=== PATIENT | female | born 1990 | race Caucasian/White ===

== ENCOUNTER 2020-06-29 06:36 | Day surgery (SDC) | payer MEDICAID, SELFPAY ==
[2020-06-29] VITALS (17 sets, daily range): BP systolic 110–149; BP diastolic 58–97; PULSE 104–108; RESP 16–18; TEMP 36.4; O2SAT 98–100; BMI 21.5
--- NOTE | 2020-06-29 10:00 | HO.ANESPROP2 ---
[facility], [facility] Past Medical History Medical History Asthma Brain tumor Diabetes Gastroparesis GERD (gastroesophageal reflux disease) History of brain tumor History of jejunostomy tube placement Hypothyroidism Neuropathy Unspecified convulsions Social History Social History Are you a primary aged or disabled carer to a significant other at home: No Do you presently have visiting nurse or other home services: Yes Smoking Status: Never smoker Use of substances other than those prescribed or required for medical reasons: No Advance Directives: Yes (unknown) Advance Directives Information Provided: No Advance Directives on File: Yes Advance Directives Date on File: 06/29/20 Recently lost weight without trying: Yes Meds Allergies Allergy/AdvReac Type Severity Reaction Status Date / Time lamotrigine [From LAMICTAL] Allergy Severe CLEMENTINA Verified 06/29/20 09:20 GUIDO SYNDROME Benzodiazepines Allergy Intermediate AGGITATION- Verified 06/29/20 09:20 [BENZODIAZEPINES] NO PROBLEM WITH VERSED chlorhexidine [CHLORHEXIDINE] Allergy Intermediate RASH Verified 06/29/20 09:20 citalopram [From CELEXA] Allergy Intermediate PROLONGED Verified 06/29/20 09:20 QT INTERVAL divalproex sodium Allergy Intermediate BLACK Verified 06/29/20 09:20 [From DEPAKOTE] EYES escitalopram [From LEXAPRO] Allergy Intermediate SWELLING Verified 06/29/20 09:20 lactose [LACTOSE] Allergy Intermediate GI UPSET Verified 06/29/20 09:20 povidone-iodine Allergy Intermediate rash Verified 06/29/20 09:20 [From BETADINE] BEETS Allergy Intermediate SWELLING Uncoded 05/28/20 18:37 STATLOC Allergy Intermediate RASH Uncoded 05/28/20 18:37 Home Medications Medication Instructions Recorded Confirmed Type Carafate 10 mg FEEDING TUBE BID 06/25/20 06/25/20 History Cogentin 1 mg J-TUBE BID 06/25/20 06/25/20 History Haldol 2 mg FEEDING TUBE BID PRN 06/25/20 06/25/20 History Imodium 15 ml FEEDING TUBE QID PRN 06/25/20 06/25/20 History Movantik 25 mg J-TUBE DAILY 06/25/20 06/25/20 History Topamax 200 mg J-TUBE BID 06/25/20 06/25/20 History Tylenol Children's 250 mg FEEDING TUBE TID PRN MDD 3 06/25/20 06/25/20 History Vitamin D (with calcium) 1,000 units J-TUBE DAILY 06/25/20 06/25/20 History Zofran 4 mg FEEDING TUBE QID 06/25/20 06/25/20 History albuterol sulfate 2 puff INHALATION 6XD 06/25/20 06/25/20 History baclofen 10 mg J-TUBE TID 06/25/20 06/25/20 History diphenhydramine HCl [Benadryl] 50 mg IV Q6-8H 06/25/20 06/25/20 History famotidine [Pepcid] 20 mg DAILY 06/25/20 06/25/20 History gabapentin 600 mg J-TUBE TID 06/25/20 06/25/20 History ipratropium-albuterol [DuoNeb] 3 ml INHALATION Q6-8H PRN 06/25/20 06/25/20 History lactulose 5 ml J-TUBE BID MDD 20ml 06/25/20 06/25/20 History levothyroxine 112 mcg J-TUBE DAILY 06/25/20 06/25/20 History loxapine 60 mg J-TUBE BID 06/25/20 06/25/20 History methenamine mandelate 1 g FEEDING TUBE BID 06/25/20 06/25/20 History midodrine 10 mg J-TUBE TID 06/25/20 06/25/20 History oxybutynin 3.9 mg TRANSDERMAL DIRECTED 06/25/20 06/25/20 History oxycodone 10 mg FEEDING TUBE DAILY PRN 06/25/20 06/25/20 History pantoprazole [Protonix] 40 mg IV DAILY 06/25/20 06/25/20 History promethazine [Phenergan] 25 mg IV BID 06/25/20 06/25/20 History trazodone 25 mg J-TUBE ONCE PRN 06/25/20 06/25/20 History trazodone 125 mg J-TUBE BEDTIME 06/25/20 06/25/20 History Exam Exam Date and Time: June 29, 2020 1000 Height,Weight and Vital Signs: Height 4 ft 10 in Weight 46.8 kg Last Vital Signs Temp 97.6 F 06/29/20 09:04 Pulse 108 H 06/29/20 09:04 Resp 16 06/29/20 09:04 BP 149/97 H 06/29/20 09:04 Pulse Ox 100 06/29/20 09:04 Airway Mallampati Class: II TM Dist: >3cm Neck ROM: Full Assessment and Plan Assessment Anesthesia Assessment: Anesthesia Plan Discussed and Chart Reviewed Final Anesthetic Review ASA Class: III Final Preanesthetic Review: No Changes in Pt Med Stat, Meds/Allgs Chart Reviewed, Consent Obtained/Reviewed and Anes Risks/Benef Reviewed Patient Risk: Intermediate Procedure Risk: Low Assessment/Block/Sedation in SS: Assess/Block/Sedation-SS Anesthetic Plan Anesthetic Plan: MAC: Disposition: Standard PACU
--- NOTE | 2020-06-29 10:17 | PM.OP ---
Brief Operative Note Date of procedure: 06/29/20 Pre-op diagnosis: neurogenic bladder Post-op diagnosis: same Procedure: SPT change Implants: 20 Khmer catheter Surgeon: Denys Pereira MD Anesthesia: MAC Estimated blood loss (mL): 0 Pathology: none sent Condition: stable Disposition: same day
[2020-06-29] MEDS: HYDROmorphone HCl 1 MG/ML SYRINGE IVPUSH (10:33)
--- NOTE | 2020-06-29 11:11 | P.OP_ITS ---
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 This results in a neurogenic bladder. Has a suprapubic tube that is changed every 4 weeks. Twenty [place] Procedure: after informed consent was verified patient brought to the operating room on a stretcher. Safety pause time-out performed. Sedation given. The 20 [place] Waldron catheter indwelling was removed. This had been placed at [facility] at 30 cc in the balloon. A new 20 [place] catheter was replaced in 10 cc placed in the balloon Catheter was clamped to allow urine to collect for urine culture. She tolerated procedure well and was transferred in stable condition to the recovery area Drains as above 20 [place] Waldron
--- NOTE | 2020-06-29 12:13 | HO.POSTANES ---
Post Anesthesia Evaluation Post Anesthesia Evaluation Vital Signs: Vital Signs Temp Pulse Resp BP Pulse Ox 06/29/20 11:35 106 H 16 120/67 98 06/29/20 11:20 106 H 16 127/82 98 06/29/20 11:15 107 H 16 110/65 99 06/29/20 11:10 108 H 16 113/65 99 06/29/20 11:05 108 H 16 112/70 99 06/29/20 11:00 104 H 16 116/72 99 06/29/20 10:55 108 H 18 115/79 100 06/29/20 10:50 106 H 18 140/83 H 100 06/29/20 10:45 107 H 18 131/79 100 06/29/20 10:40 104 H 121/81 100 06/29/20 10:35 104 H 124/79 100 06/29/20 10:30 106 H 141/64 H 100 06/29/20 10:25 107 H 18 128/58 L 100 06/29/20 10:20 97.5 F 107 H 18 141/87 H 100 06/29/20 09:04 97.6 F 108 H 16 149/97 H 100 Anesthesia: General Mental Status: Awake Pain Control: Satisfactory Nausea/Vomiting: None Hydration: Adequate Anesthesia-Related Issues: No Anes. Related Issues
--- NOTE | 2020-06-29 17:23 | PC.NURSE ---
06/29/2020 THIS PATIENT DISCHARGED FROM PACU AT 1230 VIA AMBULANCE TRANSPORTATION, PTS WHEELCHAIR ACCOMP TO [facility] B[facility] BY POWER DISTRIBUTION ENGINEER. PT HAS HER TPN AND FLUIDS RUNNING TO R CHEST TLC FROM HOME,PT HEPARANIZED YELLOW LUMEN HERSELF AFTER THIS RN HAD DC'D OUR IV FLUIDS AND NS FLUSH AFTER FLUID DC'D
== END 2020-06-29 12:37 | disposition home or self-care (01) ==
PROVIDERS: PCP Internal Medicine; Visit Provider Urology
PROC: (CPT 51102; principal; 2020-06-29 09:30)
DX: N31.9 Neuromuscular dysfunction of bladder, unspecified (principal); J45.909 Unspecified asthma, uncomplicated; E11.9 Type 2 diabetes mellitus without complications; K21.9 Gastro-esophageal reflux disease without esophagitis; K31.84 Gastroparesis; Z93.1 Gastrostomy status; G62.9 Polyneuropathy, unspecified; Z79.899 Other long term (current) drug therapy; Z88.8 Allergy status to other drugs, medicaments and biological substances
CPT/HCPCS: 51705; 87086; 87088; 87186; J0690; J1170

== ENCOUNTER 2020-07-27 09:58 | Day surgery (SDC) | payer MEDICAID, SELFPAY ==
[2020-07-21 20:25] VITALS: BMI 22.6
[2020-07-27] VITALS (8 sets, daily range): BP systolic 94–134; BP diastolic 55–84; PULSE 97–114; RESP 18–22; TEMP 36.1–36.4; O2SAT 100
[2020-07-27 10:32] LABS: Glucose, Whole Blood 99 mg/dL (60-115)
--- NOTE | 2020-07-27 11:17 | HO.ANESPROP2 ---
[facility] Past Medical History Medical History Asthma Brain bleed Brain tumor Diabetes Gastroparesis GERD (gastroesophageal reflux disease) History of jejunostomy tube placement Hypothyroidism Neuropathy Suprapubic catheter Unspecified convulsions Surgical History Surgical History Hx of oral surgery Social History Social History Smoking Status: Never smoker Use of substances other than those prescribed or required for medical reasons: No Advance Directives: Yes Advance Directives Information Provided: Yes Advance Directives on File: Yes Advance Directives Date on File: 06/29/20 Meds Allergies Allergy/AdvReac Type Severity Reaction Status Date / Time lamotrigine [From LAMICTAL] Allergy Severe CLEMENTINA Verified 06/29/20 09:20 GUIDO SYNDROME Benzodiazepines Allergy Intermediate AGGITATION- Verified 06/29/20 09:20 [BENZODIAZEPINES] NO PROBLEM WITH VERSED chlorhexidine [CHLORHEXIDINE] Allergy Intermediate RASH Verified 06/29/20 09:20 citalopram [From CELEXA] Allergy Intermediate PROLONGED Verified 06/29/20 09:20 QT INTERVAL divalproex sodium Allergy Intermediate BLACK Verified 06/29/20 09:20 [From DEPAKOTE] EYES escitalopram [From LEXAPRO] Allergy Intermediate SWELLING Verified 06/29/20 09:20 lactose [LACTOSE] Allergy Intermediate GI UPSET Verified 06/29/20 09:20 povidone-iodine Allergy Intermediate rash Verified 06/29/20 09:20 [From BETADINE] BEETS Allergy Intermediate SWELLING Uncoded 05/28/20 18:37 STATLOC Allergy Intermediate RASH Uncoded 05/28/20 18:37 Home Medications Medication Instructions Recorded Confirmed Type Carafate 10 mg FEEDING TUBE BID 06/25/20 07/21/20 History Cogentin 1 mg J-TUBE BID 06/25/20 07/21/20 History Haldol 2 mg FEEDING TUBE BID PRN 06/25/20 07/21/20 History Imodium 15 ml FEEDING TUBE QID PRN 06/25/20 07/21/20 History Movantik 25 mg J-TUBE DAILY 06/25/20 07/21/20 History Topamax 200 mg J-TUBE BID 06/25/20 07/21/20 History Tylenol Children's 250 mg FEEDING TUBE TID PRN MDD 3 06/25/20 07/21/20 History Vitamin D (with calcium) 1,000 units J-TUBE DAILY 06/25/20 07/21/20 History Zofran 4 mg FEEDING TUBE QID 06/25/20 07/21/20 History albuterol sulfate 2 puff INHALATION 6XD 06/25/20 07/21/20 History baclofen 10 mg J-TUBE TID 06/25/20 07/21/20 History diphenhydramine HCl 50 mg IV Q6-8H 06/25/20 07/21/20 History famotidine 20 mg DAILY 06/25/20 07/21/20 History gabapentin 600 mg J-TUBE TID 06/25/20 07/21/20 History ipratropium-albuterol 3 ml INHALATION Q6-8H PRN 06/25/20 07/21/20 History lactulose 5 ml J-TUBE BID MDD 20ml 06/25/20 07/21/20 History levothyroxine 112 mcg J-TUBE DAILY 06/25/20 07/21/20 History loxapine 60 mg J-TUBE BID 06/25/20 07/21/20 History methenamine mandelate 1 g FEEDING TUBE BID 06/25/20 07/21/20 History midodrine 10 mg J-TUBE TID 06/25/20 07/21/20 History oxybutynin 3.9 mg TRANSDERMAL DIRECTED 06/25/20 07/21/20 History oxycodone 10 mg FEEDING TUBE Q4-6H PRN 06/25/20 07/21/20 History pantoprazole [Protonix] 40 mg IV DAILY 06/25/20 07/21/20 History promethazine [Phenergan] 25 mg IV BID 06/25/20 07/21/20 History trazodone 25 mg J-TUBE ONCE PRN 06/25/20 07/21/20 History trazodone 125 mg J-TUBE BEDTIME 06/25/20 07/21/20 History Exam Exam Date and Time: July 27, 2020 1117 Height,Weight and Vital Signs: Height 4 ft 10 in Weight 49 kg Last Vital Signs Temp 97.5 F 07/27/20 10:13 Pulse 107 H 11/16/20 10:13 Resp 18 07/27/20 10:13 BP 99/70 07/27/20 10:13 Pulse Ox 100 07/27/20 10:13 Pertinent Lab Results Pertinent Lab Results: Laboratory Tests 07/27/20 10:28 POC Glucose 99 Airway Mallampati Class: II TM Dist: >3cm Neck ROM: Full Assessment and Plan Assessment Anesthesia Assessment: Anesthesia Plan Discussed and Chart Reviewed Final Anesthetic Review NPO: Yes ASA Class: III Final Preanesthetic Review: No Changes in Pt Med Stat, Meds/Allgs Chart Reviewed, Consent Obtained/Reviewed and Anes Risks/Benef Reviewed Patient Risk: Intermediate Procedure Risk: Low Assessment/Block/Sedation in SS: Assess/Block/Sedation-SS Anesthetic Plan Anesthetic Plan: MAC: Disposition: Standard PACU
--- NOTE | 2020-07-27 11:18 | MHC.SHP ---
Pre-Procedural Eval Section B Chief Complaint: bladder neurogenic Details of Present Illness: here for change of suprapubic tube performed every 4 weeks. No changes to health record. Relevant Family History (Specify if Yes): No Relevant Social History: None Present Medications: see Short Stay [facility] assessment Medical History: Significant History History of Previous Operations: Relevant previous surgery/procedure and date(s) Allergies: Allergies Allergy/AdvReac Type Severity Reaction Status Date / Time lamotrigine [From LAMICTAL] Allergy Severe CLEMENTINA Verified 06/29/20 09:20 GUIDO SYNDROME Benzodiazepines Allergy Intermediate AGGITATION- Verified 06/29/20 09:20 [BENZODIAZEPINES] NO PROBLEM WITH VERSED chlorhexidine [CHLORHEXIDINE] Allergy Intermediate RASH Verified 06/29/20 09:20 citalopram [From CELEXA] Allergy Intermediate PROLONGED Verified 06/29/20 09:20 QT INTERVAL divalproex sodium Allergy Intermediate BLACK Verified 06/29/20 09:20 [From DEPAKOTE] EYES escitalopram [From LEXAPRO] Allergy Intermediate SWELLING Verified 06/29/20 09:20 lactose [LACTOSE] Allergy Intermediate GI UPSET Verified 06/29/20 09:20 povidone-iodine Allergy Intermediate rash Verified 06/29/20 09:20 [From BETADINE] BEETS Allergy Intermediate SWELLING Uncoded 05/28/20 18:37 STATLOC Allergy Intermediate RASH Uncoded 05/28/20 18:37 Review of Systems Sugical H&P ROS: Negative: Constitution, Cardiovascular, Respiratory, Neurological, Psychiatric, Hem-Onc, Allergic/Immunologic, Gastrointestinal, Genitourinary, Musculoskeletal, Integumentary, Endocrine and Eyes/Ears/Nose/Throat Exam Surgical H&P Exam: Normal: HEENT, Normal: Heart, Normal: Lungs, Normal: Extremities, Normal: Abdomen, Normal: Skin and Normal: Neurological Plan Diagnosis/Plan: Unchanged Patient has been examined and remains a candidate for the planned procedure
[2020-07-27] MEDS: ceFAZolin Sodium/Dextrose,Iso 2 GM/50 ML PIGGYBACK IV (11:24)
--- NOTE | 2020-07-27 11:38 | P.OP_ITS ---
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 This results in a neurogenic bladder. Has a suprapubic tube that is changed every 4 weeks. Twenty [place] Procedure: After informed consent was verified patient brought to the operating room on a stretcher. Safety pause time-out performed. Sedation given. A new 20 [place] catheter was replaced with 7 cc placed in the balloon Catheter was clamped to allow urine to collect for urine culture. She tolerated procedure well and was transferred in stable condition to the recovery area Drains as above 20 [place] Waldron
--- NOTE | 2020-07-27 11:38 | PM.OP ---
Brief Operative Note Date of Service: 07/27/20 Pre-op diagnosis: Neurogenic bladder Post-op diagnosis: same Procedure: suprapubic tube change Implants: 20 [place] Island[place] silicon Waldron catheter Surgeon: Denys Pereira MD Anesthesia: MAC Estimated blood loss (mL): 0 Pathology: none sent Condition: stable Disposition: same day
[2020-07-27] MEDS: HYDROmorphone HCl 1 MG/ML SYRINGE IVPUSH (12:14)
--- NOTE | 2020-07-27 12:45 | HO.POSTANES ---
Post Anesthesia Evaluation Post Anesthesia Evaluation Vital Signs: Vital Signs Temp Pulse Resp BP Pulse Ox 07/27/20 12:40 105 H 18 100/55 L 100 07/27/20 12:27 100 18 114/65 100 07/27/20 12:14 105 H 22 H 108/74 100 07/27/20 11:59 114 H 18 134/84 100 07/27/20 11:40 97.0 F 100 20 108/71 100 07/27/20 10:13 97.5 F 107 H 18 99/70 100 Anesthesia: Monitored Mental Status: Awake Pain Control: Satisfactory Nausea/Vomiting: None Hydration: Adequate Anesthesia-Related Issues: No Anes. Related Issues
== END 2020-07-27 14:00 | disposition home or self-care (01) ==
LOC: HO.SSS 09:58
PROVIDERS: PCP Internal Medicine; Visit Provider Urology
PROC: (CPT 51102; principal; 2020-07-27 11:00)
DX: N31.9 Neuromuscular dysfunction of bladder, unspecified (principal); G37.9 Demyelinating disease of central nervous system, unspecified; G62.9 Polyneuropathy, unspecified; K31.84 Gastroparesis; K21.9 Gastro-esophageal reflux disease without esophagitis; E03.9 Hypothyroidism, unspecified; J45.909 Unspecified asthma, uncomplicated; Z79.899 Other long term (current) drug therapy; Z88.8 Allergy status to other drugs, medicaments and biological substances
CPT/HCPCS: 51705; 82947; 87086; 87088; 87147; 87186; J0690; J1170

== ENCOUNTER → 2020-08-17 08:30 | Outpatient (BNVA) | payer MEDICAID, SELFPAY | PROVIDERS: PCP Internal Medicine; Referring Provider Internal Medicine; Visit Provider Internal Medicine Gastroenterology | DX: Z76.89 Persons encountering health services in other specified circumstances (principal) ==

== ENCOUNTER → 2020-08-28 11:08 | Outpatient (BNVA) | payer MEDICAID, SELFPAY | PROVIDERS: PCP Internal Medicine; Visit Provider Internal Medicine Gastroenterology | DX: Z76.89 Persons encountering health services in other specified circumstances (principal) ==

== ENCOUNTER → 2020-09-09 09:19 | Outpatient (BNVA) | payer MEDICAID, SELFPAY | PROVIDERS: PCP Internal Medicine; Visit Provider Urology | DX: Z76.89 Persons encountering health services in other specified circumstances (principal) ==

== ENCOUNTER 2020-09-14 06:10 | Day surgery (SDC) | payer MEDICAID, SELFPAY ==
[2020-09-14 06:24] VITALS: BMI 16.7
[2020-09-14 06:49] VITALS: BP 142/96; PULSE 111; RESP 16; TEMP 37.5; O2SAT 100; BMI 37.0
[2020-09-14] MEDS: Lactated Ringers 1,000 ML 50 ML IVCONT (07:09)
--- NOTE | 2020-09-14 07:27 | MHC.SHP ---
Pre-Procedural Eval Section A The patient is an INPATIENT: No Changes since office visit: No Cold of Flu in the past 2 weeks, No New Medical Problems, No Changes in Medication and No Patient answered all questions The History & Physical has been completed within 30 days and I have reviewed it.: Yes Section B Chief Complaint: dysfunction of bladder Allergies: Allergies Allergy/AdvReac Type Severity Reaction Status Date / Time lamotrigine [From LAMICTAL] Allergy Severe CLEMENTINA Verified 06/29/20 09:20 GUIDO SYNDROME Benzodiazepines Allergy Intermediate AGGITATION- Verified 06/29/20 09:20 [BENZODIAZEPINES] NO PROBLEM WITH VERSED chlorhexidine [CHLORHEXIDINE] Allergy Intermediate RASH Verified 06/29/20 09:20 citalopram [From CELEXA] Allergy Intermediate PROLONGED Verified 06/29/20 09:20 QT INTERVAL divalproex sodium Allergy Intermediate BLACK Verified 06/29/20 09:20 [From DEPAKOTE] EYES escitalopram [From LEXAPRO] Allergy Intermediate SWELLING Verified 06/29/20 09:20 lactose [LACTOSE] Allergy Intermediate GI UPSET Verified 06/29/20 09:20 povidone-iodine Allergy Intermediate rash Verified 06/29/20 09:20 [From BETADINE] BEETS Allergy Intermediate SWELLING Uncoded 05/28/20 18:37 STATLOC Allergy Intermediate RASH Uncoded 05/28/20 18:37 Plan I have reviewed the history and physical and performed a pertinent physical examination on my patient. No changes have occurred unless specified.
[2020-09-14] MEDS: Linezolid/D5W 600 MG/300 ML PIGGYBACK 300 MG IV (07:28)
--- NOTE | 2020-09-14 07:30 | HO.ANESPROP2 ---
[facility] Past Medical History Medical History Asthma Brain bleed Brain tumor Diabetes Gastroparesis GERD (gastroesophageal reflux disease) History of jejunostomy tube placement Hypothyroidism Neuropathy Suprapubic catheter Unspecified convulsions Family History Family History Father No problems noted. Mother No problems noted. Surgical History Surgical History History of colonoscopy Hx of endoscopy Hx of oral surgery Social History Social History Alcohol intake: never Smoking Status: Never smoker Use of substances other than those prescribed or required for medical reasons: No Advance Directives: Yes Advance Directives on File: Yes Advance Directives Date on File: 06/29/20 Meds Allergies Allergy/AdvReac Type Severity Reaction Status Date / Time lamotrigine [From LAMICTAL] Allergy Severe CLEMENTINA Verified 06/29/20 09:20 GUIDO SYNDROME Benzodiazepines Allergy Intermediate AGGITATION- Verified 06/29/20 09:20 [BENZODIAZEPINES] NO PROBLEM WITH VERSED chlorhexidine [CHLORHEXIDINE] Allergy Intermediate RASH Verified 06/29/20 09:20 citalopram [From CELEXA] Allergy Intermediate PROLONGED Verified 06/29/20 09:20 QT INTERVAL divalproex sodium Allergy Intermediate BLACK Verified 06/29/20 09:20 [From DEPAKOTE] EYES escitalopram [From LEXAPRO] Allergy Intermediate SWELLING Verified 06/29/20 09:20 lactose [LACTOSE] Allergy Intermediate GI UPSET Verified 06/29/20 09:20 povidone-iodine Allergy Intermediate rash Verified 06/29/20 09:20 [From BETADINE] BEETS Allergy Intermediate SWELLING Uncoded 05/28/20 18:37 STATLOC Allergy Intermediate RASH Uncoded 05/28/20 18:37 Home Medications Medication Instructions Recorded Confirmed Type Carafate 10 mg FEEDING TUBE BID 06/25/20 07/21/20 History Cogentin 1 mg J-TUBE BID 06/25/20 07/21/20 History Haldol 2 mg FEEDING TUBE BID PRN 06/25/20 07/21/20 History Imodium 15 ml FEEDING TUBE QID PRN 06/25/20 07/21/20 History Topamax 200 mg J-TUBE BID 06/25/20 07/21/20 History Tylenol Children's 250 mg FEEDING TUBE TID PRN MDD 3 06/25/20 07/21/20 History Vitamin D (with calcium) 1,000 units J-TUBE DAILY 06/25/20 07/21/20 History Zofran 4 mg FEEDING TUBE QID 06/25/20 07/21/20 History albuterol sulfate 2 puff INHALATION 6XD 06/25/20 07/21/20 History baclofen 10 mg J-TUBE TID 06/25/20 07/21/20 History diphenhydramine HCl 50 mg IV Q6-8H 06/25/20 07/21/20 History famotidine 20 mg DAILY 06/25/20 07/21/20 History gabapentin 600 mg J-TUBE TID 06/25/20 07/21/20 History ipratropium-albuterol 3 ml INHALATION Q6-8H PRN 06/25/20 07/21/20 History lactulose 5 ml J-TUBE BID MDD 20ml 06/25/20 07/21/20 History levothyroxine 112 mcg J-TUBE DAILY 06/25/20 07/21/20 History loxapine 60 mg J-TUBE BID 06/25/20 07/21/20 History methenamine mandelate 1 g FEEDING TUBE BID 06/25/20 07/21/20 History midodrine 10 mg J-TUBE TID 06/25/20 07/21/20 History oxybutynin 3.9 mg TRANSDERMAL DIRECTED 06/25/20 07/21/20 History oxycodone 10 mg FEEDING TUBE Q4-6H PRN 06/25/20 07/21/20 History pantoprazole [Protonix] 40 mg IV DAILY 06/25/20 07/21/20 History promethazine [Phenergan] 25 mg IV BID 06/25/20 07/21/20 History trazodone 25 mg J-TUBE ONCE PRN 06/25/20 07/21/20 History trazodone 125 mg J-TUBE BEDTIME 06/25/20 07/21/20 History Exam Exam Date and Time: September 14, 2020 0730 Height,Weight and Vital Signs: Height 4 ft 10 in Weight 80.3 kg Last Vital Signs Temp 99.5 F 09/14/20 06:49 Pulse 111 H 09/14/20 06:49 Resp 16 09/14/20 06:49 BP 142/96 H 09/14/20 06:49 Pulse Ox 100 09/14/20 06:49 Airway Mallampati Class: II TM Dist: >3cm Neck ROM: Full Loose/Missing/Broken Teeth: No Heart: [id number] Lungs: cta b/l Assessment and Plan Assessment Anesthesia Assessment: Anesthesia Plan Discussed and Chart Reviewed Final Anesthetic Review NPO: Yes ASA Class: III Final Preanesthetic Review: No Changes in Pt Med Stat, Meds/Allgs Chart Reviewed, Consent Obtained/Reviewed and Anes Risks/Benef Reviewed Patient Risk: Intermediate Procedure Risk: Low Assessment/Block/Sedation in SS: Assess/Block/Sedation-SS Anesthetic Plan Anesthetic Plan: MAC: Disposition: Standard PACU
--- NOTE | 2020-09-14 07:31 | PC.NURSE ---
CALLED AND SPOKE TO PHARMACIST JEAN-PAUL AND ITS OKAY TO LET [employer] RUN IN ONE HOUR. OK TO OVERRIDE MACHINE
[2020-09-14 07:34] LABS: Glucose, Whole Blood 110 mg/dL (60-115)
--- NOTE | 2020-09-14 07:50 | P.OP_ITS ---
Operative Note Operative Note Date of Service: 09/14/20 Narrative: PreOperative Diagnosis: neurogenic bladder Post Operative Diagnosis: neurogenic bladder with Small nerve demyelination hypersensitivity Procedure: suprapubic tube change Surgeon: Dr Denys Pereira Anesthesia: sedation Indications for procedure: neurogenic bladder with small nerve demyelination hypersensitivity. Has SPT changed every 4 weeks Procedure: After informed consent was verified the patient was brought to the operating room and placed in a supine position. anesthesia was administered per protocol. informed consent was verified Safety pause timeout performed Antibiotics have been given Area was draped. She is allergic to most forms of prep. Indwelling catheter was deflated and removed. A [address] catheter was placed. Tolerated procedure well and transferred to recovery area Pathology: None Drains: 20 [place] Waldron catheter
[2020-09-14 07:53] VITALS: BP 101/63; PULSE 106; RESP 20; TEMP 36.5; O2SAT 100
--- NOTE | 2020-09-14 07:53 | P.BOP_ITS ---
Brief Operative Note Date of Service: 09/14/20 Pre-op diagnosis: Neurogenic bladder Post-op diagnosis: same Procedure: SPT change Implants: Twenty [place] Waldron catheter Surgeon: Denys Pereira MD Anesthesia: MAC Estimated blood loss (mL): 0 Pathology: none sent Condition: stable Disposition: same day
[2020-09-14 08:08] VITALS: BP 101/61; PULSE 107; RESP 20; O2SAT 100
[2020-09-14 08:22] VITALS: RESP 20
[2020-09-14] MEDS: HYDROmorphone HCl 0.5 MG/0.5 ML SYRINGE 1 MG IVPUSH (08:22)
[2020-09-14 08:23] VITALS: BP 98/63; PULSE 108; RESP 20; O2SAT 98
[2020-09-14 08:35] VITALS: BP 118/73; PULSE 108; RESP 20; TEMP 36.2; O2SAT 100
== END 2020-09-14 08:49 ==
PROVIDERS: PCP Internal Medicine; Visit Provider Urology
PROC: (CPT 51102; principal; 2020-09-14 07:30)
DX: N31.9 Neuromuscular dysfunction of bladder, unspecified (principal); E11.9 Type 2 diabetes mellitus without complications; G37.9 Demyelinating disease of central nervous system, unspecified; G62.89 Other specified polyneuropathies; J45.909 Unspecified asthma, uncomplicated; R56.9 Unspecified convulsions; Z79.899 Other long term (current) drug therapy; Z88.8 Allergy status to other drugs, medicaments and biological substances
CPT/HCPCS: 51705; 82947; J1170; J2020; J2250; J3010

== ENCOUNTER → 2020-10-09 11:05 | Outpatient (BNVA) | payer MEDICAID, SELFPAY | PROVIDERS: PCP Internal Medicine; Visit Provider Internal Medicine Gastroenterology ==

== ENCOUNTER 2020-10-12 06:07 | Day surgery (SDC) | payer MEDICAID, SELFPAY ==
[2020-10-06 14:57] VITALS: BMI 16.7
--- NOTE | 2020-10-07 10:34 | P.CONAN_ITS ---
Documented by User: Lucila Sanchezney 10/07/20 10:39 HPI - Anesthesia Eval Consult details Narrative: 30yo F for Insertion Suprapubic Tube Change Last SPT change 09/14/20 with MAC: Midaz 2 Prop 50 Dilaudid 2 Recent [place] admit with Right Hip Septic arthritis. Grew out wanda c/w re cent fungemia treatment. On IV Diflucan post d/c. Per D/C summary, no cardiac valve veg on ECHO. Chronic opioid doses increased in setting of acute post-op pain. [facility] Past Medical History Medical History Asthma Brain bleed Brain tumor Diabetes Gastroparesis GERD (gastroesophageal reflux disease) History of jejunostomy tube placement Hypothyroidism Neuropathy Seizures Septic arthritis Suprapubic catheter Unspecified convulsions Family History Family History (Updated 10/09/20 @ 11:12 by Jenifer Pedraza) Father Skin cancer Mother No problems noted. Surgical History Surgical History (Updated 10/09/20 @ 11:11 by Jenifer Pedraza) History of colonoscopy History of esophagogastroduodenoscopy (EGD) History of hip surgery Hx of endoscopy Hx of oral surgery Social History Social History (Updated 10/09/20 @ 11:13 by Jenifer Pedraza) Household Members: Caregiver and None Are you a primary rn progressive care to a significant other at home: No Do you presently have visiting nurse or other home services: Yes Alcohol intake: current Alcohol intake frequency: does not drink Smoking Status: Never smoker Use of substances other than those prescribed or required for medical reasons: No Have you been hit, kicked, punched, or otherwise hurt by someone within the past year? If so, by whom?: No Advance Directives: Yes Advance Directives Information Provided: Yes Advance Directives on File: Yes Advance Directives Date on File: 06/29/20 Recently lost weight without trying: Yes Meds Allergies Allergy/AdvReac Type Severity Reaction Status Date / Time lamotrigine [From LAMICTAL] Allergy Severe CLEMENTINA Verified 10/09/20 11:10 GUIDO SYNDROME chlorhexidine [CHLORHEXIDINE] Allergy Intermediate RASH Verified 10/09/20 11:10 citalopram [From CELEXA] Allergy Intermediate PROLONGED Verified 10/09/20 11:10 QT INTERVAL divalproex sodium Allergy Intermediate BLACK Verified 10/09/20 11:10 [From DEPAKOTE] EYES escitalopram [From LEXAPRO] Allergy Intermediate SWELLING Verified 10/09/20 11:10 lactose [LACTOSE] Allergy Intermediate GI UPSET Verified 10/09/20 11:10 povidone-iodine Allergy Intermediate rash Verified 10/09/20 11:10 [From BETADINE] clonazepam [From Klonopin] Allergy agitation Verified 10/09/20 11:10 lorazepam [From Ativan] Allergy agitation Verified 10/09/20 11:10 BEETS Allergy Intermediate SWELLING Uncoded 10/06/20 15:12 STATLOC Allergy Intermediate RASH Uncoded 10/06/20 15:12 Home Medications Medication Instructions Recorded Confirmed Type Tylenol Children's 250 mg FEEDING TUBE TID PRN MDD 3 06/25/20 07/21/20 History Vitamin D (with calcium) 1,000 units J-TUBE DAILY 06/25/20 07/21/20 History Zofran 4 mg FEEDING TUBE QID 06/25/20 07/21/20 History albuterol sulfate 2 puff INHALATION 6XD 06/25/20 10/06/20 History diphenhydramine HCl 50 mg IV Q6-8H 06/25/20 07/21/20 History famotidine 20 mg DAILY 06/25/20 10/06/20 History lactulose 5 ml J-TUBE BID MDD 20ml 06/25/20 07/21/20 History loperamide [Imodium A-D] 2 mg FEEDING TUBE Q6H PRN #0 06/25/20 10/06/20 History loxapine 60 mg J-TUBE BID 06/25/20 07/21/20 History oxybutynin 3.9 mg TRANSDERMAL DIRECTED 06/25/20 07/21/20 History pantoprazole [Protonix] 40 mg IV DAILY 06/25/20 10/06/20 History promethazine [Phenergan] 25 mg IV BID 06/25/20 10/06/20 History acetaminophen 500 mg FEEDING TUBE QID PRN 10/06/20 10/06/20 History baclofen 10 mg FEEDING TUBE TID 10/06/20 10/06/20 History benztropine [Cogentin] 1 mg FEEDING TUBE DAILY 10/06/20 10/06/20 History famotidine (PF)-NaCl (iso-os) 20 mg IV DAILY 10/06/20 10/06/20 History [Pepcid in NaCl (iso-osm) (PF)] fludrocortisone [Florinef] 0.1 mg FEEDING TUBE DAILY 10/06/20 10/06/20 History fluoxetine 60 mg FEEDING TUBE BID 10/06/20 10/06/20 History gabapentin 600 mg FEEDING TUBE TID 10/06/20 10/06/20 History ipratropium-albuterol [DuoNeb] 3 ml INHALATION Q6-8H PRN 10/06/20 10/06/20 History levothyroxine 112 mcg FEEDING TUBE DAILY 10/06/20 10/06/20 History methenamine hippurate [Hiprex] 1 g FEEDING TUBE Q12H 10/06/20 10/06/20 History midodrine 10 mg FEEDING TUBE BID 10/06/20 10/06/20 History naloxegol [Movantik] 25 mg PO QAM 10/06/20 10/06/20 History oxycodone 15 mg FEEDING TUBE Q4H 10/06/20 10/06/20 History sucralfate [Carafate] 10 ml PO BID 10/06/20 10/06/20 History topiramate [Topamax] 200 mg FEEDING TUBE BID 10/06/20 10/06/20 History trazodone 25 mg FEEDING TUBE DAILY PRN 10/06/20 10/06/20 History trazodone 125 mg FEEDING TUBE BEDTIME 10/06/20 10/06/20 History Exam Exam Date and Time: October 07, 2020 1034 Height,Weight and Vital Signs: Height 4 ft 10 in Weight 36.287 kg Assessment and Plan Assessment Anesthesia Assessment: Chart Reviewed Documented by User: Toya Lang 10/12/20 08:50 [facility] Past Medical History Medical History Asthma Brain bleed Brain tumor Diabetes Gastroparesis GERD (gastroesophageal reflux disease) History of jejunostomy tube placement Hypothyroidism Neuropathy Seizures Septic arthritis Suprapubic catheter Unspecified convulsions Family History Family History (Updated 10/09/20 @ 11:12 by Jenifer Pedraza) Father Skin cancer Mother No problems noted. Surgical History Surgical History (Updated 10/09/20 @ 11:11 by Jenifer Pedraza) History of colonoscopy History of esophagogastroduodenoscopy (EGD) History of hip surgery Hx of endoscopy Hx of oral surgery Social History Social History (Updated 10/09/20 @ 11:13 by Jenifer Pedraza) Household Members: Caregiver and None Are you a primary rn progressive care to a significant other at home: No Do you presently have visiting nurse or other home services: Yes Alcohol intake: current Alcohol intake frequency: does not drink Smoking Status: Never smoker Use of substances other than those prescribed or required for medical reasons: No Have you been hit, kicked, punched, or otherwise hurt by someone within the past year? If so, by whom?: No Advance Directives: Yes Advance Directives Information Provided: Yes Advance Directives on File: Yes Advance Directives Date on File: 06/29/20 Recently lost weight without trying: Yes Meds Allergies Allergy/AdvReac Type Severity Reaction Status Date / Time lamotrigine [From LAMICTAL] Allergy Severe CLEMENTINA Verified 10/09/20 11:10 GUIDO SYNDROME chlorhexidine [CHLORHEXIDINE] Allergy Intermediate RASH Verified 10/09/20 11:10 citalopram [From CELEXA] Allergy Intermediate PROLONGED Verified 10/09/20 11:10 QT INTERVAL divalproex sodium Allergy Intermediate BLACK Verified 10/09/20 11:10 [From DEPAKOTE] EYES escitalopram [From LEXAPRO] Allergy Intermediate SWELLING Verified 10/09/20 11:10 lactose [LACTOSE] Allergy Intermediate GI UPSET Verified 10/09/20 11:10 povidone-iodine Allergy Intermediate rash Verified 10/09/20 11:10 [From BETADINE] clonazepam [From Klonopin] Allergy agitation Verified 10/09/20 11:10 lorazepam [From Ativan] Allergy agitation Verified 10/09/20 11:10 BEETS Allergy Intermediate SWELLING Uncoded 10/06/20 15:12 STATLOC Allergy Intermediate RASH Uncoded 10/06/20 15:12 Home Medications Medication Instructions Recorded Confirmed Type Tylenol Children's 250 mg FEEDING TUBE TID PRN MDD 3 06/25/20 07/21/20 History Vitamin D (with calcium) 1,000 units J-TUBE DAILY 06/25/20 07/21/20 History Zofran 4 mg FEEDING TUBE QID 06/25/20 07/21/20 History albuterol sulfate 2 puff INHALATION 6XD 06/25/20 10/06/20 History diphenhydramine HCl 50 mg IV Q6-8H 06/25/20 07/21/20 History famotidine 20 mg DAILY 06/25/20 10/06/20 History lactulose 5 ml J-TUBE BID MDD 20ml 06/25/20 07/21/20 History loperamide [Imodium A-D] 2 mg FEEDING TUBE Q6H PRN #0 06/25/20 10/06/20 History loxapine 60 mg J-TUBE BID 06/25/20 07/21/20 History oxybutynin 3.9 mg TRANSDERMAL DIRECTED 06/25/20 07/21/20 History pantoprazole [Protonix] 40 mg IV DAILY 06/25/20 10/06/20 History promethazine [Phenergan] 25 mg IV BID 06/25/20 10/06/20 History acetaminophen 500 mg FEEDING TUBE QID PRN 10/06/20 10/06/20 History baclofen 10 mg FEEDING TUBE TID 10/06/20 10/06/20 History benztropine [Cogentin] 1 mg FEEDING TUBE DAILY 10/06/20 10/06/20 History famotidine (PF)-NaCl (iso-os) 20 mg IV DAILY 10/06/20 10/06/20 History [Pepcid in NaCl (iso-osm) (PF)] fludrocortisone [Florinef] 0.1 mg FEEDING TUBE DAILY 10/06/20 10/06/20 History fluoxetine 60 mg FEEDING TUBE BID 10/06/20 10/06/20 History gabapentin 600 mg FEEDING TUBE TID 10/06/20 10/06/20 History ipratropium-albuterol [DuoNeb] 3 ml INHALATION Q6-8H PRN 10/06/20 10/06/20 History levothyroxine 112 mcg FEEDING TUBE DAILY 10/06/20 10/06/20 History methenamine hippurate [Hiprex] 1 g FEEDING TUBE Q12H 10/06/20 10/06/20 History midodrine 10 mg FEEDING TUBE BID 10/06/20 10/06/20 History naloxegol [Movantik] 25 mg PO QAM 10/06/20 10/06/20 History oxycodone 15 mg FEEDING TUBE Q4H 10/06/20 10/06/20 History sucralfate [Carafate] 10 ml PO BID 10/06/20 10/06/20 History topiramate [Topamax] 200 mg FEEDING TUBE BID 10/06/20 10/06/20 History trazodone 25 mg FEEDING TUBE DAILY PRN 10/06/20 10/06/20 History trazodone 125 mg FEEDING TUBE BEDTIME 10/06/20 10/06/20 History Exam Airway Mallampati Class: II TM Dist: >3cm Neck ROM: Limited Assessment and Plan Assessment Anesthesia Assessment: Anesthesia Plan Discussed and Chart Reviewed Final Anesthetic Review NPO: Yes ASA Class: III Final Preanesthetic Review: No Changes in Pt Med Stat, Meds/Allgs Chart Reviewed, Consent Obtained/Reviewed and Anes Risks/Benef Reviewed Patient Risk: Intermediate Procedure Risk: Low Assessment/Block/Sedation in SS: Assess/Block/Sedation-SS Anesthetic Plan Anesthetic Plan: MAC: Disposition: Standard PACU
[2020-10-12] VITALS (11 sets, daily range): BP systolic 98–138; BP diastolic 45–88; PULSE 80–95; RESP 6–20; TEMP 36–36.4; O2SAT 99–100
[2020-10-12 07:21] LABS: Glucose, Whole Blood 97 mg/dL (60-115)
[2020-10-12] MEDS: levoFLOXacin/D5W 500 MG/100 ML PIGGYBACK 100 MG IV (07:22)
--- NOTE | 2020-10-12 08:32 | MHC.SHP ---
Pre-Procedural Eval Section B Chief Complaint: Dysfunction of Bladder Details of Present Illness: Neurogenic bladder Interval events admitted to [facility] with incision and drainage of right septic hip found to be fungus On combination fluconazole and ertapenem currently Question of E coli in bladder Relevant Family History (Specify if Yes): No Relevant Social History: None Medical History: Significant History History of Previous Operations: Relevant previous surgery/procedure and date(s) Allergies: Allergies Allergy/AdvReac Type Severity Reaction Status Date / Time lamotrigine [From LAMICTAL] Allergy Severe CLEMENTINA Verified 10/09/20 11:10 GUIDO SYNDROME chlorhexidine [CHLORHEXIDINE] Allergy Intermediate RASH Verified 10/09/20 11:10 citalopram [From CELEXA] Allergy Intermediate PROLONGED Verified 10/09/20 11:10 QT INTERVAL divalproex sodium Allergy Intermediate BLACK Verified 10/09/20 11:10 [From DEPAKOTE] EYES escitalopram [From LEXAPRO] Allergy Intermediate SWELLING Verified 10/09/20 11:10 lactose [LACTOSE] Allergy Intermediate GI UPSET Verified 10/09/20 11:10 povidone-iodine Allergy Intermediate rash Verified 10/09/20 11:10 [From BETADINE] clonazepam [From Klonopin] Allergy agitation Verified 10/09/20 11:10 lorazepam [From Ativan] Allergy agitation Verified 10/09/20 11:10 BEETS Allergy Intermediate SWELLING Uncoded 10/06/20 15:12 STATLOC Allergy Intermediate RASH Uncoded 10/06/20 15:12 Review of Systems Sugical H&P ROS: Negative: Constitution, Cardiovascular, Respiratory, Neurological, Psychiatric, Hem-Onc, Allergic/Immunologic, Gastrointestinal, Genitourinary, Musculoskeletal, Integumentary, Endocrine and Eyes/Ears/Nose/Throat Exam Surgical H&P Exam: Normal: HEENT, Normal: Heart, Normal: Lungs, Normal: Extremities, Normal: Abdomen, Normal: Skin and Normal: Neurological Plan Diagnosis/Plan: Unchanged I have reviewed the history and physical and performed a pertinent physical examination on my patient. No changes have occurred unless specified. Suprapubic
[2020-10-12] MEDS: Lactated Ringers 1,000 ML 20 ML IVCONT (08:51)
[2020-10-12] MEDS: HYDROmorphone HCl 1 MG/ML SYRINGE IVPUSH (09:33)
--- NOTE | 2020-10-12 10:08 | PM.OP ---
Brief Operative Note Date of Service: 10/12/20 Pre-op diagnosis: Neurogenic bladder Post-op diagnosis: same Procedure: Change of suprapubic tube Implants: Twenty Bulgarian Waldron catheter Surgeon: Denys Pereira MD Anesthesia: MAC Estimated blood loss (mL): 0 Pathology: none sent Condition: stable Disposition: same day
--- NOTE | 2020-10-12 10:09 | P.OP_ITS ---
Operative Note Operative Note Date of Service: 10/12/20 Narrative: PreOperative Diagnosis: Neurogenic bladder Post Operative Diagnosis: Neurogenic bladder Procedure: Change of suprapubic tube Surgeon: Dr Denys Pereira Anesthesia: Sedation Indications for procedure: 30-year-old female. 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 Here for suprapubic tube change Procedure: After informed consent was verified the patient was brought to the operating room and placed in a supine position. anesthesia was administered per protocol. Patient was prepped and draped in sterile fashion. Safety pause time-out was observed. Indwelling catheter was deflated and a 20 Macedonian Waldron catheter placed with 10 cc placed in the balloon. She tolerated procedure well when complete was removed from operating room Pathology: None Drains: Twenty Macedonian Waldron catheter
--- NOTE | 2020-10-12 14:39 | HO.POSTANES ---
Post Anesthesia Evaluation Post Anesthesia Evaluation Vital Signs: Vital Signs Temp Pulse Resp BP Pulse Ox 10/12/20 10:15 80 6 L 138/88 100 10/12/20 10:00 97 F 89 16 122/50 L 100 10/12/20 09:45 92 16 121/45 L 100 10/12/20 09:39 89 16 109/77 100 10/12/20 09:34 95 20 125/86 100 10/12/20 09:33 18 10/12/20 09:30 97 F 90 20 101/69 100 10/12/20 09:25 80 16 98/62 100 10/12/20 09:20 83 16 101/59 L 100 10/12/20 09:15 96.8 F 81 16 98/56 L 100 10/12/20 07:24 97.6 F 92 16 114/75 99 Anesthesia: Monitored Mental Status: Awake Pain Control: Satisfactory Nausea/Vomiting: None Hydration: Adequate Anesthesia-Related Issues: No Anes. Related Issues
== END 2020-10-12 10:55 | disposition home or self-care (01) ==
PROVIDERS: PCP Internal Medicine; Visit Provider Urology
PROC: (CPT 51102; principal; 2020-10-12 08:20)
DX: N31.9 Neuromuscular dysfunction of bladder, unspecified (principal); G37.9 Demyelinating disease of central nervous system, unspecified; K31.84 Gastroparesis; E11.9 Type 2 diabetes mellitus without complications; G62.89 Other specified polyneuropathies; K21.9 Gastro-esophageal reflux disease without esophagitis; J45.909 Unspecified asthma, uncomplicated; R56.9 Unspecified convulsions; Z86.79 Personal history of other diseases of the circulatory system; Z79.899 Other long term (current) drug therapy
CPT/HCPCS: 51705; 82947; J1170; J1956

== ENCOUNTER 2020-11-16 12:29 | Day surgery (SDC) | payer MEDICAID, SELFPAY ==
[2020-11-12 10:01] VITALS: BMI 23.1
[2020-11-16] VITALS (7 sets, daily range): BP systolic 126–144; BP diastolic 86–107; PULSE 100–108; RESP 10–18; TEMP 36.3–36.6; O2SAT 97–100
--- NOTE | 2020-11-16 14:05 | P.CONAN_ITS ---
[facility] Active Problems Active Problems: All Active Problems (Updated 11/13/20 @ 08:40 by Lindsay claros) Neurogenic urinary bladder disorder (Acute) Neurologic disorder (Acute) Recurrent infections (Acute) Gastroparesis (Acute) Past Medical History Medical History (Updated 11/13/20 @ 08:40 by Lindsay Belcher) Asthma Bacterial infection Brain bleed Brain tumor Chronic, continuous use of opioids Diabetes Gastroparesis GERD (gastroesophageal reflux disease) History of jejunostomy tube placement Hx pulmonary embolism Hypothyroidism Neuropathy Seizures Septic arthritis Small fiber polyneuropathy Suprapubic catheter Unspecified convulsions VRE (vancomycin-resistant Enterococci) Family History Family History (Updated 10/09/20 @ 11:12 by Jenifer Pedraza) Father Skin cancer Mother No problems noted. Surgical History Surgical History (Updated 10/09/20 @ 11:11 by Jenifer ePdraza) History of colonoscopy History of esophagogastroduodenoscopy (EGD) History of hip surgery Hx of endoscopy Hx of oral surgery Social History Social History (Updated 11/12/20 @ 09:58 by Lindsay Belcher) Household Members: Caregiver and None Do you presently have visiting nurse or other home services: Yes Smoking Status: Never smoker Use of substances other than those prescribed or required for medical reasons: No Advance Directives: No Advance Directives Information Provided: No Advance Directives on File: No Advance Directives Date on File: 06/29/20 Meds Allergies Allergy/AdvReac Type Severity Reaction Status Date / Time lamotrigine [From LAMICTAL] Allergy Severe CLEMENTINA Verified 10/09/20 11:10 GUIDO SYNDROME chlorhexidine [CHLORHEXIDINE] Allergy Intermediate RASH Verified 10/09/20 11:10 citalopram [From CELEXA] Allergy Intermediate PROLONGED Verified 10/09/20 11:10 QT INTERVAL divalproex sodium Allergy Intermediate BLACK Verified 10/09/20 11:10 [From DEPAKOTE] EYES escitalopram [From LEXAPRO] Allergy Intermediate SWELLING Verified 10/09/20 11:10 lactose [LACTOSE] Allergy Intermediate GI UPSET Verified 10/09/20 11:10 povidone-iodine Allergy Intermediate rash Verified 10/09/20 11:10 [From BETADINE] clonazepam [From Klonopin] Allergy agitation Verified 10/09/20 11:10 lorazepam [From Ativan] Allergy agitation Verified 10/09/20 11:10 BEETS Allergy Intermediate SWELLING Uncoded 10/06/20 15:12 STATLOC Allergy Intermediate RASH Uncoded 10/06/20 15:12 Home Medications Medication Instructions Recorded Confirmed Last Taken Type albuterol sulfate 2 puff INHALATION 6XD 06/25/20 11/12/20 Unknown History diphenhydramine HCl 50 mg IV Q6H 06/25/20 11/12/20 06/29/20 04:30 History pantoprazole [Protonix] 40 mg IV BID 06/25/20 11/12/20 06/29/20 04:30 History acetaminophen 500 mg FEEDING TUBE QID PRN 10/06/20 11/12/20 Unknown History baclofen 10 mg FEEDING TUBE TID 10/06/20 11/12/20 Unknown History benztropine [Cogentin] 1 mg FEEDING TUBE BEDTIME 10/06/20 11/12/20 Unknown History famotidine (PF)-NaCl (iso-os) 20 mg IV DAILY 10/06/20 11/12/20 Unknown History [Pepcid in NaCl (iso-osm) (PF)] fludrocortisone [Florinef] 0.1 mg FEEDING TUBE DAILY 10/06/20 11/12/20 Unknown History gabapentin 600 mg FEEDING TUBE BID 10/06/20 11/12/20 Unknown History ipratropium-albuterol [DuoNeb] 3 ml INHALATION Q6-8H PRN 10/06/20 11/12/20 Unknown History levothyroxine 112 mcg FEEDING TUBE DAILY 10/06/20 11/12/20 Unknown History methenamine hippurate [Hiprex] 1 g FEEDING TUBE Q12H 10/06/20 11/12/20 Unknown History midodrine 10 mg FEEDING TUBE BID 10/06/20 11/12/20 Unknown History oxycodone 15 mg FEEDING TUBE Q4H 10/06/20 11/12/20 Unknown History sucralfate [Carafate] 10 ml BID 10/06/20 11/12/20 Unknown History topiramate [Topamax] 200 mg FEEDING TUBE BID 10/06/20 11/12/20 Unknown History trazodone 25 mg FEEDING TUBE DAILY PRN 10/06/20 11/12/20 Unknown History trazodone 125 mg FEEDING TUBE BEDTIME 10/06/20 11/12/20 Unknown History magnesium hydroxide [Milk of 30 ml FEEDING TUBE DIRECTED PRN 11/12/20 11/12/20 Unknown History Magnesia] mometasone [Asmanex HFA] 2 puff INHALATION BID 11/12/20 11/12/20 Unknown History ondansetron HCl (PF) 4 mg IV QID 11/12/20 11/12/20 Unknown History oxybutynin [Oxytrol] 1 patch TRANSDERMAL 2XW 11/12/20 11/12/20 Unknown History promethazine [Phenergan] 25 mg IV TID 11/12/20 11/12/20 Unknown History Exam Exam Date and Time: November 16, 2020 1405 Height,Weight and Vital Signs: Height 4 ft 11 in Weight 52 kg Airway Mallampati Class: II TM Dist: >3cm Neck ROM: Full Heart: RRR Lungs: CTA BL Assessment and Plan Assessment Anesthesia Assessment: Anesthesia Plan Discussed and Chart Reviewed Final Anesthetic Review NPO: Yes ASA Class: III Final Preanesthetic Review: No Changes in Pt Med Stat and Consent Obtained/Reviewed Patient Risk: Intermediate Procedure Risk: Intermediate Anesthetic Plan Anesthetic Plan: MAC: Disposition: Standard PACU
--- NOTE | 2020-11-16 14:15 | MHC.SHP ---
Pre-Procedural Eval Section B Chief Complaint: bladder dysfunction Details of Present Illness: Neurogenic bladder Relevant Social History: None Present Medications: see Short Stay Collaborative assessment Medical History: Significant History History of Previous Operations: Relevant previous surgery/procedure and date(s) Allergies: Allergies Allergy/AdvReac Type Severity Reaction Status Date / Time lamotrigine [From LAMICTAL] Allergy Severe CLEMENTINA Verified 10/09/20 11:10 GUIDO SYNDROME chlorhexidine [CHLORHEXIDINE] Allergy Intermediate RASH Verified 10/09/20 11:10 citalopram [From CELEXA] Allergy Intermediate PROLONGED Verified 10/09/20 11:10 QT INTERVAL divalproex sodium Allergy Intermediate BLACK Verified 10/09/20 11:10 [From DEPAKOTE] EYES escitalopram [From LEXAPRO] Allergy Intermediate SWELLING Verified 10/09/20 11:10 lactose [LACTOSE] Allergy Intermediate GI UPSET Verified 10/09/20 11:10 povidone-iodine Allergy Intermediate rash Verified 10/09/20 11:10 [From BETADINE] clonazepam [From Klonopin] Allergy agitation Verified 10/09/20 11:10 lorazepam [From Ativan] Allergy agitation Verified 10/09/20 11:10 BEETS Allergy Intermediate SWELLING Uncoded 10/06/20 15:12 STATLOC Allergy Intermediate RASH Uncoded 10/06/20 15:12 Review of Systems Sugical H&P ROS: Yes, Specify: Constitution, Cardiovascular, Respiratory, Neurological, Psychiatric, Hem-Onc, Allergic/Immunologic, Gastrointestinal, Genitourinary, Musculoskeletal, Integumentary, Endocrine and Eyes/Ears/Nose/Throat Exam Surgical H&P Exam: Not Evaluated: HEENT, Not Evaluated: Heart, Not Evaluated: Lungs, Not Evaluated: Extremities, Not Evaluated: Abdomen, Not Evaluated: Skin and Not Evaluated: Neurological Exam Comment: Within limits for her Plan Diagnosis/Plan: Unchanged I have reviewed the history and physical and performed a pertinent physical examination on my patient. No changes have occurred unless specified. Suprapubic tube change
[2020-11-16 14:17] LABS: Glucose, Whole Blood 96 mg/dL (60-115)
[2020-11-16] MEDS: Lactated Ringers 1,000 ML 50 ML IV (14:19)
--- NOTE | 2020-11-16 14:37 | P.OP_ITS ---
Operative Note Operative Note Date of Service: 11/16/20 Narrative: PreOperative Diagnosis: Neurogenic bladder Post Operative Diagnosis: Neurogenic bladder Procedure: Change of suprapubic tube Surgeon: Dr Denys Pereira Anesthesia: Sedation Indications for procedure: 30-year-old female. 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 Here for suprapubic tube change Procedure: After informed consent was verified the patient was brought to the operating room and placed in a supine position. anesthesia was administered per protocol. Patient was prepped and draped in sterile fashion. Safety pause time-out was observed. Indwelling catheter was deflated and a 20 Mauritanian Waldron catheter placed with 7 cc placed in the balloon. She tolerated procedure well when complete was removed from operating room Pathology: None Drains: Twenty Mauritanian Waldron catheter
--- NOTE | 2020-11-16 14:39 | PM.OP ---
Brief Operative Note Date of Service: 11/16/20 Pre-op diagnosis: Neurogenic bladder Post-op diagnosis: same Procedure: Suprapubic tube change Implants: Twenty Macanese Waldron catheter Surgeon: Denys Pereira MD Anesthesia: MAC Estimated blood loss (mL): 0 Pathology: none sent Condition: stable Disposition: same day
[2020-11-16] MEDS: HYDROmorphone HCl 0.5 MG/0.5 ML SYRINGE IVPUSH (14:59)
== END 2020-11-16 16:00 | disposition home or self-care (01) ==
PROVIDERS: PCP Internal Medicine; Visit Provider Urology
PROC: (CPT 51102; principal; 2020-11-16 14:00)
DX: N31.9 Neuromuscular dysfunction of bladder, unspecified (principal); G62.89 Other specified polyneuropathies; R56.9 Unspecified convulsions; E11.9 Type 2 diabetes mellitus without complications; K31.84 Gastroparesis; J45.909 Unspecified asthma, uncomplicated; Z79.51 Long term (current) use of inhaled steroids; Z79.899 Other long term (current) drug therapy
CPT/HCPCS: 51705; 82947; J1170; J3010

== ENCOUNTER → 2020-12-08 10:37 | Outpatient (BNVA) | payer MEDICAID, SELFPAY | PROVIDERS: PCP Internal Medicine; Visit Provider Internal Medicine Gastroenterology ==

== ENCOUNTER 2020-12-14 06:32 | Day surgery (SDC) | payer MEDICAID, SELFPAY ==
[2020-12-07 15:20] VITALS: BMI 23.1
--- NOTE | 2020-12-11 10:11 | P.CONAN_ITS ---
Documented by User: Lucila Bales 12/11/20 10:14 HPI - Anesthesia Eval Consult details Narrative: 30yo F for Insertion Suprapubic Tube Change Last SPT change 11/16/20 with MAC: Prop 50, Fent 100, Lido 100 Recent [place] admit with Right Hip Septic arthritis. Grew out wanda c/w r ecent fungemia treatment. On IV Diflucan post d/c. Per D/C summary, no cardiac valve veg on ECHO. Chronic opioid doses increased in setting of acute post-op pain. FOR[facility]LY [facility], [facility] Active Problems Active Problems: All Active Problems (Updated 12/08/20 @ 11:01 by Jacobo Ayala MD) Diarrhea (Acute) Neurogenic urinary bladder disorder (Acute) Neurologic disorder (Acute) Recurrent infections (Acute) Diarrhea associated with pseudomembranous colitis (Acute) Gastroparesis (Acute) Past Medical History Medical History Asthma Bacterial infection Brain bleed Brain tumor Chronic, continuous use of opioids Diabetes Gastroparesis GERD (gastroesophageal reflux disease) History of jejunostomy tube placement Hx pulmonary embolism Hypothyroidism Neuropathy Seizures Septic arthritis Small fiber polyneuropathy Suprapubic catheter Unspecified convulsions VRE (vancomycin-resistant Enterococci) Family History Family History Father Skin cancer Mother No problems noted. 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 Do you presently have visiting nurse or other home services: Yes Alcohol intake: current Alcohol intake frequency: does not drink Smoking Status: Never smoker Use of substances other than those prescribed or required for medical reasons: No Have you been hit, kicked, punched, or otherwise hurt by someone within the past year? If so, by whom?: No Advance Directives: Yes Advance Directives Information Provided: Yes Advance Directives on File: Yes Advance Directives Date on File: 06/29/20 Meds Allergies Allergy/AdvReac Type Severity Reaction Status Date / Time lamotrigine [From LAMICTAL] Allergy Severe CLEMENTINA Verified 12/14/20 07:18 GUIDO SYNDROME chlorhexidine [CHLORHEXIDINE] Allergy Intermediate RASH Verified 12/14/20 07:18 citalopram [From CELEXA] Allergy Intermediate PROLONGED Verified 12/14/20 07:18 QT INTERVAL divalproex sodium Allergy Intermediate BLACK Verified 12/14/20 07:18 [From DEPAKOTE] EYES escitalopram [From LEXAPRO] Allergy Intermediate SWELLING Verified 12/14/20 07:18 lactose [LACTOSE] Allergy Intermediate GI UPSET Verified 12/14/20 07:18 povidone-iodine Allergy Intermediate rash Verified 12/14/20 07:18 [From BETADINE] clonazepam [From Klonopin] Allergy agitation Verified 12/14/20 07:18 lorazepam [From Ativan] Allergy agitation Verified 12/14/20 07:18 BEETS Allergy Intermediate SWELLING Uncoded 10/06/20 15:12 STATLOC Allergy Intermediate RASH Uncoded 10/06/20 15:12 Home Medications Medication Instructions Recorded Confirmed Last Taken Type albuterol sulfate 2 puff INHALATION 6XD 06/25/20 12/07/20 Unknown History diphenhydramine HCl 50 mg IV Q6H 06/25/20 12/07/20 12/14/20 04:30 History pantoprazole [Protonix] 40 mg IV BID 06/25/20 12/07/20 12/14/20 04:30 History acetaminophen 500 mg FEEDING TUBE QID PRN 10/06/20 12/07/20 Unknown History baclofen 10 mg FEEDING TUBE TID 10/06/20 12/07/20 12/14/20 04:30 History benztropine 1 mg FEEDING TUBE BEDTIME 10/06/20 12/07/20 12/14/20 04:30 History famotidine (PF)-NaCl (iso-os) 20 mg IV DAILY 10/06/20 12/07/20 12/14/20 04:30 History fludrocortisone 0.1 mg FEEDING TUBE DAILY 10/06/20 12/07/20 12/14/20 04:30 History gabapentin 600 mg FEEDING TUBE BID 10/06/20 12/07/20 12/14/20 04:30 History ipratropium-albuterol 3 ml INHALATION Q6-8H PRN 10/06/20 12/07/20 Unknown History levothyroxine 112 mcg FEEDING TUBE DAILY 10/06/20 12/07/20 12/14/20 04:30 History methenamine hippurate [Hiprex] 1 g FEEDING TUBE Q12H 10/06/20 12/07/20 12/14/20 04:30 History midodrine 10 mg FEEDING TUBE BID 10/06/20 12/07/20 12/14/20 04:30 History oxycodone 15 mg FEEDING TUBE Q4H 10/06/20 12/07/20 12/14/20 04:30 History sucralfate [Carafate] 10 ml BID 10/06/20 12/07/20 Unknown History topiramate [Topamax] 200 mg FEEDING TUBE BID 10/06/20 12/07/20 12/14/20 04:30 History trazodone 25 mg FEEDING TUBE DAILY PRN 10/06/20 12/07/20 Unknown History trazodone 125 mg FEEDING TUBE BEDTIME 10/06/20 12/07/20 Unknown History Asmanex HFA 2 puff INHALATION BID 11/12/20 12/07/20 Unknown History Oxytrol 1 patch TRANSDERMAL 2XW 11/12/20 12/07/20 12/14/20 04:30 History magnesium hydroxide [Milk of 30 ml FEEDING TUBE DIRECTED PRN 11/12/20 12/07/20 Unknown History Magnesia] ondansetron HCl (PF) 4 mg IV QID 11/12/20 12/07/20 12/14/20 04:30 History promethazine [Phenergan] 25 mg IV TID 11/12/20 12/07/20 12/14/20 04:30 History Exam Exam Date and Time: December 11, 2020 1011 Height,Weight and Vital Signs: Height 4 ft 11 in Weight 52 kg Assessment and Plan Assessment Anesthesia Assessment: Chart Reviewed Documented by User: Toya Lang 12/14/20 07:51 PMFSH Past Medical History Medical History Asthma Bacterial infection Brain bleed Brain tumor Chronic, continuous use of opioids Diabetes Gastroparesis GERD (gastroesophageal reflux disease) History of jejunostomy tube placement Hx pulmonary embolism Hypothyroidism Neuropathy Seizures Septic arthritis Small fiber polyneuropathy Suprapubic catheter Unspecified convulsions VRE (vancomycin-resistant Enterococci) Family History Family History Father Skin cancer Mother No problems noted. 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 Do you presently have visiting nurse or other home services: Yes Alcohol intake: current Alcohol intake frequency: does not drink Smoking Status: Never smoker Use of substances other than those prescribed or required for medical reasons: No Have you been hit, kicked, punched, or otherwise hurt by someone within the past year? If so, by whom?: No Advance Directives: Yes Advance Directives Information Provided: Yes Advance Directives on File: Yes Advance Directives Date on File: 06/29/20 Meds Allergies Allergy/AdvReac Type Severity Reaction Status Date / Time lamotrigine [From LAMICTAL] Allergy Severe CLEMENTINA Verified 12/14/20 07:18 GUIDO SYNDROME chlorhexidine [CHLORHEXIDINE] Allergy Intermediate RASH Verified 12/14/20 07:18 citalopram [From CELEXA] Allergy Intermediate PROLONGED Verified 12/14/20 07:18 QT INTERVAL divalproex sodium Allergy Intermediate BLACK Verified 12/14/20 07:18 [From DEPAKOTE] EYES escitalopram [From LEXAPRO] Allergy Intermediate SWELLING Verified 12/14/20 07:18 lactose [LACTOSE] Allergy Intermediate GI UPSET Verified 12/14/20 07:18 povidone-iodine Allergy Intermediate rash Verified 12/14/20 07:18 [From BETADINE] clonazepam [From Klonopin] Allergy agitation Verified 12/14/20 07:18 lorazepam [From Ativan] Allergy agitation Verified 12/14/20 07:18 BEETS Allergy Intermediate SWELLING Uncoded 10/06/20 15:12 STATLOC Allergy Intermediate RASH Uncoded 10/06/20 15:12 Home Medications Medication Instructions Recorded Confirmed Last Taken Type albuterol sulfate 2 puff INHALATION 6XD 06/25/20 12/07/20 Unknown History diphenhydramine HCl 50 mg IV Q6H 06/25/20 12/07/20 12/14/20 04:30 History pantoprazole [Protonix] 40 mg IV BID 06/25/20 12/07/20 12/14/20 04:30 History acetaminophen 500 mg FEEDING TUBE QID PRN 10/06/20 12/07/20 Unknown History baclofen 10 mg FEEDING TUBE TID 10/06/20 12/07/20 12/14/20 04:30 History benztropine 1 mg FEEDING TUBE BEDTIME 10/06/20 12/07/20 12/14/20 04:30 History famotidine (PF)-NaCl (iso-os) 20 mg IV DAILY 10/06/20 12/07/20 12/14/20 04:30 History fludrocortisone 0.1 mg FEEDING TUBE DAILY 10/06/20 12/07/20 12/14/20 04:30 Histo ry gabapentin 600 mg FEEDING TUBE BID 10/06/20 12/07/20 12/14/20 04:30 History ipratropium-albuterol 3 ml INHALATION Q6-8H PRN 10/06/20 12/07/20 Unknown History levothyroxine 112 mcg FEEDING TUBE DAILY 10/06/20 12/07/20 12/14/20 04:30 History methenamine hippurate [Hiprex] 1 g FEEDING TUBE Q12H 10/06/20 12/07/20 12/14/20 04:30 History midodrine 10 mg FEEDING TUBE BID 10/06/20 12/07/20 12/14/20 04:30 History oxycodone 15 mg FEEDING TUBE Q4H 10/06/20 12/07/20 12/14/20 04:30 History sucralfate [Carafate] 10 ml BID 10/06/20 12/07/20 Unknown History topiramate [Topamax] 200 mg FEEDING TUBE BID 10/06/20 12/07/20 12/14/20 04:30 History trazodone 25 mg FEEDING TUBE DAILY PRN 10/06/20 12/07/20 Unknown History trazodone 125 mg FEEDING TUBE BEDTIME 10/06/20 12/07/20 Unknown History Asmanex HFA 2 puff INHALATION BID 11/12/20 12/07/20 Unknown History Oxytrol 1 patch TRANSDERMAL 2XW 11/12/20 12/07/20 12/14/20 04:30 History magnesium hydroxide [Milk of 30 ml FEEDING TUBE DIRECTED PRN 11/12/20 12/07/20 Unknown History Magnesia] ondansetron HCl (PF) 4 mg IV QID 11/12/20 12/07/20 12/14/20 04:30 History promethazine [Phenergan] 25 mg IV TID 11/12/20 12/07/20 12/14/20 04:30 History Exam Airway Mallampati Class: III TM Dist: <=3cm Neck ROM: Limited Assessment and Plan Assessment Anesthesia Assessment: Anesthesia Plan Discussed and Chart Reviewed Final Anesthetic Review NPO: Yes ASA Class: III Final Preanesthetic Review: No Changes in Pt Med Stat, Meds/Allgs Chart Reviewed, Consent Obtained/Reviewed and Anes Risks/Benef Reviewed Patient Risk: Intermediate Procedure Risk: Low Assessment/Block/Sedation in SS: Assess/Block/Sedation-SS Anesthetic Plan Anesthetic Plan: MAC: Disposition: Standard PACU
[2020-12-14] VITALS (11 sets, daily range): BP systolic 105–156; BP diastolic 64–99; PULSE 83–103; RESP 16–18; TEMP 36.2–36.4; O2SAT 100
--- NOTE | 2020-12-14 07:32 | MHC.SHP ---
Pre-Procedural Eval Section B Chief Complaint: bladder tube Details of Present Illness: Suprapubic tube change Relevant Family History (Specify if Yes): No Relevant Social History: None Present Medications: None Medical History: Significant History History of Previous Operations: Relevant previous surgery/procedure and date(s) Allergies: Allergies Allergy/AdvReac Type Severity Reaction Status Date / Time lamotrigine [From LAMICTAL] Allergy Severe CLEMENTINA Verified 12/14/20 07:18 GUIDO SYNDROME chlorhexidine [CHLORHEXIDINE] Allergy Intermediate RASH Verified 12/14/20 07:18 citalopram [From CELEXA] Allergy Intermediate PROLONGED Verified 12/14/20 07:18 QT INTERVAL divalproex sodium Allergy Intermediate BLACK Verified 12/14/20 07:18 [From DEPAKOTE] EYES escitalopram [From LEXAPRO] Allergy Intermediate SWELLING Verified 12/14/20 07:18 lactose [LACTOSE] Allergy Intermediate GI UPSET Verified 12/14/20 07:18 povidone-iodine Allergy Intermediate rash Verified 12/14/20 07:18 [From BETADINE] clonazepam [From Klonopin] Allergy agitation Verified 12/14/20 07:18 lorazepam [From Ativan] Allergy agitation Verified 12/14/20 07:18 BEETS Allergy Intermediate SWELLING Uncoded 10/06/20 15:12 STATLOC Allergy Intermediate RASH Uncoded 10/06/20 15:12 Review of Systems Sugical H&P ROS: Negative: Constitution, Cardiovascular, Respiratory, Neurological, Psychiatric, Hem-Onc, Allergic/Immunologic, Gastrointestinal, Genitourinary, Musculoskeletal, Integumentary, Endocrine and Eyes/Ears/Nose/Throat Exam Surgical H&P Exam: Normal: HEENT, Normal: Heart, Normal: Lungs, Normal: Extremities, Normal: Abdomen, Normal: Skin and Normal: Neurological Plan Diagnosis/Plan: Unchanged (Well known, suprapubic tube change) I have reviewed the history and physical and performed a pertinent physical examination on my patient. No changes have occurred unless specified.
[2020-12-14 07:46] LABS: Glucose, Whole Blood 73 mg/dL (60-115)
[2020-12-14] MEDS: Lactated Ringers 1,000 ML 100 ML IVCONT (07:56)
--- NOTE | 2020-12-14 08:26 | W.PM.OPN ---
Operative Note Operative Note Date of Service: 12/14/20 Narrative: PreOperative Diagnosis: Neurogenic bladder Post Operative Diagnosis: Neurogenic bladder Procedure: Change of suprapubic tube Surgeon: Dr Denys Pereira Anesthesia: Sedation Indications for procedure: 30-year-old female. 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 Here for suprapubic tube change Procedure: After informed consent was verified the patient was brought to the operating room and placed in a supine position. anesthesia was administered per protocol. Patient was prepped and draped in sterile fashion. Safety pause time-out was observed. Indwelling catheter was deflated and a 20 Palestinian Waldron catheter placed with 7 cc placed in the balloon. She tolerated procedure well when complete was removed from operating room Pathology: None Drains: Twenty Palestinian Waldron catheter
[2020-12-14] MEDS: HYDROmorphone HCl 1 MG/ML SYRINGE IVPUSH (08:45)
== END 2020-12-14 10:13 | disposition home or self-care (01) ==
PROVIDERS: PCP Internal Medicine; Visit Provider Urology
PROC: (CPT 51705; principal; 2020-12-14 08:30)
DX: N31.9 Neuromuscular dysfunction of bladder, unspecified (principal); G37.9 Demyelinating disease of central nervous system, unspecified; K31.84 Gastroparesis; F11.90 Opioid use, unspecified, uncomplicated; Z79.899 Other long term (current) drug therapy; Z88.8 Allergy status to other drugs, medicaments and biological substances
CPT/HCPCS: 51705; 82947; J1170; J3010

== ENCOUNTER 2021-01-04 12:41 | Day surgery (SDC) | payer MEDICAID, SELFPAY ==
[2021-01-04] VITALS (9 sets, daily range): BP systolic 103–128; BP diastolic 66–87; PULSE 92–102; RESP 12–18; TEMP 36.3–36.4; O2SAT 100; BMI 23.1
[2021-01-04 13:12] LABS: Glucose, Whole Blood 88 mg/dL (60-115)
--- NOTE | 2021-01-04 13:48 | P.CONAN_ITS ---
[facility] Active Problems Active Problems: All Active Problems (Updated 12/08/20 @ 11:01 by Jacobo Ayala MD) Diarrhea (Acute) Neurogenic urinary bladder disorder (Acute) Neurologic disorder (Acute) Recurrent infections (Acute) Diarrhea associated with pseudomembranous colitis (Acute) Gastroparesis (Acute) Past Medical History Medical History Asthma Bacterial infection Brain bleed Brain tumor Chronic, continuous use of opioids Diabetes Gastroparesis GERD (gastroesophageal reflux disease) History of jejunostomy tube placement Hx pulmonary embolism Hypothyroidism Neuropathy Seizures Septic arthritis Small fiber polyneuropathy Suprapubic catheter Unspecified convulsions VRE (vancomycin-resistant Enterococci) Family History Family History Father Skin cancer Mother No problems noted. 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 If so, by whom?: No Advance Directives: Yes Advance Directives Information Provided: Yes Advance Directives on File: Yes Advance Directives Date on File: 06/29/20 Recently lost weight without trying: No Meds Allergies Allergy/AdvReac Type Severity Reaction Status Date / Time lamotrigine [From LAMICTAL] Allergy Severe CLEMENTINA Verified 12/14/20 07:18 GUIDO SYNDROME chlorhexidine [CHLORHEXIDINE] Allergy Intermediate RASH Verified 12/14/20 07:18 citalopram [From CELEXA] Allergy Intermediate PROLONGED Verified 12/14/20 07:18 QT INTERVAL divalproex sodium Allergy Intermediate BLACK Verified 12/14/20 07:18 [From DEPAKOTE] EYES escitalopram [From LEXAPRO] Allergy Intermediate SWELLING Verified 12/14/20 07:18 lactose [LACTOSE] Allergy Intermediate GI UPSET Verified 12/14/20 07:18 povidone-iodine Allergy Intermediate rash Verified 12/14/20 07:18 [From BETADINE] clonazepam [From Klonopin] Allergy agitation Verified 12/14/20 07:18 lorazepam [From Ativan] Allergy agitation Verified 12/14/20 07:18 BEETS Allergy Intermediate SWELLING Uncoded 10/06/20 15:12 STATLOC Allergy Intermediate RASH Uncoded 10/06/20 15:12 Home Medications Medication Instructions Recorded Confirmed Last Taken Type albuterol sulfate 2 puff INHALATION 6XD 06/25/20 12/07/20 Unknown History diphenhydramine HCl 50 mg IV Q6H 06/25/20 12/07/20 01/04/21 History pantoprazole [Protonix] 40 mg IV BID 06/25/20 12/07/20 01/04/21 History acetaminophen 500 mg FEEDING TUBE QID PRN 10/06/20 12/07/20 Unknown History baclofen 10 mg FEEDING TUBE TID 10/06/20 12/07/20 01/04/21 History benztropine 1 mg FEEDING TUBE BEDTIME 10/06/20 12/07/20 01/04/21 History famotidine (PF)-NaCl (iso-os) 20 mg IV DAILY 10/06/20 12/07/20 01/04/21 History fludrocortisone 0.1 mg FEEDING TUBE DAILY 10/06/20 12/07/20 01/04/21 History gabapentin 600 mg FEEDING TUBE BID 10/06/20 12/07/20 01/04/21 History ipratropium-albuterol 3 ml INHALATION Q6-8H PRN 10/06/20 12/07/20 Unknown History levothyroxine 112 mcg FEEDING TUBE DAILY 10/06/20 12/07/20 01/04/21 History methenamine hippurate [Hiprex] 1 g FEEDING TUBE Q12H 10/06/20 12/07/20 12/14/20 04:30 History midodrine 10 mg FEEDING TUBE BID 10/06/20 12/07/20 01/04/21 History oxycodone 15 mg FEEDING TUBE Q4H 10/06/20 12/07/20 01/04/21 History sucralfate [Carafate] 10 ml BID 10/06/20 12/07/20 Unknown History topiramate [Topamax] 200 mg FEEDING TUBE BID 10/06/20 12/07/20 01/04/21 History trazodone 25 mg FEEDING TUBE DAILY PRN 10/06/20 12/07/20 Unknown History trazodone 125 mg FEEDING TUBE BEDTIME 10/06/20 12/07/20 Unknown History Asmanex HFA 2 puff INHALATION BID 11/12/20 12/07/20 Unknown History Oxytrol 1 patch TRANSDERMAL 2XW 11/12/20 12/07/20 12/14/20 04:30 History magnesium hydroxide [Milk of 30 ml FEEDING TUBE DIRECTED PRN 11/12/20 12/07/20 Unknown History Magnesia] ondansetron HCl (PF) 4 mg IV QID 11/12/20 12/07/20 01/04/21 History promethazine [Phenergan] 25 mg IV TID 11/12/20 12/07/20 01/04/21 History Exam Exam Date and Time: January 04, 2021 1348 Height,Weight and Vital Signs: Height 4 ft 11 in Weight 52 kg Last Vital Signs Temp 97.5 F 01/04/21 13:01 Pulse 102 H 01/04/21 13:01 Resp 18 01/04/21 13:01 BP 105/72 01/04/21 13:01 Pulse Ox 100 01/04/21 13:01 Pertinent Lab Results Pertinent Lab Results: Laboratory Tests 01/04/21 13:09 POC Glucose 88 Airway Mallampati Class: III TM Dist: >3cm Neck ROM: Full Heart: RRR Lungs: CTA
[2021-01-04 16:07] LABS: Glucose, Whole Blood 87 mg/dL (60-115)
--- NOTE | 2021-01-04 16:42 | P.CONAN_ITS ---
[facility] Active Problems Active Problems: All Active Problems (Updated 12/08/20 @ 11:01 by Jacobo Ayala MD) Diarrhea (Acute) Neurogenic urinary bladder disorder (Acute) Neurologic disorder (Acute) Recurrent infections (Acute) Diarrhea associated with pseudomembranous colitis (Acute) Gastroparesis (Acute) Past Medical History Medical History Asthma Bacterial infection Brain bleed Brain tumor Chronic, continuous use of opioids Diabetes Gastroparesis GERD (gastroesophageal reflux disease) History of jejunostomy tube placement Hx pulmonary embolism Hypothyroidism Neuropathy Seizures Septic arthritis Small fiber polyneuropathy Suprapubic catheter Unspecified convulsions VRE (vancomycin-resistant Enterococci) Family History Family History Father Skin cancer Mother No problems noted. 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 If so, by whom?: No Advance Directives: Yes Advance Directives Information Provided: Yes Advance Directives on File: Yes Advance Directives Date on File: 06/29/20 Recently lost weight without trying: No Meds Allergies Allergy/AdvReac Type Severity Reaction Status Date / Time lamotrigine [From LAMICTAL] Allergy Severe CLEMENTINA Verified 12/14/20 07:18 GUIDO SYNDROME chlorhexidine [CHLORHEXIDINE] Allergy Intermediate RASH Verified 12/14/20 07:18 citalopram [From CELEXA] Allergy Intermediate PROLONGED Verified 12/14/20 07:18 QT INTERVAL divalproex sodium Allergy Intermediate BLACK Verified 12/14/20 07:18 [From DEPAKOTE] EYES escitalopram [From LEXAPRO] Allergy Intermediate SWELLING Verified 12/14/20 07:18 lactose [LACTOSE] Allergy Intermediate GI UPSET Verified 12/14/20 07:18 povidone-iodine Allergy Intermediate rash Verified 12/14/20 07:18 [From BETADINE] clonazepam [From Klonopin] Allergy agitation Verified 12/14/20 07:18 lorazepam [From Ativan] Allergy agitation Verified 12/14/20 07:18 BEETS Allergy Intermediate SWELLING Uncoded 10/06/20 15:12 STATLOC Allergy Intermediate RASH Uncoded 10/06/20 15:12 Active Medications: Current Medications Generic Name Dose Route Start Last Admin Trade Name Freq PRN Reason Stop Dose Admin Hydromorphone HCl 0.25 mg 01/04/21 13:52 Hydromorphone Hcl 0.5 Mg/0.5 Ml Syringe IVPUSH Q5M PRN Pain, Severe (Pain Scale 7-10) Ondansetron HCl 4 mg 01/04/21 13:52 Ondansetron Hcl 4 Mg/2 Ml Vial IVPUSH ONCE PRN Nausea and Vomiting Home Medications Medication Instructions Recorded Confirmed Last Taken Type albuterol sulfate 2 puff INHALATION 6XD 06/25/20 12/07/20 Unknown History diphenhydramine HCl 50 mg IV Q6H 06/25/20 12/07/20 01/04/21 History pantoprazole [Protonix] 40 mg IV BID 06/25/20 12/07/20 01/04/21 History acetaminophen 500 mg FEEDING TUBE QID PRN 10/06/20 12/07/20 Unknown History baclofen 10 mg FEEDING TUBE TID 10/06/20 12/07/20 01/04/21 History benztropine 1 mg FEEDING TUBE BEDTIME 10/06/20 12/07/20 01/04/21 History famotidine (PF)-NaCl (iso-os) 20 mg IV DAILY 10/06/20 12/07/20 01/04/21 History fludrocortisone 0.1 mg FEEDING TUBE DAILY 10/06/20 12/07/20 01/04/21 History gabapentin 600 mg FEEDING TUBE BID 10/06/20 12/07/20 01/04/21 History ipratropium-albuterol 3 ml INHALATION Q6-8H PRN 10/06/20 12/07/20 Unknown History levothyroxine 112 mcg FEEDING TUBE DAILY 10/06/20 12/07/20 01/04/21 History methenamine hippurate [Hiprex] 1 g FEEDING TUBE Q12H 10/06/20 12/07/20 12/14/20 04:30 History midodrine 10 mg FEEDING TUBE BID 10/06/20 12/07/20 01/04/21 History oxycodone 15 mg FEEDING TUBE Q4H 10/06/20 12/07/20 01/04/21 History sucralfate [Carafate] 10 ml BID 10/06/20 12/07/20 Unknown History topiramate [Topamax] 200 mg FEEDING TUBE BID 10/06/20 12/07/20 01/04/21 History trazodone 25 mg FEEDING TUBE DAILY PRN 10/06/20 12/07/20 Unknown History trazodone 125 mg FEEDING TUBE BEDTIME 10/06/20 12/07/20 Unknown History Asmanex HFA 2 puff INHALATION BID 11/12/20 12/07/20 Unknown History Oxytrol 1 patch TRANSDERMAL 2XW 11/12/20 12/07/20 12/14/20 04:30 History magnesium hydroxide [Milk of 30 ml FEEDING TUBE DIRECTED PRN 11/12/20 12/07/20 Unknown History Magnesia] ondansetron HCl (PF) 4 mg IV QID 11/12/20 12/07/20 01/04/21 History promethazine [Phenergan] 25 mg IV TID 11/12/20 12/07/20 01/04/21 History Exam Exam Date and Time: January 04, 2021 1642 Height,Weight and Vital Signs: Height 4 ft 11 in Weight 52 kg Last Vital Signs Temp 97.5 F 01/04/21 13:01 Pulse 102 H 01/04/21 13:01 Resp 18 01/04/21 13:01 BP 105/72 01/04/21 13:01 Pulse Ox 100 01/04/21 13:01 Pertinent Lab Results Pertinent Lab Results: Laboratory Tests 01/04/21 01/04/21 13:09 16:03 POC Glucose 88 87 Airway Mallampati Class: III TM Dist: >3cm Neck ROM: Full Heart: RRR Lungs: CTA
--- NOTE | 2021-01-04 16:50 | MHC.SHP ---
Pre-Procedural Eval Section B Chief Complaint: dysfunction of bladder Details of Present Illness: Neurogenic bladder with recurrent UTI Relevant Family History (Specify if Yes): No Relevant Social History: None Present Medications: see Short Stay Collaborative assessment Medical History: Significant History History of Previous Operations: Relevant previous surgery/procedure and date(s) Allergies: Allergies Allergy/AdvReac Type Severity Reaction Status Date / Time lamotrigine [From LAMICTAL] Allergy Severe CLEMENTINA Verified 12/14/20 07:18 GUIDO SYNDROME chlorhexidine [CHLORHEXIDINE] Allergy Intermediate RASH Verified 12/14/20 07:18 citalopram [From CELEXA] Allergy Intermediate PROLONGED Verified 12/14/20 07:18 QT INTERVAL divalproex sodium Allergy Intermediate BLACK Verified 12/14/20 07:18 [From DEPAKOTE] EYES escitalopram [From LEXAPRO] Allergy Intermediate SWELLING Verified 12/14/20 07:18 lactose [LACTOSE] Allergy Intermediate GI UPSET Verified 12/14/20 07:18 povidone-iodine Allergy Intermediate rash Verified 12/14/20 07:18 [From BETADINE] clonazepam [From Klonopin] Allergy agitation Verified 12/14/20 07:18 lorazepam [From Ativan] Allergy agitation Verified 12/14/20 07:18 BEETS Allergy Intermediate SWELLING Uncoded 10/06/20 15:12 STATLOC Allergy Intermediate RASH Uncoded 10/06/20 15:12 Review of Systems Sugical H&P ROS: Negative: Constitution, Cardiovascular, Respiratory, Neurological, Psychiatric, Hem-Onc, Allergic/Immunologic, Gastrointestinal, Genitourinary, Musculoskeletal, Integumentary, Endocrine and Eyes/Ears/Nose/Throat Exam Surgical H&P Exam: Normal: HEENT, Normal: Heart, Normal: Lungs, Normal: Extremities, Normal: Abdomen, Normal: Skin and Normal: Neurological Plan Diagnosis/Plan: Unchanged (Suprapubic tube change) I have reviewed the history and physical and performed a pertinent physical examination on my patient. No changes have occurred unless specified.
--- NOTE | 2021-01-04 17:10 | W.PM.OPN ---
Operative Note Operative Note Date of Service: 01/04/21 Narrative: PreOperative Diagnosis: Neurogenic bladder Post Operative Diagnosis: Neurogenic bladder Procedure: Suprapubic tube change Surgeon: Dr Denys Pereira Anesthesia: Sedation Indications for procedure: Small neuronal disease with neurogenic bladder Procedure: After informed consent was verified the patient was brought to the operating room and placed in a supine position. Anesthesia was administered per protocol. Marcela remained in her stretcher. The area was prepped with Betadine. Suprapubic tube removed. Twenty-two English Waldron catheter placed as new 2. 7 cc in balloon. Pathology: [] Drains: []
[2021-01-04] MEDS: HYDROmorphone HCl 0.5 MG/0.5 ML SYRINGE 0.25 MG IVPUSH (17:16)
[2021-01-04] MEDS: HYDROmorphone HCl 0.5 MG/0.5 ML SYRINGE 0.75 MG IVPUSH (17:41)
== END 2021-01-04 18:15 | disposition home or self-care (01) ==
PROVIDERS: PCP Internal Medicine; Visit Provider Urology
PROC: (CPT 51705; principal; 2021-01-04 14:30)
DX: N31.9 Neuromuscular dysfunction of bladder, unspecified (principal); N39.0 Urinary tract infection, site not specified; E11.43 Type 2 diabetes mellitus with diabetic autonomic (poly)neuropathy; K31.84 Gastroparesis; F11.20 Opioid dependence, uncomplicated; J45.909 Unspecified asthma, uncomplicated; Z79.51 Long term (current) use of inhaled steroids; Z79.899 Other long term (current) drug therapy; Z88.8 Allergy status to other drugs, medicaments and biological substances
CPT/HCPCS: 51705; 82947; J1170

== ENCOUNTER → 2021-01-22 10:05 | Outpatient (BNVA) | payer MEDICAID, SELFPAY | PROVIDERS: PCP Internal Medicine; Visit Provider Internal Medicine Gastroenterology ==

== ENCOUNTER → 2021-02-01 07:53 | Day surgery (SDC) | payer MEDICAID, SELFPAY ==
[2021-01-19 10:38] VITALS: BMI 23.1
--- NOTE | 2021-01-21 11:57 | HO.ANESPROP2 ---
HPI - Anesthesia Eval Consult details Narrative: 30yo F for Suprapubic Tube Exchange Last exchange 01/04/21 with GA-mask Chronic opioids PMFSH Active Problems Active Problems: All Active Problems (Updated 01/19/21 @ 10:36 by Nita Sigala) Neurogenic urinary bladder disorder (Acute) Neurologic disorder (Acute) Recurrent infections (Acute) Diarrhea associated with pseudomembranous colitis (Acute) Diarrhea (Acute) Gastroparesis (Acute) Past Medical History Medical History (Updated 01/21/21 @ 11:59 by Lucila Bales) Asthma Bacterial infection Brain bleed Brain tumor Chronic, continuous use of opioids Diabetes Gastroparesis GERD (gastroesophageal reflux disease) History of jejunostomy tube placement Hx pulmonary embolism Hypothyroidism Neuropathy Seizures Septic arthritis Small fiber polyneuropathy Suprapubic catheter Unspecified convulsions VRE (vancomycin-resistant Enterococci) Family History Family History Father Skin cancer Mother No problems noted. 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 Household Members Other:: live in aid Alcohol intake: current Alcohol intake frequency: does not drink Smoking Status: Never smoker Advance Directives: Yes Advance Directives Information Provided: Yes Advance Directives on File: Yes Advance Directives Date on File: 06/29/20 Meds Allergies Allergy/AdvReac Type Severity Reaction Status Date / Time lamotrigine [From LAMICTAL] Allergy Severe CLEMENTINA Verified 12/14/20 07:18 GUIDO SYNDROME chlorhexidine [CHLORHEXIDINE] Allergy Intermediate RASH Verified 12/14/20 07:18 citalopram [From CELEXA] Allergy Intermediate PROLONGED Verified 12/14/20 07:18 QT INTERVAL divalproex sodium Allergy Intermediate BLACK Verified 12/14/20 07:18 [From DEPAKOTE] EYES escitalopram [From LEXAPRO] Allergy Intermediate SWELLING Verified 12/14/20 07:18 lactose [LACTOSE] Allergy Intermediate GI UPSET Verified 12/14/20 07:18 povidone-iodine Allergy Intermediate rash Verified 12/14/20 07:18 [From BETADINE] clonazepam [From Klonopin] Allergy agitation Verified 12/14/20 07:18 lorazepam [From Ativan] Allergy agitation Verified 12/14/20 07:18 BEETS Allergy Intermediate SWELLING Uncoded 10/06/20 15:12 STATLOC Allergy Intermediate RASH Uncoded 10/06/20 15:12 Home Medications Medication Instructions Recorded Confirmed Last Taken Type albuterol sulfate 2 puff INHALATION 6XD 06/25/20 01/19/21 Unknown History diphenhydramine HCl 50 mg IV Q6H 06/25/20 01/19/21 01/04/21 History pantoprazole [Protonix] 40 mg IV BID 06/25/20 01/19/21 01/04/21 History acetaminophen 500 mg FEEDING TUBE QID PRN 10/06/20 01/19/21 Unknown History baclofen 10 mg FEEDING TUBE TID 10/06/20 01/19/21 01/04/21 History benztropine 1 mg FEEDING TUBE BEDTIME 10/06/20 01/19/21 01/04/21 History famotidine (PF)-NaCl (iso-os) 20 mg IV DAILY 10/06/20 01/19/21 01/04/21 History fludrocortisone 0.1 mg FEEDING TUBE DAILY 10/06/20 01/19/21 01/04/21 History gabapentin 600 mg FEEDING TUBE BID 10/06/20 01/19/21 01/04/21 History ipratropium-albuterol 3 ml INHALATION Q6-8H PRN 10/06/20 01/19/21 Unknown History levothyroxine 112 mcg FEEDING TUBE DAILY 10/06/20 01/19/21 01/04/21 History methenamine hippurate [Hiprex] 1 g FEEDING TUBE Q12H 10/06/20 01/19/21 12/14/20 04:30 History midodrine 10 mg FEEDING TUBE BID 10/06/20 01/19/21 01/04/21 History oxycodone 15 mg FEEDING TUBE Q4H 10/06/20 01/19/21 01/04/21 History sucralfate [Carafate] 10 ml BID 10/06/20 01/19/21 Unknown History topiramate [Topamax] 200 mg FEEDING TUBE BID 10/06/20 01/19/21 01/04/21 History trazodone 25 mg FEEDING TUBE DAILY PRN 10/06/20 01/19/21 Unknown History trazodone 125 mg FEEDING TUBE BEDTIME 10/06/20 01/19/21 Unknown History Asmanex HFA 2 puff INHALATION BID 11/12/20 01/19/21 Unknown History Oxytrol 1 patch TRANSDERMAL 2XW 11/12/20 01/19/21 12/14/20 04:30 History magnesium hydroxide [Milk of 30 ml FEEDING TUBE DIRECTED PRN 11/12/20 01/19/21 Unknown History Magnesia] ondansetron HCl (PF) 4 mg IV QID 11/12/20 01/19/21 01/04/21 History promethazine [Phenergan] 25 mg IV TID 11/12/20 01/19/21 01/04/21 History Exam Exam Date and Time: January 21, 2021 1157 Height,Weight and Vital Signs: Height 4 ft 11 in Weight 52 kg Assessment and Plan Assessment Anesthesia Assessment: Chart Reviewed
--- NOTE | 2021-01-28 10:55 | P.CONAN_ITS ---
Documented by User: Lucila Bales 01/28/21 10:55 HPI - Anesthesia Eval Consult details Narrative: 30yo F for Insertion Suprapubic Tube Change Last SPT change 11/16/20 with MAC: Prop 50, Fent 100, Lido 100 Recent [place] admit with Right Hip Septic arthritis. Grew out wanda c/w r ecent fungemia treatment. On IV Diflucan post d/c. Per D/C summary, no cardiac valve veg on ECHO. Chronic opioid doses increased in setting of acute post-op pain. PMF Active Problems Active Problems: All Active Problems (Updated 01/21/21 @ 11:59 by Lucila Bales) Neurogenic urinary bladder disorder (Acute) Neurologic disorder (Acute) Recurrent infections (Acute) Diarrhea associated with pseudomembranous colitis (Acute) Diarrhea (Acute) Gastroparesis (Acute) Past Medical History Medical History (Updated 01/21/21 @ 11:59 by Lucila Bales) Asthma Bacterial infection Brain bleed Brain tumor Chronic, continuous use of opioids Diabetes Gastroparesis GERD (gastroesophageal reflux disease) History of jejunostomy tube placement Hx pulmonary embolism Hypothyroidism Neuropathy Seizures Septic arthritis Small fiber polyneuropathy Suprapubic catheter Unspecified convulsions VRE (vancomycin-resistant Enterococci) Family History Family History Father Skin cancer Mother No problems noted. 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 Household Members Other:: live in aid Alcohol intake: current Alcohol intake frequency: does not drink Smoking Status: Never smoker Advance Directives: Yes Advance Directives Information Provided: Yes Advance Directives on File: Yes Advance Directives Date on File: 06/29/20 Meds Allergies Allergy/AdvReac Type Severity Reaction Status Date / Time lamotrigine [From LAMICTAL] Allergy Severe CLEMENTINA Verified 12/14/20 07:18 GUIDO SYNDROME chlorhexidine [CHLORHEXIDINE] Allergy Intermediate RASH Verified 12/14/20 07:18 citalopram [From CELEXA] Allergy Intermediate PROLONGED Verified 12/14/20 07:18 QT INTERVAL divalproex sodium Allergy Intermediate BLACK Verified 12/14/20 07:18 [From DEPAKOTE] EYES escitalopram [From LEXAPRO] Allergy Intermediate SWELLING Verified 12/14/20 07:18 lactose [LACTOSE] Allergy Intermediate GI UPSET Verified 12/14/20 07:18 povidone-iodine Allergy Intermediate rash Verified 12/14/20 07:18 [From BETADINE] alprazolam [From Xanax] Allergy Mild Unknown Verified 01/22/21 10:08 sertraline [From Zoloft] Allergy Mild unknown Verified 01/22/21 10:07 clonazepam [From Klonopin] Allergy agitation Verified 12/14/20 07:18 lorazepam [From Ativan] Allergy agitation Verified 12/14/20 07:18 BEETS Allergy Intermediate SWELLING Uncoded 10/06/20 15:12 STATLOC Allergy Intermediate RASH Uncoded 10/06/20 15:12 Home Medications Medication Instructions Recorded Confirmed Last Taken Type albuterol sulfate 2 puff INHALATION 6XD 06/25/20 01/19/21 Unknown History diphenhydramine HCl 50 mg IV Q6H 06/25/20 01/19/21 01/04/21 History pantoprazole [Protonix] 40 mg IV BID 06/25/20 01/19/21 01/04/21 History acetaminophen 500 mg FEEDING TUBE QID PRN 10/06/20 01/19/21 Unknown History baclofen 10 mg FEEDING TUBE TID 10/06/20 01/19/21 01/04/21 History benztropine 1 mg FEEDING TUBE BEDTIME 10/06/20 01/19/21 01/04/21 History famotidine (PF)-NaCl (iso-os) 20 mg IV DAILY 10/06/20 01/19/21 01/04/21 History fludrocortisone 0.1 mg FEEDING TUBE DAILY 10/06/20 01/19/21 01/04/21 History gabapentin 600 mg FEEDING TUBE BID 10/06/20 01/19/21 01/04/21 History ipratropium-albuterol 3 ml INHALATION Q6-8H PRN 10/06/20 01/19/21 Unknown History levothyroxine 112 mcg FEEDING TUBE DAILY 10/06/20 01/19/21 01/04/21 History methenamine hippurate [Hiprex] 1 g FEEDING TUBE Q12H 10/06/20 01/19/21 12/14/20 04:30 History midodrine 10 mg FEEDING TUBE BID 10/06/20 01/19/21 01/04/21 History oxycodone 15 mg FEEDING TUBE Q4H 10/06/20 01/19/21 01/04/21 History sucralfate [Carafate] 10 ml BID 10/06/20 01/19/21 Unknown History topiramate [Topamax] 200 mg FEEDING TUBE BID 10/06/20 01/19/21 01/04/21 History trazodone 25 mg FEEDING TUBE DAILY PRN 10/06/20 01/19/21 Unknown History trazodone 125 mg FEEDING TUBE BEDTIME 10/06/20 01/19/21 Unknown History Asmanex HFA 2 puff INHALATION BID 11/12/20 01/19/21 Unknown History Oxytrol 1 patch TRANSDERMAL 2XW 11/12/20 01/19/21 12/14/20 04:30 History magnesium hydroxide [Milk of 30 ml FEEDING TUBE DIRECTED PRN 11/12/20 01/19/21 Unknown History Magnesia] ondansetron HCl (PF) 4 mg IV QID 11/12/20 01/19/21 01/04/21 History promethazine [Phenergan] 25 mg IV TID 11/12/20 01/19/21 01/04/21 History loxapine succinate 50 mg capsule 60 mg PO BID cap 01/22/21 Unknown History Exam Exam Date and Time: January 28, 2021 1055 Height,Weight and Vital Signs: Height 4 ft 11 in Weight 52 kg Assessment and Plan Assessment Anesthesia Assessment: Chart Reviewed Documented by User: Sariah Romero 02/01/21 08:06 [facility] Past Medical History Medical History (Updated 01/21/21 @ 11:59 by Lucila Bales) Asthma Bacterial infection Brain bleed Brain tumor Chronic, continuous use of opioids Diabetes Gastroparesis GERD (gastroesophageal reflux disease) History of jejunostomy tube placement Hx pulmonary embolism Hypothyroidism Neuropathy Seizures Septic arthritis Small fiber polyneuropathy Suprapubic catheter Unspecified convulsions VRE (vancomycin-resistant Enterococci) Family History Family History Father Skin cancer Mother No problems noted. 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 Household Members Other:: live in aid Alcohol intake: current Alcohol intake frequency: does not drink Smoking Status: Never smoker Advance Directives: Yes Advance Directives Information Provided: Yes Advance Directives on File: Yes Advance Directives Date on File: 06/29/20 Meds Allergies Allergy/AdvReac Type Severity Reaction Status Date / Time lamotrigine [From LAMICTAL] Allergy Severe CLEMENTINA Verified 12/14/20 07:18 GUIDO SYNDROME chlorhexidine [CHLORHEXIDINE] Allergy Intermediate RASH Verified 12/14/20 07:18 citalopram [From CELEXA] Allergy Intermediate PROLONGED Verified 12/14/20 07:18 QT INTERVAL divalproex sodium Allergy Intermediate BLACK Verified 12/14/20 07:18 [From DEPAKOTE] EYES escitalopram [From LEXAPRO] Allergy Intermediate SWELLING Verified 12/14/20 07:18 lactose [LACTOSE] Allergy Intermediate GI UPSET Verified 12/14/20 07:18 povidone-iodine Allergy Intermediate rash Verified 12/14/20 07:18 [From BETADINE] alprazolam [From Xanax] Allergy Mild Unknown Verified 01/22/21 10:08 sertraline [From Zoloft] Allergy Mild unknown Verified 01/22/21 10:07 clonazepam [From Klonopin] Allergy agitation Verified 12/14/20 07:18 lorazepam [From Ativan] Allergy agitation Verified 12/14/20 07:18 BEETS Allergy Intermediate SWELLING Uncoded 10/06/20 15:12 STATLOC Allergy Intermediate RASH Uncoded 10/06/20 15:12 Home Medications Medication Instructions Recorded Confirmed Last Taken Type albuterol sulfate 2 puff INHALATION 6XD 06/25/20 01/19/21 Unknown History diphenhydramine HCl 50 mg IV Q6H 06/25/20 01/19/21 01/04/21 History pantoprazole [Protonix] 40 mg IV BID 06/25/20 01/19/21 01/04/21 History acetaminophen 500 mg FEEDING TUBE QID PRN 10/06/20 01/19/21 Unknown History baclofen 10 mg FEEDING TUBE TID 10/06/20 01/19/21 01/04/21 History benztropine 1 mg FEEDING TUBE BEDTIME 10/06/20 01/19/21 01/04/21 History famotidine (PF)-NaCl (iso-os) 20 mg IV DAILY 10/06/20 01/19/21 01/04/21 History fludrocortisone 0.1 mg FEEDING TUBE DAILY 10/06/20 01/19/21 01/04/21 History gabapentin 600 mg FEEDING TUBE BID 10/06/20 01/19/21 01/04/21 History ipratropium-albuterol 3 ml INHALATION Q6-8H PRN 10/06/20 01/19/21 Unknown History levothyroxine 112 mcg FEEDING TUBE DAILY 10/06/20 01/19/21 01/04/21 History methenamine hippurate [Hiprex] 1 g FEEDING TUBE Q12H 10/06/20 01/19/21 12/14/20 04:30 History midodrine 10 mg FEEDING TUBE BID 10/06/20 01/19/21 01/04/21 History oxycodone 15 mg FEEDING TUBE Q4H 10/06/20 01/19/21 01/04/21 History sucralfate [Carafate] 10 ml BID 10/06/20 01/19/21 Unknown History topiramate [Topamax] 200 mg FEEDING TUBE BID 10/06/20 01/19/21 01/04/21 History trazodone 25 mg FEEDING TUBE DAILY PRN 10/06/20 01/19/21 Unknown History trazodone 125 mg FEEDING TUBE BEDTIME 10/06/20 01/19/21 Unknown History Asmanex HFA 2 puff INHALATION BID 11/12/20 01/19/21 Unknown History Oxytrol 1 patch TRANSDERMAL 2XW 11/12/20 01/19/21 12/14/20 04:30 History magnesium hydroxide [Milk of 30 ml FEEDING TUBE DIRECTED PRN 11/12/20 01/19/21 Unknown History Magnesia] ondansetron HCl (PF) 4 mg IV QID 11/12/20 01/19/21 01/04/21 History promethazine [Phenergan] 25 mg IV TID 11/12/20 01/19/21 01/04/21 History loxapine succinate 50 mg capsule 60 mg PO BID cap 01/22/21 Unknown History Exam Airway Mallampati Class: III TM Dist: >3cm Neck ROM: Full
[2021-02-01 08:27] LABS: Glucose, Whole Blood 94 mg/dL (60-115)
[2021-02-01 08:31] VITALS: BP 107/74; PULSE 109; RESP 16; TEMP 36.1; O2SAT 100
[2021-02-01] MEDS: Lactated Ringers 1,000 ML 50 ML IV (08:33)
--- NOTE | 2021-02-01 08:59 | PC.NURSE ---
Per anesthesia Dr. Romero, no urine test needed.
--- NOTE | 2021-02-01 09:08 | MHC.SHP ---
Pre-Procedural Eval Section B Chief Complaint: dysfunction of bladder Details of Present Illness: Requires catheter changed every 4 weeks Relevant Family History (Specify if Yes): No Present Medications: see Short Stay Collaborative assessment Medical History: Significant History History of Previous Operations: Relevant previous surgery/procedure and date(s) Allergies: Allergies Allergy/AdvReac Type Severity Reaction Status Date / Time lamotrigine [From LAMICTAL] Allergy Severe CLEMENTINA Verified 12/14/20 07:18 GUIDO SYNDROME chlorhexidine [CHLORHEXIDINE] Allergy Intermediate RASH Verified 12/14/20 07:18 citalopram [From CELEXA] Allergy Intermediate PROLONGED Verified 12/14/20 07:18 QT INTERVAL divalproex sodium Allergy Intermediate BLACK Verified 12/14/20 07:18 [From DEPAKOTE] EYES escitalopram [From LEXAPRO] Allergy Intermediate SWELLING Verified 12/14/20 07:18 lactose [LACTOSE] Allergy Intermediate GI UPSET Verified 12/14/20 07:18 povidone-iodine Allergy Intermediate rash Verified 12/14/20 07:18 [From BETADINE] alprazolam [From Xanax] Allergy Mild Unknown Verified 01/22/21 10:08 sertraline [From Zoloft] Allergy Mild unknown Verified 01/22/21 10:07 clonazepam [From Klonopin] Allergy agitation Verified 12/14/20 07:18 lorazepam [From Ativan] Allergy agitation Verified 12/14/20 07:18 BEETS Allergy Intermediate SWELLING Uncoded 10/06/20 15:12 STATLOC Allergy Intermediate RASH Uncoded 10/06/20 15:12 Review of Systems Sugical H&P ROS: Negative: Constitution, Cardiovascular, Respiratory, Neurological, Psychiatric, Hem-Onc, Allergic/Immunologic, Gastrointestinal, Genitourinary, Musculoskeletal, Integumentary, Endocrine and Eyes/Ears/Nose/Throat Exam Surgical H&P Exam: Normal: HEENT, Normal: Heart, Normal: Lungs, Normal: Extremities, Normal: Abdomen, Normal: Skin and Normal: Neurological Plan Diagnosis/Plan: Unchanged (Suprapubic tube change) I have reviewed the history and physical and performed a pertinent physical examination on my patient. No changes have occurred unless specified.
--- NOTE | 2021-02-01 09:34 | W.PM.OPN ---
Operative Note Operative Note Date of Service: 02/01/21 Narrative: PreOperative Diagnosis: Neurogenic bladder Post Operative Diagnosis: Neurogenic bladder Procedure: Suprapubic tube change Surgeon: Dr Denys Pereira Anesthesia: Sedation Indications for procedure: Small neuronal disease with neurogenic bladder Procedure: After informed consent was verified the patient was brought to the operating room and placed in a supine position. Anesthesia was administered per protocol. Marcela remained in her stretcher. The area was prepped with saline Proud tissue was removed with silver nitrate topical application Suprapubic tube removed. Twenty-two Italian Waldron catheter placed - 7 cc in balloon. Pathology: [] Drains: Catheter as above
[2021-02-01 09:38] VITALS: BP 107/73; PULSE 107; RESP 12; TEMP 36.5; O2SAT 100
[2021-02-01 09:40] VITALS: RESP 18
[2021-02-01] MEDS: HYDROmorphone HCl 1 MG/ML SYRINGE IVPUSH (09:40)
[2021-02-01 09:46] VITALS: BP 122/85; PULSE 106; RESP 16; O2SAT 100
[2021-02-01 09:53] VITALS: BP 122/85; PULSE 111; RESP 17; O2SAT 100
[2021-02-01 10:08] VITALS: BP 124/75; PULSE 107; RESP 17; TEMP 36.5; O2SAT 100
== END | disposition home or self-care (01) ==
PROVIDERS: PCP Internal Medicine; Visit Provider Urology
PROC: (CPT 51705; principal; 2021-02-01 09:20)
DX: N31.9 Neuromuscular dysfunction of bladder, unspecified (principal); J45.909 Unspecified asthma, uncomplicated; E11.9 Type 2 diabetes mellitus without complications; G62.89 Other specified polyneuropathies; R56.9 Unspecified convulsions; F11.20 Opioid dependence, uncomplicated; Z87.39 Personal history of other diseases of the musculoskeletal system and connective tissue; Z86.711 Personal history of pulmonary embolism; Z79.51 Long term (current) use of inhaled steroids; Z79.899 Other long term (current) drug therapy; Z88.8 Allergy status to other drugs, medicaments and biological substances
CPT/HCPCS: 51705; 82947; J1170

== ENCOUNTER 2021-03-08 14:08 | Day surgery (SDC) | payer MEDICAID, SELFPAY ==
[2021-03-01 14:12] VITALS: BMI 23.1
--- NOTE | 2021-03-08 14:31 | P.CONAN_ITS ---
[facility] Active Problems Active Problems: All Active Problems (Updated 03/01/21 @ 14:13 by Nita peterson) Neurogenic urinary bladder disorder (Acute) Neurologic disorder (Acute) Recurrent infections (Acute) Diarrhea associated with pseudomembranous colitis (Acute) Diarrhea (Acute) Gastroparesis (Acute) Past Medical History Medical History Asthma Bacterial infection Brain bleed Brain tumor Chronic, continuous use of opioids Diabetes Gastroparesis GERD (gastroesophageal reflux disease) History of jejunostomy tube placement Hx pulmonary embolism Hypothyroidism Neuropathy Seizures Septic arthritis Small fiber polyneuropathy Suprapubic catheter Unspecified convulsions VRE (vancomycin-resistant Enterococci) Family History Family History Father Skin cancer Mother No problems noted. 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 Household Members Other:: live in aid Housing Other:: 24 hour care - live in aid Are you a primary floor care technician to a significant other at home: No Do you presently have visiting nurse or other home services: Yes Alcohol intake: current Alcohol intake frequency: does not drink Patient Tobacco Use Status: Never used Tobacco Use of substances other than those prescribed or required for medical reasons: No Advance Directives: Yes Advance Directives Information Provided: Yes Advance Directives on File: Yes Advance Directives Date on File: 06/29/20 Meds Allergies Allergy/AdvReac Type Severity Reaction Status Date / Time lamotrigine [From LAMICTAL] Allergy Severe CLEMENTINA Verified 12/14/20 07:18 GUIDO SYNDROME chlorhexidine [CHLORHEXIDINE] Allergy Intermediate RASH Verified 12/14/20 07:18 citalopram [From CELEXA] Allergy Intermediate PROLONGED Verified 12/14/20 07:18 QT INTERVAL divalproex sodium Allergy Intermediate BLACK Verified 12/14/20 07:18 [From DEPAKOTE] EYES escitalopram [From LEXAPRO] Allergy Intermediate SWELLING Verified 12/14/20 07:18 lactose [LACTOSE] Allergy Intermediate GI UPSET Verified 12/14/20 07:18 povidone-iodine Allergy Intermediate rash Verified 12/14/20 07:18 [From BETADINE] alprazolam [From Xanax] Allergy Mild Unknown Verified 01/22/21 10:08 sertraline [From Zoloft] Allergy Mild unknown Verified 01/22/21 10:07 clonazepam [From Klonopin] Allergy agitation Verified 12/14/20 07:18 lorazepam [From Ativan] Allergy agitation Verified 12/14/20 07:18 BEETS Allergy Intermediate SWELLING Uncoded 10/06/20 15:12 STATLOC Allergy Intermediate RASH Uncoded 10/06/20 15:12 Home Medications Medication Instructions Recorded Confirmed Last Taken Type albuterol sulfate 2 puff INHALATION 6XD 06/25/20 03/01/21 Unknown History diphenhydramine HCl 50 mg IV Q6H 06/25/20 03/01/21 01/04/21 History pantoprazole [Protonix] 40 mg IV BID 06/25/20 03/01/21 01/04/21 History acetaminophen 500 mg FEEDING TUBE QID PRN 10/06/20 03/01/21 Unknown History baclofen 10 mg FEEDING TUBE TID 10/06/20 03/01/21 01/04/21 History benztropine 1 mg FEEDING TUBE BEDTIME 10/06/20 03/01/21 01/04/21 History famotidine (PF)-NaCl (iso-os) 20 mg IV DAILY 10/06/20 03/01/21 01/04/21 History fludrocortisone 0.1 mg FEEDING TUBE DAILY 10/06/20 03/01/21 01/04/21 History gabapentin 600 mg FEEDING TUBE BID 10/06/20 03/01/21 01/04/21 History ipratropium-albuterol 3 ml INHALATION Q6-8H PRN 10/06/20 03/01/21 Unknown History levothyroxine 112 mcg FEEDING TUBE DAILY 10/06/20 03/01/21 01/04/21 History methenamine hippurate [Hiprex] 1 g FEEDING TUBE Q12H 10/06/20 03/01/21 12/14/20 04:30 History midodrine 10 mg FEEDING TUBE BID 10/06/20 03/01/21 01/04/21 History oxycodone 15 mg FEEDING TUBE Q4H 10/06/20 03/01/21 01/04/21 History sucralfate [Carafate] 10 ml BID 10/06/20 03/01/21 Unknown History topiramate [Topamax] 200 mg FEEDING TUBE BID 10/06/20 03/01/21 01/04/21 History trazodone 25 mg FEEDING TUBE DAILY PRN 10/06/20 03/01/21 Unknown History trazodone 125 mg FEEDING TUBE BEDTIME 10/06/20 03/01/21 Unknown History Asmanex HFA 2 puff INHALATION BID 11/12/20 03/01/21 Unknown History Oxytrol 1 patch TRANSDERMAL 2XW 11/12/20 03/01/21 12/14/20 04:30 History magnesium hydroxide [Milk of 30 ml FEEDING TUBE DIRECTED PRN 11/12/20 03/01/21 Unknown History Magnesia] ondansetron HCl (PF) 4 mg IV QID 11/12/20 03/01/21 01/04/21 History promethazine [Phenergan] 25 mg IV TID 11/12/20 03/01/21 01/04/21 History loxapine succinate 50 mg capsule 60 mg PO BID cap 01/22/21 03/01/21 Unknown History Exam Exam Date and Time: March 08, 2021 1431 Height,Weight and Vital Signs: Height 4 ft 11 in Weight 52 kg Airway Mallampati Class: II TM Dist: >3cm Neck ROM: Full Assessment and Plan Assessment Anesthesia Assessment: Anesthesia Plan Discussed and Chart Reviewed Final Anesthetic Review NPO: Yes ASA Class: III Final Preanesthetic Review: No Changes in Pt Med Stat, Meds/Allgs Chart Reviewed, Consent Obtained/Reviewed and Anes Risks/Benef Reviewed Patient Risk: Intermediate Procedure Risk: Low Assessment/Block/Sedation in SS: Assess/Block/Sedation-SS Anesthetic Plan Anesthetic Plan: MAC: Disposition: Standard PACU
[2021-03-08 14:47] VITALS: PULSE 112; RESP 22; TEMP 37.1; O2SAT 100
--- NOTE | 2021-03-08 14:50 | P.HPSUR_ITS ---
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 Relevant Social History: None Present Medications: see Short Stay Collaborative assessment Medical History: Significant History History of Previous Operations: Relevant previous surgery/procedure and date(s) Allergies: Allergies Allergy/AdvReac Type Severity Reaction Status Date / Time lamotrigine [From LAMICTAL] Allergy Severe CLEMENTINA Verified 12/14/20 07:18 GUIDO SYNDROME chlorhexidine [CHLORHEXIDINE] Allergy Intermediate RASH Verified 12/14/20 07:18 citalopram [From CELEXA] Allergy Intermediate PROLONGED Verified 12/14/20 07:18 QT INTERVAL divalproex sodium Allergy Intermediate BLACK Verified 12/14/20 07:18 [From DEPAKOTE] EYES escitalopram [From LEXAPRO] Allergy Intermediate SWELLING Verified 12/14/20 07:18 lactose [LACTOSE] Allergy Intermediate GI UPSET Verified 12/14/20 07:18 povidone-iodine Allergy Intermediate rash Verified 12/14/20 07:18 [From BETADINE] alprazolam [From Xanax] Allergy Mild Unknown Verified 01/22/21 10:08 sertraline [From Zoloft] Allergy Mild unknown Verified 01/22/21 10:07 clonazepam [From Klonopin] Allergy agitation Verified 12/14/20 07:18 lorazepam [From Ativan] Allergy agitation Verified 12/14/20 07:18 BEETS Allergy Intermediate SWELLING Uncoded 10/06/20 15:12 STATLOC Allergy Intermediate RASH Uncoded 10/06/20 15:12 Review of Systems Sugical H&P ROS: Negative: Constitution, Cardiovascular, Respiratory, Neurological, Psychiatric, Hem-Onc, Allergic/Immunologic, Gastrointestinal, Genitourinary, Musculoskeletal, Integumentary, Endocrine and Eyes/Ears/Nose/Throat Exam Surgical H&P Exam: Normal: HEENT, Normal: Heart, Normal: Lungs, Normal: Extremities, Normal: Abdomen, Normal: Skin and Normal: Neurological Exam Comment: for Marcela current examination is normal. Does have current UTI per Marcela. Will be exchanging for 22 Croatian catheter Plan Diagnosis/Plan: Unchanged ( plan for suprapubic tube change) I have reviewed the history and physical and performed a pertinent physical examination on my patient. No changes have occurred unless specified.
[2021-03-08 16:17] VITALS: BP 100/55; PULSE 100; RESP 14; TEMP 36.3; O2SAT 99
--- NOTE | 2021-03-08 16:18 | P.OP_ITS ---
Operative Note Operative Note Date of Service: 03/08/21 Narrative: PreOperative Diagnosis: Neurogenic bladder Post Operative Diagnosis: Neurogenic bladder Procedure: Suprapubic tube change Surgeon: Dr Denys Pereira Anesthesia: Sedation Indications for procedure: Small neuronal disease with neurogenic bladder Procedure: After informed consent was verified the patient was brought to the operating room and placed in a supine position. Anesthesia was administered per protocol. Marcela remained in her stretcher. The area was prepped with Betadine Suprapubic tube removed. Twenty-two Latvian Waldron catheter placed - 7 cc in balloon.
[2021-03-08 16:24] VITALS: RESP 16
[2021-03-08] MEDS: HYDROmorphone HCl 1 MG/ML SYRINGE IVPUSH (16:24)
[2021-03-08 16:27] VITALS: BP 119/81; PULSE 102; RESP 16; O2SAT 99
[2021-03-08 16:32] VITALS: BP 104/69; PULSE 105; RESP 16; O2SAT 100
[2021-03-08 16:41] VITALS: BP 114/67; PULSE 105; RESP 16; TEMP 36.3; O2SAT 99
== END 2021-03-08 16:47 | disposition home or self-care (01) ==
PROVIDERS: PCP Internal Medicine; Visit Provider Urology
PROC: (CPT 51705; principal; 2021-03-08 16:00)
DX: N31.9 Neuromuscular dysfunction of bladder, unspecified (principal); G62.9 Polyneuropathy, unspecified; Z87.440 Personal history of urinary (tract) infections; K31.84 Gastroparesis; J45.909 Unspecified asthma, uncomplicated; E11.9 Type 2 diabetes mellitus without complications; R56.9 Unspecified convulsions; F11.20 Opioid dependence, uncomplicated; Z86.711 Personal history of pulmonary embolism; Z79.899 Other long term (current) drug therapy; Z88.8 Allergy status to other drugs, medicaments and biological substances
CPT/HCPCS: 51705; J1170

== ENCOUNTER → 2021-03-09 10:51 | Outpatient (BNVA) | payer MEDICAID, SELFPAY | PROVIDERS: PCP Internal Medicine; Visit Provider Internal Medicine Gastroenterology ==

== ENCOUNTER 2021-03-22 11:30 | Day surgery (SDC) | payer MEDICAID, SELFPAY ==
--- NOTE | 2021-03-19 12:15 | HO.ANESPROP2 ---
Documented by User: Lucila Bales 03/19/21 12:17 HPI - Anesthesia Eval Consult details Narrative: 31yo F for Insertion Suprapubic Tube Change Last SPT change 03/08/21 with MAC: Prop 150 Chronic opioid *Multiple med allergies* PMFSH Active Problems Active Problems: All Active Problems (Updated 03/01/21 @ 14:13 by Nita Sigala) Neurogenic urinary bladder disorder (Acute) Neurologic disorder (Acute) Recurrent infections (Acute) Diarrhea associated with pseudomembranous colitis (Acute) Diarrhea (Acute) Gastroparesis (Acute) Past Medical History Medical History Asthma Bacterial infection Brain bleed Brain tumor Chronic, continuous use of opioids Diabetes Gastroparesis GERD (gastroesophageal reflux disease) History of jejunostomy tube placement Hx pulmonary embolism Hypothyroidism Neuropathy Seizures Septic arthritis Small fiber polyneuropathy Suprapubic catheter Unspecified convulsions VRE (vancomycin-resistant Enterococci) Family History Family History Father Skin cancer Mother No problems noted. 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 Household Members Other:: live in aid Housing Other:: 24 hour care - live in aid Are you a primary career development manager to a significant other at home: No Do you presently have visiting nurse or other home services: Yes Alcohol intake: current Alcohol intake frequency: does not drink Patient Tobacco Use Status: Never used Tobacco Use of substances other than those prescribed or required for medical reasons: No Are you DNR?: No Advance Directives: No Advance Directives Information Provided: Yes Advance Directives Date on File: 06/29/20 Meds Allergies Allergy/AdvReac Type Severity Reaction Status Date / Time lamotrigine [From LAMICTAL] Allergy Severe CLEMENTINA Verified 03/22/21 14:07 GUIDO SYNDROME chlorhexidine [CHLORHEXIDINE] Allergy Intermediate RASH Verified 03/22/21 14:07 citalopram [From CELEXA] Allergy Intermediate PROLONGED Verified 03/22/21 14:07 QT INTERVAL divalproex sodium Allergy Intermediate BLACK Verified 03/22/21 14:07 [From DEPAKOTE] EYES escitalopram [From LEXAPRO] Allergy Intermediate SWELLING Verified 03/22/21 14:07 lactose [LACTOSE] Allergy Intermediate GI UPSET Verified 03/22/21 14:07 povidone-iodine Allergy Intermediate rash Verified 03/22/21 14:07 [From BETADINE] alprazolam [From Xanax] Allergy Mild Unknown Verified 03/22/21 14:07 sertraline [From Zoloft] Allergy Mild unknown Verified 03/22/21 14:07 ziprasidone [From Geodon] Allergy Mild dystonia Verified 03/22/21 14:07 clonazepam [From Klonopin] Allergy agitation Verified 03/22/21 14:07 lorazepam [From Ativan] Allergy agitation Verified 03/22/21 14:07 BEETS Allergy Intermediate SWELLING Uncoded 10/06/20 15:12 STATLOC Allergy Intermediate RASH Uncoded 10/06/20 15:12 Home Medications Medication Instructions Recorded Confirmed Last Taken Type albuterol sulfate 2 puff INHALATION 6XD 06/25/20 03/01/21 Unknown History diphenhydramine HCl 50 mg IV Q6H 06/25/20 03/01/21 01/04/21 History pantoprazole [Protonix] 40 mg IV BID 06/25/20 03/01/21 01/04/21 History acetaminophen 500 mg FEEDING TUBE QID PRN 10/06/20 03/01/21 Unknown History baclofen 10 mg FEEDING TUBE TID 10/06/20 03/01/21 01/04/21 History benztropine 1 mg FEEDING TUBE BEDTIME 10/06/20 03/01/21 01/04/21 History famotidine (PF)-NaCl (iso-os) 20 mg IV DAILY 10/06/20 03/01/21 01/04/21 History fludrocortisone 0.1 mg FEEDING TUBE DAILY 10/06/20 03/01/21 01/04/21 History gabapentin 600 mg FEEDING TUBE BID 10/06/20 03/01/21 01/04/21 History ipratropium-albuterol 3 ml INHALATION Q6-8H PRN 10/06/20 03/01/21 Unknown History levothyroxine 112 mcg FEEDING TUBE DAILY 10/06/20 03/01/21 01/04/21 History methenamine hippurate [Hiprex] 1 g FEEDING TUBE Q12H 10/06/20 03/01/21 12/14/20 04:30 History midodrine 10 mg FEEDING TUBE BID 10/06/20 03/01/21 01/04/21 History sucralfate [Carafate] 10 ml BID 10/06/20 03/01/21 Unknown History topiramate [Topamax] 200 mg FEEDING TUBE BID 10/06/20 03/01/21 01/04/21 History magnesium hydroxide [Milk of 30 ml FEEDING TUBE DIRECTED PRN 11/12/20 03/01/21 Unknown History Magnesia] ondansetron HCl (PF) 4 mg IV QID 11/12/20 03/01/21 01/04/21 History promethazine [Phenergan] 25 mg IV TID 11/12/20 03/01/21 01/04/21 History loxapine succinate 50 mg capsule 60 mg PO BID cap 01/22/21 03/01/21 Unknown History furosemide 40 mg J-TUBE BID 03/08/21 03/08/21 Unknown History gabapentin 800 mg tablet 800 mg PO BEDTIME 03/09/21 Unknown History mometasone 200 mcg/actuation HFA 1 puff INHALATION BID g 03/09/21 Unknown History aerosol inhaler oxycodone 15 mg tablet 10 mg FEEDING TUBE Q3H tab 03/09/21 Unknown History Exam Exam Date and Time: March 19, 2021 1215 Assessment and Plan Assessment Anesthesia Assessment: Chart Reviewed Documented by User: Toya Lang 03/22/21 16:13 [facility] Past Medical History Medical History Asthma Bacterial infection Brain bleed Brain tumor Chronic, continuous use of opioids Diabetes Gastroparesis GERD (gastroesophageal reflux disease) History of jejunostomy tube placement Hx pulmonary embolism Hypothyroidism Neuropathy Seizures Septic arthritis Small fiber polyneuropathy Suprapubic catheter Unspecified convulsions VRE (vancomycin-resistant Enterococci) Family History Family History Father Skin cancer Mother No problems noted. 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 Household Members Other:: live in aid Housing Other:: 24 hour care - live in aid Are you a primary career development manager to a significant other at home: No Do you presently have visiting nurse or other home services: Yes Alcohol intake: current Alcohol intake frequency: does not drink Patient Tobacco Use Status: Never used Tobacco Use of substances other than those prescribed or required for medical reasons: No Are you DNR?: No Advance Directives: No Advance Directives Information Provided: Yes Advance Directives Date on File: 06/29/20 Meds Allergies Allergy/AdvReac Type Severity Reaction Status Date / Time lamotrigine [From LAMICTAL] Allergy Severe CLEMENTINA Verified 03/22/21 14:07 GUIDO SYNDROME chlorhexidine [CHLORHEXIDINE] Allergy Intermediate RASH Verified 03/22/21 14:07 citalopram [From CELEXA] Allergy Intermediate PROLONGED Verified 03/22/21 14:07 QT INTERVAL divalproex sodium Allergy Intermediate BLACK Verified 03/22/21 14:07 [From DEPAKOTE] EYES escitalopram [From LEXAPRO] Allergy Intermediate SWELLING Verified 03/22/21 14:07 lactose [LACTOSE] Allergy Intermediate GI UPSET Verified 03/22/21 14:07 povidone-iodine Allergy Intermediate rash Verified 03/22/21 14:07 [From BETADINE] alprazolam [From Xanax] Allergy Mild Unknown Verified 03/22/21 14:07 sertraline [From Zoloft] Allergy Mild unknown Verified 03/22/21 14:07 ziprasidone [From Geodon] Allergy Mild dystonia Verified 03/22/21 14:07 clonazepam [From Klonopin] Allergy agitation Verified 03/22/21 14:07 lorazepam [From Ativan] Allergy agitation Verified 03/22/21 14:07 BEETS Allergy Intermediate SWELLING Uncoded 10/06/20 15:12 STATLOC Allergy Intermediate RASH Uncoded 10/06/20 15:12 Home Medications Medication Instructions Recorded Confirmed Last Taken Type albuterol sulfate 2 puff INHALATION 6XD 06/25/20 03/01/21 Unknown History diphenhydramine HCl 50 mg IV Q6H 06/25/20 03/01/21 01/04/21 History pantoprazole [Protonix] 40 mg IV BID 06/25/20 03/01/21 01/04/21 History acetaminophen 500 mg FEEDING TUBE QID PRN 10/06/20 03/01/21 Unknown History baclofen 10 mg FEEDING TUBE TID 10/06/20 03/01/21 01/04/21 History benztropine 1 mg FEEDING TUBE BEDTIME 10/06/20 03/01/21 01/04/21 History famotidine (PF)-NaCl (iso-os) 20 mg IV DAILY 10/06/20 03/01/21 01/04/21 History fludrocortisone 0.1 mg FEEDING TUBE DAILY 10/06/20 03/01/21 01/04/21 History gabapentin 600 mg FEEDING TUBE BID 10/06/20 03/01/21 01/04/21 History ipratropium-albuterol 3 ml INHALATION Q6-8H PRN 10/06/20 03/01/21 Unknown History levothyroxine 112 mcg FEEDING TUBE DAILY 10/06/20 03/01/21 01/04/21 History methenamine hippurate [Hiprex] 1 g FEEDING TUBE Q12H 10/06/20 03/01/21 12/14/20 04:30 History midodrine 10 mg FEEDING TUBE BID 10/06/20 03/01/21 01/04/21 History sucralfate [Carafate] 10 ml BID 10/06/20 03/01/21 Unknown History topiramate [Topamax] 200 mg FEEDING TUBE BID 10/06/20 03/01/21 01/04/21 History magnesium hydroxide [Milk of 30 ml FEEDING TUBE DIRECTED PRN 11/12/20 03/01/21 Unknown History Magnesia] ondansetron HCl (PF) 4 mg IV QID 11/12/20 03/01/21 01/04/21 History promethazine [Phenergan] 25 mg IV TID 11/12/20 03/01/21 01/04/21 History loxapine succinate 50 mg capsule 60 mg PO BID cap 01/22/21 03/01/21 Unknown History furosemide 40 mg J-TUBE BID 03/08/21 03/08/21 Unknown History gabapentin 800 mg tablet 800 mg PO BEDTIME 03/09/21 Unknown History mometasone 200 mcg/actuation HFA 1 puff INHALATION BID g 03/09/21 Unknown History aerosol inhaler oxycodone 15 mg tablet 10 mg FEEDING TUBE Q3H tab 03/09/21 Unknown History Exam Airway Mallampati Class: II TM Dist: <=3cm Neck ROM: Limited Assessment and Plan Assessment Anesthesia Assessment: Anesthesia Plan Discussed and Chart Reviewed Final Anesthetic Review NPO: Yes ASA Class: III Final Preanesthetic Review: No Changes in Pt Med Stat, Meds/Allgs Chart Reviewed, Consent Obtained/Reviewed and Anes Risks/Benef Reviewed Patient Risk: Intermediate Procedure Risk: Low Assessment/Block/Sedation in SS: Assess/Block/Sedation-SS Anesthetic Plan Anesthetic Plan: GA Disposition: Standard PACU
[2021-03-22 14:08] VITALS: BP 136/91; PULSE 100; RESP 16; TEMP 36.4; O2SAT 99; BMI 26.1
[2021-03-22] MEDS: Lactated Ringers 1,000 ML 100 ML IVCONT (14:16)
--- NOTE | 2021-03-22 14:38 | PC.NURSE ---
No urine preg necessary per Dr. Lang.
--- NOTE | 2021-03-22 15:29 | P.HPSUR_ITS ---
Pre-Procedural Eval Section A Date of Service: 03/22/21 Section B Chief Complaint: dysfunction of bladder Details of Present Illness: [facility] had called to ask could her catheter be exchanged earlier than typical. We are exchanging this on their behalf. Relevant Family History (Specify if Yes): No Relevant Social History: None Present Medications: see Short Stay Collaborative assessment Medical History: Significant History History of Previous Operations: Relevant previous surgery/procedure and date(s) Allergies: Allergies Allergy/AdvReac Type Severity Reaction Status Date / Time lamotrigine [From LAMICTAL] Allergy Severe CLEMENTINA Verified 03/22/21 14:07 GUIDO SYNDROME chlorhexidine [CHLORHEXIDINE] Allergy Intermediate RASH Verified 03/22/21 14:07 citalopram [From CELEXA] Allergy Intermediate PROLONGED Verified 03/22/21 14:07 QT INTERVAL divalproex sodium Allergy Intermediate BLACK Verified 03/22/21 14:07 [From DEPAKOTE] EYES escitalopram [From LEXAPRO] Allergy Intermediate SWELLING Verified 03/22/21 14:07 lactose [LACTOSE] Allergy Intermediate GI UPSET Verified 03/22/21 14:07 povidone-iodine Allergy Intermediate rash Verified 03/22/21 14:07 [From BETADINE] alprazolam [From Xanax] Allergy Mild Unknown Verified 03/22/21 14:07 sertraline [From Zoloft] Allergy Mild unknown Verified 03/22/21 14:07 ziprasidone [From Geodon] Allergy Mild dystonia Verified 03/22/21 14:07 clonazepam [From Klonopin] Allergy agitation Verified 03/22/21 14:07 lorazepam [From Ativan] Allergy agitation Verified 03/22/21 14:07 BEETS Allergy Intermediate SWELLING Uncoded 10/06/20 15:12 STATLOC Allergy Intermediate RASH Uncoded 10/06/20 15:12 Review of Systems Sugical H&P ROS: Negative: Constitution, Cardiovascular, Respiratory, Neurological, Psychiatric, Hem-Onc, Allergic/Immunologic, Gastrointestinal, Genitourinary, Musculoskeletal, Integumentary, Endocrine and Eyes/Ears/Nose/Throat Exam Surgical H&P Exam: Normal: HEENT, Normal: Heart, Normal: Lungs, Normal: Extremities, Normal: Abdomen, Normal: Skin and Normal: Neurological Exam Comment: Suprapubic tube change Plan Diagnosis/Plan: Unchanged (Suprapubic tube change) I have reviewed the history and physical and performed a pertinent physical examination on my patient. No changes have occurred unless specified.
[2021-03-22 17:09] VITALS: BP 90/55; PULSE 91; RESP 16; TEMP 36.2; O2SAT 100
[2021-03-22] MEDS: HYDROmorphone HCl 1 MG/ML SYRINGE IVPUSH (17:13)
[2021-03-22 17:14] VITALS: BP 111/79; PULSE 96; RESP 16; O2SAT 100
[2021-03-22 17:19] VITALS: BP 101/60; PULSE 94; RESP 16; O2SAT 99
[2021-03-22 17:24] VITALS: BP 108/68; PULSE 99; RESP 16; O2SAT 98
[2021-03-22 17:39] VITALS: BP 105/58; PULSE 95; RESP 16; TEMP 36.1; O2SAT 98
--- NOTE | 2021-04-19 10:21 | W.PM.OPN ---
Operative Note Operative Note Date of Service: 03/22/21 Narrative: PreOperative Diagnosis:? Neurogenic bladder Post Operative Diagnosis:? Neurogenic bladder Procedure:? Suprapubic tube change Surgeon: Dr Denys Pereira Anesthesia:? Sedation Indications for procedure: Small neuronal disease with neurogenic bladder Procedure: After informed consent was verified the patient was brought to the operating room and placed in a supine position.? Anesthesia was administered per protocol. Marcela remained in her stretcher. The area was prepped with? Betadine Suprapubic tube removed. Twenty-two Tamaz[place] Waldron catheter placed - 7 cc in balloon
== END 2021-03-22 17:55 | disposition home or self-care (01) ==
PROVIDERS: PCP Internal Medicine; Visit Provider Urology
PROC: (CPT 51705; principal; 2021-03-22 13:50)
DX: N31.8 Other neuromuscular dysfunction of bladder (principal); K31.84 Gastroparesis; J45.909 Unspecified asthma, uncomplicated; E11.9 Type 2 diabetes mellitus without complications; M00.9 Pyogenic arthritis, unspecified; R56.9 Unspecified convulsions; Z79.891 Long term (current) use of opiate analgesic; Z88.8 Allergy status to other drugs, medicaments and biological substances; Z79.899 Other long term (current) drug therapy; Z86.711 Personal history of pulmonary embolism; Z79.01 Long term (current) use of anticoagulants
CPT/HCPCS: 51705; J1170

== ENCOUNTER 2021-04-19 07:24 | Day surgery (SDC) | payer MEDICAID, SELFPAY ==
[2021-04-12 11:44] VITALS: BMI 23.1
--- NOTE | 2021-04-16 09:22 | HO.ANESPROP2 ---
Documented by User: Lucila Sanchezney 04/16/21 09:23 HPI - Anesthesia Eval Consult details Narrative: 31yo F for Insertion Suprapubic Tube Change Last SPT change 03/22/21 with MAC: Prop 60 Chronic opioid *Multiple med allergies* PMFSH Active Problems Active Problems: All Active Problems (Updated 04/12/21 @ 11:41 by Nita Sigala) Neurogenic urinary bladder disorder (Acute) Neurologic disorder (Acute) Recurrent infections (Acute) Diarrhea associated with pseudomembranous colitis (Acute) Diarrhea (Acute) Gastroparesis (Acute) Past Medical History Medical History Asthma Bacterial infection Brain bleed Brain tumor Chronic, continuous use of opioids Diabetes Gastroparesis GERD (gastroesophageal reflux disease) History of jejunostomy tube placement Hx pulmonary embolism Hypothyroidism Neuropathy Seizures Septic arthritis Small fiber polyneuropathy Suprapubic catheter Unspecified convulsions VRE (vancomycin-resistant Enterococci) Family History Family History Father Skin cancer Mother No problems noted. 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 Household Members Other:: live in aid Housing Other:: 24 hour care - live in aid Are you a primary resident care spec to a significant other at home: No Do you presently have visiting nurse or other home services: Yes Alcohol intake: current Alcohol intake frequency: does not drink Patient Tobacco Use Status: Never used Tobacco Use of substances other than those prescribed or required for medical reasons: No Are you DNR?: No Advance Directives: Yes Advance Directives on File: Yes Advance Directives Date on File: 06/29/20 Nutrition Risks: Receiving home tube feeding or CPN Meds Allergies Allergy/AdvReac Type Severity Reaction Status Date / Time lamotrigine [From LAMICTAL] Allergy Severe CLEMENTINA Verified 04/19/21 07:42 GUIDO SYNDROME chlorhexidine [CHLORHEXIDINE] Allergy Intermediate RASH Verified 04/19/21 07:42 citalopram [From CELEXA] Allergy Intermediate PROLONGED Verified 04/19/21 07:42 QT INTERVAL divalproex sodium Allergy Intermediate BLACK Verified 04/19/21 07:42 [From DEPAKOTE] EYES escitalopram [From LEXAPRO] Allergy Intermediate SWELLING Verified 04/19/21 07:42 lactose [LACTOSE] Allergy Intermediate GI UPSET Verified 04/19/21 07:42 povidone-iodine Allergy Intermediate rash Verified 04/19/21 07:42 [From BETADINE] alprazolam [From Xanax] Allergy Mild Unknown Verified 04/19/21 07:42 sertraline [From Zoloft] Allergy Mild unknown Verified 04/19/21 07:42 ziprasidone [From Geodon] Allergy Mild dystonia Verified 04/19/21 07:42 clonazepam [From Klonopin] Allergy agitation Verified 04/19/21 07:42 lorazepam [From Ativan] Allergy agitation Verified 04/19/21 07:42 BEETS Allergy Intermediate SWELLING Uncoded 10/06/20 15:12 STATLOC Allergy Intermediate RASH Uncoded 10/06/20 15:12 Home Medications Medication Instructions Recorded Confirmed Last Taken Type albuterol sulfate 90 mcg/actuation 2 puff INHALATION 6XD 06/25/20 04/12/21 Unknown History aerosol inhaler diphenhydramine HCl 50 mg/mL 50 mg IV Q6H 06/25/20 04/12/21 04/19/21 05:30 History injection solution pantoprazole 40 mg intravenous 40 mg IV BID 06/25/20 04/12/21 04/19/21 05:30 History solution (Protonix) acetaminophen 500 mg/15 mL oral 500 mg FEEDING TUBE QID PRN 10/06/20 04/12/21 Unknown History liquid baclofen 5 mg/5 mL oral solution 10 mg FEEDING TUBE TID 10/06/20 04/12/21 04/19/21 05:30 History benztropine 1 mg tablet 1 mg FEEDING TUBE BEDTIME 10/06/20 04/12/21 01/04/21 History famotidine (PF) 20 mg/50 mL in 0.9 20 mg IV DAILY 10/06/20 04/12/21 04/19/21 05:30 History % NaCl (iso) intravenous piggyback fludrocortisone 0.1 mg tablet 0.1 mg FEEDING TUBE DAILY 10/06/20 04/12/21 04/19/21 05:30 History gabapentin 600 mg tablet 600 mg FEEDING TUBE BID 10/06/20 04/12/21 04/19/21 05:30 History ipratropium 0.5 mg-albuterol 3 mg 3 ml INHALATION Q6-8H PRN 10/06/20 04/12/21 Unknown History (2.5 mg base)/3 mL nebulization soln levothyroxine 112 mcg/mL oral 112 mcg FEEDING TUBE DAILY 10/06/20 04/12/21 04/19/21 05:30 History solution methenamine hippurate 1 gram 1 g FEEDING TUBE Q12H 10/06/20 04/12/21 04/19/21 05:30 History tablet (Hiprex) midodrine 10 mg tablet 10 mg FEEDING TUBE BID 10/06/20 04/12/21 04/19/21 05:30 History sucralfate 100 mg/mL oral 10 ml BID 10/06/20 04/12/21 Unknown History suspension (Carafate) topiramate 200 mg tablet (Topamax) 200 mg FEEDING TUBE BID 10/06/20 04/12/21 04/19/21 05:30 History magnesium hydroxide 400 mg/5 mL 30 ml FEEDING TUBE DIRECTED PRN 11/12/20 04/12/21 Unknown History oral suspension (Milk of Magnesia) ondansetron HCl (PF) 4 mg/2 mL 4 mg IV QID 11/12/20 04/12/21 04/19/21 05:30 History injection syringe promethazine 25 mg/mL injection 25 mg IV TID 11/12/20 04/12/21 04/19/21 05:30 History solution (Phenergan) loxapine succinate 50 mg capsule 60 mg PO BID cap 01/22/21 04/12/21 04/19/21 05:30 History furosemide 40 mg J-TUBE BID 03/08/21 04/12/21 04/19/21 05:30 History gabapentin 800 mg tablet 800 mg PO BEDTIME 03/09/21 04/12/21 Unknown History mometasone 200 mcg/actuation HFA 1 puff INHALATION BID g 03/09/21 04/12/21 Unknown History aerosol inhaler (Asmanex HFA) oxycodone 15 mg tablet 10 mg FEEDING TUBE Q3H tab 03/09/21 04/12/21 04/19/21 05:30 History Valium 04/19/21 04/19/21 04/19/21 04:30 History Exam Exam Date and Time: April 16, [id number] Height,Weight and Vital Signs: Height 4 ft 11 in Weight 52 kg Assessment and Plan Assessment Anesthesia Assessment: Chart Reviewed Documented by User: Sofie Barrientos MD 04/19/21 10:23 [facility] Active Problems Active Problems: All Active Problems (Updated 04/12/21 @ 11:41 by Nita Sigala) Neurogenic urinary bladder disorder (Acute) Neurologic disorder (Acute) Recurrent infections (Acute) Diarrhea associated with pseudomembranous colitis (Acute) Diarrhea (Acute) Gastroparesis (Acute) ESBL in urine. Recently, in the last few days discharged from hospital for pus in urine with cathter blockage on IV antibiotics. Still taking antibiotics Recently diagnosed with adrenal suppression Oral thrush Past Medical History Medical History Asthma Bacterial infection Brain bleed Brain tumor Chronic, continuous use of opioids Diabetes Gastroparesis GERD (gastroesophageal reflux disease) History of jejunostomy tube placement Hx pulmonary embolism Hypothyroidism Neuropathy Seizures Septic arthritis Small fiber polyneuropathy Suprapubic catheter Unspecified convulsions VRE (vancomycin-resistant Enterococci) Family History Family History Father Skin cancer Mother No problems noted. 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 Household Members Other:: live in aid Housing Other:: 24 hour care - live in aid Are you a primary resident care spec to a significant other at home: No Do you presently have visiting nurse or other home services: Yes Alcohol intake: current Alcohol intake frequency: does not drink Patient Tobacco Use Status: Never used Tobacco Use of substances other than those prescribed or required for medical reasons: No Are you DNR?: No Advance Directives: Yes Advance Directives on File: Yes Advance Directives Date on File: 06/29/20 Nutrition Risks: Receiving home tube feeding or CPN Meds Allergies Allergy/AdvReac Type Severity Reaction Status Date / Time lamotrigine [From LAMICTAL] Allergy Severe CLEMENTINA Verified 04/19/21 07:42 GUIDO SYNDROME chlorhexidine [CHLORHEXIDINE] Allergy Intermediate RASH Verified 04/19/21 07:42 citalopram [From CELEXA] Allergy Intermediate PROLONGED Verified 04/19/21 07:42 QT INTERVAL divalproex sodium Allergy Intermediate BLACK Verified 04/19/21 07:42 [From DEPAKOTE] EYES escitalopram [From LEXAPRO] Allergy Intermediate SWELLING Verified 04/19/21 07:42 lactose [LACTOSE] Allergy Intermediate GI UPSET Verified 04/19/21 07:42 povidone-iodine Allergy Intermediate rash Verified 04/19/21 07:42 [From BETADINE] alprazolam [From Xanax] Allergy Mild Unknown Verified 04/19/21 07:42 sertraline [From Zoloft] Allergy Mild unknown Verified 04/19/21 07:42 ziprasidone [From Geodon] Allergy Mild dystonia Verified 04/19/21 07:42 clonazepam [From Klonopin] Allergy agitation Verified 04/19/21 07:42 lorazepam [From Ativan] Allergy agitation Verified 04/19/21 07:42 BEETS Allergy Intermediate SWELLING Uncoded 10/06/20 15:12 STATLOC Allergy Intermediate RASH Uncoded 10/06/20 15:12 Home Medications Medication Instructions Recorded Confirmed Last Taken Type albuterol sulfate 90 mcg/actuation 2 puff INHALATION 6XD 06/25/20 04/12/21 Unknown History aerosol inhaler diphenhydramine HCl 50 mg/mL 50 mg IV Q6H 06/25/20 04/12/21 04/19/21 05:30 History injection solution pantoprazole 40 mg intravenous 40 mg IV BID 06/25/20 04/12/21 04/19/21 05:30 History solution (Protonix) acetaminophen 500 mg/15 mL oral 500 mg FEEDING TUBE QID PRN 10/06/20 04/12/21 Unknown History liquid baclofen 5 mg/5 mL oral solution 10 mg FEEDING TUBE TID 10/06/20 04/12/21 04/19/21 05:30 History benztropine 1 mg tablet 1 mg FEEDING TUBE BEDTIME 10/06/20 04/12/21 01/04/21 History famotidine (PF) 20 mg/50 mL in 0.9 20 mg IV DAILY 10/06/20 04/12/21 04/19/21 05:30 History % NaCl (iso) intravenous piggyback fludrocortisone 0.1 mg tablet 0.1 mg FEEDING TUBE DAILY 10/06/20 04/12/21 04/19/21 05:30 History gabapentin 600 mg tablet 600 mg FEEDING TUBE BID 10/06/20 04/12/21 04/19/21 05:30 History ipratropium 0.5 mg-albuterol 3 mg 3 ml INHALATION Q6-8H PRN 10/06/20 04/12/21 Unknown History (2.5 mg base)/3 mL nebulization soln levothyroxine 112 mcg/mL oral 112 mcg FEEDING TUBE DAILY 10/06/20 04/12/21 04/19/21 05:30 History solution methenamine hippurate 1 gram 1 g FEEDING TUBE Q12H 10/06/20 04/12/21 04/19/21 05:30 History tablet (Hiprex) midodrine 10 mg tablet 10 mg FEEDING TUBE BID 10/06/20 04/12/21 04/19/21 05:30 History sucralfate 100 mg/mL oral 10 ml BID 10/06/20 04/12/21 Unknown History suspension (Carafate) topiramate 200 mg tablet (Topamax) 200 mg FEEDING TUBE BID 10/06/20 04/12/21 04/19/21 05:30 History magnesium hydroxide 400 mg/5 mL 30 ml FEEDING TUBE DIRECTED PRN 11/12/20 04/12/21 Unknown History oral suspension (Milk of Magnesia) ondansetron HCl (PF) 4 mg/2 mL 4 mg IV QID 03/12/3004/12/21 04/19/21 05:30 History injection syringe promethazine 25 mg/mL injection 25 mg IV TID 11/12/20 04/12/21 04/19/21 05:30 History solution (Phenergan) loxapine succinate 50 mg capsule 60 mg PO BID cap 01/22/21 04/12/21 04/19/21 05:30 History furosemide 40 mg J-TUBE BID 03/08/21 04/12/21 04/19/21 05:30 History gabapentin 800 mg tablet 800 mg PO BEDTIME 03/09/21 04/12/21 Unknown History mometasone 200 mcg/actuation HFA 1 puff INHALATION BID g 03/09/21 04/12/21 Unknown History aerosol inhaler (Asmanex HFA) oxycodone 15 mg tablet 10 mg FEEDING TUBE Q3H tab 03/09/21 04/12/21 04/19/21 05:30 History Valium 04/19/21 04/19/21 04/19/21 04:30 History Exam Height,Weight and Vital Signs: Height 4 ft 11 in Weight 52 kg Vital Signs Temp Pulse Resp BP Pulse Ox 04/19/21 07:48 97.3 F 94 16 102/74 100 Pertinent Lab Results Pertinent Lab Results: Lab Results 04/19/21 Range/Units 08:13 POC Glucose 76 (60-115) mg/dL Airway Mallampati Class: III (Small mouth) TM Dist: >3cm Neck ROM: Full Loose/Missing/Broken Teeth: Yes (Poor dentition. Some missing) Heart: RRR Lungs: CTAB Assessment and Plan Assessment Anesthesia Assessment: Anesthesia Plan Discussed Final Anesthetic Review Family History of Problems with Anesthesia: No History of Problems with Anesthesia: No NPO: Yes ASA Class: III Final Preanesthetic Review: No Changes in Pt Med Stat, Meds/Allgs Chart Reviewed, Consent Obtained/Reviewed and Anes Risks/Benef Reviewed Patient Risk: Intermediate Procedure Risk: Low Assessment/Block/Sedation in SS: Assess/Block/Sedation-SS Anesthetic Plan Anesthetic Plan: MAC: Disposition: Standard PACU
[2021-04-19] VITALS (7 sets, daily range): BP systolic 92–123; BP diastolic 55–80; PULSE 84–97; RESP 16–20; TEMP 36.1–36.3; O2SAT 100; BMI 24.5
--- NOTE | 2021-04-19 08:08 | PC.NURSE ---
Triple Lumen left chest port intact and asymptomatic.
[2021-04-19] MEDS: Lactated Ringers 1,000 ML 50 ML IVCONT (08:09)
--- NOTE | 2021-04-19 08:27 | PC.NURSE ---
Patient states she has not had her menstrual cycle since 2018. She also states she has not had any sexual intercourse since then. Dr. Barrientos notified. No urine preg needed.
[2021-04-19 08:44] LABS: Glucose, Whole Blood 76 mg/dL (60-115)
--- NOTE | 2021-04-19 09:07 | PC.NURSE ---
Dr. Barrientos made aware of patients new diagnosis of adrenal gland insufficiency.
--- NOTE | 2021-04-19 09:58 | MHC.SHP ---
Pre-Procedural Eval Section A Date of Service: 04/19/21 Section B Chief Complaint: Dysfunction of Bladder Details of Present Illness: Needs change Present Medications: see Short Stay Collaborative assessment Medical History: Significant History History of Previous Operations: Relevant previous surgery/procedure and date(s) Allergies: Allergies Allergy/AdvReac Type Severity Reaction Status Date / Time lamotrigine [From LAMICTAL] Allergy Severe CLEMENTINA Verified 04/19/21 07:42 GUIDO SYNDROME chlorhexidine [CHLORHEXIDINE] Allergy Intermediate RASH Verified 04/19/21 07:42 citalopram [From CELEXA] Allergy Intermediate PROLONGED Verified 04/19/21 07:42 QT INTERVAL divalproex sodium Allergy Intermediate BLACK Verified 04/19/21 07:42 [From DEPAKOTE] EYES escitalopram [From LEXAPRO] Allergy Intermediate SWELLING Verified 04/19/21 07:42 lactose [LACTOSE] Allergy Intermediate GI UPSET Verified 04/19/21 07:42 povidone-iodine Allergy Intermediate rash Verified 04/19/21 07:42 [From BETADINE] alprazolam [From Xanax] Allergy Mild Unknown Verified 04/19/21 07:42 sertraline [From Zoloft] Allergy Mild unknown Verified 04/19/21 07:42 ziprasidone [From Geodon] Allergy Mild dystonia Verified 04/19/21 07:42 clonazepam [From Klonopin] Allergy agitation Verified 04/19/21 07:42 lorazepam [From Ativan] Allergy agitation Verified 04/19/21 07:42 BEETS Allergy Intermediate SWELLING Uncoded 10/06/20 15:12 STATLOC Allergy Intermediate RASH Uncoded 10/06/20 15:12 Review of Systems Sugical H&P ROS: Negative: Constitution, Cardiovascular, Respiratory, Neurological, Psychiatric, Hem-Onc, Allergic/Immunologic, Gastrointestinal, Genitourinary, Musculoskeletal, Integumentary, Endocrine and Eyes/Ears/Nose/Throat Exam Surgical H&P Exam: Normal: HEENT, Normal: Heart, Normal: Lungs, Normal: Extremities, Normal: Abdomen, Normal: Skin and Normal: Neurological Plan Diagnosis/Plan: Unchanged (Change of SPT under anesthesia) I have reviewed the history and physical and performed a pertinent physical examination on my patient. No changes have occurred unless specified.
--- NOTE | 2021-04-19 10:19 | P.OP_ITS ---
Operative Note Operative Note Date of Service: 04/19/21 Narrative: PreOperative Diagnosis:? Neurogenic bladder Post Operative Diagnosis:? Neurogenic bladder Procedure:? Suprapubic tube change Surgeon: Dr Denys Pereira Anesthesia:? Sedation Indications for procedure: Small neuronal disease with neurogenic bladder Procedure: After informed consent was verified the patient was brought to the operating room and placed in a supine position.? Anesthesia was administered per protocol. Marcela remained in her stretcher. The area was prepped with? Betadine Suprapubic tube removed. Exchange today 24 [place] Waldron catheter used. 7.5 cc in balloon
[2021-04-19] MEDS: HYDROmorphone HCl 0.5 MG/0.5 ML SYRINGE IVPUSH ×2 (10:30→10:46)
== END 2021-04-19 11:30 | disposition home or self-care (01) ==
PROVIDERS: PCP Internal Medicine; Visit Provider Urology
PROC: (CPT 51705; principal; 2021-04-19 09:30)
DX: N31.9 Neuromuscular dysfunction of bladder, unspecified (principal); G62.89 Other specified polyneuropathies; R56.9 Unspecified convulsions; Z86.711 Personal history of pulmonary embolism; J45.909 Unspecified asthma, uncomplicated; E11.9 Type 2 diabetes mellitus without complications; Z79.891 Long term (current) use of opiate analgesic; Z79.899 Other long term (current) drug therapy; Z88.8 Allergy status to other drugs, medicaments and biological substances
CPT/HCPCS: 51705; 82947; J1100; J1170; J2250

== ENCOUNTER 2021-05-10 08:07 | Day surgery (SDC) | payer MEDICAID, SELFPAY ==
[2021-05-04 15:16] VITALS: BMI 24.5
--- NOTE | 2021-05-07 10:20 | HO.ANESPROP2 ---
Documented by User: Lucila Bales NP 05/07/21 10:22 HPI - Anesthesia Eval Consult details Narrative: 31yo F for Insertion Suprapubic Tube Change Last SPT change 04/19/21 with TIVA: Prop 60 Chronic opioid *Multiple med allergies* PMFSH Active Problems Active Problems: All Active Problems (Updated 05/04/21 @ 15:15 by Lindsay Belcher, RN) Neurogenic urinary bladder disorder (Acute) Neurologic disorder (Acute) Recurrent infections (Acute) Diarrhea associated with pseudomembranous colitis (Acute) Diarrhea (Acute) Gastroparesis (Acute) Past Medical History Medical History (Updated 05/04/21 @ 15:15 by Lindsay Belcher, JOSEF) Asthma Bacterial infection Brain bleed Brain tumor Chronic, continuous use of opioids Diabetes Gastroparesis GERD (gastroesophageal reflux disease) History of jejunostomy tube placement Hx pulmonary embolism Hypothyroidism Neuropathy Seizures Septic arthritis Small fiber polyneuropathy Suprapubic catheter Unspecified convulsions VRE (vancomycin-resistant Enterococci) Family History Family History Father Skin cancer Mother No problems noted. 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 Household Members Other:: live in aid Housing Other:: 24 hour care - live in aid Are you a primary direct care provider to a significant other at home: No Do you presently have visiting nurse or other home services: Yes Alcohol intake: current Alcohol intake frequency: does not drink Patient Tobacco Use Status: Never used Tobacco Use of substances other than those prescribed or required for medical reasons: No Are you DNR?: No Advance Directives: No Advance Directives Information Provided: Yes Advance Directives Date on File: 06/29/20 Meds Allergies Allergy/AdvReac Type Severity Reaction Status Date / Time lamotrigine [From LAMICTAL] Allergy Severe CLEMENTINA Verified 04/19/21 07:42 GUIDO SYNDROME chlorhexidine [CHLORHEXIDINE] Allergy Intermediate RASH Verified 04/19/21 07:42 citalopram [From CELEXA] Allergy Intermediate PROLONGED Verified 04/19/21 07:42 QT INTERVAL divalproex sodium Allergy Intermediate BLACK Verified 04/19/21 07:42 [From DEPAKOTE] EYES escitalopram [From LEXAPRO] Allergy Intermediate SWELLING Verified 04/19/21 07:42 lactose [LACTOSE] Allergy Intermediate GI UPSET Verified 04/19/21 07:42 povidone-iodine Allergy Intermediate rash Verified 04/19/21 07:42 [From BETADINE] alprazolam [From Xanax] Allergy Mild Unknown Verified 04/19/21 07:42 sertraline [From Zoloft] Allergy Mild unknown Verified 04/19/21 07:42 ziprasidone [From Geodon] Allergy Mild dystonia Verified 04/19/21 07:42 clonazepam [From Klonopin] Allergy agitation Verified 04/19/21 07:42 lorazepam [From Ativan] Allergy agitation Verified 04/19/21 07:42 BEETS Allergy Intermediate SWELLING Uncoded 10/06/20 15:12 STATLOC Allergy Intermediate RASH Uncoded 10/06/20 15:12 Home Medications Medication Instructions Recorded Confirmed Last Taken Type albuterol sulfate 90 mcg/actuation 2 puff INHALATION 6XD 06/25/20 04/12/21 Unknown History aerosol inhaler diphenhydramine HCl 50 mg/mL 50 mg IV Q6H 06/25/20 04/12/21 04/19/21 05:30 History injection solution pantoprazole 40 mg intravenous 40 mg IV BID 06/25/20 04/12/21 04/19/21 05:30 History solution (Protonix) acetaminophen 500 mg/15 mL oral 500 mg FEEDING TUBE QID PRN 10/06/20 04/12/21 Unknown History liquid baclofen 5 mg/5 mL oral solution 10 mg FEEDING TUBE TID 10/06/20 04/12/21 04/19/21 05:30 History benztropine 1 mg tablet 1 mg FEEDING TUBE BEDTIME 10/06/20 04/12/21 01/04/21 History famotidine (PF) 20 mg/50 mL in 0.9 20 mg IV DAILY 10/06/20 04/12/21 04/19/21 05:30 History % NaCl (iso) intravenous piggyback fludrocortisone 0.1 mg tablet 0.1 mg FEEDING TUBE DAILY 10/06/20 04/12/21 04/19/21 05:30 History gabapentin 600 mg tablet 600 mg FEEDING TUBE BID 10/06/20 04/12/21 04/19/21 05:30 History ipratropium 0.5 mg-albuterol 3 mg 3 ml INHALATION Q6-8H PRN 10/06/20 04/12/21 Unknown History (2.5 mg base)/3 mL nebulization soln levothyroxine 112 mcg/mL oral 112 mcg FEEDING TUBE DAILY 10/06/20 04/12/21 04/19/21 05:30 History solution methenamine hippurate 1 gram 1 g FEEDING TUBE Q12H 10/06/20 04/12/21 04/19/21 05:30 History tablet (Hiprex) midodrine 10 mg tablet 10 mg FEEDING TUBE BID 10/06/20 04/12/21 04/19/21 05:30 History sucralfate 100 mg/mL oral 10 ml BID 10/06/20 04/12/21 Unknown History suspension (Carafate) topiramate 200 mg tablet (Topamax) 200 mg FEEDING TUBE BID 10/06/20 04/12/21 04/19/21 05:30 History magnesium hydroxide 400 mg/5 mL 30 ml FEEDING TUBE DIRECTED PRN 11/12/20 04/12/21 Unknown History oral suspension (Milk of Magnesia) ondansetron HCl (PF) 4 mg/2 mL 4 mg IV QID 11/12/20 04/12/21 04/19/21 05:30 History injection syringe promethazine 25 mg/mL injection 25 mg IV TID 11/12/20 04/12/21 04/19/21 05:30 History solution (Phenergan) loxapine succinate 50 mg capsule 60 mg PO BID cap 01/22/21 04/12/21 04/19/21 05:30 History furosemide 40 mg J-TUBE BID 03/08/21 04/12/21 04/19/21 05:30 History gabapentin 800 mg tablet 800 mg PO BEDTIME 03/09/21 04/12/21 Unknown History mometasone 200 mcg/actuation HFA 1 puff INHALATION BID g 03/09/21 04/12/21 Unknown History aerosol inhaler (Asmanex HFA) oxycodone 15 mg tablet 10 mg FEEDING TUBE Q3H tab 03/09/21 04/12/21 04/19/21 05:30 History Valium 04/19/21 04/19/21 04/19/21 04:30 History Exam Exam Date and Time: May 07, 2021 1020 Height,Weight and Vital Signs: Height 4 ft 11 in Weight 55 kg Assessment and Plan Assessment Anesthesia Assessment: Chart Reviewed Final Anesthetic Review Family History of Problems with Anesthesia: No History of Problems with Anesthesia: No Documented by User: Sariah Romero MD 05/10/21 10:37 [facility] Past Medical History Medical History (Updated 05/04/21 @ 15:15 by Lindsay Belcher RN) Asthma Bacterial infection Brain bleed Brain tumor Chronic, continuous use of opioids Diabetes Gastroparesis GERD (gastroesophageal reflux disease) History of jejunostomy tube placement Hx pulmonary embolism Hypothyroidism Neuropathy Seizures Septic arthritis Small fiber polyneuropathy Suprapubic catheter Unspecified convulsions VRE (vancomycin-resistant Enterococci) Family History Family History Father Skin cancer Mother No problems noted. 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 Household Members Other:: live in aid Housing Other:: 24 hour care - live in aid Are you a primary direct care provider to a significant other at home: No Do you presently have visiting nurse or other home services: Yes Alcohol intake: current Alcohol intake frequency: does not drink Patient Tobacco Use Status: Never used Tobacco Use of substances other than those prescribed or required for medical reasons: No Are you DNR?: No Advance Directives: No Advance Directives Information Provided: Yes Advance Directives Date on File: 06/29/20 Meds Allergies Allergy/AdvReac Type Severity Reaction Status Date / Time lamotrigine [From LAMICTAL] Allergy Severe CLEMENTINA Verified 04/19/21 07:42 GUIDO SYNDROME chlorhexidine [CHLORHEXIDINE] Allergy Intermediate RASH Verified 04/19/21 07:42 citalopram [From CELEXA] Allergy Intermediate PROLONGED Verified 04/19/21 07:42 QT INTERVAL divalproex sodium Allergy Intermediate BLACK Verified 04/19/21 07:42 [From DEPAKOTE] EYES escitalopram [From LEXAPRO] Allergy Intermediate SWELLING Verified 04/19/21 07:42 lactose [LACTOSE] Allergy Intermediate GI UPSET Verified 04/19/21 07:42 povidone-iodine Allergy Intermediate rash Verified 04/19/21 07:42 [From BETADINE] alprazolam [From Xanax] Allergy Mild Unknown Verified 04/19/21 07:42 sertraline [From Zoloft] Allergy Mild unknown Verified 04/19/21 07:42 ziprasidone [From Geodon] Allergy Mild dystonia Verified 04/19/21 07:42 clonazepam [From Klonopin] Allergy agitation Verified 04/19/21 07:42 lorazepam [From Ativan] Allergy agitation Verified 04/19/21 07:42 BEETS Allergy Intermediate SWELLING Uncoded 10/06/20 15:12 STATLOC Allergy Intermediate RASH Uncoded 10/06/20 15:12 Home Medications Medication Instructions Recorded Confirmed Last Taken Type albuterol sulfate 90 mcg/actuation 2 puff INHALATION 6XD 06/25/20 04/12/21 Unknown History aerosol inhaler diphenhydramine HCl 50 mg/mL 50 mg IV Q6H 06/25/20 04/12/21 04/19/21 05:30 History injection solution pantoprazole 40 mg intravenous 40 mg IV BID 06/25/20 04/12/21 04/19/21 05:30 History solution (Protonix) acetaminophen 500 mg/15 mL oral 500 mg FEEDING TUBE QID PRN 10/06/20 04/12/21 Unknown History liquid baclofen 5 mg/5 mL oral solution 10 mg FEEDING TUBE TID 10/06/20 04/12/21 04/19/21 05:30 History benztropine 1 mg tablet 1 mg FEEDING TUBE BEDTIME 10/06/20 04/12/21 01/04/21 History famotidine (PF) 20 mg/50 mL in 0.9 20 mg IV DAILY 10/06/20 04/12/21 04/19/21 05:30 History % NaCl (iso) intravenous piggyback fludrocortisone 0.1 mg tablet 0.1 mg FEEDING TUBE DAILY 10/06/20 04/12/21 04/19/21 05:30 History gabapentin 600 mg tablet 600 mg FEEDING TUBE BID 10/06/20 04/12/21 04/19/21 05:30 History ipratropium 0.5 mg-albuterol 3 mg 3 ml INHALATION Q6-8H PRN 10/06/20 04/12/21 Unknown History (2.5 mg base)/3 mL nebulization soln levothyroxine 112 mcg/mL oral 112 mcg FEEDING TUBE DAILY 10/06/20 04/12/21 04/19/21 05:30 History solution methenamine hippurate 1 gram 1 g FEEDING TUBE Q12H 10/06/20 04/12/21 04/19/21 05:30 History tablet (Hiprex) midodrine 10 mg tablet 10 mg FEEDING TUBE BID 10/06/20 04/12/21 04/19/21 05:30 History sucralfate 100 mg/mL oral 10 ml BID 10/06/20 04/12/21 Unknown History suspension (Carafate) topiramate 200 mg tablet (Topamax) 200 mg FEEDING TUBE BID 10/06/20 04/12/21 04/19/21 05:30 History magnesium hydroxide 400 mg/5 mL 30 ml FEEDING TUBE DIRECTED PRN 11/12/20 04/12/21 Unknown History oral suspension (Milk of Magnesia) ondansetron HCl (PF) 4 mg/2 mL 4 mg IV QID 11/12/20 04/12/21 04/19/21 05:30 History injection syringe promethazine 25 mg/mL injection 25 mg IV TID 11/12/20 04/12/21 04/19/21 05:30 History solution (Phenergan) loxapine succinate 50 mg capsule 60 mg PO BID cap 01/22/21 04/12/21 04/19/21 05:30 History furosemide 40 mg J-TUBE BID 03/08/21 04/12/2104/19/21 05:30 History gabapentin 800 mg tablet 800 mg PO BEDTIME 03/09/21 04/12/21 Unknown History mometasone 200 mcg/actuation HFA 1 puff INHALATION BID g 03/09/21 04/12/21 Unknown History aerosol inhaler (Asmanex HFA) oxycodone 15 mg tablet 10 mg FEEDING TUBE Q3H tab 03/09/21 04/12/21 04/19/21 05:30 History Valium 04/19/21 04/19/21 04/19/21 04:30 History Exam Airway Mallampati Class: III TM Dist: >3cm Neck ROM: Full
[2021-05-10] VITALS (9 sets, daily range): BP systolic 92–115; BP diastolic 55–78; PULSE 90–105; RESP 16–18; TEMP 36.1–36.3; O2SAT 100
[2021-05-10] MEDS: Lactated Ringers 1,000 ML 50 ML IVCONT (09:08)
--- NOTE | 2021-05-10 10:12 | MHC.SHP ---
Pre-Procedural Eval Section A Date of Service: 05/10/21 Section B Chief Complaint: dysfunction of bladder Details of Present Illness: Ongoing suprapubic tube change Relevant Social History: None Present Medications: see Short Stay Collaborative assessment Medical History: Significant History History of Previous Operations: Relevant previous surgery/procedure and date(s) Allergies: Allergies Allergy/AdvReac Type Severity Reaction Status Date / Time lamotrigine [From LAMICTAL] Allergy Severe CLEMENTINA Verified 04/19/21 07:42 GUIDO SYNDROME chlorhexidine [CHLORHEXIDINE] Allergy Intermediate RASH Verified 04/19/21 07:42 citalopram [From CELEXA] Allergy Intermediate PROLONGED Verified 04/19/21 07:42 QT INTERVAL divalproex sodium Allergy Intermediate BLACK Verified 04/19/21 07:42 [From DEPAKOTE] EYES escitalopram [From LEXAPRO] Allergy Intermediate SWELLING Verified 04/19/21 07:42 lactose [LACTOSE] Allergy Intermediate GI UPSET Verified 04/19/21 07:42 povidone-iodine Allergy Intermediate rash Verified 04/19/21 07:42 [From BETADINE] alprazolam [From Xanax] Allergy Mild Unknown Verified 04/19/21 07:42 sertraline [From Zoloft] Allergy Mild unknown Verified 04/19/21 07:42 ziprasidone [From Geodon] Allergy Mild dystonia Verified 04/19/21 07:42 clonazepam [From Klonopin] Allergy agitation Verified 04/19/21 07:42 lorazepam [From Ativan] Allergy agitation Verified 04/19/21 07:42 BEETS Allergy Intermediate SWELLING Uncoded 10/06/20 15:12 STATLOC Allergy Intermediate RASH Uncoded 10/06/20 15:12 Review of Systems Sugical H&P ROS: Negative: Constitution, Cardiovascular, Respiratory, Neurological, Psychiatric, Hem-Onc, Allergic/Immunologic, Gastrointestinal, Genitourinary, Musculoskeletal, Integumentary, Endocrine and Eyes/Ears/Nose/Throat Exam Surgical H&P Exam: Normal: HEENT, Normal: Heart, Normal: Lungs, Normal: Extremities, Normal: Abdomen, Normal: Skin and Normal: Neurological Plan Diagnosis/Plan: Unchanged (Suprapubic tube change) I have reviewed the history and physical and performed a pertinent physical examination on my patient. No changes have occurred unless specified.
[2021-05-10] MEDS: HYDROmorphone HCl 0.5 MG/0.5 ML SYRINGE IVPUSH ×2 (10:50→10:55)
--- NOTE | 2021-05-10 10:55 | P.OP_ITS ---
Operative Note Operative Note Date of Service: 05/10/21 Narrative: PreOperative Diagnosis:? Neurogenic bladder Post Operative Diagnosis:? Neurogenic bladder Procedure:? Suprapubic tube change Surgeon: Dr Denys Pereira Anesthesia:? Sedation Indications for procedure: Small neuronal disease with neurogenic bladder Procedure: After informed consent was verified the patient was brought to the operating room and placed in a supine position.? Anesthesia was administered per protocol. Marcela remained in her stretcher. The area was prepped with? Betadine Suprapubic tube removed. Twenty-four Yoruba Waldron catheter placed - 7 cc in balloon
== END 2021-05-10 10:50 | disposition home or self-care (01) ==
PROVIDERS: PCP Internal Medicine; Visit Provider Urology
PROC: (CPT 51705; principal; 2021-05-10 09:30)
DX: N31.9 Neuromuscular dysfunction of bladder, unspecified (principal); G62.89 Other specified polyneuropathies; R56.9 Unspecified convulsions; E11.9 Type 2 diabetes mellitus without complications; J45.909 Unspecified asthma, uncomplicated; Z86.711 Personal history of pulmonary embolism; Z79.891 Long term (current) use of opiate analgesic; Z79.899 Other long term (current) drug therapy; Z88.8 Allergy status to other drugs, medicaments and biological substances
CPT/HCPCS: 51705; J1170

== ENCOUNTER → 2021-07-16 11:43 | Outpatient (BNVA) | payer MEDICAID, SELFPAY | PROVIDERS: PCP Internal Medicine; Visit Provider Internal Medicine Gastroenterology ==

== ENCOUNTER 2021-07-19 06:04 | Day surgery (SDC) | payer MEDICAID, SELFPAY ==
--- NOTE | 2021-07-16 08:39 | P.CONAN_ITS ---
Documented by User: Lucila Bales NP 07/16/21 13:32 HPI - Anesthesia Eval Consult details Narrative: 31yo F for Insertion Suprapubic Tube Change Last SPT change 05/10/21 with MAC: Prop 120 Chronic opioid *Multiple med allergies* Chronic steroids. Per Lyndsey, RN at [place] Rodrigues [place] [place] Pt to double dose fludrocortisone via G tube. Does not require IV steroid stress dose. T/C to pt to instruct, but states not taking daily steroids. Instructed pt to call Dr Rodrigues for plan of care. Pt to have dose of hydrocortisone 20mg IV at home prior to arrive at [facility]. Confirmed by Lyndsey [facility] [place]. Also confirmed with patient. [facility] Active Problems Active Problems: All Active Problems (Updated 06/03/21 @ 16:12 by Lindsay Belcher, JOSEF) Neurogenic urinary bladder disorder (Acute) Neurologic disorder (Acute) Recurrent infections (Acute) Diarrhea associated with pseudomembranous colitis (Acute) Diarrhea (Acute) Gastroparesis (Acute) Past Medical History Medical History Asthma Bacterial infection Brain bleed Brain tumor Chronic, continuous use of opioids Constipation Diabetes Fungal infection Gastroparesis GERD (gastroesophageal reflux disease) History of jejunostomy tube placement Hx pulmonary embolism Hypothyroidism Neuropathy Seizures Septic arthritis Small fiber polyneuropathy Suprapubic catheter Unspecified convulsions VRE (vancomycin-resistant Enterococci) Family History Family History Father Skin cancer Mother No problems noted. 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 Household Members Other:: live in aid Housing Other:: 24 hour care - live in aid Are you a primary career orientation teacher to a significant other at home: No Do you presently have visiting nurse or other home services: Yes Alcohol intake: current Alcohol intake frequency: does not drink Patient Tobacco Use Status: Never used Tobacco Use of substances other than those prescribed or required for medical reasons: No Are you DNR?: No Advance Directives: Yes Advance Directives on File: Yes Advance Directives Date on File: 06/29/20 Meds Allergies Allergy/AdvReac Type Severity Reaction Status Date / Time lamotrigine [From LAMICTAL] Allergy Severe CLEMENTINA Verified 07/19/21 07:41 GUIDO SYNDROME chlorhexidine [CHLORHEXIDINE] Allergy Intermediate RASH Verified 07/19/21 07:41 citalopram [From CELEXA] Allergy Intermediate PROLONGED Verified 07/19/21 07:41 QT INTERVAL divalproex sodium Allergy Intermediate BLACK Verified 07/19/21 07:41 [From DEPAKOTE] EYES escitalopram [From LEXAPRO] Allergy Intermediate SWELLING Verified 07/19/21 07:41 lactose [LACTOSE] Allergy Intermediate GI UPSET Verified 07/19/21 07:41 povidone-iodine Allergy Intermediate rash Verified 07/19/21 07:41 [From BETADINE] alprazolam [From Xanax] Allergy Mild Unknown Verified 07/19/21 07:41 sertraline [From Zoloft] Allergy Mild unknown Verified 07/19/21 07:41 ziprasidone [From Geodon] Allergy Mild dystonia Verified 07/19/21 07:41 clonazepam [From Klonopin] Allergy agitation Verified 07/19/21 07:41 lorazepam [From Ativan] Allergy agitation Verified 07/19/21 07:41 BEETS Allergy Intermediate SWELLING Uncoded 10/06/20 15:12 STATLOC Allergy Intermediate RASH Uncoded 10/06/20 15:12 Home Medications Medication Instructions Recorded Confirmed Last Taken Type albuterol sulfate 90 mcg/actuation 2 puff INHALATION 6XD 06/25/20 06/03/21 Unknown History aerosol inhaler diphenhydramine HCl 50 mg/mL 50 mg IV Q4H 06/25/20 06/03/21 04/19/21 05:30 History injection solution pantoprazole 40 mg intravenous 40 mg IV BID 06/25/20 06/03/21 04/19/21 05:30 History solution (Protonix) acetaminophen 500 mg/15 mL oral 500 mg FEEDING TUBE QID PRN 10/06/20 06/03/21 Unknown History liquid baclofen 5 mg/5 mL oral solution 15 mg FEEDING TUBE TID 10/06/20 04/12/21 04/19/21 05:30 History benztropine 1 mg tablet 1 mg FEEDING TUBE BEDTIME 10/06/20 06/03/21 01/04/21 History famotidine (PF) 20 mg/50 mL in 0.9 20 mg IV DAILY 10/06/20 06/03/21 04/19/21 05:30 History % NaCl (iso) intravenous piggyback fludrocortisone 0.1 mg tablet 0.1 mg FEEDING TUBE DAILY 10/06/20 06/03/21 04/19/21 05:30 History gabapentin 600 mg tablet 600 mg FEEDING TUBE BID 10/06/20 06/03/21 04/19/21 05:30 History ipratropium 0.5 mg-albuterol 3 mg 3 ml INHALATION Q6-8H PRN 10/06/20 06/03/21 Unknown History (2.5 mg base)/3 mL nebulization soln levothyroxine 112 mcg/mL oral 112 mcg FEEDING TUBE DAILY 10/06/20 06/03/21 04/19/21 05:30 History solution methenamine hippurate 1 gram 1 g FEEDING TUBE Q12H 10/06/20 06/03/21 04/19/21 05:30 History tablet (Hiprex) midodrine 10 mg tablet 10 mg FEEDING TUBE BID 10/06/20 06/03/21 04/19/21 05:30 History sucralfate 100 mg/mL oral 10 ml BID 10/06/20 06/03/21 Unknown History suspension (Carafate) topiramate 200 mg tablet (Topamax) 200 mg FEEDING TUBE BID 10/06/20 06/03/21 04/19/21 05:30 History magnesium hydroxide 400 mg/5 mL 30 ml FEEDING TUBE DIRECTED PRN 11/12/20 06/03/21 Unknown History oral suspension (Milk of Magnesia) promethazine 25 mg/mL injection 25 mg IV TID 11/12/20 06/03/21 04/19/21 05:30 History solution (Phenergan) loxapine succinate 50 mg capsule 60 mg FEEDING TUBE BID cap 01/22/21 06/03/21 04/19/21 05:30 History furosemide 40 mg J-TUBE BID 03/08/21 06/03/21 04/19/21 05:30 History gabapentin 800 mg tablet 800 mg PO BEDTIME 03/09/21 06/03/21 Unknown History mometasone 200 mcg/actuation HFA 1 puff INHALATION BID g 03/09/21 06/03/21 Unknown History aerosol inhaler (Asmanex HFA) oxycodone 15 mg tablet 10 mg FEEDING TUBE Q3H tab 03/09/21 06/03/21 04/19/21 05:30 History Valium 2.5 mg 04/19/21 04/19/21 04/19/21 04:30 History Zomig 06/03/21 06/03/21 Unknown History hydrocortisone sod succinate 100 20 mg IV Q12H 06/03/21 06/03/21 Unknown History mg/2 mL solution for injection lidocaine 5 % topical ointment 1 appl TOPICAL QID PRN 06/03/21 06/03/21 Unknown History methylnaltrexone 8 mg/0.4 mL 8 mg SUBCUT Q OTHER DAY 06/03/21 06/03/21 Unknown History subcutaneous syringe (Relistor) Exam Exam Date and Time: July 16, 2021 0839 Assessment and Plan Assessment Anesthesia Assessment: Chart Reviewed Final Anesthetic Review Family History of Problems with Anesthesia: No History of Problems with Anesthesia: No Documented by User: Sofie Barrientos MD 07/19/21 08:41 [facility] Active Problems Active Problems: All Active Problems (Updated 06/03/21 @ 16:12 by Lindsay Belcher, JOSEF) Neurogenic urinary bladder disorder (Acute) Neurologic disorder (Acute) Recurrent infections (Acute) Diarrhea associated with pseudomembranous colitis (Acute) Diarrhea (Acute) Gastroparesis (Acute) [place] [facility] [place] Had central line and other lines changed. Discharged June 22 Past Medical History Medical History Asthma Bacterial infection Brain bleed Brain tumor Chronic, continuous use of opioids Constipation Diabetes Fungal infection Gastroparesis GERD (gastroesophageal reflux disease) History of jejunostomy tube placement Hx pulmonary embolism Hypothyroidism Neuropathy Seizures Septic arthritis Small fiber polyneuropathy Suprapubic catheter Unspecified convulsions VRE (vancomycin-resistant Enterococci) Family History Family History Father Skin cancer Mother No problems noted. 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 Household Members Other:: live in aid Housing Other:: 24 hour care - live in aid Are you a primary career orientation teacher to a significant other at home: No Do you presently have visiting nurse or other home services: Yes Alcohol intake: current Alcohol intake frequency: does not drink Patient Tobacco Use Status: Never used Tobacco Use of substances other than those prescribed or required for medical reasons: No Are you DNR?: No Advance Directives: Yes Advance Directives on File: Yes Advance Directives Date on File: 06/29/20 Narrative Narrative: Patient requesting dilaudid and benadryl before she goes in for surgery. States always gets it. I have tried talking to patient in the past. There is no indication for dilaudid and benadryl for a suprapubic catheter change especially as she becomes extremely somnolent post and requiring an extended PACU stay.. In the future patient may take her pain medications if she needs them before procedure. Dr Pereira informed. Meds Allergies Allergy/AdvReac Type Severity Reaction Status Date / Time lamotrigine [From LAMICTAL] Allergy Severe CLEMENTINA Verified 07/19/21 07:41 GUIDO SYNDROME chlorhexidine [CHLORHEXIDINE] Allergy Intermediate RASH Verified 07/19/21 07:41 citalopram [From CELEXA] Allergy Intermediate PROLONGED Verified 07/19/21 07:41 QT INTERVAL divalproex sodium Allergy Intermediate BLACK Verified 07/19/21 07:41 [From DEPAKOTE] EYES escitalopram [From LEXAPRO] Allergy Intermediate SWELLING Verified 07/19/21 07:41 lactose [LACTOSE] Allergy Intermediate GI UPSET Verified 07/19/21 07:41 povidone-iodine Allergy Intermediate rash Verified 07/19/21 07:41 [From BETADINE] alprazolam [From Xanax] Allergy Mild Unknown Verified 07/19/21 07:41 sertraline [From Zoloft] Allergy Mild unknown Verified 07/19/21 07:41 ziprasidone [From Geodon] Allergy Mild dystonia Verified 07/19/21 07:41 clonazepam [From Klonopin] Allergy agitation Verified 07/19/21 07:41 lorazepam [From Ativan] Allergy agitation Verified 07/19/21 07:41 BEETS Allergy Intermediate SWELLING Uncoded 10/06/20 15:12 STATLOC Allergy Intermediate RASH Uncoded 10/06/20 15:12 Home Medications Medication Instructions Recorded Confirmed Last Taken Type albuterol sulfate 90 mcg/actuation 2 puff INHALATION 6XD 06/25/20 06/03/21 Unknown History aerosol inhaler diphenhydramine HCl 50 mg/mL 50 mg IV Q4H 06/25/20 06/03/21 04/19/21 05:30 History injection solution pantoprazole 40 mg intravenous 40 mg IV BID 06/25/20 06/03/21 04/19/21 05:30 History solution (Protonix) acetaminophen 500 mg/15 mL oral 500 mg FEEDING TUBE QID PRN 10/06/20 06/03/21 Unknown History liquid baclofen 5 mg/5 mL oral solution 15 mg FEEDING TUBE TID 10/06/20 04/12/21 04/19/21 05:30 History benztropine 1 mg tablet 1 mg FEEDING TUBE BEDTIME 10/06/20 06/03/21 01/04/21 History famotidine (PF) 20 mg/50 mL in 0.9 20 mg IV DAILY 10/06/20 06/03/21 04/19/21 05:30 History % NaCl (iso) intravenous piggyback fludrocortisone 0.1 mg tablet 0.1 mg FEEDING TUBE DAILY 10/06/20 06/03/21 04/19/21 05:30 History gabapentin 600 mg tablet 600 mg FEEDING TUBE BID 10/06/20 06/03/21 04/19/21 05:30 History ipratropium 0.5 mg-albuterol 3 mg 3 ml INHALATION Q6-8H PRN 10/06/20 06/03/21 Unknown History (2.5 mg base)/3 mL nebulization soln levothyroxine 112 mcg/mL oral 112 mcg FEEDING TUBE DAILY 10/06/20 06/03/21 04/19/21 05:30 History solution methenamine hippurate 1 gram 1 g FEEDING TUBE Q12H 10/06/20 06/03/21 04/19/21 05:30 History tablet (Hiprex) midodrine 10 mg tablet 10 mg FEEDING TUBE BID 10/06/20 06/03/21 04/19/21 05:30 History sucralfate 100 mg/mL oral 10 ml BID 10/06/20 06/03/21 Unknown History suspension (Carafate) topiramate 200 mg tablet (Topamax) 200 mg FEEDING TUBE BID 10/06/20 06/03/21 04/19/21 05:30 History magnesium hydroxide 400 mg/5 mL 30 ml FEEDING TUBE DIRECTED PRN 11/12/20 06/03/21 Unknown History oral suspension (Milk of Magnesia) promethazine 25 mg/mL injection 25 mg IV TID 11/12/20 06/03/21 04/19/21 05:30 History solution (Phenergan) loxapine succinate 50 mg capsule 60 mg FEEDING TUBE BID cap 01/22/21 06/03/21 04/19/21 05:30 History furosemide 40 mg J-TUBE BID 03/08/21 06/03/21 04/19/21 05:30 History gabapentin 800 mg tablet 800 mg PO BEDTIME 03/09/21 06/03/21 Unknown History mometasone 200 mcg/actuation HFA 1 puff INHALATION BID g 03/09/21 06/03/21 Unknown History aerosol inhaler (Asmanex HFA) oxycodone 15 mg tablet 10 mg FEEDING TUBE Q3H tab 03/09/21 06/03/21 04/19/21 05:30 History Valium 2.5 mg 04/19/21 04/19/21 04/19/21 04:30 History Zomig 06/03/21 06/03/21 Unknown History hydrocortisone sod succinate 100 20 mg IV Q12H 06/03/21 06/03/21 Unknown History mg/2 mL solution for injection lidocaine 5 % topical ointment 1 appl TOPICAL QID PRN 06/03/21 06/03/21 Unknown History methylnaltrexone 8 mg/0.4 mL 8 mg SUBCUT Q OTHER DAY 06/03/21 06/03/21 Unknown History subcutaneous syringe (Relistor) Exam Height,Weight and Vital Signs: Height 4 ft 10 in Weight 49.442 kg Vital Signs Temp Pulse Resp BP Pulse Ox 96.9 F 101 H 16 98/69 99 07/19/21 06:50 07/19/21 06:50 07/19/21 06:50 07/19/21 06:50 07/19/21 06:50 Airway Mallampati Class: III (Small mouth. Reddish dry substance on lips and teeth ?dry blood. Patient thinks electrolyte drink) TM Dist: >3cm Neck ROM: Limited Loose/Missing/Broken Teeth: No (Denies) Heart: RRR Lungs: CTAB Assessment and Plan Assessment Anesthesia Assessment: Anesthesia Plan Discussed Final Anesthetic Review NPO: Yes ASA Class: III Final Preanesthetic Review: No Changes in Pt Med Stat, Meds/Allgs Chart Reviewed, Consent Obtained/Reviewed and Anes Risks/Benef Reviewed Patient Risk: Intermediate Procedure Risk: Low Assessment/Block/Sedation in SS: Assess/Block/Sedation-SS Anesthetic Plan Anesthetic Plan: MAC: Disposition: Standard PACU
[2021-07-19 06:50] VITALS: BP 98/69; PULSE 101; RESP 16; TEMP 36.1; O2SAT 99; BMI 22.8
--- NOTE | 2021-07-19 07:05 | PC.NURSE ---
no urine for hcg needed per dr. gary
[2021-07-19] MEDS: Lactated Ringers 1,000 ML 100 ML IVCONT (07:21)
--- NOTE | 2021-07-19 07:46 | MHC.SHP ---
Pre-Procedural Eval Section A Date of Service: 07/19/21 Section B Chief Complaint: dysfunction of bladder Details of Present Illness: suprapubic change Allergies: Allergies Allergy/AdvReac Type Severity Reaction Status Date / Time lamotrigine [From LAMICTAL] Allergy Severe CLEMENTINA Verified 07/19/21 07:41 GUIDO SYNDROME chlorhexidine [CHLORHEXIDINE] Allergy Intermediate RASH Verified 07/19/21 07:41 citalopram [From CELEXA] Allergy Intermediate PROLONGED Verified 07/19/21 07:41 QT INTERVAL divalproex sodium Allergy Intermediate BLACK Verified 07/19/21 07:41 [From DEPAKOTE] EYES escitalopram [From LEXAPRO] Allergy Intermediate SWELLING Verified 07/19/21 07:41 lactose [LACTOSE] Allergy Intermediate GI UPSET Verified 07/19/21 07:41 povidone-iodine Allergy Intermediate rash Verified 07/19/21 07:41 [From BETADINE] alprazolam [From Xanax] Allergy Mild Unknown Verified 07/19/21 07:41 sertraline [From Zoloft] Allergy Mild unknown Verified 07/19/21 07:41 ziprasidone [From Geodon] Allergy Mild dystonia Verified 07/19/21 07:41 clonazepam [From Klonopin] Allergy agitation Verified 07/19/21 07:41 lorazepam [From Ativan] Allergy agitation Verified 07/19/21 07:41 BEETS Allergy Intermediate SWELLING Uncoded 10/06/20 15:12 STATLOC Allergy Intermediate RASH Uncoded 10/06/20 15:12 Review of Systems Sugical H&P ROS: Negative: Constitution, Cardiovascular, Respiratory, Neurological, Psychiatric, Hem-Onc, Allergic/Immunologic, Gastrointestinal, Genitourinary, Musculoskeletal, Integumentary, Endocrine and Eyes/Ears/Nose/Throat Exam Surgical H&P Exam: Normal: HEENT, Normal: Heart, Normal: Lungs, Normal: Extremities, Normal: Abdomen, Normal: Skin and Normal: Neurological Plan Diagnosis/Plan: Unchanged (suprapubic tube change) I have reviewed the history and physical and performed a pertinent physical examination on my patient. No changes have occurred unless specified.
--- NOTE | 2021-07-19 07:58 | W.PM.OPN ---
Operative Note Operative Note Date of Service: 07/19/21 Narrative: PreOperative Diagnosis:? Neurogenic bladder Post Operative Diagnosis:? Neurogenic bladder Procedure:? Suprapubic tube change Surgeon: Dr Denys Pereira Anesthesia:? Sedation Indications for procedure: Small neuronal disease with neurogenic bladder Procedure: After informed consent was verified the patient was brought to the operating room and placed in a supine position.? Anesthesia was administered per protocol. Marcela remained in her stretcher. The area was prepped with hibiclens Suprapubic tube removed. Twenty-four [place] Waldron catheter placed - 7 cc in balloon
[2021-07-19 08:03] VITALS: BP 94/63; PULSE 96; RESP 16; TEMP 36.6; O2SAT 100
[2021-07-19 08:18] VITALS: BP 106/87; PULSE 108; RESP 16; O2SAT 98
[2021-07-19] MEDS: Haloperidol Lactate 5 MG/ML VIAL 1 MG IVPUSH (08:28)
[2021-07-19 08:32] VITALS: BP 112/94; PULSE 113; RESP 16; O2SAT 100
== END 2021-07-19 11:15 | disposition home or self-care (01) ==
PROVIDERS: PCP Internal Medicine; Visit Provider Urology
PROC: (CPT 51705; principal; 2021-07-19 07:30)
DX: N31.9 Neuromuscular dysfunction of bladder, unspecified (principal); G62.89 Other specified polyneuropathies; R56.9 Unspecified convulsions; J45.909 Unspecified asthma, uncomplicated; E11.9 Type 2 diabetes mellitus without complications; K21.9 Gastro-esophageal reflux disease without esophagitis; K31.84 Gastroparesis; E03.9 Hypothyroidism, unspecified; Z86.711 Personal history of pulmonary embolism; Z79.899 Other long term (current) drug therapy; Z88.8 Allergy status to other drugs, medicaments and biological substances
CPT/HCPCS: 51705

== ENCOUNTER → 2021-08-10 09:02 | Outpatient (BNVA) | payer MEDICAID, SELFPAY | PROVIDERS: PCP Internal Medicine; Visit Provider Urology ==

== ENCOUNTER 2021-08-16 09:59 | Day surgery (SDC) | payer MEDICAID, SELFPAY ==
--- NOTE | 2021-08-13 12:03 | P.CONAN_ITS ---
Documented by User: Lucila Bales NP 08/13/21 12:04 HPI - Anesthesia Eval Consult details Narrative: 31yo F for Insertion Suprapubic Tube Change Last SPT change 07/19/21 with MAC: Prop 80 Chronic opioid *Multiple med allergies* As of 07/19/21: Chronic steroids. Per Lyndsey, RN at Dr Rodrigues ([facility] [place] neuroendocrine)... Pt to double dose fludrocortisone via G tube. Does not require IV steroid stress dose. T/C to pt to instruct, but states not taking daily steroids. Instructed pt to call Dr Rodrigues for plan of care. Pt to have dose of hydrocortisone 20mg IV at home prior to arrive at [facility]. Confirmed by Lyndsey [facility] [place] neuroendocrine RN. Also confirmed with patient. [facility] Active Problems Active Problems: All Active Problems (Updated 08/10/21 @ 09:55 by Denys Pereira MD) Neurogenic urinary bladder disorder (Acute) Neurologic disorder (Acute) Recurrent infections (Acute) Diarrhea associated with pseudomembranous colitis (Acute) Diarrhea (Acute) Gastroparesis (Acute) Past Medical History Medical History Asthma Bacterial infection Brain bleed Brain tumor Chronic, continuous use of opioids Constipation Diabetes Fungal infection Gastroparesis GERD (gastroesophageal reflux disease) History of jejunostomy tube placement Hx pulmonary embolism Hypothyroidism Neuropathy Seizures Septic arthritis Small fiber polyneuropathy Suprapubic catheter Unspecified convulsions VRE (vancomycin-resistant Enterococci) Family History Family History Father Skin cancer Mother No problems noted. 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 Household Members Other:: live in aid Housing Other:: 24 hour care - live in aid Are you a primary pet care assistant to a significant other at home: No Do you presently have visiting nurse or other home services: Yes Alcohol intake: current Alcohol intake frequency: does not drink Patient Tobacco Use Status: Never used Tobacco Use of substances other than those prescribed or required for medical reasons: No Are you DNR?: No Advance Directives: No Advance Directives Information Provided: Yes Advance Directives Date on File: 06/29/20 Meds Allergies Allergy/AdvReac Type Severity Reaction Status Date / Time lamotrigine [From LAMICTAL] Allergy Severe CLEMENTINA Verified 08/10/21 09:04 GUIDO SYNDROME chlorhexidine [CHLORHEXIDINE] Allergy Intermediate RASH Verified 08/10/21 09:04 citalopram [From CELEXA] Allergy Intermediate PROLONGED Verified 08/10/21 09:04 QT INTERVAL divalproex sodium Allergy Intermediate BLACK Verified 08/10/21 09:04 [From DEPAKOTE] EYES escitalopram [From LEXAPRO] Allergy Intermediate SWELLING Verified 08/10/21 09:04 lactose [LACTOSE] Allergy Intermediate GI UPSET Verified 08/10/21 09:04 povidone-iodine Allergy Intermediate rash Verified 08/10/21 09:04 [From BETADINE] alprazolam [From Xanax] Allergy Mild Unknown Verified 08/10/21 09:04 sertraline [From Zoloft] Allergy Mild unknown Verified 08/10/21 09:04 ziprasidone [From Geodon] Allergy Mild dystonia Verified 08/10/21 09:04 clonazepam [From Klonopin] Allergy agitation Verified 08/10/21 09:04 lorazepam [From Ativan] Allergy agitation Verified 08/10/21 09:04 BEETS Allergy Intermediate SWELLING Uncoded 08/10/21 09:04 STATLOC Allergy Intermediate RASH Uncoded 08/10/21 09:04 Home Medications Medication Instructions Recorded Confirmed Last Taken Type albuterol sulfate 90 mcg/actuation 2 puff INHALATION 6XD 06/25/20 08/09/21 Unknown History aerosol inhaler diphenhydramine HCl 50 mg/mL 50 mg IV Q4H 06/25/20 08/09/21 04/19/21 05:30 History injection solution pantoprazole 40 mg intravenous 40 mg IV BID 06/25/20 08/09/21 04/19/21 05:30 History solution (Protonix) acetaminophen 500 mg/15 mL oral 500 mg FEEDING TUBE QID PRN 10/06/20 08/09/21 Unknown History liquid baclofen 5 mg/5 mL oral solution 15 mg FEEDING TUBE TID 10/06/20 08/09/21 04/19/21 05:30 History benztropine 1 mg tablet 1 mg FEEDING TUBE BEDTIME 10/06/20 08/09/21 01/04/21 History famotidine (PF) 20 mg/50 mL in 0.9 20 mg IV DAILY 10/06/20 08/09/21 04/19/21 05:30 History % NaCl (iso) intravenous piggyback fludrocortisone 0.1 mg tablet 0.1 mg FEEDING TUBE DAILY 10/06/20 08/09/21 04/19/21 05:30 History gabapentin 600 mg tablet 600 mg FEEDING TUBE BID 10/06/20 08/09/21 04/19/21 05:30 History ipratropium 0.5 mg-albuterol 3 mg 3 ml INHALATION Q6-8H PRN 10/06/20 08/09/21 Unknown History (2.5 mg base)/3 mL nebulization soln levothyroxine 112 mcg/mL oral 112 mcg FEEDING TUBE DAILY 10/06/20 08/09/21 04/19/21 05:30 History solution methenamine hippurate 1 gram 1 g FEEDING TUBE Q12H 10/06/20 08/09/21 04/19/21 05:30 History tablet (Hiprex) midodrine 10 mg tablet 10 mg FEEDING TUBE BID 10/06/20 08/09/21 04/19/21 05:30 History sucralfate 100 mg/mL oral 10 ml BID 10/06/20 08/09/21 Unknown History suspension (Carafate) topiramate 200 mg tablet (Topamax) 200 mg FEEDING TUBE BID 10/06/20 08/09/21 04/19/21 05:30 History magnesium hydroxide 400 mg/5 mL 30 ml FEEDING TUBE DIRECTED PRN 11/12/20 08/09/21 Unknown History oral suspension (Milk of Magnesia) promethazine 25 mg/mL injection 25 mg IV TID 11/12/20 08/09/21 04/19/21 05:30 History solution (Phenergan) loxapine succinate 50 mg capsule 60 mg FEEDING TUBE BID cap 01/22/21 08/09/21 04/19/21 05:30 History furosemide 40 mg J-TUBE BID 03/08/21 08/09/21 04/19/21 05:30 History gabapentin 800 mg tablet 800 mg PO BEDTIME 03/09/21 08/09/21 Unknown History mometasone 200 mcg/actuation HFA 1 puff INHALATION BID g 03/09/21 08/09/21 Unknown History aerosol inhaler (Asmanex HFA) oxycodone 15 mg tablet 10 mg FEEDING TUBE Q3H tab 03/09/21 08/09/21 04/19/21 05:30 History Valium 2.5 mg 04/19/21 04/19/21 04/19/21 04:30 History Zomig 06/03/21 06/03/21 Unknown History hydrocortisone sod succinate 100 20 mg IV Q12H 06/03/21 08/09/21 Unknown History mg/2 mL solution for injection lidocaine 5 % topical ointment 1 appl TOPICAL QID PRN 06/03/21 08/09/21 Unknown History methylnaltrexone 8 mg/0.4 mL 8 mg SUBCUT Q OTHER DAY 06/03/21 08/09/21 Unknown History subcutaneous syringe (Relistor) Exam Exam Date and Time: August 13, 2021 1203 Assessment and Plan Assessment Anesthesia Assessment: Chart Reviewed Final Anesthetic Review Family History of Problems with Anesthesia: No History of Problems with Anesthesia: No Documented by User: Marcela Hernandez MD 08/16/21 11:52 [facility] Past Medical History Medical History Asthma Bacterial infection Brain bleed Brain tumor Chronic, continuous use of opioids Constipation Diabetes Fungal infection Gastroparesis GERD (gastroesophageal reflux disease) History of jejunostomy tube placement Hx pulmonary embolism Hypothyroidism Neuropathy Seizures Septic arthritis Small fiber polyneuropathy Suprapubic catheter Unspecified convulsions VRE (vancomycin-resistant Enterococci) Family History Family History Father Skin cancer Mother No problems noted. 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 Household Members Other:: live in aid Housing Other:: 24 hour care - live in aid Are you a primary pet care assistant to a significant other at home: No Do you presently have visiting nurse or other home services: Yes Alcohol intake: current Alcohol intake frequency: does not drink Patient Tobacco Use Status: Never used Tobacco Use of substances other than those prescribed or required for medical reasons: No Are you DNR?: No Advance Directives: No Advance Directives Information Provided: Yes Advance Directives Date on File: 06/29/20 Meds Allergies Allergy/AdvReac Type Severity Reaction Status Date / Time lamotrigine [From LAMICTAL] Allergy Severe CLEMENTINA Verified 08/10/21 09:04 GUIDO SYNDROME chlorhexidine [CHLORHEXIDINE] Allergy Intermediate RASH Verified 08/10/21 09:04 citalopram [From CELEXA] Allergy Intermediate PROLONGED Verified 08/10/21 09:04 QT INTERVAL divalproex sodium Allergy Intermediate BLACK Verified 08/10/21 09:04 [From DEPAKOTE] EYES escitalopram [From LEXAPRO] Allergy Intermediate SWELLING Verified 08/10/21 09: 04 lactose [LACTOSE] Allergy Intermediate GI UPSET Verified 08/10/21 09:04 povidone-iodine Allergy Intermediate rash Verified 08/10/21 09:04 [From BETADINE] alprazolam [From Xanax] Allergy Mild Unknown Verified 08/10/21 09:04 sertraline [From Zoloft] Allergy Mild unknown Verified 08/10/21 09:04 ziprasidone [From Geodon] Allergy Mild dystonia Verified 08/10/21 09:04 clonazepam [From Klonopin] Allergy agitation Verified 08/10/21 09:04 lorazepam [From Ativan] Allergy agitation Verified 08/10/21 09:04 BEETS Allergy Intermediate SWELLING Uncoded 08/10/21 09:04 STATLOC Allergy Intermediate RASH Uncoded 08/10/21 09:04 Home Medications Medication Instructions Recorded Confirmed Last Taken Type albuterol sulfate 90 mcg/actuation 2 puff INHALATION 6XD 06/25/20 08/09/21 Unknown History aerosol inhaler diphenhydramine HCl 50 mg/mL 50 mg IV Q4H 06/25/20 08/09/21 04/19/21 05:30 History injection solution pantoprazole 40 mg intravenous 40 mg IV BID 06/25/20 08/09/21 04/19/21 05:30 History solution (Protonix) acetaminophen 500 mg/15 mL oral 500 mg FEEDING TUBE QID PRN 10/06/20 08/09/21 Unknown History liquid baclofen 5 mg/5 mL oral solution 15 mg FEEDING TUBE TID 10/06/20 08/09/21 04/19/21 05:30 History benztropine 1 mg tablet 1 mg FEEDING TUBE BEDTIME 10/06/20 08/09/21 01/04/21 History famotidine (PF) 20 mg/50 mL in 0.9 20 mg IV DAILY 10/06/20 08/09/21 04/19/21 05:30 History % NaCl (iso) intravenous piggyback fludrocortisone 0.1 mg tablet 0.1 mg FEEDING TUBE DAILY 10/06/20 08/09/21 04/19/21 05:30 History gabapentin 600 mg tablet 600 mg FEEDING TUBE BID 10/06/20 08/09/21 04/19/21 05:30 History ipratropium 0.5 mg-albuterol 3 mg 3 ml INHALATION Q6-8H PRN 10/06/20 08/09/21 Un known History (2.5 mg base)/3 mL nebulization soln levothyroxine 112 mcg/mL oral 112 mcg FEEDING TUBE DAILY 10/06/20 08/09/21 04/19/21 05:30 History solution methenamine hippurate 1 gram 1 g FEEDING TUBE Q12H 10/06/20 08/09/21 04/19/21 05:30 History tablet (Hiprex) midodrine 10 mg tablet 10 mg FEEDING TUBE BID 10/06/20 08/09/21 04/19/21 05:30 History sucralfate 100 mg/mL oral 10 ml BID 10/06/20 08/09/21 Unknown History suspension (Carafate) topiramate 200 mg tablet (Topamax) 200 mg FEEDING TUBE BID 10/06/20 08/09/21 04/19/21 05:30 History magnesium hydroxide 400 mg/5 mL 30 ml FEEDING TUBE DIRECTED PRN 11/12/20 08/09/21 Unknown History oral suspension (Milk of Magnesia) promethazine 25 mg/mL injection 25 mg IV TID 11/12/20 08/09/21 04/19/21 05:30 History solution (Phenergan) loxapine succinate 50 mg capsule 60 mg FEEDING TUBE BID cap 01/22/21 08/09/21 04/19/21 05:30 History furosemide 40 mg J-TUBE BID 03/08/21 08/09/21 04/19/21 05:30 History gabapentin 800 mg tablet 800 mg PO BEDTIME 03/09/21 08/09/21 Unknown History mometasone 200 mcg/actuation HFA 1 puff INHALATION BID g 03/09/21 08/09/21 Unknown History aerosol inhaler (Asmanex HFA) oxycodone 15 mg tablet 10 mg FEEDING TUBE Q3H tab 03/09/21 08/09/21 04/19/21 05:30 History Valium 2.5 mg 04/19/21 04/19/21 04/19/21 04:30 History Zomig 06/03/21 06/03/21 Unknown History hydrocortisone sod succinate 100 20 mg IV Q12H 06/03/21 08/09/21 Unknown History mg/2 mL solution for injection lidocaine 5 % topical ointment 1 appl TOPICAL QID PRN 06/03/21 08/09/21 Unknown History methylnaltrexone 8 mg/0.4 mL 8 mg SUBCUT Q OTHER DAY 06/03/21 08/09/21 Unknown History subcutaneous syringe (Relistor) Exam Airway Mallampati Class: II TM Dist: >3cm Neck ROM: Full Heart: rrr Lungs: cta Assessment and Plan Assessment Anesthesia Assessment: Anesthesia Plan Discussed and Chart Reviewed Final Anesthetic Review NPO: Yes ASA Class: III Final Preanesthetic Review: No Changes in Pt Med Stat, Meds/Allgs Chart Reviewed and Consent Obtained/Reviewed Patient Risk: Intermediate Procedure Risk: Intermediate Anesthetic Plan Anesthetic Plan: GA Disposition: Standard PACU
[2021-08-16] VITALS (7 sets, daily range): BP systolic 99–123; BP diastolic 54–82; PULSE 87–104; RESP 7–16; TEMP 36.2–37.6; O2SAT 98–100; BMI 17.7
[2021-08-16] MEDS: Lactated Ringers 1,000 ML 50 ML IVCONT (12:00)
[2021-08-16 12:23] LABS: Glucose, Whole Blood 121 mg/dL (60-115)
--- NOTE | 2021-08-16 12:33 | MHC.SHP ---
Pre-Procedural Eval Section A Date of Service: 08/16/21 The patient is an INPATIENT: No Changes since office visit: No Cold of Flu in the past 2 weeks, No New Medical Problems, No Changes in Medication and No Patient answered all questions The History & Physical has been completed within 30 days and I have reviewed it.: No Section B Chief Complaint: bladder dysfunction Details of Present Illness: Suprapubic tube change Relevant Social History: None Present Medications: see Short Stay Collaborative assessment Medical History: Significant History History of Previous Operations: Relevant previous surgery/procedure and date(s) Allergies: Allergies Allergy/AdvReac Type Severity Reaction Status Date / Time lamotrigine [From LAMICTAL] Allergy Severe CLEMENTINA Verified 08/10/21 09:04 GUIDO SYNDROME chlorhexidine [CHLORHEXIDINE] Allergy Intermediate RASH Verified 08/10/21 09:04 citalopram [From CELEXA] Allergy Intermediate PROLONGED Verified 08/10/21 09:04 QT INTERVAL divalproex sodium Allergy Intermediate BLACK Verified 08/10/21 09:04 [From DEPAKOTE] EYES escitalopram [From LEXAPRO] Allergy Intermediate SWELLING Verified 08/10/21 09:04 lactose [LACTOSE] Allergy Intermediate GI UPSET Verified 08/10/21 09:04 povidone-iodine Allergy Intermediate rash Verified 08/10/21 09:04 [From BETADINE] alprazolam [From Xanax] Allergy Mild Unknown Verified 08/10/21 09:04 sertraline [From Zoloft] Allergy Mild unknown Verified 08/10/21 09:04 ziprasidone [From Geodon] Allergy Mild dystonia Verified 08/10/21 09:04 clonazepam [From Klonopin] Allergy agitation Verified 08/10/21 09:04 lorazepam [From Ativan] Allergy agitation Verified 08/10/21 09:04 BEETS Allergy Intermediate SWELLING Uncoded 08/10/21 09:04 STATLOC Allergy Intermediate RASH Uncoded 08/10/21 09:04 Review of Systems Sugical H&P ROS: Negative: Constitution, Cardiovascular, Respiratory, Neurological, Psychiatric, Hem-Onc, Allergic/Immunologic, Gastrointestinal, Genitourinary, Musculoskeletal, Integumentary, Endocrine and Eyes/Ears/Nose/Throat Exam Surgical H&P Exam: Normal: HEENT, Normal: Heart, Normal: Lungs, Normal: Extremities, Normal: Abdomen, Normal: Skin and Normal: Neurological Plan Diagnosis/Plan: Unchanged (Suprapubic tube change) I have reviewed the history and physical and performed a pertinent physical examination on my patient. No changes have occurred unless specified.
--- NOTE | 2021-08-16 13:09 | P.OP_ITS ---
Operative Note Operative Note Date of Service: 08/16/21 Narrative: PreOperative Diagnosis:? Neurogenic bladder Post Operative Diagnosis:? Neurogenic bladder Procedure:? Suprapubic tube change Surgeon: Dr Denys Pereira Anesthesia:? Sedation Indications for procedure: Small neuronal disease with neurogenic bladder Procedure: After informed consent was verified the patient was brought to the operating room and placed in a supine position.? Anesthesia was administered per protocol. Marcela remained in her stretcher. The area was prepped with saline Suprapubic tube removed. Twenty-two [place] Waldron catheter placed - 7 cc in balloon
--- NOTE | 2021-08-16 13:54 | PC.NURSE ---
patient crying stated her resp rate is always low and that she has lung problems. stated her pain is so bad it feels like a baby trying to come out of her. RR 14 will medicate as ordered.
[2021-08-16] MEDS: HYDROmorphone HCl 0.5 MG/0.5 ML SYRINGE 0.25 MG IVPUSH (13:57)
== END 2021-08-16 14:48 | disposition home or self-care (01) ==
PROVIDERS: PCP Internal Medicine; Visit Provider Urology
PROC: (CPT 51705; principal; 2021-08-16 07:30)
DX: N31.9 Neuromuscular dysfunction of bladder, unspecified (principal); G62.9 Polyneuropathy, unspecified; E11.9 Type 2 diabetes mellitus without complications; J45.909 Unspecified asthma, uncomplicated; F11.20 Opioid dependence, uncomplicated; Z88.8 Allergy status to other drugs, medicaments and biological substances
CPT/HCPCS: 51705; 82947; J1170

== ENCOUNTER 2021-09-13 06:42 | Day surgery (SDC) | payer MEDICAID, SELFPAY ==
[2021-09-06 10:50] VITALS: BMI 23.1
--- NOTE | 2021-09-08 15:10 | P.CONAN_ITS ---
Documented by User: Lucila Bales NP 09/08/21 15:11 HPI - Anesthesia Eval Consult details Narrative: 31yo F for Suprapubic Tube Exchange Last done 08/16/21 with MAC (prop 100) Chronic opioid *Multiple med allergies* As of 07/19/21: Chronic steroids. Per Lyndsey RN at Dr Rodrigues ([facility] neuroendocrine)... Pt to have dose of hydrocortisone 20mg IV at home prior to arrive at [facility]. Confirmed by Lyndsey [facility] neuroendocrine RN. Also confirmed with patient. [facility] Active Problems Active Problems: All Active Problems (Updated 08/10/21 @ 09:55 by Denys Pereira MD) Neurogenic urinary bladder disorder (Acute) Neurologic disorder (Acute) Recurrent infections (Acute) Diarrhea associated with pseudomembranous colitis (Acute) Diarrhea (Acute) Gastroparesis (Acute) Past Medical History Medical History Asthma Bacterial infection Brain bleed Brain tumor Chronic, continuous use of opioids Constipation Diabetes Fungal infection Gastroparesis GERD (gastroesophageal reflux disease) History of jejunostomy tube placement Hx pulmonary embolism Hypothyroidism Neuropathy Seizures Septic arthritis Small fiber polyneuropathy Suprapubic catheter Unspecified convulsions VRE (vancomycin-resistant Enterococci) Family History Family History Father Skin cancer Mother No problems noted. 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 Household Members Other:: live in aid Housing Other:: 24 hour care - live in aid Are you a primary primary care pediatrician to a significant other at home: No Do you presently have visiting nurse or other home services: Yes Alcohol intake: current Alcohol intake frequency: does not drink Patient Tobacco Use Status: Never used Tobacco Second Hand Smoke Exposure: No Use of substances other than those prescribed or required for medical reasons: No Are you DNR?: No Advance Directives: No Advance Directives Information Provided: Yes Advance Directives on File: Yes Advance Directives Date on File: 06/29/20 Meds Allergies Allergy/AdvReac Type Severity Reaction Status Date / Time lamotrigine [From LAMICTAL] Allergy Severe CLEMENTINA Verified 08/10/21 09:04 GUIDO SYNDROME chlorhexidine [CHLORHEXIDINE] Allergy Intermediate RASH Verified 08/10/21 09:04 citalopram [From CELEXA] Allergy Intermediate PROLONGED Verified 08/10/21 09:04 QT INTERVAL divalproex sodium Allergy Intermediate BLACK Verified 08/10/21 09:04 [From DEPAKOTE] EYES escitalopram [From LEXAPRO] Allergy Intermediate SWELLING Verified 08/10/21 09:04 lactose [LACTOSE] Allergy Intermediate GI UPSET Verified 08/10/21 09:04 povidone-iodine Allergy Intermediate rash Verified 08/10/21 09:04 [From BETADINE] alprazolam [From Xanax] Allergy Mild Unknown Verified 08/10/21 09:04 sertraline [From Zoloft] Allergy Mild unknown Verified 08/10/21 09:04 ziprasidone [From Geodon] Allergy Mild dystonia Verified 08/10/21 09:04 clonazepam [From Klonopin] Allergy agitation Verified 08/10/21 09:04 lorazepam [From Ativan] Allergy agitation Verified 08/10/21 09:04 BEETS Allergy Intermediate SWELLING Uncoded 08/10/21 09:04 STATLOC Allergy Intermediate RASH Uncoded 08/10/21 09:04 Home Medications Medication Instructions Recorded Confirmed Last Taken Type albuterol sulfate 90 mcg/actuation 2 puff INHALATION 6XD 06/25/20 08/09/21 Unknown History aerosol inhaler diphenhydramine HCl 50 mg/mL 50 mg IV Q4H 06/25/20 08/09/21 04/19/21 05:30 History injection solution pantoprazole 40 mg intravenous 40 mg IV BID 06/25/20 08/09/21 04/19/21 05:30 History solution (Protonix) acetaminophen 500 mg/15 mL oral 500 mg FEEDING TUBE QID PRN 10/06/20 08/09/21 Unknown History liquid baclofen 5 mg/5 mL oral solution 15 mg FEEDING TUBE TID 10/06/20 08/09/21 04/19/21 05:30 History benztropine 1 mg tablet 1 mg FEEDING TUBE BEDTIME 10/06/20 08/09/21 01/04/21 History famotidine (PF) 20 mg/50 mL in 0.9 20 mg IV DAILY 10/06/20 08/09/21 04/19/21 05:30 History % NaCl (iso) intravenous piggyback fludrocortisone 0.1 mg tablet 0.1 mg FEEDING TUBE DAILY 10/06/20 08/09/21 04/19/21 05:30 History gabapentin 600 mg tablet 600 mg FEEDING TUBE BID 10/06/20 08/09/21 04/19/21 05:30 History ipratropium 0.5 mg-albuterol 3 mg 3 ml INHALATION Q6-8H PRN 10/06/20 08/09/21 Unknown History (2.5 mg base)/3 mL nebulization soln levothyroxine 112 mcg/mL oral 112 mcg FEEDING TUBE DAILY 10/06/20 08/09/21 04/19/21 05:30 History solution methenamine hippurate 1 gram 1 g FEEDING TUBE Q12H 10/06/20 08/09/21 04/19/21 05:30 History tablet (Hiprex) midodrine 10 mg tablet 10 mg FEEDING TUBE BID 10/06/20 08/09/21 04/19/21 05:30 History sucralfate 100 mg/mL oral 10 ml BID 10/06/20 08/09/21 Unknown History suspension (Carafate) topiramate 200 mg tablet (Topamax) 200 mg FEEDING TUBE BID 10/06/20 08/09/21 04/19/21 05:30 History magnesium hydroxide 400 mg/5 mL 30 ml FEEDING TUBE DIRECTED PRN 11/12/20 08/09/21 Unknown History oral suspension (Milk of Magnesia) promethazine 25 mg/mL injection 25 mg IV TID 11/12/20 08/09/21 04/19/21 05:30 History solution (Phenergan) loxapine succinate 50 mg capsule 60 mg FEEDING TUBE BID cap 01/22/21 08/09/21 04/19/21 05:30 History furosemide 40 mg J-TUBE BID 03/08/21 08/09/21 04/19/21 05:30 History gabapentin 800 mg tablet 800 mg PO BEDTIME 03/09/21 08/09/21 Unknown History mometasone 200 mcg/actuation HFA 1 puff INHALATION BID g 03/09/21 08/09/21 Unknown History aerosol inhaler (Asmanex HFA) oxycodone 15 mg tablet 10 mg FEEDING TUBE Q3H tab 03/09/21 08/09/21 04/19/21 05:30 History Valium 2.5 mg 04/19/21 04/19/21 04/19/21 04:30 History Zomig 06/03/21 06/03/21 Unknown History hydrocortisone sod succinate 100 20 mg IV Q12H 06/03/21 08/09/21 Unknown History mg/2 mL solution for injection lidocaine 5 % topical ointment 1 appl TOPICAL QID PRN 06/03/21 08/09/21 Unknown History methylnaltrexone 8 mg/0.4 mL 8 mg SUBCUT Q OTHER DAY 06/03/21 08/09/21 Unknown History subcutaneous syringe (Relistor) Exam Exam Date and Time: September 08, 2021 1510 Height,Weight and Vital Signs: Height 4 ft 11 in Weight 52 kg Assessment and Plan Assessment Anesthesia Assessment: Chart Reviewed Final Anesthetic Review Family History of Problems with Anesthesia: No History of Problems with Anesthesia: No Documented by User: Enrique Peace 09/13/21 08:10 [facility] Past Medical History Medical History Asthma Bacterial infection Brain bleed Brain tumor Chronic, continuous use of opioids Constipation Diabetes Fungal infection Gastroparesis GERD (gastroesophageal reflux disease) History of jejunostomy tube placement Hx pulmonary embolism Hypothyroidism Neuropathy Seizures Septic arthritis Small fiber polyneuropathy Suprapubic catheter Unspecified convulsions VRE (vancomycin-resistant Enterococci) Family History Family History Father Skin cancer Mother No problems noted. 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 Household Members Other:: live in aid Housing Other:: 24 hour care - live in aid Are you a primary primary care pediatrician to a significant other at home: No Do you presently have visiting nurse or other home services: Yes Alcohol intake: current Alcohol intake frequency: does not drink Patient Tobacco Use Status: Never used Tobacco Second Hand Smoke Exposure: No Use of substances other than those prescribed or required for medical reasons: No Are you DNR?: No Advance Directives: No Advance Directives Information Provided: Yes Advance Directives on File: Yes Advance Directives Date on File: 06/29/20 Meds Allergies Allergy/AdvReac Type Severity Reaction Status Date / Time lamotrigine [From LAMICTAL] Allergy Severe CLEMENTINA Verified 08/10/21 09:04 GUIDO SYNDROME chlorhexidine [CHLORHEXIDINE] Allergy Intermediate RASH Verified 08/10/21 09:04 citalopram [From CELEXA] Allergy Intermediate PROLONGED Verified 08/10/21 09:04 QT INTERVAL divalproex sodium Allergy Intermediate BLACK Verified 08/10/21 09:04 [From DEPAKOTE] EYES escitalopram [From LEXAPRO] Allergy Intermediate SWELLING Verified 08/10/21 09:04 lactose [LACTOSE] Allergy Intermediate GI UPSET Verified 08/10/21 09:04 povidone-iodine Allergy Intermediate rash Verified 08/10/21 09:04 [From BETADINE] alprazolam [From Xanax] Allergy Mild Unknown Verified 08/10/21 09:04 sertraline [From Zoloft] Allergy Mild unknown Verified 08/10/21 09:04 ziprasidone [From Geodon] Allergy Mild dystonia Verified 08/10/21 09:04 clonazepam [From Klonopin] Allergy agitation Verified 08/10/21 09:04 lorazepam [From Ativan] Allergy agitation Verified 08/10/21 09:04 BEETS Allergy Intermediate SWELLING Uncoded 08/10/21 09:04 STATLOC Allergy Intermediate RASH Uncoded 08/10/21 09:04 Home Medications Medication Instructions Recorded Confirmed Last Taken Type albuterol sulfate 90 mcg/actuation 2 puff INHALATION 6XD 06/25/20 08/09/21 Unknown History aerosol inhaler diphenhydramine HCl 50 mg/mL 50 mg IV Q4H 06/25/20 08/09/21 04/19/21 05:30 History injection solution pantoprazole 40 mg intravenous 40 mg IV BID 06/25/20 08/09/21 04/19/21 05:30 History solution (Protonix) acetaminophen 500 mg/15 mL oral 500 mg FEEDING TUBE QID PRN 10/06/20 08/09/21 Unknown History liquid baclofen 5 mg/5 mL oral solution 15 mg FEEDING TUBE TID 10/06/20 08/09/21 04/19/21 05:30 History benztropine 1 mg tablet 1 mg FEEDING TUBE BEDTIME 10/06/20 08/09/21 01/04/21 History famotidine (PF) 20 mg/50 mL in 0.9 20 mg IV DAILY 10/06/20 08/09/21 04/19/21 05:30 History % NaCl (iso) intravenous piggyback fludrocortisone 0.1 mg tablet 0.1 mg FEEDING TUBE DAILY 10/06/20 08/09/21 04/19/21 05:30 History gabapentin 600 mg tablet 600 mg FEEDING TUBE BID 10/06/20 08/09/21 04/19/21 05:30 History ipratropium 0.5 mg-albuterol 3 mg 3 ml INHALATION Q6-8H PRN 10/06/20 08/09/21 Unknown History (2.5 mg base)/3 mL nebulization soln levothyroxine 112 mcg/mL oral 112 mcg FEEDING TUBE DAILY 10/06/20 08/09/21 04/19/21 05:30 History solution methenamine hippurate 1 gram 1 g FEEDING TUBE Q12H 10/06/20 08/09/21 04/19/21 05:30 History tablet (Hiprex) midodrine 10 mg tablet 10 mg FEEDING TUBE BID 10/06/20 08/09/21 04/19/21 05:30 History sucralfate 100 mg/mL oral 10 ml BID 10/06/20 08/09/21 Unknown History suspension (Carafate) topiramate 200 mg tablet (Topamax) 200 mg FEEDING TUBE BID 10/06/20 08/09/21 04/19/21 05:30 History magnesium hydroxide 400 mg/5 mL 30 ml FEEDING TUBE DIRECTED PRN 11/12/20 08/09/21 Unknown History oral suspension (Milk of Magnesia) promethazine 25 mg/mL injection 25 mg IV TID 11/12/20 08/09/21 04/19/21 05:30 History solution (Phenergan) loxapine succinate 50 mg capsule 60 mg FEEDING TUBE BID cap 01/22/21 08/09/21 04/19/21 05:30 History furosemide 40 mg J-TUBE BID 03/08/21 08/09/21 04/19/21 05:30 History gabapentin 800 mg tablet 800 mg PO BEDTIME 03/09/21 08/09/21 Unknown History mometasone 200 mcg/actuation HFA 1 puff INHALATION BID g 03/09/21 08/09/21 Unknown History aerosol inhaler (Asmanex HFA) oxycodone 15 mg tablet 10 mg FEEDING TUBE Q3H tab 03/09/21 08/09/21 04/19/21 05:30 History Valium 2.5 mg 04/19/21 04/19/21 04/19/21 04:30 History Zomig 06/03/21 06/03/21 Unknown History hydrocortisone sod succinate 100 20 mg IV Q12H 06/03/21 08/09/21 Unknown History mg/2 mL solution for injection lidocaine 5 % topical ointment 1 appl TOPICAL QID PRN 06/03/21 08/09/21 Unknown History methylnaltrexone 8 mg/0.4 mL 8 mg SUBCUT Q OTHER DAY 06/03/21 08/09/21 Unknown History subcutaneous syringe (Relistor) Exam Airway Mallampati Class: III Neck ROM: Full Loose/Missing/Broken Teeth: Yes Heart: rrr Lungs: bl breath sounds Assessment and Plan Final Anesthetic Review NPO: Yes ASA Class: III Patient Risk: Intermediate Procedure Risk: Intermediate Anesthetic Plan Anesthetic Plan: MAC: Disposition: Standard PACU
--- NOTE | 2021-09-13 07:21 | P.HPSUR_ITS ---
Pre-Procedural Eval Section A Date of Service: 09/13/21 Section B Chief Complaint: dysfunction of bladder Details of Present Illness: suprapubic tube change - recent admission to [facility] with malfunctioning vascular port access. Has been feeling very thirsty and requesting baseline laboratories. Relevant Family History (Specify if Yes): No Relevant Social History: None Present Medications: see Short Stay Collaborative assessment Medical History: Significant History History of Previous Operations: Relevant previous surgery/procedure and date(s) Allergies: Allergies Allergy/AdvReac Type Severity Reaction Status Date / Time lamotrigine [From LAMICTAL] Allergy Severe CLEMENTINA Verified 08/10/21 09:04 GUIDO SYNDROME chlorhexidine [CHLORHEXIDINE] Allergy Intermediate RASH Verified 08/10/21 09:04 citalopram [From CELEXA] Allergy Intermediate PROLONGED Verified 08/10/21 09:04 QT INTERVAL divalproex sodium Allergy Intermediate BLACK Verified 08/10/21 09:04 [From DEPAKOTE] EYES escitalopram [From LEXAPRO] Allergy Intermediate SWELLING Verified 08/10/21 09:0 4 lactose [LACTOSE] Allergy Intermediate GI UPSET Verified 08/10/21 09:04 povidone-iodine Allergy Intermediate rash Verified 08/10/21 09:04 [From BETADINE] alprazolam [From Xanax] Allergy Mild Unknown Verified 08/10/21 09:04 sertraline [From Zoloft] Allergy Mild unknown Verified 08/10/21 09:04 ziprasidone [From Geodon] Allergy Mild dystonia Verified 08/10/21 09:04 clonazepam [From Klonopin] Allergy agitation Verified 08/10/21 09:04 lorazepam [From Ativan] Allergy agitation Verified 08/10/21 09:04 BEETS Allergy Intermediate SWELLING Uncoded 08/10/21 09:04 STATLOC Allergy Intermediate RASH Uncoded 08/10/21 09:04 Review of Systems Sugical H&P ROS: Negative: Constitution, Cardiovascular, Respiratory, Rene rological, Psychiatric, Hem-Onc, Allergic/Immunologic, Gastrointestinal, Genitourinary, Musculoskeletal, Integumentary, Endocrine and Eyes/Ears/Nose/Throat Exam Surgical H&P Exam: Normal: HEENT, Normal: Heart, Normal: Lungs, Normal: Extremities, Normal: Abdomen, Normal: Skin and Normal: Neurological Plan I have reviewed the history and physical and performed a pertinent physical examination on my patient. No changes have occurred unless specified.
[2021-09-13 07:37] LABS: MANUAL DIFF FLAG NO
[2021-09-13 07:42] VITALS: BP 104/67; PULSE 99; RESP 16; TEMP 36.1; O2SAT 100
[2021-09-13] MEDS: Lactated Ringers 1,000 ML 50 ML IVCONT (07:42)
[2021-09-13 07:48] LABS: Basophils Absolute Auto 0.1 X10*3/uL (0.0-0.2); Basophils Percent Auto 0.7 % (0-2); Eosinophils Absolute Auto 0.2 X10*3/uL (0.0-0.4); Eosinophils Percent Auto 3.2 % (0-4); Hematocrit 23.8 % (37.0-47.0); Hemoglobin 8.2 g/dl (12.0-16.0); Imm Gran Abs Auto 0.11 X10*3/uL (0.00-0.03); Imm Gran Pct Auto 1.5 % (0.0-0.4); Lymphocytes Absolute Auto 1.6 X10*3/uL (1.2-4.9); Mean Corpuscular HGB Conc 34.5 g/dl (31.0-35.0); Mean Corpuscular Hemoglobin 33.1 pg (27.0-33.0); Monocytes Absolute Auto 0.5 X10*3/uL (0.1-1.2); Monocytes Percent Auto 6.1 % (2-11); NRBC Pct Auto 0.5 /100WBC (0.0-0.2); Neutrophils Absolute Auto 5.1 x10*3/uL (2.0-8.3); Neutrophils Percent Auto 67.5 % (45-73); Platelet Count 185 X10*3/uL (160-400); Red Blood Count 2.48 X10*6/uL (4.20-5.50); Red Cell Distribution Width 14.3 % (11.0-16.0); White Blood Count 7.5 X10*3/uL (4.8-10.8)
[2021-09-13 07:56] LABS: Anion Gap 11 (12-20); Blood Urea Nitrogen 29 mg/dL (9-16); Calcium 8.8 mg/dL (8.4-10.2); Carbon Dioxide 27 mmol/L (22-29); Chloride 110 mmol/L (96-108); Creatinine Clr Calc Pharmacy 75.4; Estimated Glomerular Filt Rate > 60; Glucose Fasting 90 mg/dL (60-99); Potassium 3.7 mmol/L (3.3-5.1); Sodium 144 mmol/L (135-145)
--- NOTE | 2021-09-13 08:49 | P.OP_ITS ---
Operative Note Operative Note Date of Service: 09/13/21 Narrative: ?PreOperative Diagnosis:? Neurogenic bladder Post Operative Diagnosis:? Neurogenic bladder Procedure:? Suprapubic tube change Surgeon: Dr Denys Pereira Anesthesia:? Sedation Indications for procedure: Small neuronal disease with neurogenic bladder - currently on antibiotics from [facility] Procedure: After informed consent was verified the patient was brought to the operating room and placed in a supine position.? Anesthesia was administered per protocol. Marcela remained in her stretcher. The area was prepped with saline Suprapubic tube removed. Twenty-two [place] Waldron catheter placed - 7 cc in balloon tolerated well
[2021-09-13 08:54] VITALS: BP 93/58; PULSE 90; RESP 20; TEMP 36.8; O2SAT 110
[2021-09-13 09:09] VITALS: BP 113/68; PULSE 88; RESP 16; O2SAT 100
[2021-09-13 09:24] VITALS: BP 110/69; PULSE 94; RESP 16; O2SAT 100
[2021-09-13 09:35] VITALS: RESP 16
[2021-09-13] MEDS: HYDROmorphone HCl 0.5 MG/0.5 ML SYRINGE IVPUSH (09:35)
[2021-09-13 09:39] VITALS: BP 112/71; PULSE 95; RESP 18; TEMP 36.7; O2SAT 100
== END 2021-09-13 10:15 | disposition home or self-care (01) ==
PROVIDERS: PCP Internal Medicine; Visit Provider Urology
PROC: (CPT 51102; principal; 2021-09-13 08:10)
DX: N31.9 Neuromuscular dysfunction of bladder, unspecified (principal); G62.89 Other specified polyneuropathies; E11.9 Type 2 diabetes mellitus without complications; F11.20 Opioid dependence, uncomplicated; J45.909 Unspecified asthma, uncomplicated; Z79.899 Other long term (current) drug therapy; Z88.8 Allergy status to other drugs, medicaments and biological substances
CPT/HCPCS: 51705; 36415; 80048; 85025; J1170

== ENCOUNTER 2021-10-11 06:58 | Day surgery (SDC) | payer MEDICAID, SELFPAY ==
--- NOTE | 2021-10-08 11:48 | P.CONAN_ITS ---
Documented by User: Lucila Bales NP 10/08/21 11:50 HPI - Anesthesia Eval Consult details Narrative: 31yo F for Suprapubic Tube Exchange Last exchange 09/13/21 with TIVA Chronic opioid *Multiple med allergies* As of 07/19/21: Chronic steroids. Per Lyndsey, RN at Dr Rodrigues ([facility] neuroendocrine)... Pt to have dose of hydrocortisone 20mg IV at home prior to arrive at [facility]. Confirmed by Lyndsey [facility] neuroendocrine RN. Also confirmed with patient. [facility] Active Problems Active Problems: All Active Problems (Updated 08/10/21 @ 09:55 by Denys Pereira MD) Neurogenic urinary bladder disorder (Acute) Neurologic disorder (Acute) Recurrent infections (Acute) Diarrhea associated with pseudomembranous colitis (Acute) Diarrhea (Acute) Gastroparesis (Acute) Past Medical History Medical History Asthma Bacterial infection Brain bleed Brain tumor Chronic, continuous use of opioids Constipation Diabetes Fungal infection Gastroparesis GERD (gastroesophageal reflux disease) History of jejunostomy tube placement Hx pulmonary embolism Hypothyroidism Neuropathy Seizures Septic arthritis Small fiber polyneuropathy Suprapubic catheter Unspecified convulsions VRE (vancomycin-resistant Enterococci) Family History Family History Father Skin cancer Mother No problems noted. 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 Household Members Other:: live in aid Both parents involved: No Caregiver staying overnight: Yes Housing Other:: 24 hour care - live in aid Are you a primary neurocritical care physician to a significant other at home: No Do you presently have visiting nurse or other home services: Yes Alcohol intake: current Alcohol intake frequency: does not drink Patient Tobacco Use Status: Never used Tobacco Second Hand Smoke Exposure: No Advance Directives Date on File: 06/29/20 Meds Allergies Allergy/AdvReac Type Severity Reaction Status Date / Time lamotrigine [From Allergy Severe CLEMENTINA Verified 08/10/21 09:04 LAMICTAL] GUIDO SYNDROME chlorhexidine Allergy Intermediate RASH Verified 08/10/21 09:04 [CHLORHEXIDINE] citalopram [From Allergy Intermediate PROLONGED Verified 08/10/21 09:04 CELEXA] QT INTERVAL divalproex sodium Allergy Intermediate BLACK Verified 08/10/21 09:04 [From DEPAKOTE] EYES escitalopram [From Allergy Intermediate SWELLING Verified 08/10/21 09:04 LEXAPRO] lactose [LACTOSE] Allergy Intermediate GI UPSET Verified 08/10/21 09:04 povidone-iodine Allergy Intermediate rash Verified 08/10/21 09:04 [From BETADINE] alprazolam [From Allergy Mild Unknown Verified 08/10/21 09:04 Xanax] sertraline [From Allergy Mild unknown Verified 08/10/21 09:04 Zoloft] ziprasidone [From Allergy Mild dystonia Verified 08/10/21 09:04 Geodon] clonazepam [From Allergy agitation Verified 08/10/21 09:04 Klonopin] lorazepam [From Allergy agitation Verified 08/10/21 09:04 Ativan] BEETS Allergy Intermediate SWELLING Uncoded 08/10/21 09:04 STATLOC Allergy Intermediate RASH Uncoded 08/10/21 09:04 Home Medications Medication Instructions Recorded Confirmed Last Taken Type albuterol 2 puff 06/25/20 08/09/21 Unknown History sulfate 90 INHALATION 6XD mcg/actuation aerosol inhaler diphenhydramine 50 mg IV Q4H 06/25/20 08/09/21 04/19/21 05:30 History HCl 50 mg/mL injection solution pantoprazole 40 40 mg IV BID 06/25/20 08/09/21 04/19/21 05:30 History mg intravenous solution (Protonix) acetaminophen 500 mg FEEDING 10/06/20 08/09/21 Unknown History 500 mg/15 mL TUBE QID PRN oral liquid baclofen 5 mg/5 15 mg FEEDING 10/06/20 08/09/21 04/19/21 05:30 History mL oral TUBE TID solution benztropine 1 1 mg FEEDING 10/06/20 08/09/21 01/04/21 History mg tablet TUBE BEDTIME famotidine (PF) 20 mg IV DAILY 10/06/20 08/09/21 04/19/21 05:30 History 20 mg/50 mL in 0.9 % NaCl (iso) intravenous piggyback fludrocortisone 0.1 mg FEEDING 10/06/20 08/09/21 04/19/21 05:30 History 0.1 mg tablet TUBE DAILY gabapentin 600 600 mg FEEDING 10/06/20 08/09/21 04/19/21 05:30 History mg tablet TUBE BID ipratropium 0.5 3 ml INHALATION 10/06/20 08/09/21 Unknown History mg-albuterol 3 Q6-8H PRN mg (2.5 mg base)/3 mL nebulization soln levothyroxine 112 mcg FEEDING 10/06/20 08/09/21 04/19/21 05:30 History 112 mcg/mL oral TUBE DAILY solution methenamine 1 g FEEDING 10/06/20 08/09/21 04/19/21 05:30 History hippurate 1 TUBE Q12H gram tablet (Hiprex) midodrine 10 mg 10 mg FEEDING 10/06/20 08/09/21 04/19/21 05:30 History tablet TUBE BID sucralfate 100 10 ml BID 10/06/20 08/09/21 Unknown History mg/mL oral suspension (Carafate) topiramate 200 200 mg FEEDING 10/06/20 08/09/21 04/19/21 05:30 History mg tablet TUBE BID (Topamax) magnesium 30 ml FEEDING 11/12/20 08/09/21 Unknown History hydroxide 400 TUBE mg/5 mL DIRECTED PRN oral suspension (Milk of Magnesia) promethazine 25 25 mg IV TID 11/12/20 08/09/21 04/19/21 05:30 History mg/mL injection solution (Phenergan) loxapine 60 mg FEEDING 01/22/21 08/09/21 04/19/21 05:30 History succinate 50 mg TUBE BID cap capsule furosemide 40 mg J-TUBE 03/08/21 08/09/21 04/19/21 05:30 History BID gabapentin 800 800 mg PO 03/09/21 08/09/21 Unknown History mg tablet BEDTIME mometasone 200 1 puff 03/09/21 08/09/21 Unknown History mcg/actuation INHALATION BID HFA g aerosol inhaler (Asmanex HFA) oxycodone 15 mg 10 mg FEEDING 03/09/21 08/09/21 04/19/21 05:30 History tablet TUBE Q3H tab Valium 2.5 mg 04/19/21 04/19/21 04/19/21 04:30 History Zomig 06/03/21 06/03/21 Unknown History hydrocortisone 20 mg IV Q12H 06/03/21 08/09/21 Unknown History sod succinate 100 mg/2 mL solution for injection lidocaine 5 % 1 appl TOPICAL 06/03/21 08/09/21 Unknown History topical QID PRN ointment methylnaltrexon 8 mg SUBCUT Q 06/03/21 08/09/21 Unknown History e 8 mg/0.4 mL OTHER DAY subcutaneous syringe (Relistor) Exam Exam Date and Time: October 08, 2021 114 Pertinent Lab Results Pertinent Lab Results: Laboratory Tests 09/13/21 09/13/21 07:33 07:33 WBC 7.5 Hgb 8.2 L Hct 23.8 L Plt Count 185 Sodium 144 Potassium 3.7 Chloride 110 H Carbon Dioxide 27 BUN 29 H Creatinine 0.79 Assessment and Plan Assessment Anesthesia Assessment: Chart Reviewed Final Anesthetic Review Family History of Problems with Anesthesia: No History of Problems with Anesthesia: No Documented by User: Enrique Peace 10/11/21 13:28 [facility] Past Medical History Medical History Asthma Bacterial infection Brain bleed Brain tumor Chronic, continuous use of opioids Constipation Diabetes Fungal infection Gastroparesis GERD (gastroesophageal reflux disease) History of jejunostomy tube placement Hx pulmonary embolism Hypothyroidism Neuropathy Seizures Septic arthritis Small fiber polyneuropathy Suprapubic catheter Unspecified convulsions VRE (vancomycin-resistant Enterococci) Family History Family History Father Skin cancer Mother No problems noted. 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 Household Members Other:: live in aid Both parents involved: No Caregiver staying overnight: Yes Housing Other:: 24 hour care - live in aid Are you a primary neurocritical care physician to a significant other at home: No Do you presently have visiting nurse or other home services: Yes Alcohol intake: current Alcohol intake frequency: does not drink Patient Tobacco Use Status: Never used Tobacco Second Hand Smoke Exposure: No Advance Directives Date on File: 06/29/20 Meds Allergies Allergy/AdvReac Type Severity Reaction Status Date / Time lamotrigine [From Allergy Severe CLEMENTINA Verified 08/10/21 09:04 LAMICTAL] GUIDO SYNDROME chlorhexidine Allergy Intermediate RASH Verified 08/10/21 09:04 [CHLORHEXIDINE] citalopram [From Allergy Intermediate PROLONGED Verified 08/10/21 09:04 CELEXA] QT INTERVAL divalproex sodium Allergy Intermediate BLACK Verified 08/10/21 09:04 [From DEPAKOTE] EYES escitalopram [From Allergy Intermediate SWELLING Verified 08/10/21 09:04 LEXAPRO] lactose [LACTOSE] Allergy Intermediate GI UPSET Verified 08/10/21 09:04 povidone-iodine Allergy Intermediate rash Verified 08/10/21 09:04 [From BETADINE] alprazolam [From Allergy Mild Unknown Verified 08/10/21 09:04 Xanax] sertraline [From Allergy Mild unknown Verified 08/10/21 09:04 Zoloft] ziprasidone [From Allergy Mild dystonia Verified 08/10/21 09:04 Geodon] clonazepam [From Allergy agitation Verified 08/10/21 09:04 Klonopin] lorazepam [From Allergy agitation Verified 08/10/21 09:04 Ativan] BEETS Allergy Intermediate SWELLING Uncoded 08/10/21 09:04 STATLOC Allergy Intermediate RASH Uncoded 08/10/21 09:04 Home Medications Medication Instructions Recorded Confirmed Last Taken Type albuterol 2 puff 06/25/20 08/09/21 Unknown History sulfate 90 INHALATION 6XD mcg/actuation aerosol inhaler diphenhydramine 50 mg IV Q4H 06/25/20 08/09/21 04/19/21 05:30 History HCl 50 mg/mL injection solution pantoprazole 40 40 mg IV BID 06/25/20 08/09/21 04/19/21 05:30 History mg intravenous solution (Protonix) acetaminophen 500 mg FEEDING 10/06/20 08/09/21 Unknown History 500 mg/15 mL TUBE QID PRN oral liquid baclofen 5 mg/5 15 mg FEEDING 10/06/20 08/09/21 04/19/21 05:30 History mL oral TUBE TID solution benztropine 1 1 mg FEEDING 10/06/20 08/09/21 01/04/21 History mg tablet TUBE BEDTIME famotidine (PF) 20 mg IV DAILY 10/06/20 08/09/21 04/19/21 05:30 History 20 mg/50 mL in 0.9 % NaCl (iso) intravenous piggyback fludrocortisone 0.1 mg FEEDING 10/06/20 08/09/21 04/19/21 05:30 History 0.1 mg tablet TUBE DAILY gabapentin 600 600 mg FEEDING 10/06/20 08/09/21 04/19/21 05:30 History mg tablet TUBE BID ipratropium 0.5 3 ml INHALATION 10/06/20 08/09/21 Unknown History mg-albuterol 3 Q6-8H PRN mg (2.5 mg base)/3 mL nebulization soln levothyroxine 112 mcg FEEDING 10/06/20 08/09/21 04/19/21 05:30 History 112 mcg/mL oral TUBE DAILY solution methenamine 1 g FEEDING 10/06/20 08/09/21 04/19/21 05:30 History hippurate 1 TUBE Q12H gram tablet (Hiprex) midodrine 10 mg 10 mg FEEDING 10/06/20 08/09/21 04/19/21 05:30 History tablet TUBE BID sucralfate 100 10 ml BID 10/06/20 08/09/21 Unknown History mg/mL oral suspension (Carafate) topiramate 200 200 mg FEEDING 10/06/20 08/09/21 04/19/21 05:30 History mg tablet TUBE BID (Topamax) magnesium 30 ml FEEDING 11/12/20 08/09/21 Unknown History hydroxide 400 TUBE mg/5 mL DIRECTED PRN oral suspension (Milk of Magnesia) promethazine 25 25 mg IV TID 11/12/20 08/09/21 04/19/21 05:30 History mg/mL injection solution (Phenergan) loxapine 60 mg FEEDING 01/22/21 08/09/21 04/19/21 05:30 History succinate 50 mg TUBE BID cap capsule furosemide 40 mg J-TUBE 03/08/21 08/09/21 04/19/21 05:30 History BID gabapentin 800 800 mg PO 03/09/21 08/09/21 Unknown History mg tablet BEDTIME mometasone 200 1 puff 03/09/21 08/09/21 Unknown History mcg/actuation INHALATION BID HFA g aerosol inhaler (Asmanex HFA) oxycodone 15 mg 10 mg FEEDING 03/09/21 08/09/21 04/19/21 05:30 History tablet TUBE Q3H tab Valium 2.5 mg 04/19/21 04/19/21 04/19/21 04:30 History Zomig 06/03/21 06/03/21 Unknown History hydrocortisone 20 mg IV Q12H 06/03/21 08/09/21 Unknown History sod succinate 100 mg/2 mL solution for injection lidocaine 5 % 1 appl TOPICAL 06/03/21 08/09/21 Unknown History topical QID PRN ointment methylnaltrexon 8 mg SUBCUT Q 06/03/21 08/09/21 Unknown History e 8 mg/0.4 mL OTHER DAY subcutaneous syringe (Relistor) Exam Airway Mallampati Class: IV Neck ROM: Full Loose/Missing/Broken Teeth: Yes (poor dentation ) Heart: rrr Lungs: bl breath sounds Assessment and Plan Final Anesthetic Review NPO: Yes ASA Class: III Final Preanesthetic Review: Meds/Allgs Chart Reviewed Patient Risk: High Procedure Risk: Intermediate Anesthetic Plan Anesthetic Plan: MAC: Disposition: Standard PACU
--- NOTE | 2021-10-08 11:48 | HO.ANESPROP2 ---
Documented by User: Lucila Bales NP 10/08/21 11:50 HPI - Anesthesia Eval Consult details Narrative: 31yo F for Suprapubic Tube Exchange Last exchange 09/13/21 with TIVA Chronic opioid *Multiple med allergies* As of 07/19/21: Chronic steroids. Per Lyndsey, RN at Dr Rodrigues ([facility] [place] neuroendocrine)... Pt to have dose of hydrocortisone 20mg IV at home prior to arrive at [facility]. Confirmed by Lyndsey [facility] [facility] neuroendocrine RN. Also confirmed with patient. [facility] Active Problems Active Problems: All Active Problems (Updated 08/10/21 @ 09:55 by Denys Pereira MD) Neurogenic urinary bladder disorder (Acute) Neurologic disorder (Acute) Recurrent infections (Acute) Diarrhea associated with pseudomembranous colitis (Acute) Diarrhea (Acute) Gastroparesis (Acute) Past Medical History Medical History Asthma Bacterial infection Brain bleed Brain tumor Chronic, continuous use of opioids Constipation Diabetes Fungal infection Gastroparesis GERD (gastroesophageal reflux disease) History of jejunostomy tube placement Hx pulmonary embolism Hypothyroidism Neuropathy Seizures Septic arthritis Small fiber polyneuropathy Suprapubic catheter Unspecified convulsions VRE (vancomycin-resistant Enterococci) Family History Family History Father Skin cancer Mother No problems noted. 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 Household Members Other:: live in aid Both parents involved: No Caregiver staying overnight: Yes Housing Other:: 24 hour care - live in aid Are you a primary youth care professional to a significant other at home: No Do you presently have visiting nurse or other home services: Yes Alcohol intake: current Alcohol intake frequency: does not drink Patient Tobacco Use Status: Never used Tobacco Second Hand Smoke Exposure: No Advance Directives Date on File: 06/29/20 Meds Allergies Allergy/AdvReac Type Severity Reaction Status Date / Time lamotrigine [From LAMICTAL] Allergy Severe CLEMENTINA Verified 08/10/21 09:04 GUIDO SYNDROME chlorhexidine [CHLORHEXIDINE] Allergy Intermediate RASH Verified 08/10/21 09:04 citalopram [From CELEXA] Allergy Intermediate PROLONGED Verified 08/10/21 09:04 QT INTERVAL divalproex sodium Allergy Intermediate BLACK Verified 08/10/21 09:04 [From DEPAKOTE] EYES escitalopram [From LEXAPRO] Allergy Intermediate SWELLING Verified 08/10/21 09:04 lactose [LACTOSE] Allergy Intermediate GI UPSET Verified 08/10/21 09:04 povidone-iodine Allergy Intermediate rash Verified 08/10/21 09:04 [From BETADINE] alprazolam [From Xanax] Allergy Mild Unknown Verified 08/10/21 09:04 sertraline [From Zoloft] Allergy Mild unknown Verified 08/10/21 09:04 ziprasidone [From Geodon] Allergy Mild dystonia Verified 08/10/21 09:04 clonazepam [From Klonopin] Allergy agitation Verified 08/10/21 09:04 lorazepam [From Ativan] Allergy agitation Verified 08/10/21 09:04 BEETS Allergy Intermediate SWELLING Uncoded 08/10/21 09:04 STATLOC Allergy Intermediate RASH Uncoded 08/10/21 09:04 Home Medications Medication Instructions Recorded Confirmed Last Taken Type albuterol sulfate 90 mcg/actuation 2 puff INHALATION 6XD 06/25/20 08/09/21 Unknown History aerosol inhaler diphenhydramine HCl 50 mg/mL 50 mg IV Q4H 06/25/20 08/09/21 04/19/21 05:30 History injection solution pantoprazole 40 mg intravenous 40 mg IV BID 06/25/20 08/09/21 04/19/21 05:30 History solution (Protonix) acetaminophen 500 mg/15 mL oral 500 mg FEEDING TUBE QID PRN 10/06/20 08/09/21 Unknown History liquid baclofen 5 mg/5 mL oral solution 15 mg FEEDING TUBE TID 10/06/20 08/09/21 04/19/21 05:30 History benztropine 1 mg tablet 1 mg FEEDING TUBE BEDTIME 10/06/20 08/09/21 01/04/21 History famotidine (PF) 20 mg/50 mL in 0.9 20 mg IV DAILY 10/06/20 08/09/21 04/19/21 05:30 History % NaCl (iso) intravenous piggyback fludrocortisone 0.1 mg tablet 0.1 mg FEEDING TUBE DAILY 10/06/20 08/09/21 04/19/21 05:30 History gabapentin 600 mg tablet 600 mg FEEDING TUBE BID 10/06/20 08/09/21 04/19/21 05:30 History ipratropium 0.5 mg-albuterol 3 mg 3 ml INHALATION Q6-8H PRN 10/06/20 08/09/21 Unknown History (2.5 mg base)/3 mL nebulization soln levothyroxine 112 mcg/mL oral 112 mcg FEEDING TUBE DAILY 10/06/20 08/09/21 04/19/21 05:30 History solution methenamine hippurate 1 gram 1 g FEEDING TUBE Q12H 10/06/20 08/09/21 04/19/21 05:30 History tablet (Hiprex) midodrine 10 mg tablet 10 mg FEEDING TUBE BID 10/06/20 08/09/21 04/19/21 05:30 History sucralfate 100 mg/mL oral 10 ml BID 10/06/20 08/09/21 Unknown History suspension (Carafate) topiramate 200 mg tablet (Topamax) 200 mg FEEDING TUBE BID 10/06/20 08/09/21 04/19/21 05:30 History magnesium hydroxide 400 mg/5 mL 30 ml FEEDING TUBE DIRECTED PRN 11/12/20 08/09/21 Unknown History oral suspension (Milk of Magnesia) promethazine 25 mg/mL injection 25 mg IV TID 11/12/20 08/09/21 04/19/21 05:30 History solution (Phenergan) loxapine succinate 50 mg capsule 60 mg FEEDING TUBE BID cap 01/22/21 08/09/21 04/19/21 05:30 History furosemide 40 mg J-TUBE BID 03/08/21 08/09/21 04/19/21 05:30 History gabapentin 800 mg tablet 800 mg PO BEDTIME 03/09/21 08/09/21 Unknown History mometasone 200 mcg/actuation HFA 1 puff INHALATION BID g 03/09/21 08/09/21 Unknown History aerosol inhaler (Asmanex HFA) oxycodone 15 mg tablet 10 mg FEEDING TUBE Q3H tab 03/09/21 08/09/21 04/19/21 05:30 History Valium 2.5 mg 04/19/21 04/19/21 04/19/21 04:30 History Zomig 06/03/21 06/03/21 Unknown History hydrocortisone sod succinate 100 20 mg IV Q12H 06/03/21 08/09/21 Unknown History mg/2 mL solution for injection lidocaine 5 % topical ointment 1 appl TOPICAL QID PRN 06/03/21 08/09/21 Unknown History methylnaltrexone 8 mg/0.4 mL 8 mg SUBCUT Q OTHER DAY 06/03/21 08/09/21 Unknown History subcutaneous syringe (Relistor) Exam Exam Date and Time: October 08, 2021 1148 Pertinent Lab Results Pertinent Lab Results: Laboratory Tests 09/13/21 09/13/21 07:33 07:33 WBC 7.5 Hgb 8.2 L Hct 23.8 L Plt Count 185 Sodium 144 Potassium 3.7 Chloride 110 H Carbon Dioxide 27 BUN 29 H Creatinine 0.79 Assessment and Plan Assessment Anesthesia Assessment: Chart Reviewed Final Anesthetic Review Family History of Problems with Anesthesia: No History of Problems with Anesthesia: No Documented by User: Enrique Peace 10/11/21 13:28 [facility] Past Medical History Medical History Asthma Bacterial infection Brain bleed Brain tumor Chronic, continuous use of opioids Constipation Diabetes Fungal infection Gastroparesis GERD (gastroesophageal reflux disease) History of jejunostomy tube placement Hx pulmonary embolism Hypothyroidism Neuropathy Seizures Septic arthritis Small fiber polyneuropathy Suprapubic catheter Unspecified convulsions VRE (vancomycin-resistant Enterococci) Family History Family History Father Skin cancer Mother No problems noted. 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 Household Members Other:: live in aid Both parents involved: No Caregiver staying overnight: Yes Housing Other:: 24 hour care - live in aid Are you a primary youth care professional to a significant other at home: No Do you presently have visiting nurse or other home services: Yes Alcohol intake: current Alcohol intake frequency: does not drink Patient Tobacco Use Status: Never used Tobacco Second Hand Smoke Exposure: No Advance Directives Date on File: 06/29/20 Meds Allergies Allergy/AdvReac Type Severity Reaction Status Date / Time lamotrigine [From LAMICTAL] Allergy Severe CLEMENTINA Verified 08/10/21 09:04 GUIDO SYNDROME chlorhexidine [CHLORHEXIDINE] Allergy Intermediate RASH Verified 08/10/21 09:04 citalopram [From CELEXA] Allergy Intermediate PROLONGED Verified 08/10/21 09:04 QT INTERVAL divalproex sodium Allergy Intermediate BLACK Verified 08/10/21 09:04 [From DEPAKOTE] EYES escitalopram [From LEXAPRO] Allergy Intermediate SWELLING Verified 08/10/21 09:04 lactose [LACTOSE] Allergy Intermediate GI UPSET Verified 08/10/21 09:04 povidone-iodine Allergy Intermediate rash Verified 08/10/21 09:04 [From BETADINE] alprazolam [From Xanax] Allergy Mild Unknown Verified 08/10/21 09:04 sertraline [From Zoloft] Allergy Mild unknown Verified 08/10/21 09:04 ziprasidone [From Geodon] Allergy Mild dystonia Verified 08/10/21 09:04 clonazepam [From Klonopin] Allergy agitation Verified 08/10/21 09:04 lorazepam [From Ativan] Allergy agitation Verified 08/10/21 09:04 BEETS Allergy Intermediate SWELLING Uncoded 08/10/21 09:04 STATLOC Allergy Intermediate RASH Uncoded 08/10/21 09:04 Home Medications Medication Instructions Recorded Confirmed Last Taken Type albuterol sulfate 90 mcg/actuation 2 puff INHALATION 6XD 06/25/20 08/09/21 Unknown History aerosol inhaler diphenhydramine HCl 50 mg/mL 50 mg IV Q4H 06/25/20 08/09/21 04/19/21 05:30 History injection solution pantoprazole 40 mg intravenous 40 mg IV BID 06/25/20 08/09/21 04/19/21 05:30 History solution (Protonix) acetaminophen 500 mg/15 mL oral 500 mg FEEDING TUBE QID PRN 10/06/20 08/09/21 Unknown History liquid baclofen 5 mg/5 mL oral solution 15 mg FEEDING TUBE TID 10/06/20 08/09/21 04/19/21 05:30 History benztropine 1 mg tablet 1 mg FEEDING TUBE BEDTIME 10/06/20 08/09/21 01/04/21 History famotidine (PF) 20 mg/50 mL in 0.9 20 mg IV DAILY 10/06/20 08/09/21 04/19/21 05:30 History % NaCl (iso) intravenous piggyback fludrocortisone 0.1 mg tablet 0.1 mg FEEDING TUBE DAILY 10/06/20 08/09/21 04/19/21 05:30 History gabapentin 600 mg tablet 600 mg FEEDING TUBE BID 10/06/20 08/09/21 04/19/21 05:30 History ipratropium 0.5 mg-albuterol 3 mg 3 ml INHALATION Q6-8H PRN 10/06/20 08/09/21 Unknown History (2.5 mg base)/3 mL nebulization soln levothyroxine 112 mcg/mL oral 112 mcg FEEDING TUBE DAILY 10/06/20 08/09/21 04/19/21 05:30 History solution methenamine hippurate 1 gram 1 g FEEDING TUBE Q12H 10/06/20 08/09/21 04/19/21 05:30 History tablet (Hiprex) midodrine 10 mg tablet 10 mg FEEDING TUBE BID 10/06/20 08/09/21 04/19/21 05:30 History sucralfate 100 mg/mL oral 10 ml BID 10/06/20 08/09/21 Unknown History suspension (Carafate) topiramate 200 mg tablet (Topamax) 200 mg FEEDING TUBE BID 10/06/20 08/09/21 04/19/21 05:30 History magnesium hydroxide 400 mg/5 mL 30 ml FEEDING TUBE DIRECTED PRN 11/12/20 08/09/21 Unknown History oral suspension (Milk of Magnesia) promethazine 25 mg/mL injection 25 mg IV TID 11/12/20 08/09/21 04/19/21 05:30 History solution (Phenergan) loxapine succinate 50 mg capsule 60 mg FEEDING TUBE BID cap 01/22/21 08/09/21 04/19/21 05:30 History furosemide 40 mg J-TUBE BID 03/08/21 08/09/21 04/19/21 05:30 History gabapentin 800 mg tablet 800 mg PO BEDTIME 03/09/21 08/09/21 Unknown History mometasone 200 mcg/actuation HFA 1 puff INHALATION BID g 03/09/21 08/09/21 Unknown History aerosol inhaler (Asmanex HFA) oxycodone 15 mg tablet 10 mg FEEDING TUBE Q3H tab 03/09/21 08/09/21 04/19/21 05:30 History Valium 2.5 mg 04/19/21 04/19/21 04/19/21 04:30 History Zomig 06/03/21 06/03/21 Unknown History hydrocortisone sod succinate 100 20 mg IV Q12H 06/03/21 08/09/21 Unknown History mg/2 mL solution for injection lidocaine 5 % topical ointment 1 appl TOPICAL QID PRN 06/03/21 08/09/21 Unknown History methylnaltrexone 8 mg/0.4 mL 8 mg SUBCUT Q OTHER DAY 06/03/21 08/09/21 Unknown History subcutaneous syringe (Relistor) Exam Airway Mallampati Class: IV Neck ROM: Full Loose/Missing/Broken Teeth: Yes (poor dentation ) Heart: rrr Lungs: bl breath sounds Assessment and Plan Final Anesthetic Review NPO: Yes ASA Class: III Final Preanesthetic Review: Meds/Allgs Chart Reviewed Patient Risk: High Procedure Risk: Intermediate Anesthetic Plan Anesthetic Plan: MAC: Disposition: Standard PACU
[2021-10-11] VITALS (9 sets, daily range): BP systolic 109–146; BP diastolic 62–91; PULSE 90–112; RESP 16–20; TEMP 36.5–36.8; O2SAT 100; BMI 17.7
[2021-10-11] MEDS: Lactated Ringers 1,000 ML 50 ML IVCONT (08:26)
--- NOTE | 2021-10-11 08:28 | PC.NURSE ---
patient states she not sexually active and hasnt had a period for two years. she hasnt had sex in two years because her fiance .
--- NOTE | 2021-10-11 09:39 | MHC.SHP ---
Pre-Procedural Eval Section A Date of Service: 10/11/21 The patient is an INPATIENT: No Changes since office visit: No Cold of Flu in the past 2 weeks, No New Medical Problems, No Changes in Medication and No Patient answered all questions The History & Physical has been completed within 30 days and I have reviewed it.: No Section B Chief Complaint: bladder dysfunction Details of Present Illness: Longstanding neurogenic bladder. Can only have SPT tube change in secondary to hyper else these are. Relevant Family History (Specify if Yes): No Relevant Social History: None Present Medications: see Short Stay Collaborative assessment Medical History: Significant History History of Previous Operations: Relevant previous surgery/procedure and date(s) Allergies: Allergies Allergy/AdvReac Type Severity Reaction Status Date / Time lamotrigine [From LAMICTAL] Allergy Severe CLEMENTINA Verified 08/10/21 09:04 GUIDO SYNDROME chlorhexidine [CHLORHEXIDINE] Allergy Intermediate RASH Verified 08/10/21 09:04 citalopram [From CELEXA] Allergy Intermediate PROLONGED Verified 08/10/21 09:04 QT INTERVAL divalproex sodium Allergy Intermediate BLACK Verified 08/10/21 09:04 [From DEPAKOTE] EYES escitalopram [From LEXAPRO] Allergy Intermediate SWELLING Verified 08/10/21 09:04 lactose [LACTOSE] Allergy Intermediate GI UPSET Verified 08/10/21 09:04 povidone-iodine Allergy Intermediate rash Verified 08/10/21 09:04 [From BETADINE] alprazolam [From Xanax] Allergy Mild Unknown Verified 08/10/21 09:04 sertraline [From Zoloft] Allergy Mild unknown Verified 08/10/21 09:04 ziprasidone [From Geodon] Allergy Mild dystonia Verified 08/10/21 09:04 clonazepam [From Klonopin] Allergy agitation Verified 08/10/21 09:04 lorazepam [From Ativan] Allergy agitation Verified 08/10/21 09:04 BEETS Allergy Intermediate SWELLING Uncoded 08/10/21 09:04 STATLOC Allergy Intermediate RASH Uncoded 08/10/21 09:04 Review of Systems Sugical H&P ROS: Negative: Constitution, Cardiovascular, Respiratory, Neurological, Psychiatric, Hem-Onc, Allergic/Immunologic, Gastrointestinal, Genitourinary, Musculoskeletal, Integumentary, Endocrine and Eyes/Ears/Nose/Throat Exam Surgical H&P Exam: Normal: HEENT, Normal: Heart, Normal: Lungs, Normal: Extremities, Normal: Abdomen, Normal: Skin and Normal: Neurological Plan Diagnosis/Plan: Unchanged (Suprapubic tube change) I have reviewed the history and physical and performed a pertinent physical examination on my patient. No changes have occurred unless specified.
--- NOTE | 2021-10-11 10:21 | W.PM.OPN ---
Operative Note Operative Note Date of Service: 10/11/21 Narrative: PreOperative Diagnosis:? Neurogenic bladder Post Operative Diagnosis:? Neurogenic bladder Procedure:? Suprapubic tube change Surgeon: Dr Denys Pereira Anesthesia:? Sedation Indications for procedure: Small neuronal disease with neurogenic bladder -? [facility] and they are requesting a change now after completing antibiotics Procedure: After informed consent was verified the patient was brought to the operating room and placed in a supine position.? Anesthesia was administered per protocol. Marcela remained in her stretcher. The area was prepped with saline Suprapubic tube removed. Twenty-two [place] catheter placed - 7 cc in balloon ?tolerated well
[2021-10-11] MEDS: HYDROmorphone HCl 0.5 MG/0.5 ML SYRINGE IVPUSH (11:08)
== END 2021-10-11 12:20 | disposition home or self-care (01) ==
PROVIDERS: PCP Internal Medicine; Visit Provider Urology
PROC: (CPT 51705; principal; 2021-10-11 09:10)
DX: N31.9 Neuromuscular dysfunction of bladder, unspecified (principal); G62.89 Other specified polyneuropathies
CPT/HCPCS: 51705; J1170

== ENCOUNTER 2021-11-29 07:25 | Day surgery (SDC) | payer MEDICAID, SELFPAY ==
[2021-11-24 10:24] VITALS: BMI 23.1
--- NOTE | 2021-11-26 12:20 | P.CONAN_ITS ---
Documented by User: Lucila Bales NP 11/26/21 12:23 HPI - Anesthesia Eval Consult details Narrative: 31yo F for Suprapubic Tube Exchange Last exchange 10/11/21 with MAC: Prop 80 Chronic opioid *Multiple med allergies* As of 07/19/21: Chronic steroids. Per JOSEF Solorio at Dr Rodrigues [place] [place] Pt to have dose of hydrocortisone 20mg IV at home prior to arrive at [facility] Confirmed by Lyndsey [facility] [place]. Also confirmed with patient. [facility] Active Problems Active Problems: All Active Problems (Updated 11/24/21 @ 10:26 by Nita Sigala RN) Neurogenic urinary bladder disorder (Acute) Neurologic disorder (Acute) Recurrent infections (Acute) Diarrhea associated with pseudomembranous colitis (Acute) Diarrhea (Acute) Gastroparesis (Acute) Past Medical History Medical History (Updated 11/24/21 @ 10:26 by Nita Sigala RN) Asthma Bacterial infection Brain bleed Brain tumor Chronic, continuous use of opioids Constipation Diabetes Fungal infection Gastroparesis GERD (gastroesophageal reflux disease) History of jejunostomy tube placement Hx pulmonary embolism Hypothyroidism Neuropathy Seizures Septic arthritis Small fiber polyneuropathy Suprapubic catheter Unspecified convulsions VRE (vancomycin-resistant Enterococci) Family History Family History Father Skin cancer Mother No problems noted. 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 Household Members Other:: live in aid Both parents involved: No Caregiver staying overnight: Yes Housing Other:: 24 hour care - live in aid Are you a primary farm or ranch animal caretaker to a significant other at home: No Do you presently have visiting nurse or other home services: Yes Alcohol intake: current Alcohol intake frequency: does not drink Patient Tobacco Use Status: Never used Tobacco Second Hand Smoke Exposure: No Advance Directives Date on File: 06/29/20 Meds Allergies Allergy/AdvReac Type Severity Reaction Status Date / Time lamotrigine [From LAMICTAL] Allergy Severe CLEMENTINA Verified 08/10/21 09:04 GUIDO SYNDROME chlorhexidine [CHLORHEXIDINE] Allergy Intermediate RASH Verified 08/10/21 09:04 citalopram [From CELEXA] Allergy Intermediate PROLONGED Verified 08/10/21 09:04 QT INTERVAL divalproex sodium Allergy Intermediate BLACK Verified 08/10/21 09:04 [From DEPAKOTE] EYES escitalopram [From LEXAPRO] Allergy Intermediate SWELLING Verified 08/10/21 09:04 lactose [LACTOSE] Allergy Intermediate GI UPSET Verified 08/10/21 09:04 povidone-iodine Allergy Intermediate rash Verified 08/10/21 09:04 [From BETADINE] alprazolam [From Xanax] Allergy Mild Unknown Verified 08/10/21 09:04 sertraline [From Zoloft] Allergy Mild unknown Verified 08/10/21 09:04 ziprasidone [From Geodon] Allergy Mild dystonia Verified 08/10/21 09:04 clonazepam [From Klonopin] Allergy agitation Verified 08/10/21 09:04 lorazepam [From Ativan] Allergy agitation Verified 08/10/21 09:04 BEETS Allergy Intermediate SWELLING Uncoded 08/10/21 09:04 STATLOC Allergy Intermediate RASH Uncoded 08/10/21 09:04 Home Medications Medication Instructions Recorded Confirmed Last Taken Type albuterol sulfate 90 mcg/actuation 2 puff INHALATION 6XD 06/25/20 11/24/21 Unknown History aerosol inhaler diphenhydramine HCl 50 mg/mL 50 mg IV Q4H 06/25/20 11/24/21 04/19/21 05:30 History injection solution pantoprazole 40 mg intravenous 40 mg IV BID 06/25/20 11/24/21 04/19/21 05:30 History solution (Protonix) acetaminophen 500 mg/15 mL oral 500 mg FEEDING TUBE QID PRN 10/06/20 11/24/21 Unknown History liquid baclofen 5 mg/5 mL oral solution 15 mg FEEDING TUBE TID 10/06/20 11/24/21 04/19/21 05:30 History benztropine 1 mg tablet 1 mg FEEDING TUBE BEDTIME 10/06/20 11/24/21 01/04/21 History famotidine (PF) 20 mg/50 mL in 0.9 20 mg IV DAILY 10/06/20 11/24/21 04/19/21 05:30 History % NaCl (iso) intravenous piggyback fludrocortisone 0.1 mg tablet 0.1 mg FEEDING TUBE DAILY 10/06/20 11/24/21 04/19/21 05:30 History gabapentin 600 mg tablet 600 mg FEEDING TUBE BID 10/06/20 11/24/21 04/19/21 05:30 History ipratropium 0.5 mg-albuterol 3 mg 3 ml INHALATION Q6-8H PRN 10/06/20 11/24/21 Unknown History (2.5 mg base)/3 mL nebulization soln levothyroxine 112 mcg/mL oral 112 mcg FEEDING TUBE DAILY 10/06/20 11/24/21 04/19/21 05:30 History solution methenamine hippurate 1 gram 1 g FEEDING TUBE Q12H 10/06/20 11/24/21 04/19/21 05:30 History tablet (Hiprex) midodrine 10 mg tablet 10 mg FEEDING TUBE BID 10/06/20 11/24/21 04/19/21 05:30 History sucralfate 100 mg/mL oral 10 ml BID 10/06/20 11/24/21 Unknown History suspension (Carafate) topiramate 200 mg tablet (Topamax) 200 mg FEEDING TUBE BID 10/06/20 11/24/21 04/19/21 05:30 History magnesium hydroxide 400 mg/5 mL 30 ml FEEDING TUBE DIRECTED PRN 11/12/20 11/24/21 Unknown History oral suspension (Milk of Magnesia) promethazine 25 mg/mL injection 25 mg IV TID 11/12/20 11/24/21 04/19/21 05:30 History solution (Phenergan) loxapine succinate 50 mg capsule 60 mg FEEDING TUBE BID cap 01/22/21 11/24/21 04/19/21 05:30 History furosemide 40 mg J-TUBE BID 03/08/21 11/24/21 04/19/21 05:30 History gabapentin 800 mg tablet 800 mg PO BEDTIME 03/09/21 11/24/21 Unknown History mometasone 200 mcg/actuation HFA 1 puff INHALATION BID g 03/09/21 11/24/21 Unknown History aerosol inhaler (Asmanex HFA) oxycodone 15 mg tablet 10 mg FEEDING TUBE Q3H tab 03/09/21 11/24/21 04/19/21 05:30 History Valium 2.5 mg 04/19/21 04/19/21 04/19/21 04:30 History Zomig 06/03/21 06/03/21 Unknown History hydrocortisone sod succinate 100 20 mg IV Q12H 06/03/21 08/09/21 Unknown History mg/2 mL solution for injection lidocaine 5 % topical ointment 1 appl TOPICAL QID PRN 06/03/21 11/24/21 Unknown History methylnaltrexone 8 mg/0.4 mL 8 mg SUBCUT Q OTHER DAY 06/03/21 11/24/21 Unknown History subcutaneous syringe (Relistor) Exam Exam Date and Time: November 26, 2021 1220 Height,Weight and Vital Signs: Height 4 ft 11 in Weight 52 kg Pertinent Lab Results Pertinent Lab Results: Laboratory Tests ? 09/13/21 09/13/21 ? 07:33 07:33 WBC ?7.5 ? Hgb ?8.2 L ? Hct ?23.8 L ? Plt Count ?185 ? Sodium ? ?144 Potassium ? ?3.7 Chloride ? ?110 H Carbon Dioxide ? ?27 BUN ? ?29 H Creatinine ? ?0.79 Assessment and Plan Assessment Anesthesia Assessment: Chart Reviewed Final Anesthetic Review Family History of Problems with Anesthesia: No History of Problems with Anesthesia: No Documented by User: Enrique Peace MD 11/29/21 17:00 HPI - Anesthesia Eval Consult details Narrative: 31yo F for Suprapubic Tube Exchange Last exchange 10/11/21 with MAC: Prop 80 active UTI , on Levaquin 750 mg daily , left lip swelling as per patient her phone fell on her lip by accident Chronic opioid *Multiple med allergies* As of 07/19/21: Chronic steroids. Per JOSEF Solorio at Dr Rodrigues [place] [place] Pt to have dose of hydrocortisone 20mg IV at home prior to arrive at [facility]. Confirmed by Lyndsey [facility] [place]. Also confirmed with patient. [facility] Past Medical History Medical History (Updated 11/24/21 @ 10:26 by Nita Sigala, JOSEF) Asthma Bacterial infection Brain bleed Brain tumor Chronic, continuous use of opioids Constipation Diabetes Fungal infection Gastroparesis GERD (gastroesophageal reflux disease) History of jejunostomy tube placement Hx pulmonary embolism Hypothyroidism Neuropathy Seizures Septic arthritis Small fiber polyneuropathy Suprapubic catheter Unspecified convulsions VRE (vancomycin-resistant Enterococci) Family History Family History Father Skin cancer Mother No problems noted. 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 Household Members Other:: live in aid Both parents involved: No Caregiver staying overnight: Yes Housing Other:: 24 hour care - live in aid Are you a primary farm or ranch animal caretaker to a significant other at home: No Do you presently have visiting nurse or other home services: Yes Alcohol intake: current Alcohol intake frequency: does not drink Patient Tobacco Use Status: Never used Tobacco Second Hand Smoke Exposure: No Advance Directives Date on File: 06/29/20 Meds Allergies Allergy/AdvReac Type Severity Reaction Status Date / Time lamotrigine [From LAMICTAL] Allergy Severe CLEMENTINA Verified 08/10/21 09:04 GUIDO SYNDROME chlorhexidine [CHLORHEXIDINE] Allergy Intermediate RASH Verified 08/10/21 09:04 citalopram [From CELEXA] Allergy Intermediate PROLONGED Verified 08/10/21 09:04 QT INTERVAL divalproex sodium Allergy Intermediate BLACK Verified 08/10/21 09:04 [From DEPAKOTE] EYES escitalopram [From LEXAPRO] Allergy Intermediate SWELLING Verified 08/10/21 09:04 lactose [LACTOSE] Allergy Intermediate GI UPSET Verified 08/10/21 09:04 povidone-iodine Allergy Intermediate rash Verified 08/10/21 09:04 [From BETADINE] alprazolam [From Xanax] Allergy Mild Unknown Verified 08/10/21 09:04 sertraline [From Zoloft] Allergy Mild unknown Verified 08/10/21 09:04 ziprasidone [From Geodon] Allergy Mild dystonia Verified 08/10/21 09:04 clonazepam [From Klonopin] Allergy agitation Verified 08/10/21 09:04 lorazepam [From Ativan] Allergy agitation Verified 08/10/21 09:04 BEETS Allergy Intermediate SWELLING Uncoded 08/10/21 09:04 STATLOC Allergy Intermediate RASH Uncoded 08/10/21 09:04 Home Medications Medication Instructions Recorded Confirmed Last Taken Type albuterol sulfate 90 mcg/actuation 2 puff INHALATION 6XD 06/25/20 11/24/21 Unknown History aerosol inhaler diphenhydramine HCl 50 mg/mL 50 mg IV Q4H 06/25/20 11/24/21 04/19/21 05:30 History injection solution pantoprazole 40 mg intravenous 40 mg IV BID 06/25/20 11/24/21 04/19/21 05:30 History solution (Protonix) acetaminophen 500 mg/15 mL oral 500 mg FEEDING TUBE QID PRN 10/06/20 11/24/21 Unknown History liquid baclofen 5 mg/5 mL oral solution 15 mg FEEDING TUBE TID 10/06/20 11/24/21 04/19/21 05:30 History benztropine 1 mg tablet 1 mg FEEDING TUBE BEDTIME 10/06/20 11/24/21 01/04/21 History famotidine (PF) 20 mg/50 mL in 0.9 20 mg IV DAILY 10/06/20 11/24/21 04/19/21 05:30 History % NaCl (iso) intravenous piggyback fludrocortisone 0.1 mg tablet 0.1 mg FEEDING TUBE DAILY 10/06/20 11/24/21 04/19/21 05:30 History gabapentin 600 mg tablet 600 mg FEEDING TUBE BID 10/06/20 11/24/21 04/19/21 05:30 History ipratropium 0.5 mg-albuterol 3 mg 3 ml INHALATION Q6-8H PRN 10/06/20 11/24/21 Unknown History (2.5 mg base)/3 mL nebulization soln levothyroxine 112 mcg/mL oral 112 mcg FEEDING TUBE DAILY 10/06/20 11/24/21 04/19/21 05:30 History solution methenamine hippurate 1 gram 1 g FEEDING TUBE Q12H 10/06/20 11/24/21 04/19/21 05:30 History tablet (Hiprex) midodrine 10 mg tablet 10 mg FEEDING TUBE BID 10/06/20 11/24/21 04/19/21 05:30 History sucralfate 100 mg/mL oral 10 ml BID 10/06/20 11/24/21 Unknown History suspension (Carafate) topiramate 200 mg tablet (Topamax) 200 mg FEEDING TUBE BID 10/06/20 11/24/21 04/19/21 05:30 History magnesium hydroxide 400 mg/5 mL 30 ml FEEDING TUBE DIRECTED PRN 11/12/20 11/24/21 Unknown History oral suspension (Milk of Magnesia) promethazine 25 mg/mL injection 25 mg IV TID 11/12/20 11/24/21 04/19/21 05:30 History solution (Phenergan) loxapine succinate 50 mg capsule 60 mg FEEDING TUBE BID cap 01/22/21 11/24/21 04/19/21 05:30 History furosemide 40 mg J-TUBE BID 03/08/21 11/24/21 04/19/21 05:30 History gabapentin 800 mg tablet 800 mg PO BEDTIME 03/09/21 11/24/21 Unknown History mometasone 200 mcg/actuation HFA 1 puff INHALATION BID g 03/09/21 11/24/21 Unknown History aerosol inhaler (Asmanex HFA) oxycodone 15 mg tablet 10 mg FEEDING TUBE Q3H tab 03/09/21 11/24/21 04/19/21 05:30 History Valium 2.5 mg 04/19/21 04/19/21 04/19/21 04:30 History Zomig 06/03/21 06/03/21 Unknown History hydrocortisone sod succinate 100 20 mg IV Q12H 06/03/21 08/09/21 Unknown History mg/2 mL solution for injection lidocaine 5 % topical ointment 1 appl TOPICAL QID PRN 06/03/21 11/24/21 Unknown History methylnaltrexone 8 mg/0.4 mL 8 mg SUBCUT Q OTHER DAY 06/03/21 11/24/21 Unknown History subcutaneous syringe (Relistor) Exam Airway Mallampati Class: IV TM Dist: >3cm Neck ROM: Full Loose/Missing/Broken Teeth: Yes (poor dentation ) Heart: rrr Lungs: bl breath sounds Assessment and Plan Assessment Anesthesia Assessment: Anesthesia Plan Discussed Final Anesthetic Review NPO: Yes Final Preanesthetic Review: No Changes in Pt Med Stat, Meds/Allgs Chart Reviewed, Consent Obtained/Reviewed and Anes Risks/Benef Reviewed Patient Risk: Intermediate Procedure Risk: Intermediate Anesthetic Plan Anesthetic Plan: MAC: Disposition: Standard PACU
[2021-11-29 07:58] VITALS: BP 123/78; PULSE 107; TEMP 36.3; O2SAT 99
[2021-11-29 08:14] LABS: UPreg QC Valid YES; Urine Pregnancy NEGATIVE (NEGATIVE)
[2021-11-29] MEDS: Lactated Ringers 1,000 ML 50 ML IVCONT (08:49)
--- NOTE | 2021-11-29 09:44 | P.HPSUR_ITS ---
Pre-Procedural Eval Section A Date of Service: 11/29/21 The patient is an INPATIENT: No Changes since office visit: No Cold of Flu in the past 2 weeks, No New Medical Problems, No Changes in Medication and No Patient answered all questions The History & Physical has been completed within 30 days and I have reviewed it.: No Section B Chief Complaint: dysfunction of bladder Details of Present Illness: suprapubic tube exchange Relevant Family History (Specify if Yes): No Relevant Social History: None Present Medications: see Short Stay Collaborative assessment Medical History: Significant History History of Previous Operations: Relevant previous surgery/procedure and date(s) Allergies: Allergies Allergy/AdvReac Type Severity Reaction Status Date / Time lamotrigine [From LAMICTAL] Allergy Severe CLEMENTINA Verified 08/10/21 09:04 GUIDO SYNDROME chlorhexidine [CHLORHEXIDINE] Allergy Intermediate RASH Verified 08/10/21 09:04 citalopram [From CELEXA] Allergy Intermediate PROLONGED Verified 08/10/21 09:04 QT INTERVAL divalproex sodium Allergy Intermediate BLACK Verified 08/10/21 09:04 [From DEPAKOTE] EYES escitalopram [From LEXAPRO] Allergy Intermediate SWELLING Verified 08/10/21 09:04 lactose [LACTOSE] Allergy Intermediate GI UPSET Verified 08/10/21 09:04 povidone-iodine Allergy Intermediate rash Verified 08/10/21 09:04 [From BETADINE] alprazolam [From Xanax] Allergy Mild Unknown Verified 08/10/21 09:04 sertraline [From Zoloft] Allergy Mild unknown Verified 08/10/21 09:04 ziprasidone [From Geodon] Allergy Mild dystonia Verified 08/10/21 09:04 clonazepam [From Klonopin] Allergy agitation Verified 08/10/21 09:04 lorazepam [From Ativan] Allergy agitation Verified 08/10/21 09:04 BEETS Allergy Intermediate SWELLING Uncoded 08/10/21 09:04 STATLOC Allergy Intermediate RASH Uncoded 08/10/21 09:04 Review of Systems Sugical H&P ROS: Negative: Constitution, Cardiovascular, Respiratory, Neuro logical, Psychiatric, Hem-Onc, Allergic/Immunologic, Gastrointestinal, Genitourinary, Musculoskeletal, Integumentary, Endocrine and Eyes/Ears/Nose/Throat Exam Surgical H&P Exam: Normal: HEENT, Normal: Heart, Normal: Lungs, Normal: Extremities, Normal: Abdomen, Normal: Skin and Normal: Neurological Plan Diagnosis/Plan: Unchanged ( suprapubic change) I have reviewed the history and physical and performed a pertinent physical examination on my patient. No changes have occurred unless specified.
--- NOTE | 2021-11-29 09:51 | PC.NURSE ---
MD GUILLEN DOESNT WANT PRE-OP ANTIBIOTICS.
--- NOTE | 2021-11-29 10:16 | W.PM.OPN ---
Operative Note Operative Note Date of Service: 11/29/21 Narrative: PreOperative Diagnosis:? Neurogenic bladder Post Operative Diagnosis:? Neurogenic bladder Procedure:? Suprapubic tube change Surgeon: Dr Denys Pereira Anesthesia:? Sedation Indications for procedure: Small neuronal disease with neurogenic bladder -? still on antibiotics for persistent UTI. Catheter changed at [facility] 4 weeks ago. Procedure: After informed consent was verified the patient was brought to the operating room and placed in a supine position.? Anesthesia was administered per protocol. Marcela remained in her stretcher. The area was prepped with saline Suprapubic tube removed. Twenty-two Hungarian Waldron catheter placed - 7 cc in balloon ?tolerated well
[2021-11-29 10:20] VITALS: BP 104/64; PULSE 95; RESP 20; TEMP 36.7; O2SAT 100
[2021-11-29 10:25] VITALS: RESP 20
[2021-11-29] MEDS: HYDROmorphone HCl 0.5 MG/0.5 ML SYRINGE IVPUSH (10:25)
[2021-11-29 10:30] VITALS: BP 107/72; PULSE 108; RESP 20; O2SAT 100
[2021-11-29 10:35] VITALS: BP 131/85; PULSE 108; RESP 20; O2SAT 100
[2021-11-29] MEDS: Furosemide 100 MG/10 ML VIAL 60 MG IVPUSH (10:39)
[2021-11-29 10:50] VITALS: BP 128/86; PULSE 110; RESP 20; TEMP 36.7; O2SAT 100
== END 2021-11-29 11:37 | disposition home or self-care (01) ==
PROVIDERS: Nurse Practitioner; PCP Internal Medicine; Visit Provider Urology
PROC: (CPT 51705; principal; 2021-11-29 09:30)
DX: N31.9 Neuromuscular dysfunction of bladder, unspecified (principal); G62.89 Other specified polyneuropathies; E11.9 Type 2 diabetes mellitus without complications; R56.9 Unspecified convulsions; J45.909 Unspecified asthma, uncomplicated; Z79.891 Long term (current) use of opiate analgesic; Z79.899 Other long term (current) drug therapy
CPT/HCPCS: 51705; 81025; J1170; J1940

== ENCOUNTER → 2022-01-27 15:48 | Outpatient (BNVA) | payer MEDICAID, SELFPAY | PROVIDERS: PCP Internal Medicine; Visit Provider Urology | DX: N31.9 Neuromuscular dysfunction of bladder, unspecified (principal) | CPT/HCPCS: 99212 ==

== ENCOUNTER 2022-02-10 23:22 | Emergency (ER) | payer MEDICAID, SELFPAY ==
--- NOTE | ~2022-02-10 | CT_ITS ---
EXAMINATION: CT ABDOMEN AND PELVIS WITHOUT CONTRAST CLINICAL INFORMATION: Abdominal pain with pelvic and suprapubic catheter COMPARISON: 08/22/2019 TECHNIQUE: Multidetector volumetric imaging was performed from the superior aspect of the liver through the pubic symphysis. Sagittal and coronal reformatted images were obtained on the technologist's workstation. This CT examination was performed using dose optimization techniques as appropriate, variously including the following: *Automated exposure control *Adjustment of mA and/or kV according to patient size (this includes techniques or standardized protocols for targeted exams where dose is matched to indication/reason for exam; i.e. extremities or head) *Use of iterative reconstruction technique DLP: 479 mGy-cm FINDINGS: LUNG BASES: Bibasilar subsegmental atelectasis. LIVER, GALLBLADDER, AND BILIARY TREE: The liver is normal in size, shape, and attenuation. No focal hepatic lesion or biliary ductal dilatation is present. Multiple gallstones are present, without appreciable gallbladder wall thickening or surrounding inflammation. PANCREAS: Unremarkable. SPLEEN: Unremarkable. ADRENAL GLANDS: Unremarkable. KIDNEYS AND URETERS: The kidneys are normal in size, shape, and attenuation. No hydronephrosis, hydroureter, or calculi seen. No perinephric stranding. BLADDER: Collapsed with suprapubic catheter in place. GASTROINTESTINAL TRACT: Percutaneous gastrojejunostomy tube tip lies at the level of the proximal jejunum. No evidence of bowel obstruction. No significant bowel wall thickening is seen. Fluid is present in the colon, a finding which can be associated with diarrhea. The appendix is unremarkable. No free fluid or free air is seen. ABDOMINAL WALL: Foci of gas are present in the lower anterior abdominal wall with mild surrounding stranding, suggesting sequelae of recent subcutaneous injections. LYMPH NODES: Normal. VASCULAR: Unremarkable. PELVIC VISCERA: Unremarkable. OSSEOUS STRUCTURES: Unremarkable. CT/CT abdomen pelvis wo con IMPRESSION: 1. Collapsed urinary bladder with suprapubic catheter in place. 2. Cholelithiasis. 3. Fluid within the colon, a finding which can be associated with diarrhea. No evidence of bowel obstruction. 4. Foci of gas in the subcutaneous lower anterior abdominal wall, suggesting sequelae of recent injections.
[2022-02-10 23:27] VITALS: BP 131/85; PULSE 132; RESP 18; O2SAT 99; BMI 17.7
[2022-02-11] VITALS (27 sets, daily range): BP systolic 92–131; BP diastolic 50–90; PULSE 85–115; RESP 11–16; TEMP 36.5–36.7; O2SAT 96–100
[2022-02-11 00:15] LABS: Appearance Urine HAZY; Color Urine STRAW; Glucose Urine UA NEG (NEG); Leukocyte Esterase Urine 1+ (NEG); Nitrite Urine NEG (NEG); PH 7.5 (5.0-8.0); Specific Gravity - Urine 1.015 (1.005-1.025); Urine Blood TRACE (NEG); Urine Ketones NEG (NEG); Urine Protein NEG (NEG-TRACE)
[2022-02-11 00:16] LABS: MANUAL DIFF FLAG NO
[2022-02-11 00:17] LABS: Basophils Absolute Auto 0.1 X10*3/uL (0.0-0.2); Basophils Percent Auto 0.8 % (0-2); Eosinophils Absolute Auto 0.3 X10*3/uL (0.0-0.4); Eosinophils Percent Auto 4.2 % (0-4); Hematocrit 29.1 % (37.0-47.0); Hemoglobin 10.3 g/dl (12.0-16.0); Imm Gran Abs Auto 0.02 X10*3/uL (0.00-0.03); Imm Gran Pct Auto 0.3 % (0.0-0.4); Lymphocytes Absolute Auto 2.5 X10*3/uL (1.2-4.9); Mean Corpuscular HGB Conc 35.4 g/dl (31.0-35.0); Mean Corpuscular Hemoglobin 33.3 pg (27.0-33.0); Mean Corpuscular Volume 94.2 fL (80.0-98.0); Mean Platelet Volume 12.6 fL (9.4-12.3); Monocytes Absolute Auto 0.4 X10*3/uL (0.1-1.2); Monocytes Percent Auto 6.4 % (2-11); Neutrophils Percent Auto 48.3 % (45-73); Platelet Count 225 X10*3/uL (160-400); Red Blood Count 3.09 X10*6/uL (4.20-5.50); Red Cell Distribution Width 15.5 % (11.0-16.0); White Blood Count 6.1 X10*3/uL (4.8-10.8)
[2022-02-11 00:21] LABS: Amorphous Sediment Urine 2+ /LPF; Bacteria Urine 2+ /LPF; RBC Urine 0-2 /HPF (0); Squamous Epithelial Cell Urine 1+ /LPF
[2022-02-11 00:34] LABS: Alanine Aminotransferase 27 U/L (0-31); Albumin Level 2.9 g/dL (3.5-5.0); Alkaline Phosphatase 138 U/L (39-117); Anion Gap 25 (12-20); Aspartate Amino Transferase 24 U/L (5-31); Bilirubin Direct < 0.2 mg/dL (0.0-0.5); Bilirubin Total 0.4 mg/dL (0.0-1.0); Blood Urea Nitrogen 16 mg/dL (9-16); Calcium 7.6 mg/dL (8.4-10.2); Carbon Dioxide 21 mmol/L (22-29); Chloride 99 mmol/L (96-108); Creatinine Clr Calc Pharmacy 52.1; Estimated Glomerular Filt Rate > 60; Glucose Random 513 mg/dL (60-115); Lipase 69 U/L (8-78); Potassium 8.9 mmol/L (3.3-5.1); Sodium 136 mmol/L (135-145)
--- NOTE | 2022-02-11 01:09 | ED.GENADULT ---
HPI - General Adult General Chief complaint: Abdominal Pain Stated complaint: severe abd pain; suprapubic catheter infection ? Time Seen by Provider: 02/11/22 01:07 Source: patient and other (Caregiver) Mode of arrival: wheelchair Limitations: no limitations History of Present Illness HPI narrative: 31-year-old female with unfortunate complicated medical history of small nerve polyneuropathy, slow gastric time require gastrostomy tube, TPN intravenously, patient also with neurogenic bladder that required suprapubic catheter. Patient came in for severe suprapubic abdominal pain for the past 3-4 days. Patient require suprapubic catheter is changed every 4 weeks usually require general anesthesia or conscious sedation because patient is very sensitive to pain. Labs were drawn from the triple-lumen IV catheter 1 of the port was running TPN and potassium came back very high which is likely contaminated with TPN content. Related Data Home Medications Medication Instructions Recorded Confirmed albuterol sulfate 90 mcg/actuation 2 puff INHALATION 6XD 06/25/20 02/04/22 aerosol inhaler diphenhydramine HCl 50 mg/mL 50 mg IV Q4H 06/25/20 02/04/22 injection solution pantoprazole 40 mg intravenous 40 mg IV BID 06/25/20 02/04/22 solution (Protonix) acetaminophen 500 mg/15 mL oral 500 mg FEEDING TUBE QID PRN 10/06/20 02/04/22 liquid baclofen 5 mg/5 mL oral solution 15 mg FEEDING TUBE TID 10/06/20 02/04/22 benztropine 1 mg tablet 1 mg FEEDING TUBE BEDTIME 10/06/20 02/04/22 famotidine (PF) 20 mg/50 mL in 0.9 20 mg IV DAILY 10/06/20 02/04/22 % NaCl (iso) intravenous piggyback fludrocortisone 0.1 mg tablet 0.1 mg FEEDING TUBE DAILY 10/06/20 02/04/22 gabapentin 600 mg tablet 600 mg FEEDING TUBE BID 10/06/20 02/04/22 ipratropium 0.5 mg-albuterol 3 mg 3 ml INHALATION Q6-8H PRN 10/06/20 02/04/22 (2.5 mg base)/3 mL nebulization soln levothyroxine 112 mcg/mL oral 112 mcg FEEDING TUBE DAILY 10/06/20 02/04/22 solution methenamine hippurate 1 gram 1 g FEEDING TUBE Q12H 10/06/20 02/04/22 tablet (Hiprex) midodrine 10 mg tablet 10 mg FEEDING TUBE BID 10/06/20 02/04/22 sucralfate 100 mg/mL oral 10 ml BID 10/06/20 02/04/22 suspension (Carafate) topiramate 200 mg tablet (Topamax) 200 mg FEEDING TUBE BID 10/06/20 02/04/22 magnesium hydroxide 400 mg/5 mL 30 ml FEEDING TUBE DIRECTED PRN 11/12/20 02/04/22 oral suspension (Milk of Magnesia) promethazine 25 mg/mL injection 25 mg IV TID 11/12/20 02/04/22 solution (Phenergan) loxapine succinate 50 mg capsule 60 mg FEEDING TUBE BID cap 01/22/21 02/04/22 furosemide 40 mg J-TUBE BID 03/08/21 02/04/22 gabapentin 800 mg tablet 800 mg PO BEDTIME 03/09/21 02/04/22 mometasone 200 mcg/actuation HFA 1 puff INHALATION BID g 03/09/21 02/04/22 aerosol inhaler (Asmanex HFA) oxycodone 15 mg tablet 10 mg FEEDING TUBE Q3H tab 03/09/21 02/04/22 Valium 2.5 mg 04/19/21 04/19/21 Zomig 06/03/21 06/03/21 hydrocortisone sod succinate 100 20 mg IV Q12H 06/03/21 08/09/21 mg/2 mL solution for injection lidocaine 5 % topical ointment 1 appl TOPICAL QID PRN 06/03/21 02/04/22 methylnaltrexone 8 mg/0.4 mL 8 mg SUBCUT Q OTHER DAY 06/03/21 02/04/22 subcutaneous syringe (Relistor) Previous Rx's Medication Instructions Recorded drainage bag 2,000 mL (Kenguard #4 ea 09/09/20 Urinary Drain Bag) ondansetron HCl (PF) 4 mg/2 mL 4 mg (2 mL) IV Q4H PRN 30 Days #48 01/22/21 injection syringe ml simethicone 40 mg/0.6 mL oral 40 mg (0.6 mL) FEEDING TUBE QID 01/22/21 drops,suspension (Gas Relief #30 ml (simethicone)) naloxegol 12.5 mg tablet (Movantik) 12.5 mg PO QAM #30 tab 04/08/21 Allergies Allergy/AdvReac Type Severity Reaction Status Date / Time lamotrigine [From LAMICTAL] Allergy Severe CLEMENTINA Verified 08/10/21 09:04 GUIDO SYNDROME chlorhexidine [CHLORHEXIDINE] Allergy Intermediate RASH Verified 08/10/21 09:04 citalopram [From CELEXA] Allergy Intermediate PROLONGED Verified 08/10/21 09:04 QT INTERVAL divalproex sodium Allergy Intermediate BLACK Verified 08/10/21 09:04 [From DEPAKOTE] EYES escitalopram [From LEXAPRO] Allergy Intermediate SWELLING Verified 08/10/21 09:04 lactose [LACTOSE] Allergy Intermediate GI UPSET Verified 08/10/21 09:04 povidone-iodine Allergy Intermediate rash Verified 08/10/21 09:04 [From BETADINE] alprazolam [From Xanax] Allergy Mild Unknown Verified 08/10/21 09:04 sertraline [From Zoloft] Allergy Mild unknown Verified 08/10/21 09:04 ziprasidone [From Geodon] Allergy Mild dystonia Verified 08/10/21 09:04 clonazepam [From Klonopin] Allergy agitation Verified 08/10/21 09:04 lorazepam [From Ativan] Allergy agitation Verified 08/10/21 09:04 BEETS Allergy Intermediate SWELLING Uncoded 08/10/21 09:04 STATLOC Allergy Intermediate RASH Uncoded 08/10/21 09:04 Review of Systems Review of Systems: All other systems are reviewed and are negative Constitutional: Reports as per HPI and Reports no additional constitutional complaints Eyes: Reports as per HPI and Reports no additional eye complaints Reports system reviewed and no additional complaints, except as documented Cardiovascular: Reports as per HPI and Reports no additional cardiovascular complaints Respiratory: Reports as per HPI and Reports no additional respiratory complaints Gastrointestinal: Reports as per HPI and Reports no additional gastrointestinal complaints Genitourinary: Reports no additional female genitourinary complaints Musculoskeletal: Reports no additional musculoskeletal complaints Skin/Breast: Reports system reviewed and no additional complaints, except as docu Psychiatric: Reports no additional psychiatric complaints Endocrine: Reports no additional endocrine complaints Hematologic/Lymphatic: Reports no additional hematologic/lymphatic complaints Allergic/Immunologic: Reports no additional allergic/immunologic complaints Reports system reviewed and no additional complaints, except as documented and Reports Abnormal speech present [facility] Past Medical History Medical History Asthma Bacterial infection Brain bleed Brain tumor Chronic, continuous use of opioids Constipation Diabetes Fungal infection Gastroparesis GERD (gastroesophageal reflux disease) History of jejunostomy tube placement Hx pulmonary embolism Hypothyroidism Neuropathy Seizures Septic arthritis Small fiber polyneuropathy Suprapubic catheter Unspecified convulsions VRE (vancomycin-resistant Enterococci) Surgical History History of colonoscopy History of esophagogastroduodenoscopy (EGD) History of hip surgery Hx of endoscopy Hx of oral surgery Family History Family History Father Skin cancer Mother No problems noted. Social History Social History Household Members: Caregiver Household Members Other:: live in aid Housing Other:: 24 hour care - live in aid Are you a primary rn progressive care unit to a significant other at home: No Do you presently have visiting nurse or other home services: Yes Alcohol intake: current Alcohol intake frequency: does not drink Patient Tobacco Use Status: Never used Tobacco Second Hand Smoke Exposure: No Advance Directives: No Advance Directives Date on File: 06/29/20 Physical Exam ED Vital Signs: Vital Signs - 24 hr 02/10/22 23:27 02/11/22 01:27 02/11/22 01:29 Pulse Rate 132 H 102 H Respiratory Rate 18 13 14 Blood Pressure 131/85 105/75 Pulse Oximetry 99 100 02/11/22 01:46 02/11/22 02:04 02/11/22 02:23 Pulse Rate 97 100 101 H Respiratory Rate 12 14 12 Blood Pressure 103/66 101/58 L 92/60 Pulse Oximetry 100 100 96 02/11/22 02:45 02/11/22 03:47 02/11/22 04:55 Pulse Rate 98 85 89 Respiratory Rate 14 14 13 Blood Pressure 96/66 99/63 95/50 L Pulse Oximetry 99 100 100 BMI result Body Mass Index 17.7 Vital signs have been reviewed as appeared to be correct. Blood pressure normal. Heart rate normal. Respiration rate normal. Temperature normal. Oxygen saturation normal. Appearance: Alert. Oriented X3. No acute distress. Head: Normal external exam. Normocephalic. Atraumatic. No Perry signs noted. No raccoon eyes noted Eyes: PERRLA. EOMI. Conjunctiva and sclera normal. Eyelids normal. ENT: TM's Normal. Pharynx normal. Uvula midline. Moist mucous membranes. No trismus noted. No drooling noted. No muffled voice noted. Neck: Normal inspection. Neck supple. FROM. No adenopathy. Thyroid Normal. No meningeal signs. No neck mass noted. CVS: Normal heart rate and rhythm. Heart sound normal. No murmurs noted. Pulses normal throughout. Respiratory: No respiratory distress. Painless inspiration. Breath sounds normal. No wheezes/rales/rhonchi noted. Chest nontender. No accessory muscle usage noted or decreased air movement noted. Abdomen: Soft, mild tenderness, no rebound tenderness or guarding tenderness is mostly around the suprapubic catheter. Bowel sounds normal in all 4 quadrants. No distention noted. No organomegaly noted. No visible injury noted. Back: No CVA tenderness. Full range of motion noted. Skin: Skin warm and dry. Normal skin color. Normal skin turgor. No rashes/lesions/lacerations noted. Extremities: No lower extremity edema. Extremities exhibit normal range of motion. Extremities nontender. Neuro: Oriented X 3. Course Course Course Narrative: Assessment and plan. 31-year-old female with extensive complicated history small nerve polyneuropathy, neurogenic bladder, requires suprapubic catheter. Came in with abdominal pain that controlled with Dilaudid, patient is taking antibiotic for chronic UTI, CT of the abdomen and pelvis was unremarkable for acute pathology. Case discussed with Dr. Pereira who will change the suprapubic catheter under conscious sedation in the a.m.. Case signed out to Dr. Matias. Medical Decision Making Lab Data Lab results reviewed: Yes I reviewed the patient's lab results. Result diagrams: 02/10/22 23:51 02/11/22 01:23 Labs: Lab Results 02/10/22 02/10/22 02/11/22 Range/Units 23:51 23:52 00:00 WBC 6.1 (4.8-10.8) X10*3/uL RBC 3.09 L D (4.20-5.50) X10*6/uL Hgb 10.3 L D (12.0-16.0) g/dl Hct 29.1 L D (37.0-47.0) % MCV 94.2 (80.0-98.0) fL MCH 33.3 H (27.0-33.0) pg MCHC 35.4 H (31.0-35.0) g/dl RDW 15.5 (11.0-16.0) % Plt Count 225 (160-400) X10*3/uL MPV 12.6 H (9.4-12.3) fL Immature Gran % (Auto) 0.3 (0.0-0.4) % Neut % (Auto) 48.3 (45-73) % Lymph % (Auto) 40.0 (20-40) % Burnett % (Auto) 6.4 (2-11) % Eos % (Auto) 4.2 H (0-4) % Baso % (Auto) 0.8 (0-2) % Lymph # (Auto) 2.5 (1.2-4.9) X10*3/uL Burnett # (Auto) 0.4 (0.1-1.2) X10*3/uL Eos # (Auto) 0.3 (0.0-0.4) X10*3/uL Baso # (Auto) 0.1 (0.0-0.2) X10*3/uL Abs Immat Gran (auto) 0.02 (0.00-0.03) X10*3/uL Absolute Neuts (auto) 3.0 (2.0-8.3) x10*3/uL Absolute Nucleated RBC 0.000 (0.0-0.012) X10*3/uL Nucleated RBC % (auto) 0.0 (0.0-0.2) /100WBC Sodium 136 (135-145) mmol/L Potassium 8.9 H* D (3.3-5.1) mmol/L Chloride 99 (96-108) mmol/L Carbon Dioxide 21 L (22-29) mmol/L Anion Gap 25 H (12-20) BUN 16 (9-16) mg/dL Creatinine 0.91 (0.5-1.4) mg/dL Estim Creat Clear Calc 52.1 Estimated GFR > 60 Random Glucose 513 H* (60-115) mg/dL Calcium 7.6 L D (8.4-10.2) mg/dL Total Bilirubin 0.4 (0.0-1.0) mg/dL Direct Bilirubin < 0.2 (0.0-0.5) mg/dL AST 24 (5-31) U/L ALT 27 (0-31) U/L Alkaline Phosphatase 138 H (39-117) U/L Total Protein 8.0 (6.5-8.0) g/dL Albumin 2.9 L (3.5-5.0) g/dL Lipase 69 (8-78) U/L Urine Color STRAW Urine Appearance HAZY Urine pH 7.5 (5.0-8.0) Ur Specific [place] 1.015 (1.005-1.025) Urine Protein NEG (NEG-TRACE) MG/DL Urine Glucose (UA) NEG (NEG) MG/DL Urine Ketones NEG (NEG) MG/DL Urine Blood TRACE (NEG) Urine Nitrite NEG (NEG) Ur Leukocyte Esterase 1+ H (NEG) Urine RBC 0-2 (0) /HPF Urine WBC 5-9 H (0-4) /HPF Ur Squamous Epith Cells 1+ /LPF Amorphous Sediment 2+ /LPF Urine Bacteria 2+ /LPF 02/11/ Range/Units 01:23 WBC (4.8-10.8) X10*3/uL RBC (4.20-5.50) X10*6/uL Hgb (12.0-16.0) g/dl Hct (37.0-47.0) % MCV (80.0-98.0) fL MCH (27.0-33.0) pg MCHC (31.0-35.0) g/dl RDW (11.0-16.0) % Plt Count (160-400) X10*3/uL MPV (9.4-12.3) fL Immature Gran % (Auto) (0.0-0.4) % Neut % (Auto) (45-73) % Lymph % (Auto) (20-40) % Burnett % (Auto) (2-11) % Eos % (Auto) (0-4) % Baso % (Auto) (0-2) % Lymph # (Auto) (1.2-4.9) X10*3/uL Burnett # (Auto) (0.1-1.2) X10*3/uL Eos # (Auto) (0.0-0.4) X10*3/uL Baso # (Auto) (0.0-0.2) X10*3/uL Abs Immat Gran (auto) (0.00-0.03) X10*3/uL Absolute Neuts (auto) (2.0-8.3) x10*3/uL Absolute Nucleated RBC (0.0-0.012) X10*3/uL Nucleated RBC % (auto) (0.0-0.2) /100WBC Sodium 140 (135-145) mmol/L Potassium 3.4 D (3.3-5.1) mmol/L Chloride 105 (96-108) mmol/L Carbon Dioxide 25 (22-29) mmol/L Anion Gap 13 (12-20) BUN 18 H (9-16) mg/dL Creatinine 0.80 (0.5-1.4) mg/dL Estim Creat Clear Calc 59.2 Estimated GFR > 60 Random Glucose 85 D (60-115) mg/dL Calcium 8.4 D (8.4-10.2) mg/dL Total Bilirubin (0.0-1.0) mg/dL Direct Bilirubin (0.0-0.5) mg/dL AST (5-31) U/L ALT (0-31) U/L Alkaline Phosphatase (39-117) U/L Total Protein (6.5-8.0) g/dL Albumin (3.5-5.0) g/dL Lipase (8-78) U/L Urine Color Urine Appearance Urine pH (5.0-8.0) Ur Specific [place] (1.005-1.025) Urine Protein (NEG-TRACE) MG/DL Urine Glucose (UA) (NEG) MG/DL Urine Ketones (NEG) MG/DL Urine Blood (NEG) Urine Nitrite (NEG) Ur Leukocyte Esterase (NEG) Urine RBC (0) /HPF Urine WBC (0-4) /HPF Ur Squamous Epith Cells /LPF Amorphous Sediment /LPF Urine Bacteria /LPF Imaging Data CT scan - abdomen: Attestation: I personally reviewed and interpreted this imaging study as follows: Radiologist's impression: 1.? Collapsed urinary bladder with suprapubic catheter in place. 2.? Cholelithiasis. 3.? Fluid within the colon, a finding which can be associated with diarrhea. No evidence of bowel obstruction. 4.? Foci of gas in the subcutaneous lower anterior abdominal wall, suggesting sequelae of recent injections. Discharge Plan Discharge Clinical Impression: Neurologic disorder, Encounter for suprapubic catheter care Patient Disposition: Still a Patient Prescriptions: No Action Movantik 12.5 mg tablet 12.5 mg PO QAM Qty: 30 3RF Rx Instructions: must be taken on empty stomach; no food 1 hr after or 2-3 hrs before dose hydrocortisone sod succinate 100 mg/2 mL Recon Soln 20 mg IV Q12H 0RF Relistor 8 mg/0.4 mL Syringe 8 mg SUBCUT Q OTHER DAY 0RF lidocaine 5 % Ointment 1 appl TOPICAL QID PRN (Reason: Pain) 0RF Zomig 0RF pantoprazole [Protonix] 40 mg Recon Soln 40 mg IV BID 0RF diphenhydramine HCl 50 mg/mL Solution 50 mg IV Q4H 0RF albuterol sulfate 90 mcg/actuation Hfa Aerosol Inhaler 2 puff INHALATION 6XD 0RF gabapentin 600 mg Tablet 600 mg feeding tube BID 0RF ipratropium-albuterol 0.5 mg-3 mg(2.5 mg base)/3 mL Solution For Nebulization 3 ml INHALATION Q6-8H PRN (Reason: Shortness Of Breath Or Wheezing) 0RF sucralfate [Carafate] 100 mg/mL Suspension 10 ml BID 0RF Rx Instructions: via j-tube methenamine hippurate [Hiprex] 1 gram Tablet 1 g feeding tube Q12H 0RF benztropine 1 mg Tablet 1 mg feeding tube BEDTIME 0RF topiramate [Topamax] 200 mg Tablet 200 mg feeding tube BID 0RF acetaminophen 500 mg/15 mL Liquid 500 mg feeding tube QID PRN (Reason: Pain) 0RF fludrocortisone 0.1 mg Tablet 0.1 mg feeding tube DAILY 0RF midodrine 10 mg Tablet 10 mg feeding tube BID 0RF levothyroxine 112 mcg/mL Solution 112 mcg feeding tube DAILY 0RF baclofen 5 mg/5 mL Solution 15 mg feeding tube TID 0RF famotidine (PF)-NaCl (iso-os) 20 mg/50 mL Piggyback 20 mg IV DAILY 0RF oxycodone 15 mg tablet 10 mg feeding tube Q3H 0RF promethazine [Phenergan] 25 mg/mL solution 25 mg IV TID 0RF magnesium hydroxide [Milk of Magnesia] 400 mg/5 mL Suspension 30 ml feeding tube DIRECTED PRN (Reason: Gastric Reflux) 0RF Asmanex HFA 200 mcg/actuation HFA aerosol inhaler 1 puff INHALATION BID 0RF furosemide 40 mg J-tube BID 0RF Valium 2.5 mg 0RF (DME) Kenguard Urinary Drain Bag 2,000 mL misc See Rx Instructions .ROUTE .MEDSUPPLY Qty: 4 6RF Rx Instructions: As directed gabapentin 800 mg tablet 800 mg PO BEDTIME 0RF loxapine succinate 50 mg capsule 60 mg feeding tube BID 0RF simethicone [Gas Relief (simethicone)] 40 mg/0.6 mL drops,suspension 40 mg feeding tube QID Qty: 30 2RF ondansetron HCl (PF) 4 mg/2 mL syringe 4 mg IV Q4H PRN (Reason: nausea and vomiting) 30 Days Qty: 48 2RF Rx Instructions: Can take prn in addition to scheduled dosing no more than x 2 prn doses a day (discard prior script for IM dose)
[2022-02-11] MEDS: HYDROmorphone HCl 1 MG/ML SYRINGE IVPUSH (01:29)
--- NOTE | 2022-02-11 01:42 | PC.NURSE ---
pt came in with her at home care providers. Pt is on 24 hr TPN infusion, NS infusions and ampicillin q8hr, via triple lumen catheter on left chest wall. Initally pt K+ and BG came back extremely elevated, at home nurse stated that this value may have been falsely elevated due to not pausing, and flushing the TPN line. MD notified. Repeat BMP ordered. TPN paused for a couple minutes, line flushed with NS. pt in 10/10 pain, lower abd tender to touch. suprapubic dressing intact has green purulent drainage.
--- NOTE | 2022-02-11 01:48 | PC.NURSE ---
pt somnolent, arousable to verbal stimulation. states she has no pain and is sleepy. resting at this time
[2022-02-11 02:03] LABS: Anion Gap 13 (12-20); Blood Urea Nitrogen 18 mg/dL (9-16); Calcium 8.4 mg/dL (8.4-10.2); Carbon Dioxide 25 mmol/L (22-29); Chloride 105 mmol/L (96-108); Creatinine Clr Calc Pharmacy 59.2; Estimated Glomerular Filt Rate > 60; Glucose Random 85 mg/dL (60-115); Potassium 3.4 mmol/L (3.3-5.1); Sodium 140 mmol/L (135-145)
--- NOTE | 2022-02-11 05:36 | PC.NURSE ---
pt pain well controlled, sleeping at this time. CT findings unremarkable. Consulted with MD Delacruz to determine whether to change the suprapubic dressing. Verbal order to hold off on the dressing change until MD can contact the patients urologist Dr Pereira to determine appropriate plan of care. pt sleeping at this time, in no distress. call wright in reach
--- NOTE | 2022-02-11 07:19 | PC.NURSE ---
meds entered per list provided by pt care team, pharm med consult ordered to clarify routes/admin
[2022-02-11] MEDS: HYDROmorphone HCl 0.5 MG/0.5 ML SYRINGE IVPUSH (08:24)
--- NOTE | 2022-02-11 08:39 | PHA.MEDREC ---
Pharmacy Consult ? Medication Reconciliation Pharmacy has completed the medication reconciliation. Patient has list from care takers. Rosalee Siddiqui, RoeD
--- NOTE | 2022-02-11 08:41 | P.CNUR_ITS ---
History of Present Illness Consult details Consult date: 02/11/22 Narrative: Seen in ER Had question of UTI SPT changed Not enough urine for culture Review of Systems Constitutional: Constitutional: Reports as per HPI and Reports no additional constitutional complaints Cardiovascular: Cardiovascular: Reports as per HPI and Reports no additional cardiovascular complaints Respiratory: Respiratory: Reports as per HPI and Reports no additional respiratory complaints Gastrointestinal: Gastrointestinal: Reports as per HPI and Reports no additional gastrointestinal complaints Genitourinary: Genitourinary: Reports as per HPI Musculoskeletal: Musculoskeletal: Reports no additional musculoskeletal complaints and Reports as per HPI Neurologic: Reports system reviewed and no additional complaints, except as documented and Reports as per HPI PMFSH Past Medical History Medical History Asthma Bacterial infection Brain bleed Brain tumor Chronic, continuous use of opioids Constipation Diabetes Fungal infection Gastroparesis GERD (gastroesophageal reflux disease) History of jejunostomy tube placement Hx pulmonary embolism Hypothyroidism Neuropathy Seizures Septic arthritis Small fiber polyneuropathy Suprapubic catheter Unspecified convulsions VRE (vancomycin-resistant Enterococci) Family History Family History Father Skin cancer Mother No problems noted. 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 Household Members Other:: live in aid Housing Other:: 24 hour care - live in aid Are you a primary career developer to a significant other at home: No Do you presently have visiting nurse or other home services: Yes Alcohol intake: current Alcohol intake frequency: does not drink Patient Tobacco Use Status: Never used Tobacco Second Hand Smoke Exposure: No Advance Directives: No Advance Directives Date on File: 06/29/20 Meds Allergies Allergy/AdvReac Type Severity Reaction Status Date / Time lamotrigine [From LAMICTAL] Allergy Severe CLEMENTINA Verified 08/10/21 09:04 GUIDO SYNDROME chlorhexidine [CHLORHEXIDINE] Allergy Intermediate RASH Verified 08/10/21 09:04 citalopram [From CELEXA] Allergy Intermediate PROLONGED Verified 08/10/21 09:04 QT INTERVAL divalproex sodium Allergy Intermediate BLACK Verified 08/10/21 09:04 [From DEPAKOTE] EYES escitalopram [From LEXAPRO] Allergy Intermediate SWELLING Verified 08/10/21 09:04 lactose [LACTOSE] Allergy Intermediate GI UPSET Verified 08/10/21 09:04 povidone-iodine Allergy Intermediate rash Verified 08/10/21 09:04 [From BETADINE] alprazolam [From Xanax] Allergy Mild Unknown Verified 08/10/21 09:04 sertraline [From Zoloft] Allergy Mild unknown Verified 08/10/21 09:04 ziprasidone [From Geodon] Allergy Mild dystonia Verified 08/10/21 09:04 clonazepam [From Klonopin] Allergy agitation Verified 08/10/21 09:04 lorazepam [From Ativan] Allergy agitation Verified 08/10/21 09:04 BEETS Allergy Intermediate SWELLING Uncoded 08/10/21 09:04 STATLOC Allergy Intermediate RASH Uncoded 08/10/21 09:04 Active Medications: Current Medications Hydromorphone HCl (Hydromorphone Hcl 0.5 Mg/0.5 Ml Syringe) 0.5 mg IVPUSH ONCE PRN; Protocol PRN Reason: Breakthrough Pain Last Admin: 02/11/22 08:24 Dose: 0.5 mg Documented by: Pharmacy Consult (Consult Rx Perform Med Rec) 1 each MISCELLANE ONCE PRN PRN Reason: Consult order Home Medications Medication Instructions Recorded Confirmed Last Taken Type albuterol sulfate 90 mcg/actuation 2 puff INHALATION 6XD 06/25/20 02/04/22 Unknown History aerosol inhaler diphenhydramine HCl 50 mg/mL 50 mg IV Q4H 06/25/20 02/04/22 04/19/21 05:30 History injection solution pantoprazole 40 mg intravenous 40 mg IV BID 06/25/20 02/04/22 04/19/21 05:30 History solution (Protonix) acetaminophen 500 mg/15 mL oral 500 mg FEEDING TUBE QID PRN 10/06/20 02/04/22 Unknown History liquid baclofen 5 mg/5 mL oral solution 15 mg FEEDING TUBE TID 10/06/20 02/04/22 04/19/21 05:30 History benztropine 1 mg tablet 1 mg FEEDING TUBE BEDTIME 10/06/20 02/04/22 01/04/21 History famotidine (PF) 20 mg/50 mL in 0.9 20 mg IV DAILY 10/06/20 02/04/22 04/19/21 05:30 History % NaCl (iso) intravenous piggyback fludrocortisone 0.1 mg tablet 0.1 mg FEEDING TUBE DAILY 10/06/20 02/04/22 04/19/21 05:30 History ipratropium 0.5 mg-albuterol 3 mg 3 ml INHALATION Q6-8H PRN 10/06/20 02/04/22 Unknown History (2.5 mg base)/3 mL nebulization soln levothyroxine 112 mcg/mL oral 100 mcg FEEDING TUBE DAILY 10/06/20 02/04/22 04/19/21 05:30 History solution methenamine hippurate 1 gram 1 g FEEDING TUBE Q12H 10/06/20 02/04/22 04/19/21 05:30 History tablet (Hiprex) midodrine 10 mg tablet 10 mg FEEDING TUBE TID 10/06/20 02/04/22 04/19/21 05:30 History topiramate 200 mg tablet (Topamax) 200 mg FEEDING TUBE BID 10/06/20 02/04/22 04/19/21 05:30 History magnesium hydroxide 400 mg/5 mL 30 ml FEEDING TUBE DIRECTED PRN 11/12/20 02/04/22 Unknown History oral suspension (Milk of Magnesia) promethazine 25 mg/mL injection 25 mg IV TID 11/12/20 02/04/22 04/19/21 05:30 History solution (Phenergan) lidocaine 5 % topical ointment 1 appl TOPICAL QID PRN 06/03/21 02/04/22 Unknown History Immuglobin IV TU 02/11/22 Unknown History Lactobacillus rhamnosus GG 10 1 cap PO BID 02/11/22 02/11/22 Unknown History billion cell capsule (Culturelle) ampicillin sodium 2 gram 2 g IV Q8H 02/11/22 02/11/22 Unknown History intravenous solution benztropine 0.5 mg tablet 0.5 mg FEEDING TUBE DAILY 02/11/22 02/11/22 Unknown History diazepam 5 mg/5 mL (1 mg/mL) oral 2.5 mg PO BID@0900,1200 02/11/22 02/11/22 Unknown History solution diazepam 5 mg/5 mL (1 mg/mL) oral 5 mg PO BEDTIME 02/11/22 02/11/22 Unknown History solution enoxaparin 40 mg/0.4 mL 40 mg SUBCUT DAILY 02/11/22 02/11/22 Unknown History subcutaneous syringe furosemide 40 mg tablet 60 mg PO BID 02/11/22 02/11/22 Unknown History gabapentin 300 mg/6 mL (6 mL) oral 600 mg PO BID@0900,1200 02/11/22 02/11/22 Unknown History solution gabapentin 300 mg/6 mL (6 mL) oral 800 mg PO BEDTIME 02/11/22 02/11/22 Unknown History solution hydrocortisone sod succinate 100 0.1 mg IV DAILY@1200 02/11/22 02/11/22 Unknown History mg solution for injection (Solu-Cortef) hydrocortisone sod succinate 100 0.2 mg IV DAILY 02/11/22 02/11/22 Unknown History mg solution for injection (Solu-Cortef) loxapine succinate 10 mg capsule 70 mg PO BID 02/11/22 02/11/22 Unknown History methylnaltrexone 8 mg/0.4 mL 8 mg SUBCUT DAILY 02/11/22 02/11/22 Unknown History subcutaneous syringe (Relistor) ondansetron HCl (PF) 4 mg/2 mL 4 mg IV Q3H PRN 02/11/22 02/11/22 Unknown History injection syringe Physical Exam Vital Signs: Vital Signs: Last Vital Signs Temp 97.8 F 02/11/22 08:36 Pulse 105 H 02/11/22 08:36 Resp 14 02/11/22 08:36 BP 131/90 H 02/11/22 08:36 Pulse Ox 100 02/11/22 08:36 Oxygen Flow Rate 4 02/11/22 08:36 BMI result Body Mass Index 17.7 Const: General: cooperative, healthy appearing, comfortable and no acute distress Orientation/consciousness: patient oriented x3 HEENT: Face and sinus: Yes normal facial exam Mouth: moist mucous membranes Neck: Neck: Yes normal visual inspection, Yes full ROM and Yes trachea midline Chest: Chest palpation & inspection: normal inspection of the chest Resp: Effort & Inspection: normal respiratory effort, able to speak in complete sentences and no respiratory distress GI: Inspection: Yes normal to inspection Back/Spine/Pelvis: Cervical Spine: normal cervical lordosis Thoracic/Lumbar Spine: thoracic and lumbar spine normal to inspection Skin: General skin exam: no rashes or lesions noted Neuro: General: patient oriented x3, tone normal and moves all extremities Extrem: General: Yes normal to inspection and Yes capillary refill normal Results Labs Result diagrams: 02/10/22 23:51 02/11/22 01:23 Labs: Abnormal lab results 02/10/22 02/10/22 02/11/22 Range/Units 23:51 23:52 00:00 RBC 3.09 L D (4.20-5.50) X10*6/uL Hgb 10.3 L D (12.0-16.0) g/dl Hct 29.1 L D (37.0-47.0) % MCH 33.3 H (27.0-33.0) pg MCHC 35.4 H (31.0-35.0) g/dl MPV 12.6 H (9.4-12.3) fL Eos % (Auto) 4.2 H (0-4) % Potassium 8.9 H* D (3.3-5.1) mmol/L Carbon Dioxide 21 L (22-29) mmol/L Anion Gap 25 H (12-20) BUN (9-16) mg/dL Random Glucose 513 H* (60-115) mg/dL Calcium 7.6 L D (8.4-10.2) mg/dL Alkaline Phosphatase 138 H (39-117) U/L Albumin 2.9 L (3.5-5.0) g/dL Ur Leukocyte Esterase 1+ H (NEG) Urine WBC 5-9 H (0-4) /HPF 02/11/22 Range/Units 01:23 RBC (4.20-5.50) X10*6/uL Hgb (12.0-16.0) g/dl Hct (37.0-47.0) % MCH (27.0-33.0) pg MCHC (31.0-35.0) g/dl MPV (9.4-12.3) fL Eos % (Auto) (0-4) % Potassium (3.3-5.1) mmol/L Carbon Dioxide (22-29) mmol/L Anion Gap (12-20) BUN 18 H (9-16) mg/dL Random Glucose (60-115) mg/dL Calcium (8.4-10.2) mg/dL Alkaline Phosphatase (39-117) U/L Albumin (3.5-5.0) g/dL Ur Leukocyte Esterase (NEG) Urine WBC (0-4) /HPF Short CBC 02/10/22 Range/Units 23:51 WBC 6.1 (4.8-10.8) X10*3/uL Hgb 10.3 L D (12.0-16.0) g/dl Hct 29.1 L D (37.0-47.0) % Plt Count 225 (160-400) X10*3/uL BMP 02/10/22 02/11/22 23:52 01:23 Sodium 136 140 Potassium 8.9 H* D 3.4 D Chloride 99 105 Carbon Dioxide 21 L 25 BUN 16 18 H Creatinine 0.91 0.80 Calcium 7.6 L D 8.4 D Liver Function 02/10/22 Range/Units 23:52 Total Bilirubin 0.4 (0.0-1.0) mg/dL Direct Bilirubin < 0.2 (0.0-0.5) mg/dL AST 24 (5-31) U/L ALT 27 (0-31) U/L Alkaline Phosphatase 138 H (39-117) U/L Albumin 2.9 L (3.5-5.0) g/dL Urine 02/11/22 Range/Units 00:00 Urine Color STRAW Urine Appearance HAZY Urine pH 7.5 (5.0-8.0) Ur Specific [place] 1.015 (1.005-1.025) Urine Protein NEG (NEG-TRACE) MG/DL Urine Glucose (UA) NEG (NEG) MG/DL All other labs normal. Assessment and Plan (1) Neurogenic urinary bladder disorder: Status: Acute Procedures Date of Service Date of Service: 02/11/22 Procedure Note Procedure Note: PreOperative Diagnosis: neurogenic bladder Post Operative Diagnosis: neurogenic bladder Procedure: SPT change Surgeon: Dr Denys Pereira Anesthesia: sedation Indications for procedure: [] Procedure: After informed consent was verified the patient anesthesia was administered per protocol. 22Fr SPT chnaged with clean techniquwe - 10cc in balloon Pathology: [] Drains: []
--- NOTE | 2022-02-11 08:47 | PC.NURSE ---
DR ARSHAD AND DR GUILLEN TO BEDSIDE FOR SUPRAPUBIC TUBE REPLACEMENT CONSENT OBTAINED BY BOTH PROVIDERS RESP AT BEDSIDE CODE CART AT BEDSIDE MEDICATIONS ADMINISTERED BY DR ARSHAD. PT TOLERATED PROCEDURE WITHOUT INCIDENT. PLEASE SEE PROCEDURAL SEDATION
--- NOTE | 2022-02-11 09:02 | PC.NURSE ---
PT INTERMITTENTLY NAPPING AWAKES AND WILL ASK THIS RN FOR PAIN MEDICATION. DOES NOT APPEAR IN ANY DISTRESS. RESP EVEN, EASY UNLABORED. PT WILL RETURN TO NAPPING AFTER SPEAKING WITH RN. WILL CONTINUE TO MONITOR
--- NOTE | 2022-02-11 09:21 | PC.NURSE ---
CHRISSY SPEAKING ON THE PHONE TO HER MOTHER. DR ARSHAD RETURNED TO CHECK ON PATIENT. PT IN NO DISTRESS.
--- NOTE | 2022-02-11 09:42 | PC.NURSE ---
PT CONTINUES TO INTERMITTENTLY NAP. NO DISTRESS NOTED RESP EVEN, EASY, UNLABORED. SKIN PINK WARM AND DRY. DR KILLIAN TO DISCHARGE PATIENT BACK HOME
--- NOTE | 2022-02-11 12:14 | PC.NURSE ---
multiple calls from pts mother and OVEN OPERATOR AUTOMATIC, JOSEF Ward. regarding a plan of care that was previously agreed upon between Deya and dr. De Leon. Per dr. de leon there is no plan to admit, the procedure went smoothly, pt is back to baseline, VSS, pain managed. pts OVEN OPERATOR AUTOMATIC informing this RN that he has a problem with this plan of care as another plan was previously agreed upon . JULIO Del Castillo steam oven operator made aware of the situation. Dr. De Leon contacted via phone to verbilize plan of care with myself, Tiffanie and CHICO Li prior to calling the family. continue with plan to d/c pt home, there is no plan to admit pt to the hosptial as she does not currently mean in patient level of care.
--- NOTE | 2022-02-11 12:29 | PC.NURSE ---
calls placed to [facility], [facility], and [facility] - all declined availability
[2022-02-11] MEDS: Morphine Sulfate 10 MG/ML CARTRIDGE 6 MG IVPUSH (13:12)
[2022-02-11] MEDS: diphenhydrAMINE HCL 50 MG/ML VIAL 25 MG IVPUSH (13:12)
[2022-02-11] MEDS: ondansetron HCL 4 MG/2 ML VIAL IVPUSH (13:12)
[2022-02-11] MEDS: KCl 40 mEq in 5% Dex/0.45% Sod 40 MEQ/1,000 ML IV.SOLN 80 MEQ IVCONT (13:22)
[2022-02-11] MEDS: 0.9 % Sodium Chloride 1,000 ML 50 ML IVCONT (13:29)
[2022-02-11 15:45] LABS: Glucose, Whole Blood 85 mg/dL (60-115)
--- NOTE | 2022-02-11 16:09 | PC.NURSE ---
EMS on scene, pt now refusing to go with the ambulance company as she reports that she cannot stop her IV fluids. pt tearful. t/w spoke with [facility] as well Veronica [employer] coordinator. because pt manages her own medication fluids through her own home pumps, EMS and this RN did not have to touch the pump regulations - EMS able to take pt as there is no need for them to adjust her IVF/pumps.
--- NOTE | 2023-11-03 16:50 | P.OP_ITS ---
Operative Note Operative Note Date of Service: 02/11/22 Narrative: PreOperative Diagnosis:? Neurogenic bladder Post Operative Diagnosis:? Neurogenic bladder Procedure:? Suprapubic tube change Surgeon: Dr Denys Pereira Anesthesia:? Sedation Indications for procedure: Small neuronal disease with neurogenic bladder Procedure: After informed consent was verified the patient was brought to the operating room and placed in a supine position.? Anesthesia was administered per protocol. Marcela remained in her stretcher. The area was prepped with saline Suprapubic tube removed. Twenty-two [place] Waldron catheter placed - 7 cc in balloon ?tolerated well
== END 2022-02-11 16:17 | disposition home or self-care (01) ==
PROVIDERS: Emergency Medicine; Emergency Provider Student in an Organized Health Care Education/Training Program
DX: N31.9 Neuromuscular dysfunction of bladder, unspecified (principal); Z43.5 Encounter for attention to cystostomy; N39.0 Urinary tract infection, site not specified; E11.9 Type 2 diabetes mellitus without complications; J45.909 Unspecified asthma, uncomplicated; Z86.711 Personal history of pulmonary embolism; Z93.1 Gastrostomy status
CPT/HCPCS: 36415; 51705; 74176; 80048; 80053; 81001; 82248; 82947; 83690; 85025; 87086; 87088; 87186; 96361; 96374; 96375; 99285; J0330; J0461; J1170; J1200; J2250; J2270; J2370; J2405; J3010

== ENCOUNTER → 2022-02-11 00:56 | Outpatient (BNV) | payer OTHER, MEDICAID, SELFPAY | PROVIDERS: Emergency Provider Student in an Organized Health Care Education/Training Program; Visit Provider Urology | DX: N31.9 Neuromuscular dysfunction of bladder, unspecified (principal) | CPT/HCPCS: 51705 ==

== ENCOUNTER 2022-03-16 05:52 | Day surgery (SDC) | payer MEDICAID, SELFPAY ==
[2022-03-16] VITALS (13 sets, daily range): BP systolic 105–124; BP diastolic 62–85; PULSE 80–99; RESP 16–22; TEMP 35.9–36.2; O2SAT 100; BMI 16.0
[2022-03-16 07:04] LABS: Glucose, Whole Blood 80 mg/dL (60-115)
--- NOTE | 2022-03-16 07:18 | HO.ANESPROP2 ---
[facility] Active Problems Active Problems: All Active Problems (Updated 02/12/22 @ 00:03 by Anatoly Kline) Neurogenic urinary bladder disorder (Acute) Neurologic disorder (Acute) Recurrent infections (Acute) Diarrhea associated with pseudomembranous colitis (Acute) Diarrhea (Acute) Gastroparesis (Acute) Past Medical History Medical History Asthma Bacterial infection Brain bleed Brain tumor Chronic, continuous use of opioids Constipation Diabetes Fungal infection Gastroparesis GERD (gastroesophageal reflux disease) History of jejunostomy tube placement Hx pulmonary embolism Hypothyroidism Neuropathy Seizures Septic arthritis Small fiber polyneuropathy Suprapubic catheter Unspecified convulsions VRE (vancomycin-resistant Enterococci) Family History Family History Father Skin cancer Mother No problems noted. 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 Household Members Other:: live in aid Housing Other:: 24 hour care - live in aid Are you a primary nurse care manager to a significant other at home: No Do you presently have visiting nurse or other home services: Yes Alcohol intake: current Alcohol intake frequency: does not drink Patient Tobacco Use Status: Never used Tobacco Second Hand Smoke Exposure: No Use of substances other than those prescribed or required for medical reasons: No Are you DNR?: No Advance Directives: No Advance Directives Information Provided: Yes Advance Directives Date on File: 06/29/20 Meds Allergies Allergy/AdvReac Type Severity Reaction Status Date / Time lamotrigine [From LAMICTAL] Allergy Severe CLEMENTINA Verified 08/10/21 09:04 GUIDO SYNDROME chlorhexidine [CHLORHEXIDINE] Allergy Intermediate RASH Verified 08/10/21 09:04 citalopram [From CELEXA] Allergy Intermediate PROLONGED Verified 08/10/21 09:04 QT INTERVAL divalproex sodium Allergy Intermediate BLACK Verified 08/10/21 09:04 [From DEPAKOTE] EYES escitalopram [From LEXAPRO] Allergy Intermediate SWELLING Verified 08/10/21 09:04 lactose [LACTOSE] Allergy Intermediate GI UPSET Verified 08/10/21 09:04 povidone-iodine Allergy Intermediate rash Verified 08/10/21 09:04 [From BETADINE] alprazolam [From Xanax] Allergy Mild Unknown Verified 08/10/21 09:04 sertraline [From Zoloft] Allergy Mild unknown Verified 08/10/21 09:04 ziprasidone [From Geodon] Allergy Mild dystonia Verified 08/10/21 09:04 clonazepam [From Klonopin] Allergy agitation Verified 08/10/21 09:04 lorazepam [From Ativan] Allergy agitation Verified 08/10/21 09:04 latex AdvReac Swelling Verified 03/16/22 06:30 BEETS Allergy Intermediate SWELLING Uncoded 08/10/21 09:04 STATLOC Allergy Intermediate RASH Uncoded 08/10/21 09:04 Home Medications Medication Instructions Recorded Confirmed Last Taken Type albuterol sulfate 90 mcg/actuation 2 puff inhalation 6XD PRN Wheezing 06/25/20 02/11/22 Unknown History aerosol inhaler diphenhydramine HCl 50 mg/mL 50 mg IV Q4H 06/25/20 02/11/22 04/19/21 05:30 History injection solution pantoprazole 40 mg intravenous 40 mg IV BID 06/25/20 02/11/22 03/16/22 History solution (Protonix) acetaminophen 500 mg/15 mL oral 500 mg feeding tube QID PRN Pain 10/06/20 02/11/22 Unknown History liquid baclofen 5 mg/5 mL oral solution 15 mg feeding tube TID 10/06/20 02/11/22 03/16/22 History benztropine 1 mg tablet 1 mg feeding tube BEDTIME 10/06/20 02/11/22 01/04/21 History famotidine (PF) 20 mg/50 mL in 0.9 20 mg IV DAILY 10/06/20 02/11/22 03/16/22 History % NaCl (iso) intravenous piggyback fludrocortisone 0.1 mg tablet 0.1 mg feeding tube DAILY 10/06/20 02/11/22 03/16/22 History ipratropium 0.5 mg-albuterol 3 mg 3 ml inhalation Q6-8H PRN 10/06/20 02/11/22 Unknown History (2.5 mg base)/3 mL nebulization Shortness Of Breath Or Wheezing soln levothyroxine 112 mcg/mL oral 100 mcg feeding tube DAILY 10/06/20 02/11/22 03/16/22 History solution methenamine hippurate 1 gram 1 g feeding tube BID 10/06/20 02/11/22 04/19/21 05:30 History tablet (Hiprex) midodrine 10 mg tablet 10 mg feeding tube TID 10/06/20 02/11/22 03/16/22 History topiramate 200 mg tablet (Topamax) 200 mg feeding tube BID 10/06/20 02/11/22 03/16/22 History magnesium hydroxide 400 mg/5 mL 30 ml feeding tube DIRECTED PRN 11/12/20 02/11/22 Unknown History oral suspension (Milk of Magnesia) Gastric Reflux promethazine 25 mg/mL injection 25 mg IV TID 11/12/20 02/11/22 04/19/21 05:30 History solution (Phenergan) lidocaine 5 % topical ointment 1 appl topical QID PRN Pain 06/03/21 02/04/22 Unknown History Immuglobin IV TU 02/11/22 Unknown History Lactobacillus rhamnosus GG 10 1 cap PO BID 02/11/22 02/11/22 Unknown History billion cell capsule (Culturelle) ampicillin sodium 2 gram 2 g IV Q8H 02/11/22 02/11/22 Unknown History intravenous solution benztropine 0.5 mg tablet 0.5 mg feeding tube DAILY 02/11/22 02/11/22 Unknown History diazepam 5 mg/5 mL (1 mg/mL) oral 2.5 mg PO BID@0900,1200 02/11/22 02/11/22 Unknown History solution diazepam 5 mg/5 mL (1 mg/mL) oral 5 mg PO BEDTIME 02/11/22 02/11/22 Unknown History solution enoxaparin 40 mg/0.4 mL 40 mg subcut DAILY 02/11/22 02/11/22 03/16/22 History subcutaneous syringe furosemide 40 mg tablet 60 mg PO BID 02/11/22 02/11/22 Unknown History gabapentin 300 mg/6 mL (6 mL) oral 600 mg PO BID@0900,1200 0602/11/22 03/16/22 History solution gabapentin 300 mg/6 mL (6 mL) oral 800 mg PO BEDTIME 02/11/22 02/11/22 Unknown History solution hydrocortisone sod succinate 100 0.1 mg IV DAILY@1200 02/11/22 02/11/22 Unknown History mg solution for injection (Solu-Cortef) hydrocortisone sod succinate 100 0.2 mg IV DAILY 02/11/22 02/11/22 Unknown History mg solution for injection (Solu-Cortef) loxapine succinate 10 mg capsule 70 mg PO BID 02/11/22 02/11/22 03/16/22 History methylnaltrexone 8 mg/0.4 mL 8 mg subcut DAILY 02/11/22 02/11/22 Unknown History subcutaneous syringe (Relistor) ondansetron HCl (PF) 4 mg/2 mL 4 mg IV Q3H PRN nausea and vomiting 02/11/22 02/11/22 Unknown History injection syringe Exam Exam Date and Time: March 16, 2022717 Height,Weight and Vital Signs: Height 4 ft 9 in Weight 33.566 kg Last Vital Signs Temp 96.6 F L 03/16/22 06:28 Pulse 97 03/16/22 06:28 Resp 22 H 03/16/22 06:28 BP 118/81 03/16/22 06:28 Pulse Ox 100 03/16/22 06:28 O2 Del Method 03/16/22 06:28 O2 Flow Rate 3 03/16/22 06:28 Pertinent Lab Results Pertinent Lab Results: Laboratory Tests 03/16/22 06:58 POC Glucose 80 Airway Mallampati Class: II TM Dist: >3cm Neck ROM: Full Loose/Missing/Broken Teeth: No Heart: RRR Lungs: CTA Assessment and Plan Final Anesthetic Review Family History of Problems with Anesthesia: No History of Problems with Anesthesia: No NPO: Yes ASA Class: III Final Preanesthetic Review: Meds/Allgs Chart Reviewed, Consent Obtained/Reviewed and Anes Risks/Benef Reviewed Patient Risk: Intermediate Procedure Risk: Low Anesthetic Plan Anesthetic Plan: MAC: Disposition: Standard PACU
--- NOTE | 2022-03-16 07:28 | MHC.SHP ---
Pre-Procedural Eval Section A Date of Service: 03/16/22 The patient is an INPATIENT: No Changes since office visit: No Cold of Flu in the past 2 weeks, No New Medical Problems, No Changes in Medication and No Patient answered all questions The History & Physical has been completed within 30 days and I have reviewed it.: No Section B Chief Complaint: Neuromuscular dysfunction of bladder, Relevant Family History (Specify if Yes): No Relevant Social History: None Present Medications: see Short Stay Collaborative assessment Medical History: Significant History History of Previous Operations: Relevant previous surgery/procedure and date(s) Allergies: Allergies Allergy/AdvReac Type Severity Reaction Status Date / Time lamotrigine [From LAMICTAL] Allergy Severe CLEMENTINA Verified 08/10/21 09:04 GUIDO SYNDROME chlorhexidine [CHLORHEXIDINE] Allergy Intermediate RASH Verified 08/10/21 09:04 citalopram [From CELEXA] Allergy Intermediate PROLONGED Verified 08/10/21 09:04 QT INTERVAL divalproex sodium Allergy Intermediate BLACK Verified 08/10/21 09:04 [From DEPAKOTE] EYES escitalopram [From LEXAPRO] Allergy Intermediate SWELLING Verified 08/10/21 09:04 lactose [LACTOSE] Allergy Intermediate GI UPSET Verified 08/10/21 09:04 povidone-iodine Allergy Intermediate rash Verified 08/10/21 09:04 [From BETADINE] alprazolam [From Xanax] Allergy Mild Unknown Verified 08/10/21 09:04 sertraline [From Zoloft] Allergy Mild unknown Verified 08/10/21 09:04 ziprasidone [From Geodon] Allergy Mild dystonia Verified 08/10/21 09:04 clonazepam [From Klonopin] Allergy agitation Verified 08/10/21 09:04 lorazepam [From Ativan] Allergy agitation Verified 08/10/21 09:04 latex AdvReac Swelling Verified 03/16/22 06:30 BEETS Allergy Intermediate SWELLING Uncoded 08/10/21 09:04 STATLOC Allergy Intermediate RASH Uncoded 08/10/21 09:04 Review of Systems Sugical H&P ROS: Negative: Constitution, Cardiovascular, Respiratory, Neurological, Psychiatric, Hem-Onc, Allergic/Immunologic, Gastrointestinal, Genitourinary, Musculoskeletal, Integumentary, Endocrine and Eyes/Ears/Nose/Throat Exam Surgical H&P Exam: Normal: HEENT, Normal: Heart, Normal: Lungs, Normal: Extremities, Normal: Abdomen, Normal: Skin and Normal: Neurological Plan Diagnosis/Plan: Unchanged (Neurogenic bladder with small nerve damage) I have reviewed the history and physical and performed a pertinent physical examination on my patient. No changes have occurred unless specified.
[2022-03-16] MEDS: Lactated Ringers 1,000 ML 50 ML IVCONT (07:29)
--- NOTE | 2022-03-16 07:51 | W.PM.OPN ---
Operative Note Operative Note Date of Service: 03/16/22 Narrative: PreOperative Diagnosis:? Neurogenic bladder Post Operative Diagnosis:? Neurogenic bladder Procedure:? Suprapubic tube change Surgeon: Dr Denys Pereira Anesthesia:? Sedation Indications for procedure: Small neuronal disease with neurogenic bladder Abx comleted yesterday Procedure: After informed consent was verified the patient was brought to the operating room and placed in a supine position.? Anesthesia was administered per protocol. Marcela remained in her stretcher. The area was prepped with saline Suprapubic tube removed. Twenty-two Vietnamese Waldron catheter placed - 7 cc in balloon ?tolerated well
[2022-03-16] MEDS: HYDROmorphone HCl 0.5 MG/0.5 ML SYRINGE IVPUSH (09:21)
== END 2022-03-16 09:49 | disposition home or self-care (01) ==
PROVIDERS: PCP Internal Medicine; Visit Provider Urology
PROC: (CPT 51705; principal; 2022-03-16 07:30)
DX: N31.9 Neuromuscular dysfunction of bladder, unspecified (principal); G90.09 Other idiopathic peripheral autonomic neuropathy; K31.84 Gastroparesis; E11.9 Type 2 diabetes mellitus without complications; J45.909 Unspecified asthma, uncomplicated; Z79.899 Other long term (current) drug therapy; Z88.8 Allergy status to other drugs, medicaments and biological substances
CPT/HCPCS: 51705; 82947; J1170; J2250

== ENCOUNTER 2022-04-13 07:02 | Day surgery (SDC) | payer MEDICAID, SELFPAY ==
[2022-04-07 13:32] VITALS: BMI 16.0
--- NOTE | 2022-04-12 12:01 | HO.ANESPROP2 ---
Documented by User: Lucila Bales NP 04/12/22 12:03 HPI - Anesthesia Eval Consult details Narrative: 32yo F for Suprapubic Tube Exchange Last exchange 03/16/22 with MAC: Prop 110, Lido 40, Midaz 2 Chronic opioid *Multiple med allergies* PMFSH Active Problems Active Problems: All Active Problems (Updated 04/07/22 @ 11:43 by Nita Sigala, RN) Neurogenic urinary bladder disorder (Acute) Neurologic disorder (Acute) Recurrent infections (Acute) Diarrhea associated with pseudomembranous colitis (Acute) Diarrhea (Acute) Gastroparesis (Acute) Past Medical History Medical History (Updated 04/07/22 @ 11:43 by Nita Sigala, JOSEF) Asthma Bacterial infection Brain bleed Brain tumor Chronic, continuous use of opioids Constipation Diabetes Fungal infection Gastroparesis GERD (gastroesophageal reflux disease) History of jejunostomy tube placement Hx pulmonary embolism Hypothyroidism Neuropathy Seizures Septic arthritis Small fiber polyneuropathy Suprapubic catheter Unspecified convulsions VRE (vancomycin-resistant Enterococci) Family History Family History Father Skin cancer Mother No problems noted. 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 Household Members Other:: live in aid Housing Other:: 24 hour care - live in aid Are you a primary care management assistant to a significant other at home: No Do you presently have visiting nurse or other home services: Yes Alcohol intake: current Alcohol intake frequency: does not drink Patient Tobacco Use Status: Never used Tobacco Second Hand Smoke Exposure: No Use of substances other than those prescribed or required for medical reasons: No Are you DNR?: No Advance Directives: No Advance Directives Information Provided: Yes Advance Directives on File: No Advance Directives Date on File: 06/29/20 Meds Allergies Allergy/AdvReac Type Severity Reaction Status Date / Time lamotrigine [From LAMICTAL] Allergy Severe CLEMENTINA Verified 08/10/21 09:04 GUIDO SYNDROME chlorhexidine [CHLORHEXIDINE] Allergy Intermediate RASH Verified 08/10/21 09:04 citalopram [From CELEXA] Allergy Intermediate PROLONGED Verified 08/10/21 09:04 QT INTERVAL divalproex sodium Allergy Intermediate BLACK Verified 08/10/21 09:04 [From DEPAKOTE] EYES escitalopram [From LEXAPRO] Allergy Intermediate SWELLING Verified 08/10/21 09:04 lactose [LACTOSE] Allergy Intermediate GI UPSET Verified 08/10/21 09:04 povidone-iodine Allergy Intermediate rash Verified 08/10/21 09:04 [From BETADINE] alprazolam [From Xanax] Allergy Mild Unknown Verified 08/10/21 09:04 sertraline [From Zoloft] Allergy Mild unknown Verified 08/10/21 09:04 ziprasidone [From Geodon] Allergy Mild dystonia Verified 08/10/21 09:04 clonazepam [From Klonopin] Allergy agitation Verified 08/10/21 09:04 lorazepam [From Ativan] Allergy agitation Verified 08/10/21 09:04 latex AdvReac Swelling Verified 03/16/22 06:30 BEETS Allergy Intermediate SWELLING Uncoded 08/10/21 09:04 STATLOC Allergy Intermediate RASH Uncoded 08/10/21 09:04 Home Medications Medication Instructions Recorded Confirmed Last Taken Type albuterol sulfate 90 mcg/actuation 2 puff inhalation 6XD PRN Wheezing 06/25/20 04/07/22 Unknown History aerosol inhaler diphenhydramine HCl 50 mg/mL 50 mg IV Q4H 06/25/20 04/07/22 04/19/21 05:30 History injection solution pantoprazole 40 mg intravenous 40 mg IV BID 06/25/20 04/07/22 03/16/22 History solution (Protonix) acetaminophen 500 mg/15 mL oral 500 mg feeding tube QID PRN Pain 10/06/20 04/07/22 Unknown History liquid baclofen 5 mg/5 mL oral solution 15 mg feeding tube TID 10/06/20 04/07/22 03/16/22 History benztropine 1 mg tablet 1 mg feeding tube BEDTIME 10/06/20 02/11/22 01/04/21 History famotidine (PF) 20 mg/50 mL in 0.9 20 mg IV DAILY 01/04/07/22 03/16/22 History % NaCl (iso) intravenous piggyback fludrocortisone 0.1 mg tablet 0.1 mg feeding tube DAILY 10/06/20 04/07/22 03/16/22 History ipratropium 0.5 mg-albuterol 3 mg 3 ml inhalation Q6-8H PRN 10/06/20 04/07/22 Unknown History (2.5 mg base)/3 mL nebulization Shortness Of Breath Or Wheezing soln levothyroxine 112 mcg/mL oral 100 mcg feeding tube DAILY 10/06/20 04/07/22 03/16/22 History solution methenamine hippurate 1 gram 1 g feeding tube BID 10/06/20 04/07/22 04/19/21 05:30 History tablet (Hiprex) midodrine 10 mg tablet 10 mg feeding tube TID 10/06/20 04/07/22 03/16/22 History topiramate 200 mg tablet (Topamax) 200 mg feeding tube BID 10/06/20 04/07/22 03/16/22 History magnesium hydroxide 400 mg/5 mL 30 ml feeding tube DIRECTED PRN 11/12/20 04/07/22 Unknown History oral suspension (Milk of Magnesia) Gastric Reflux promethazine 25 mg/mL injection 25 mg IV TID 11/12/20 04/07/22 04/19/21 05:30 History solution (Phenergan) lidocaine 5 % topical ointment 1 appl topical QID PRN Pain 06/03/21 04/07/22 Unknown History Immuglobin IV TU 02/11/22 Unknown History Lactobacillus rhamnosus GG 10 1 cap PO BID 02/11/22 04/07/22 Unknown History billion cell capsule (Culturelle) ampicillin sodium 2 gram 2 g IV Q8H 02/11/22 02/11/22 Unknown History intravenous solution benztropine 0.5 mg tablet 0.5 mg feeding tube DAILY 02/11/22 04/07/22 Unknown History diazepam 5 mg/5 mL (1 mg/mL) oral 2.5 mg PO BID@0900,1200 02/11/22 04/07/22 Unknown History solution diazepam 5 mg/5 mL (1 mg/mL) oral 5 mg PO BEDTIME 02/11/22 04/07/22 Unknown History solution enoxaparin 40 mg/0.4 mL 40 mg subcut DAILY 02/11/22 02/11/22 03/16/22 History subcutaneous syringe furosemide 40 mg tablet 60 mg PO BID 02/11/22 04/07/22 Unknown History gabapentin 300 mg/6 mL (6 mL) oral 600 mg PO BID@0900,1200 02/11/22 04/07/22 03/16/22 History solution gabapentin 300 mg/6 mL (6 mL) oral 800 mg PO BEDTIME 02/11/22 04/07/22 Unknown History solution hydrocortisone sod succinate 100 0.1 mg IV DAILY@1200 02/11/22 02/11/22 Unknown History mg solution for injection (Solu-Cortef) hydrocortisone sod succinate 100 0.2 mg IV DAILY 02/11/22 02/11/22 Unknown History mg solution for injection (Solu-Cortef) loxapine succinate 10 mg capsule 70 mg PO BID 02/11/22 04/07/22 03/16/22 History methylnaltrexone 8 mg/0.4 mL 8 mg subcut DAILY 02/11/22 04/07/22 Unknown History subcutaneous syringe (Relistor) ondansetron HCl (PF) 4 mg/2 mL 4 mg IV Q3H PRN nausea and vomiting 02/11/22 04/07/22 Unknown History injection syringe Exam Exam Date and Time: April 12, 2022 1201 Height,Weight and Vital Signs: Height 4 ft 9 in Weight 33.566 kg Pertinent Lab Results Pertinent Lab Results: Laboratory Tests 09/13/21 02/10/22 02/11/22 07:33 23:51 01:23 WBC 6.1 Hgb 10.3 L D Hct 29.1 L D Plt Count 225 Sodium 144 140 Potassium 3.7 3.4 D Chloride 105 Carbon Dioxide 25 BUN 18 H Creatinine 0.80 Assessment and Plan Assessment Anesthesia Assessment: Chart Reviewed Final Anesthetic Review Family History of Problems with Anesthesia: No History of Problems with Anesthesia: No Documented by User: Sariah Romero MD 04/13/22 07:47 [facility] Past Medical History Medical History (Updated 04/07/22 @ 11:43 by Nita Sigala RN) Asthma Bacterial infection Brain bleed Brain tumor Chronic, continuous use of opioids Constipation Diabetes Fungal infection Gastroparesis GERD (gastroesophageal reflux disease) History of jejunostomy tube placement Hx pulmonary embolism Hypothyroidism Neuropathy Seizures Septic arthritis Small fiber polyneuropathy Suprapubic catheter Unspecified convulsions VRE (vancomycin-resistant Enterococci) Family History Family History Father Skin cancer Mother No problems noted. 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 Household Members Other:: live in aid Housing Other:: 24 hour care - live in aid Are you a primary care management assistant to a significant other at home: No Do you presently have visiting nurse or other home services: Yes Alcohol intake: current Alcohol intake frequency: does not drink Patient Tobacco Use Status: Never used Tobacco Second Hand Smoke Exposure: No Use of substances other than those prescribed or required for medical reasons: No Are you DNR?: No Advance Directives: No Advance Directives Information Provided: Yes Advance Directives on File: No Advance Directives Date on File: 06/29/20 Meds Allergies Allergy/AdvReac Type Severity Reaction Status Date / Time lamotrigine [From LAMICTAL] Allergy Severe CLEMENTINA Verified 08/10/21 09:04 GUIDO SYNDROME chlorhexidine [CHLORHEXIDINE] Allergy Intermediate RASH Verified 08/10/21 09:04 citalopram [From CELEXA] Allergy Intermediate PROLONGED Verified 08/10/21 09:04 QT INTERVAL divalproex sodium Allergy Intermediate BLACK Verified 08/10/21 09:04 [From DEPAKOTE] EYES escitalopram [From LEXAPRO] Allergy Intermediate SWELLING Verified 08/10/21 09:04 lactose [LACTOSE] Allergy Intermediate GI UPSET Verified 08/10/21 09:04 povidone-iodine Allergy Intermediate rash Verified 08/10/21 09:04 [From BETADINE] alprazolam [From Xanax] Allergy Mild Unknown Verified 08/10/21 09:04 sertraline [From Zoloft] Allergy Mild unknown Verified 08/10/21 09:04 ziprasidone [From Geodon] Allergy Mild dystonia Verified 08/10/21 09:04 clonazepam [From Klonopin] Allergy agitation Verified 08/10/21 09:04 lorazepam [From Ativan] Allergy agitation Verified 08/10/21 09:04 latex AdvReac Swelling Verified 03/16/22 06:30 BEETS Allergy Intermediate SWELLING Uncoded 08/10/21 09:04 STATLOC Allergy Intermediate RASH Uncoded 08/10/21 09:04 Home Medications Medication Instructions Recorded Confirmed Last Taken Type albuterol sulfate 90 mcg/actuation 2 puff inhalation 6XD PRN Wheezing 06/25/20 04/07/22 Unknown History aerosol inhaler diphenhydramine HCl 50 mg/mL 50 mg IV Q4H 06/25/20 04/07/22 04/19/21 05:30 History injection solution pantoprazole 40 mg intravenous 40 mg IV BID 06/25/20 04/07/22 03/16/22 History solution (Protonix) acetaminophen 500 mg/15 mL oral 500 mg feeding tube QID PRN Pain 10/06/20 04/07/22 Unknown History liquid baclofen 5 mg/5 mL oral solution 15 mg feeding tube TID 10/06/20 04/07/22 03/16/22 History benztropine 1 mg tablet 1 mg feeding tube BEDTIME 10/06/20 02/11/22 01/04/21 History famotidine (PF) 20 mg/50 mL in 0.9 20 mg IV DAILY 10/06/20 04/07/22 03/16/22 History % NaCl (iso) intravenous piggyback fludrocortisone 0.1 mg tablet 0.1 mg feeding tube DAILY 10/06/20 04/07/22 03/16/22 History ipratropium 0.5 mg-albuterol 3 mg 3 ml inhalation Q6-8H PRN 10/06/20 04/07/22 Unknown History (2.5 mg base)/3 mL nebulization Shortness Of Breath Or Wheezing soln levothyroxine 112 mcg/mL oral 100 mcg feeding tube DAILY 10/06/20 04/07/22 03/16/22 History solution methenamine hippurate 1 gram 1 g feeding tube BID 10/06/20 04/07/22 04/19/21 05:30 History tablet (Hiprex) midodrine 10 mg tablet 10 mg feeding tube TID 10/06/20 04/07/22 03/16/22 History topiramate 200 mg tablet (Topamax) 200 mg feeding tube BID 10/06/20 04/07/22 03/16/22 History magnesium hydroxide 400 mg/5 mL 30 ml feeding tube DIRECTED PRN 11/12/20 04/07/22 Unknown History oral suspension (Milk of Magnesia) Gastric Reflux promethazine 25 mg/mL injection 25 mg IV TID 11/12/20 04/07/22 04/19/21 05:30 History solution (Phenergan) lidocaine 5 % topical ointment 1 appl topical QID PRN Pain 06/03/21 04/07/22 Unknown History Immuglobin IV TU 02/11/22 Unknown History Lactobacillus rhamnosus GG 10 1 cap PO BID 02/11/22 04/07/22 Unknown History billion cell capsule (Culturelle) ampicillin sodium 2 gram 2 g IV Q8H 02/11/22 02/11/22 Unknown History intravenous solution benztropine 0.5 mg tablet 0.5 mg feeding tube DAILY 02/11/22 04/07/22 Unknown History diazepam 5 mg/5 mL (1 mg/mL) oral 2.5 mg PO BID@0900,1200 02/11/22 04/07/22 Unknown History solution diazepam 5 mg/5 mL (1 mg/mL) oral 5 mg PO BEDTIME 02/11/22 04/07/22 Unknown History solution enoxaparin 40 mg/0.4 mL 40 mg subcut DAILY 02/11/22 02/11/22 03/16/22 History subcutaneous syringe furosemide 40 mg tablet 60 mg PO BID 02/11/22 04/07/22 Unknown History gabapentin 300 mg/6 mL (6 mL) oral 600 mg PO BID@0900,1200 02/11/22 04/07/22 03/16/22 History solution gabapentin 300 mg/6 mL (6 mL) oral 800 mg PO BEDTIME 02/11/22 04/07/22 Unknown History solution hydrocortisone sod succinate 100 0.1 mg IV DAILY@1200 02/11/22 02/11/22 Unknown History mg solution for injection (Solu-Cortef) hydrocortisone sod succinate 100 0.2 mg IV DAILY 02/11/22 02/11/22 Unknown History mg solution for injection (Solu-Cortef) loxapine succinate 10 mg capsule 70 mg PO BID 02/11/22 04/07/22 03/16/22 History methylnaltrexone 8 mg/0.4 mL 8 mg subcut DAILY 02/11/22 04/07/22 Unknown History subcutaneous syringe (Relistor) ondansetron HCl (PF) 4 mg/2 mL 4 mg IV Q3H PRN nausea and vomiting 02/11/22 04/07/22 Unknown History injection syringe Exam Airway Mallampati Class: III TM Dist: >3cm Neck ROM: Full Assessment and Plan Assessment Anesthesia Assessment: Anesthesia Plan Discussed Final Anesthetic Review NPO: Yes ASA Class: III Final Preanesthetic Review: No Changes in Pt Med Stat, Meds/Allgs Chart Reviewed, Consent Obtained/Reviewed and Anes Risks/Benef Reviewed Patient Risk: Intermediate Procedure Risk: Low Anesthetic Plan Anesthetic Plan: MAC: Disposition: Standard PACU
[2022-04-13] VITALS (11 sets, daily range): BP systolic 114–150; BP diastolic 76–98; PULSE 74–99; RESP 16–20; TEMP 36.2–36.5; O2SAT 98–100
[2022-04-13 07:25] LABS: Glucose, Whole Blood 95 mg/dL (60-115)
--- NOTE | 2022-04-13 09:16 | P.OP_ITS ---
Operative Note Operative Note Date of Service: 04/13/22 Narrative: PreOperative Diagnosis:? Neurogenic bladder Post Operative Diagnosis:? Neurogenic bladder Procedure:? Suprapubic tube change Surgeon: Dr Denys Pereira Anesthesia:? Sedation Indications for procedure: Small neuronal disease with neurogenic bladder Procedure: After informed consent was verified the patient was brought to the operating room and placed in a supine position.? Anesthesia was administered per protocol. Marcela remained in her stretcher. The area was prepped with saline Suprapubic tube removed. Twenty-two Filipino Waldron catheter placed - 7 cc in balloon ?tolerated well
--- NOTE | 2022-04-13 09:39 | P.HPSUR_ITS ---
Pre-Procedural Eval Section A Date of Service: 04/13/22 The patient is an INPATIENT: No Changes since office visit: No Cold of Flu in the past 2 weeks, No New Medical Problems, No Changes in Medication and No Patient answered all questions The History & Physical has been completed within 30 days and I have reviewed it.: No Section B Chief Complaint: Neuromuscular dysfunction of bladder, unspecified Details of Present Illness: SPT change Relevant Family History (Specify if Yes): No Relevant Social History: None Present Medications: see Short Stay Collaborative assessment Medical History: Significant History History of Previous Operations: Relevant previous surgery/procedure and date(s) Allergies: Allergies Allergy/AdvReac Type Severity Reaction Status Date / Time lamotrigine [From LAMICTAL] Allergy Severe CLEMENTINA Verified 08/10/21 09:04 GUIDO SYNDROME chlorhexidine [CHLORHEXIDINE] Allergy Intermediate RASH Verified 08/10/21 09:04 citalopram [From CELEXA] Allergy Intermediate PROLONGED Verified 08/10/21 09:04 QT INTERVAL divalproex sodium Allergy Intermediate BLACK Verified 08/10/21 09:04 [From DEPAKOTE] EYES escitalopram [From LEXAPRO] Allergy Intermediate SWELLING Verified 08/10/21 09:04 lactose [LACTOSE] Allergy Intermediate GI UPSET Verified 08/10/21 09:04 povidone-iodine Allergy Intermediate rash Verified 08/10/21 09:04 [From BETADINE] alprazolam [From Xanax] Allergy Mild Unknown Verified 08/10/21 09:04 sertraline [From Zoloft] Allergy Mild unknown Verified 08/10/21 09:04 ziprasidone [From Geodon] Allergy Mild dystonia Verified 08/10/21 09:04 clonazepam [From Klonopin] Allergy agitation Verified 08/10/21 09:04 lorazepam [From Ativan] Allergy agitation Verified 08/10/21 09:04 latex AdvReac Swelling Verified 03/16/22 06:30 BEETS Allergy Intermediate SWELLING Uncoded 08/10/21 09:04 STATLOC Allergy Intermediate RASH Uncoded 08/10/21 09:04 Review of Systems Sugical H&P ROS: Negative: Constitution, Cardiovascular, Respiratory, Neurological, Psychiatric, Hem-Onc, Allergic/Immunologic, Gastrointestinal, Genitourinary, Musculoskeletal, Integumentary, Endocrine and Eyes/E ars/Nose/Throat Exam Surgical H&P Exam: Normal: HEENT, Normal: Heart, Normal: Lungs, Normal: Extremities, Normal: Abdomen, Normal: Skin and Normal: Neurological Plan Diagnosis/Plan: Unchanged (SPT change) I have reviewed the history and physical and performed a pertinent physical examination on my patient. No changes have occurred unless specified.
[2022-04-13] MEDS: HYDROmorphone HCl 0.5 MG/0.5 ML SYRINGE IVPUSH (10:40)
== END 2022-04-13 11:35 | disposition home or self-care (01) ==
PROVIDERS: PCP Internal Medicine; Visit Provider Urology
PROC: (CPT 51705; principal; 2022-04-13 08:30)
DX: N31.9 Neuromuscular dysfunction of bladder, unspecified (principal); Z87.440 Personal history of urinary (tract) infections; G90.09 Other idiopathic peripheral autonomic neuropathy; J45.909 Unspecified asthma, uncomplicated; E11.9 Type 2 diabetes mellitus without complications; R56.9 Unspecified convulsions; Z79.891 Long term (current) use of opiate analgesic; Z88.8 Allergy status to other drugs, medicaments and biological substances; Z91.040 Latex allergy status; Z86.711 Personal history of pulmonary embolism; Z79.899 Other long term (current) drug therapy
CPT/HCPCS: 51705; 82947; J1170; J2250; J3010

== ENCOUNTER → 2022-04-22 10:56 | Outpatient (BNVA) | payer MEDICAID, SELFPAY | PROVIDERS: PCP Internal Medicine; Visit Provider Internal Medicine Gastroenterology | DX: R19.7 Diarrhea, unspecified (principal) | CPT/HCPCS: 87177; 87209; 87493; 87507; 99212 ==

== ENCOUNTER 2022-04-22 14:40 | Outpatient (REF) | payer MEDICAID, SELFPAY ==
[2022-04-22 16:45] LABS: CDiff Gene PCR NEGATIVE (Negative)
[2022-04-23 07:11] LABS: Adenovirus F 40/41 Not Detected (Not Detect.); Astrovirus Not Detected (Not Detect.); Campylobacter Not Detected (Not Detect.); Cryptosporidium Not Detected (Not Detect.); Cyclospora cayetanensis Not Detected (Not Detect.); E. coli EAEC Not Detected (Not Detect.); E. coli EPEC Not Detected (Not Detect.); E. coli ETEC Not Detected (Not Detect.); E. coli STEC Not Detected (Not Detect.); Entamoeba histolytica Not Detected (Not Detect.); Giardia lamblia Not Detected (Not Detect.); Norovirus GI/GII Not Detected (Not Detect.); Plesiomonas shigelloides Not Detected (Not Detect.); Rotavirus A Not Detected (Not Detect.); Salmonella Not Detected (Not Detect.); Sapovirus Not Detected (Not Detect.); Shigella sp./EIEC Not Detected (Not Detect.); Vibrio Not Detected (Not Detect.); Vibrio Cholerae Not Detected (Not Detect.); Yersinia enterocolitica Not Detected (Not Detect.)
== END 2022-04-22 14:41 | disposition home or self-care (01) ==
LOC: HO.LNP 14:40
PROVIDERS: Visit Provider Internal Medicine Gastroenterology
DX: R19.7 Diarrhea, unspecified (principal)
CPT/HCPCS: 87177; 87209; 87493; 87507

== ENCOUNTER 2022-05-18 06:37 | Day surgery (SDC) | payer MEDICAID, SELFPAY ==
[2022-05-12 08:37] VITALS: BMI 16.0
--- NOTE | 2022-05-17 10:17 | P.CONAN_ITS ---
HPI - Anesthesia Eval Consult details Narrative: 32yo F for Suprapubic Tube Exchange Last exchange 04/13/22 with MAC: Prop 100, Midaz 2 Chronic opioid *Multiple med allergies* PMFSH Active Problems Active Problems: All Active Problems (Updated 05/12/22 @ 08:31 by Nita Sigala RN) Neurogenic urinary bladder disorder (Acute) Neurologic disorder (Acute) Recurrent infections (Acute) Diarrhea associated with pseudomembranous colitis (Acute) Diarrhea (Acute) Gastroparesis (Acute) Past Medical History Medical History Asthma Bacterial infection Brain bleed Brain tumor Chronic, continuous use of opioids Constipation Diabetes Fungal infection Gastroparesis GERD (gastroesophageal reflux disease) History of jejunostomy tube placement Hx pulmonary embolism Hypothyroidism Neuropathy Seizures Septic arthritis Small fiber polyneuropathy Suprapubic catheter Unspecified convulsions VRE (vancomycin-resistant Enterococci) Family History Family History Father Skin cancer Mother No problems noted. 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 Household Members Other:: live in aid Both parents involved: No Caregiver staying overnight: Yes Housing Other:: 24 hour care - live in aid Are you a primary intensive care ambulance paramedic to a significant other at home: No Do you presently have visiting nurse or other home services: Yes Alcohol intake: current Alcohol intake frequency: does not drink Patient Tobacco Use Status: Never used Tobacco Second Hand Smoke Exposure: No Advance Directives Date on File: 06/29/20 Meds Allergies Allergy/AdvReac Type Severity Reaction Status Date / Time lamotrigine [From LAMICTAL] Allergy Severe CLEMENTINA Verified 04/22/22 12:01 GUIDO SYNDROME chlorhexidine [CHLORHEXIDINE] Allergy Intermediate RASH Verified 04/22/22 12:01 citalopram [From CELEXA] Allergy Intermediate PROLONGED Verified 04/22/22 12:01 QT INTERVAL divalproex sodium Allergy Intermediate BLACK Verified 04/22/22 12:01 [From DEPAKOTE] EYES escitalopram [From LEXAPRO] Allergy Intermediate SWELLING Verified 04/22/22 12:01 lactose [LACTOSE] Allergy Intermediate GI UPSET Verified 04/22/22 12:01 povidone-iodine Allergy Intermediate rash Verified 04/22/22 12:01 [From BETADINE] alprazolam [From Xanax] Allergy Mild Unknown Verified 04/22/22 12:01 sertraline [From Zoloft] Allergy Mild unknown Verified 04/22/22 12:01 ziprasidone [From Geodon] Allergy Mild dystonia Verified 04/22/22 12:01 clonazepam [From Klonopin] Allergy agitation Verified 04/22/22 12:01 lorazepam [From Ativan] Allergy agitation Verified 04/22/22 12:01 latex AdvReac Swelling Verified 04/22/22 12:01 BEETS Allergy Intermediate SWELLING Uncoded 08/10/21 09:04 STATLOC Allergy Intermediate RASH Uncoded 08/10/21 09:04 Home Medications Medication Instructions Recorded Confirmed Last Taken Type albuterol sulfate 90 mcg/actuation 2 puff inhalation 6XD PRN Wheezing 06/25/20 05/12/22 Unknown History aerosol inhaler diphenhydramine HCl 50 mg/mL 50 mg IV Q4H 06/25/20 05/12/22 04/19/21 05:30 History injection solution pantoprazole 40 mg intravenous 40 mg IV BID 06/25/20 05/12/22 05/18/22 History solution (Protonix) acetaminophen 500 mg/15 mL oral 500 mg feeding tube QID PRN Pain 10/06/20 05/12/22 Unknown History liquid baclofen 5 mg/5 mL oral solution 15 mg feeding tube TID 10/06/20 05/12/22 05/18/22 History benztropine 1 mg tablet 1 mg feeding tube BEDTIME 10/06/20 05/12/22 05/18/22 History famotidine (PF) 20 mg/50 mL in 0.9 20 mg IV DAILY 10/06/20 05/12/22 05/18/22 History % NaCl (iso) intravenous piggyback fludrocortisone 0.1 mg tablet 0.1 mg feeding tube DAILY 10/06/20 05/12/22 05/18/22 History ipratropium 0.5 mg-albuterol 3 mg 3 ml inhalation Q6-8H PRN 10/06/20 05/12/22 Unknown History (2.5 mg base)/3 mL nebulization Shortness Of Breath Or Wheezing soln levothyroxine 112 mcg/mL oral 100 mcg feeding tube DAILY 10/06/20 05/12/22 05/18/22 History solution methenamine hippurate 1 gram 1 g feeding tube BID 10/06/20 05/12/22 04/19/21 05:30 History tablet (Hiprex) midodrine 10 mg tablet 10 mg feeding tube TID 10/06/20 05/12/22 05/18/22 History topiramate 200 mg tablet (Topamax) 200 mg feeding tube BID 10/06/20 05/12/22 03/16/22 History magnesium hydroxide 400 mg/5 mL 30 ml feeding tube DIRECTED PRN 11/12/20 05/12/22 Unknown History oral suspension (Milk of Magnesia) Gastric Reflux promethazine 25 mg/mL injection 25 mg IV TID 11/12/20 05/12/22 04/19/21 05:30 History solution (Phenergan) lidocaine 5 % topical ointment 1 appl topical QID PRN Pain 06/03/21 05/12/22 Unknown History Immuglobin IV TU 02/11/22 Unknown History Lactobacillus rhamnosus GG 10 1 cap PO BID 02/11/22 05/12/22 Unknown History billion cell capsule (Culturelle) benztropine 0.5 mg tablet 0.5 mg feeding tube DAILY 02/11/22 05/12/22 Unknown History diazepam 5 mg/5 mL (1 mg/mL) oral 2.5 mg PO BID@0900,1200 02/11/22 05/12/22 05/18/22 History solution diazepam 5 mg/5 mL (1 mg/mL) oral 5 mg PO BEDTIME 02/11/22 05/12/22 Unknown History solution enoxaparin 40 mg/0.4 mL 40 mg subcut DAILY 02/11/22 02/11/22 05/17/22 06:00 History subcutaneous syringe furosemide 40 mg tablet 60 mg PO BID 02/11/22 05/12/22 Unknown History gabapentin 300 mg/6 mL (6 mL) oral 600 mg PO BID@0900,1200 02/11/22 05/12/22 05/18/22 History solution gabapentin 300 mg/6 mL (6 mL) oral 800 mg PO BEDTIME 02/11/22 05/12/22 Unknown History solution hydrocortisone sod succinate 100 0.1 mg IV DAILY@1200 02/11/22 02/11/22 Unknown History mg solution for injection (Solu-Cortef) hydrocortisone sod succinate 100 0.2 mg IV DAILY 02/11/22 02/11/22 Unknown History mg solution for injection (Solu-Cortef) loxapine succinate 10 mg capsule 70 mg PO BID 02/11/22 05/12/22 05/18/22 History methylnaltrexone 8 mg/0.4 mL 8 mg subcut DAILY 02/11/22 05/12/22 Unknown History subcutaneous syringe (Relistor) ondansetron HCl (PF) 4 mg/2 mL 4 mg IV Q3H PRN nausea and vomiting 02/11/22 05/12/22 Unknown History injection syringe fluticasone propionate 110 1 puff inhalation BID 04/22/22 05/12/22 05/18/22 History mcg/actuation HFA aerosol inhaler (Flovent HFA) levetiracetam 500 mg/5 mL 500 mg IV BID 04/22/22 Unknown History intravenous solution (Keppra) morphine 50 mg/mL intravenous 5 mg subcut Q3-4H PRN 04/22/22 Unknown History solution Exam Exam Date and Time: May 17, 2022 1017 Height,Weight and Vital Signs: Height 4 ft 9 in Weight 33.566 kg Pertinent Lab Results Pertinent Lab Results: Laboratory Tests 02/10/22 02/11/22 23:51 01:23 WBC 6.1 Hgb 10.3 L D Hct 29.1 L D Plt Count 225 Sodium 140 Potassium 3.4 D Chloride 105 Carbon Dioxide 25 BUN 18 H Creatinine 0.80 Assessment and Plan Assessment Anesthesia Assessment: Chart Reviewed Final Anesthetic Review Family History of Problems with Anesthesia: No History of Problems with Anesthesia: No
[2022-05-18 08:00] VITALS: BP 132/92; PULSE 98; RESP 18; TEMP 35.9; O2SAT 97
[2022-05-18] MEDS: Lactated Ringers 1,000 ML 100 ML IVCONT (08:24)
[2022-05-18 08:58] LABS: Glucose, Whole Blood 84 mg/dL (60-115)
--- NOTE | 2022-05-18 09:14 | W.PM.OPN ---
Operative Note Operative Note Date of Service: 05/18/22
--- NOTE | 2022-05-18 09:15 | P.HPSUR_ITS ---
Pre-Procedural Eval Section A Date of Service: 05/18/22 The patient is an INPATIENT: No Changes since office visit: No Cold of Flu in the past 2 weeks, No New Medical Problems, No Changes in Medication and No Patient answered all questions The History & Physical has been completed within 30 days and I have reviewed it.: No Section B Chief Complaint: Neuromuscular dysfunction of bladder, unspecified Details of Present Illness: here for spt change Relevant Social History: None Present Medications: see Short Stay Collaborative assessment Medical History: Significant History History of Previous Operations: Relevant previous surgery/procedure and date(s) Allergies: Allergies Allergy/AdvReac Type Severity Reaction Status Date / Time lamotrigine [From LAMICTAL] Allergy Severe CLEMENTINA Verified 04/22/22 12:01 GUIDO SYNDROME chlorhexidine [CHLORHEXIDINE] Allergy Intermediate RASH Verified 04/22/22 12:01 citalopram [From CELEXA] Allergy Intermediate PROLONGED Verified 04/22/22 12:01 QT INTERVAL divalproex sodium Allergy Intermediate BLACK Verified 04/22/22 12:01 [From DEPAKOTE] EYES escitalopram [From LEXAPRO] Allergy Intermediate SWELLING Verified 04/22/22 12:01 lactose [LACTOSE] Allergy Intermediate GI UPSET Verified 04/22/22 12:01 povidone-iodine Allergy Intermediate rash Verified 04/22/22 12:01 [From BETADINE] alprazolam [From Xanax] Allergy Mild Unknown Verified 04/22/22 12:01 sertraline [From Zoloft] Allergy Mild unknown Verified 04/22/22 12:01 ziprasidone [From Geodon] Allergy Mild dystonia Verified 04/22/22 12:01 clonazepam [From Klonopin] Allergy agitation Verified 04/22/22 12:01 lorazepam [From Ativan] Allergy agitation Verified 04/22/22 12:01 latex AdvReac Swelling Verified 04/22/22 12:01 BEETS Allergy Intermediate SWELLING Uncoded 08/10/21 09:04 STATLOC Allergy Intermediate RASH Uncoded 08/10/21 09:04 Review of Systems Sugical H&P ROS: Negative: Constitution, Cardiovascular, Respiratory, Rene rological, Psychiatric, Hem-Onc, Allergic/Immunologic, Gastrointestinal, Genitourinary, Musculoskeletal, Integumentary, Endocrine and Eyes/Ears/Nose/Throat Exam Surgical H&P Exam: Normal: HEENT, Normal: Heart, Normal: Lungs, Normal: Extremities, Normal: Abdomen, Normal: Skin and Normal: Neurological Plan Diagnosis/Plan: Unchanged (SPT exchange) I have reviewed the history and physical and performed a pertinent physical examination on my patient. No changes have occurred unless specified.
--- NOTE | 2022-05-18 09:29 | P.CONAN_ITS ---
[facility] Active Problems Active Problems: All Active Problems (Updated 05/12/22 @ 08:31 by Nita Sigala RN) Neurogenic urinary bladder disorder (Acute) Neurologic disorder (Acute) Recurrent infections (Acute) Diarrhea associated with pseudomembranous colitis (Acute) Diarrhea (Acute) Gastroparesis (Acute) Past Medical History Medical History Asthma Bacterial infection Brain bleed Brain tumor Chronic, continuous use of opioids Constipation Diabetes Fungal infection Gastroparesis GERD (gastroesophageal reflux disease) History of jejunostomy tube placement Hx pulmonary embolism Hypothyroidism Neuropathy Seizures Septic arthritis Small fiber polyneuropathy Suprapubic catheter Unspecified convulsions VRE (vancomycin-resistant Enterococci) Family History Family History Father Skin cancer Mother No problems noted. 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 Household Members Other:: live in aid Housing Other:: 24 hour care - live in aid Are you a primary care transport nurse to a significant other at home: No Do you presently have visiting nurse or other home services: Yes Alcohol intake: current Alcohol intake frequency: does not drink Patient Tobacco Use Status: Never used Tobacco Second Hand Smoke Exposure: No Advance Directives: No Advance Directives Information Provided: Yes Advance Directives Date on File: 06/29/20 Recently lost weight without trying: No Nutrition Risks: No Nutritional Risk Patient : No Meds Allergies Allergy/AdvReac Type Severity Reaction Status Date / Time lamotrigine [From LAMICTAL] Allergy Severe CLEMENTINA Verified 04/22/22 12:01 GUIDO SYNDROME chlorhexidine [CHLORHEXIDINE] Allergy Intermediate RASH Verified 04/22/22 12:01 citalopram [From CELEXA] Allergy Intermediate PROLONGED Verified 04/22/22 12:01 QT INTERVAL divalproex sodium Allergy Intermediate BLACK Verified 04/22/22 12:01 [From DEPAKOTE] EYES escitalopram [From LEXAPRO] Allergy Intermediate SWELLING Verified 04/22/22 12:01 lactose [LACTOSE] Allergy Intermediate GI UPSET Verified 04/22/22 12:01 povidone-iodine Allergy Intermediate rash Verified 04/22/22 12:01 [From BETADINE] alprazolam [From Xanax] Allergy Mild Unknown Verified 04/22/22 12:01 sertraline [From Zoloft] Allergy Mild unknown Verified 04/22/22 12:01 ziprasidone [From Geodon] Allergy Mild dystonia Verified 04/22/22 12:01 clonazepam [From Klonopin] Allergy agitation Verified 04/22/22 12:01 lorazepam [From Ativan] Allergy agitation Verified 04/22/22 12:01 latex AdvReac Swelling Verified 04/22/22 12:01 BEETS Allergy Intermediate SWELLING Uncoded 08/10/21 09:04 STATLOC Allergy Intermediate RASH Uncoded 08/10/21 09:04 Active Medications: Current Medications Albuterol Sulfate (Albuterol Sulfate (0.083%) 2.5 Mg/3 Ml Vial.Neb) 2.5 mg INHALE ONCE PRN PRN Reason: Shortness of Breath/Wheezing Fentanyl (Fentanyl Citrate/Pf 100 Mcg/2 Ml Vial) 25 mcg IVPUSH Q5M PRN; Protocol PRN Reason: Pain, Moderate (Pain Scale 4-6 Lactated Ringer's (Lr) 1,000 mls @ 100 mls/hr IVCONT .Q10H MARLON Last Admin: 05/18/22 08:24 Dose: 100 mls/hr Ondansetron HCl (Ondansetron Hcl 4 Mg/2 Ml Vial) 4 mg IVPUSH ONCE PRN PRN Reason: Nausea and Vomiting Home Medications Medication Instructions Recorded Confirmed Last Taken Type albuterol sulfate 90 mcg/actuation 2 puff inhalation 6XD PRN Wheezing 06/25/20 05/12/22 Unknown History aerosol inhaler diphenhydramine HCl 50 mg/mL 50 mg IV Q4H 06/25/20 05/12/22 04/19/21 05:30 History injection solution pantoprazole 40 mg intravenous 40 mg IV BID 06/25/20 05/12/22 05/18/22 History solution (Protonix) acetaminophen 500 mg/15 mL oral 500 mg feeding tube QID PRN Pain 10/06/20 05/12/22 Unknown History liquid baclofen 5 mg/5 mL oral solution 15 mg feeding tube TID 10/06/20 05/12/22 05/18/22 History benztropine 1 mg tablet 1 mg feeding tube BEDTIME 10/06/20 05/12/22 05/18/22 History famotidine (PF) 20 mg/50 mL in 0.9 20 mg IV DAILY 10/06/20 05/12/22 05/18/22 History % NaCl (iso) intravenous piggyback fludrocortisone 0.1 mg tablet 0.1 mg feeding tube DAILY 10/06/20 05/12/22 05/18/22 History ipratropium 0.5 mg-albuterol 3 mg 3 ml inhalation Q6-8H PRN 10/06/20 05/12/22 Unknown History (2.5 mg base)/3 mL nebulization Shortness Of Breath Or Wheezing soln levothyroxine 112 mcg/mL oral 100 mcg feeding tube DAILY 10/06/20 05/12/22 0 05/18/22 History solution methenamine hippurate 1 gram 1 g feeding tube BID 10/06/20 05/12/22 04/19/21 05:30 History tablet (Hiprex) midodrine 10 mg tablet 10 mg feeding tube TID 10/06/20 05/12/22 05/18/22 History topiramate 200 mg tablet (Topamax) 200 mg feeding tube BID 10/06/20 05/12/22 03/16/22 History magnesium hydroxide 400 mg/5 mL 30 ml feeding tube DIRECTED PRN 11/12/20 05/12/22 Unknown History oral suspension (Milk of Magnesia) Gastric Reflux promethazine 25 mg/mL injection 25 mg IV TID 11/12/20 05/12/22 04/19/21 05:30 History solution (Phenergan) lidocaine 5 % topical ointment 1 appl topical QID PRN Pain 06/03/21 05/12/22 Unknown History Immuglobin IV TU 02/11/22 Unknown History Lactobacillus rhamnosus GG 10 1 cap PO BID 02/11/22 05/12/22 Unknown History billion cell capsule (Culturelle) benztropine 0.5 mg tablet 0.5 mg feeding tube DAILY 02/11/22 05/12/22 Unknown History diazepam 5 mg/5 mL (1 mg/mL) oral 2.5 mg PO BID@0900,1200 02/11/22 05/12/22 05/18/22 History solution diazepam 5 mg/5 mL (1 mg/mL) oral 5 mg PO BEDTIME 02/11/22 05/12/22 Unknown History solution enoxaparin 40 mg/0.4 mL 40 mg subcut DAILY 02/11/22 02/11/22 05/17/22 06:00 History subcutaneous syringe furosemide 40 mg tablet 60 mg PO BID 02/11/22 05/12/22 Unknown History gabapentin 300 mg/6 mL (6 mL) oral 600 mg PO BID@0900,1200 02/11/22 05/12/22 05/18/22 History solution gabapentin 300 mg/6 mL (6 mL) oral 800 mg PO BEDTIME 02/11/22 05/12/22 Unknown History solution hydrocortisone sod succinate 100 0.1 mg IV DAILY@1200 02/11/22 02/11/22 Unknown History mg solution for injection (Solu-Cortef) hydrocortisone sod succinate 100 0.2 mg IV DAILY 02/11/22 02/11/22 Unknown History mg solution for injection (Solu-Cortef) loxapine succinate 10 mg capsule 70 mg PO BID 02/11/22 05/12/22 05/18/22 History methylnaltrexone 8 mg/0.4 mL 8 mg subcut DAILY 02/11/22 05/12/22 Unknown History subcutaneous syringe (Relistor) ondansetron HCl (PF) 4 mg/2 mL 4 mg IV Q3H PRN nausea and vomiting 02/11/22 05/12/22 Unknown History injection syringe fluticasone propionate 110 1 puff inhalation BID 04/22/22 05/12/22 05/18/22 History mcg/actuation HFA aerosol inhaler (Flovent HFA) levetiracetam 500 mg/5 mL 500 mg IV BID 04/22/22 Unknown History intravenous solution (Keppra) morphine 50 mg/mL intravenous 5 mg subcut Q3-4H PRN 04/22/22 Unknown History solution Exam Exam Date and Time: May 18, 2022 0929 Height,Weight and Vital Signs: Height 4 ft 9 in Weight 33.566 kg Last Vital Signs Temp 96.6 F L 05/18/22 08:00 Pulse 98 05/18/22 08:00 Resp 18 05/18/22 08:00 BP 132/92 H 05/18/22 08:00 Pulse Ox 97 05/18/22 08:00 O2 Del Method 05/18/22 08:00 Pertinent Lab Results Pertinent Lab Results: Laboratory Tests 05/18/22 08:54 POC Glucose 84 Airway Mallampati Class: IV TM Dist: <=3cm Neck ROM: Full Loose/Missing/Broken Teeth: No (Rrr) Heart: rrr Lungs: clear Assessment and Plan Final Anesthetic Review Family History of Problems with Anesthesia: No History of Problems with Anesthesia: No NPO: Yes ASA Class: IV Final Preanesthetic Review: No Changes in Pt Med Stat, Meds/Allgs Chart Reviewed, Consent Obtained/Reviewed and Anes Risks/Benef Reviewed Patient Risk: Intermediate Procedure Risk: Low Anesthetic Plan Anesthetic Plan: MAC: Disposition: Standard PACU
--- NOTE | 2022-05-18 09:56 | W.PM.OPN ---
Operative Note Operative Note Date of Service: 05/18/22 Narrative: PreOperative Diagnosis:? Neurogenic bladder Post Operative Diagnosis:? Neurogenic bladder Procedure:? Suprapubic tube change Surgeon: Dr Denys Pereira Anesthesia:? Sedation Indications for procedure: Small neuronal disease with neurogenic bladder Procedure: After informed consent was verified the patient was brought to the operating room and placed in a supine position.? Anesthesia was administered per protocol. Marcela remained in her stretcher. The area was prepped with saline Suprapubic tube removed. Twenty-two Icelandic Waldron catheter placed - 7 cc in balloon ?tolerated well
[2022-05-18 10:05] VITALS: BP 130/82; PULSE 87; RESP 18; TEMP 36.1; O2SAT 100
[2022-05-18] MEDS: HYDROmorphone HCl 0.5 MG/0.5 ML SYRINGE IVPUSH ×2 (10:06→10:19)
[2022-05-18 10:20] VITALS: BP 124/82; PULSE 90; RESP 16; O2SAT 99
[2022-05-18 10:35] VITALS: BP 134/88; PULSE 92; RESP 18; TEMP 36.1; O2SAT 99
== END 2022-05-18 10:48 | disposition home or self-care (01) ==
PROVIDERS: PCP Internal Medicine; Visit Provider Urology
PROC: (CPT 51705; principal; 2022-05-18 08:30)
DX: N31.9 Neuromuscular dysfunction of bladder, unspecified (principal); G90.09 Other idiopathic peripheral autonomic neuropathy; E11.9 Type 2 diabetes mellitus without complications; K31.84 Gastroparesis; J45.909 Unspecified asthma, uncomplicated; R56.9 Unspecified convulsions; Z79.891 Long term (current) use of opiate analgesic; Z79.51 Long term (current) use of inhaled steroids; Z79.899 Other long term (current) drug therapy; Z88.8 Allergy status to other drugs, medicaments and biological substances; Z91.040 Latex allergy status; Z87.440 Personal history of urinary (tract) infections; Z86.711 Personal history of pulmonary embolism
CPT/HCPCS: 51705; 82947; J1170; J2250

== ENCOUNTER 2022-06-13 07:13 | Day surgery (SDC) | payer MEDICAID, SELFPAY ==
[2022-06-08 10:22] VITALS: BMI 16.0
--- NOTE | 2022-06-10 10:32 | HO.ANESPROP2 ---
Documented by User: Lucila Bales NP 06/10/22 10:34 HPI - Anesthesia Eval Consult details Narrative: 32yo F for Suprapubic Tube Exchange Last exchange 05/18/22 with MAC: Midaz 2, Prop 70, Lido 40 Chronic opioid *Multiple med allergies* PMFSH Active Problems Active Problems: All Active Problems (Updated 06/08/22 @ 10:20 by Nita Sigala, RN) Neurogenic urinary bladder disorder (Acute) Neurologic disorder (Acute) Recurrent infections (Acute) Diarrhea associated with pseudomembranous colitis (Acute) Diarrhea (Acute) Gastroparesis (Acute) Past Medical History Medical History (Updated 06/08/22 @ 10:20 by Nita Sigala, JOSEF) Asthma Bacterial infection Brain bleed Brain tumor Chronic, continuous use of opioids Constipation Diabetes Fungal infection Gastroparesis GERD (gastroesophageal reflux disease) History of jejunostomy tube placement Hx pulmonary embolism Hypothyroidism Neuropathy Seizures Septic arthritis Small fiber polyneuropathy Suprapubic catheter Unspecified convulsions VRE (vancomycin-resistant Enterococci) Family History Family History Father Skin cancer Mother No problems noted. 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 Household Members Other:: live in aid Both parents involved: No Caregiver staying overnight: Yes Housing Other:: 24 hour care - live in aid Are you a primary hemodialysis patient care specialist to a significant other at home: No Do you presently have visiting nurse or other home services: Yes Alcohol intake: current Alcohol intake frequency: does not drink Patient Tobacco Use Status: Never used Tobacco Second Hand Smoke Exposure: No Advance Directives Date on File: 06/29/20 Meds Allergies Allergy/AdvReac Type Severity Reaction Status Date / Time lamotrigine [From LAMICTAL] Allergy Severe CLEMENTINA Verified 04/22/22 12:01 GUIDO SYNDROME chlorhexidine [CHLORHEXIDINE] Allergy Intermediate RASH Verified 04/22/22 12:01 citalopram [From CELEXA] Allergy Intermediate PROLONGED Verified 04/22/22 12:01 QT INTERVAL divalproex sodium Allergy Intermediate BLACK Verified 04/22/22 12:01 [From DEPAKOTE] EYES escitalopram [From LEXAPRO] Allergy Intermediate SWELLING Verified 04/22/22 12:01 lactose [LACTOSE] Allergy Intermediate GI UPSET Verified 04/22/22 12:01 povidone-iodine Allergy Intermediate rash Verified 04/22/22 12:01 [From BETADINE] alprazolam [From Xanax] Allergy Mild Unknown Verified 04/22/22 12:01 sertraline [From Zoloft] Allergy Mild unknown Verified 04/22/22 12:01 ziprasidone [From Geodon] Allergy Mild dystonia Verified 04/22/22 12:01 clonazepam [From Klonopin] Allergy agitation Verified 04/22/22 12:01 lorazepam [From Ativan] Allergy agitation Verified 04/22/22 12:01 latex AdvReac Swelling Verified 04/22/22 12:01 BEETS Allergy Intermediate SWELLING Uncoded 08/10/21 09:04 STATLOC Allergy Intermediate RASH Uncoded 08/10/21 09:04 Home Medications Medication Instructions Recorded Confirmed Last Taken Type albuterol sulfate 90 mcg/actuation 2 puff inhalation 6XD PRN Wheezing 06/25/20 06/08/22 Unknown History aerosol inhaler diphenhydramine HCl 50 mg/mL 50 mg IV Q4H 06/25/20 06/08/22 06/13/22 History injection solution pantoprazole 40 mg intravenous 40 mg IV BID 06/25/20 06/08/22 06/13/22 History solution (Protonix) acetaminophen 500 mg/15 mL oral 500 mg feeding tube QID PRN Pain 10/06/20 06/08/22 Unknown History liquid baclofen 5 mg/5 mL oral solution 15 mg feeding tube TID 10/06/20 06/08/22 06/13/22 History benztropine 1 mg tablet 1 mg feeding tube BEDTIME 10/06/20 06/08/22 05/18/22 History famotidine (PF) 20 mg/50 mL in 0.9 20 mg IV DAILY 10/06/20 06/08/22 06/13/22 History % NaCl (iso) intravenous piggyback fludrocortisone 0.1 mg tablet 0.1 mg feeding tube DAILY 10/06/20 06/08/22 06/13/22 History ipratropium 0.5 mg-albuterol 3 mg 3 ml inhalation Q6-8H PRN 10/06/20 06/08/22 Unknown History (2.5 mg base)/3 mL nebulization Shortness Of Breath Or Wheezing soln levothyroxine 112 mcg/mL oral 100 mcg feeding tube DAILY 10/06/20 06/08/22 05/18/22 History solution methenamine hippurate 1 gram 1 g feeding tube BID 10/06/20 06/08/22 06/13/22 History tablet (Hiprex) midodrine 10 mg tablet 10 mg feeding tube TID 10/06/20 06/08/22 05/18/22 History topiramate 200 mg tablet (Topamax) 200 mg feeding tube BID 10/06/20 06/08/22 06/13/22 History magnesium hydroxide 400 mg/5 mL 30 ml feeding tube DIRECTED PRN 11/12/20 06/08/22 Unknown History oral suspension (Milk of Magnesia) Gastric Reflux promethazine 25 mg/mL injection 25 mg IV TID 11/12/20 06/08/22 06/13/22 History solution (Phenergan) lidocaine 5 % topical ointment 1 appl topical QID PRN Pain 06/03/21 06/08/22 Unknown History Immuglobin IV TU 02/11/22 Unknown History Lactobacillus rhamnosus GG 10 1 cap PO BID 02/11/22 06/08/22 Unknown History billion cell capsule (Culturelle) benztropine 0.5 mg tablet 0.5 mg feeding tube DAILY 02/11/22 06/08/22 06/13/22 History diazepam 5 mg/5 mL (1 mg/mL) oral 2.5 mg PO BID@0900,1200 02/11/22 06/08/22 05/18/22 History solution diazepam 5 mg/5 mL (1 mg/mL) oral 5 mg PO BEDTIME 02/11/22 06/08/22 Unknown History solution enoxaparin 40 mg/0.4 mL 40 mg subcut DAILY 02/11/22 02/11/22 05/17/22 06:00 History subcutaneous syringe furosemide 40 mg tablet 60 mg PO BID 02/11/22 06/08/22 06/13/22 History gabapentin 300 mg/6 mL (6 mL) oral 600 mg PO BID@0900,1200 02/11/22 06/08/22 05/18/22 History solution gabapentin 300 mg/6 mL (6 mL) oral 800 mg PO BEDTIME 02/11/22 06/08/22 Unknown History solution hydrocortisone sod succinate 100 0.1 mg IV DAILY@1200 02/11/22 02/11/22 Unknown History mg solution for injection (Solu-Cortef) hydrocortisone sod succinate 100 0.2 mg IV DAILY 02/11/22 02/11/22 Unknown History mg solution for injection (Solu-Cortef) loxapine succinate 10 mg capsule 70 mg PO BID 02/11/22 06/08/22 06/13/22 History methylnaltrexone 8 mg/0.4 mL 8 mg subcut DAILY 02/11/22 05/12/22 Unknown History subcutaneous syringe (Relistor) ondansetron HCl (PF) 4 mg/2 mL 4 mg IV Q3H PRN nausea and vomiting 02/11/22 06/08/22 06/13/22 History injection syringe fluticasone propionate 110 1 puff inhalation BID 04/22/22 06/08/22 05/18/22 History mcg/actuation HFA aerosol inhaler (Flovent HFA) levetiracetam 500 mg/5 mL 500 mg IV BID 04/22/22 06/08/22 06/13/22 History intravenous solution (Keppra) morphine 50 mg/mL intravenous 5 mg subcut Q3-4H PRN Pain 04/22/22 06/08/22 06/13/22 History solution Exam Exam Date and Time: June 10, 2022 1032 Height,Weight and Vital Signs: Height 4 ft 9 in Weight 33.566 kg Assessment and Plan Assessment Anesthesia Assessment: Chart Reviewed Final Anesthetic Review Family History of Problems with Anesthesia: No History of Problems with Anesthesia: No Documented by User: Enrique Peace MD 06/13/22 17:56 HPI - Anesthesia Eval Consult details Narrative: 32yo F for Suprapubic Tube Exchange A fib on lovenox , TPN on cefozolin for UTI Last exchange 05/18/22 with MAC: Midaz 2, Prop 70, Lido 40 Chronic opioid *Multiple med allergies* COUNTS INCLUDE 234 BEDS AT [facility] Past Medical History Medical History (Updated 06/08/22 @ 10:20 by Nita Sigala RN) Asthma Bacterial infection Brain bleed Brain tumor Chronic, continuous use of opioids Constipation Diabetes Fungal infection Gastroparesis GERD (gastroesophageal reflux disease) History of jejunostomy tube placement Hx pulmonary embolism Hypothyroidism Neuropathy Seizures Septic arthritis Small fiber polyneuropathy Suprapubic catheter Unspecified convulsions VRE (vancomycin-resistant Enterococci) Family History Family History Father Skin cancer Mother No problems noted. 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 Household Members Other:: live in aid Both parents involved: No Caregiver staying overnight: Yes Housing Other:: 24 hour care - live in aid Are you a primary hemodialysis patient care specialist to a significant other at home: No Do you presently have visiting nurse or other home services: Yes Alcohol intake: current Alcohol intake frequency: does not drink Patient Tobacco Use Status: Never used Tobacco Second Hand Smoke Exposure: No Advance Directives Date on File: 06/29/20 Meds Allergies Allergy/AdvReac Type Severity Reaction Status Date / Time lamotrigine [From LAMICTAL] Allergy Severe CLEMENTINA Verified 04/22/22 12:01 GUIDO SYNDROME chlorhexidine [CHLORHEXIDINE] Allergy Intermediate RASH Verified 04/22/22 12:01 citalopram [From CELEXA] Allergy Intermediate PROLONGED Verified 04/22/22 12:01 QT INTERVAL divalproex sodium Allergy Intermediate BLACK Verified 04/22/22 12:01 [From DEPAKOTE] EYES escitalopram [From LEXAPRO] Allergy Intermediate SWELLING Verified 04/22/22 12:01 lactose [LACTOSE] Allergy Intermediate GI UPSET Verified 04/22/22 12:01 povidone-iodine Allergy Intermediate rash Verified 04/22/22 12:01 [From BETADINE] alprazolam [From Xanax] Allergy Mild Unknown Verified 04/22/22 12:01 sertraline [From Zoloft] Allergy Mild unknown Verified 04/22/22 12:01 ziprasidone [From Geodon] Allergy Mild dystonia Verified 04/22/22 12:01 clonazepam [From Klonopin] Allergy agitation Verified 04/22/22 12:01 lorazepam [From Ativan] Allergy agitation Verified 04/22/22 12:01 latex AdvReac Swelling Verified 04/22/22 12:01 BEETS Allergy Intermediate SWELLING Uncoded 08/10/21 09:04 STATLOC Allergy Intermediate RASH Uncoded 08/10/21 09:04 Home Medications Medication Instructions Recorded Confirmed Last Taken Type albuterol sulfate 90 mcg/actuation 2 puff inhalation 6XD PRN Wheezing 06/25/20 06/08/22 Unknown History aerosol inhaler diphenhydramine HCl 50 mg/mL 50 mg IV Q4H 06/25/20 06/08/22 06/13/22 History injection solution pantoprazole 40 mg intravenous 40 mg IV BID 06/25/20 06/08/22 06/13/22 History solution (Protonix) acetaminophen 500 mg/15 mL oral 500 mg feeding tube QID PRN Pain 10/06/20 06/08/22 Unknown History liquid baclofen 5 mg/5 mL oral solution 15 mg feeding tube TID 10/06/20 06/08/22 06/13/22 History benztropine 1 mg tablet 1 mg feeding tube BEDTIME 10/06/20 06/08/22 05/18/22 History famotidine (PF) 20 mg/50 mL in 0.9 20 mg IV DAILY 10/06/20 06/08/22 06/13/22 History % NaCl (iso) intravenous piggyback fludrocortisone 0.1 mg tablet 0.1 mg feeding tube DAILY 10/06/20 06/08/22 06/13/22 History ipratropium 0.5 mg-albuterol 3 mg 3 ml inhalation Q6-8H PRN 10/06/20 06/08/22 Unknown History (2.5 mg base)/3 mL nebulization Shortness Of Breath Or Wheezing soln levothyroxine 112 mcg/mL oral 100 mcg feeding tube DAILY 10/06/20 06/08/22 05/18/22 History solution methenamine hippurate 1 gram 1 g feeding tube BID 10/06/20 06/08/22 06/13/22 History tablet (Hiprex) midodrine 10 mg tablet 10 mg feeding tube TID 10/06/20 06/08/22 05/18/22 History topiramate 200 mg tablet (Topamax) 200 mg feeding tube BID 10/06/20 06/08/22 06/13/22 History magnesium hydroxide 400 mg/5 mL 30 ml feeding tube DIRECTED PRN 11/12/20 06/08/22 Unknown History oral suspension (Milk of Magnesia) Gastric Reflux promethazine 25 mg/mL injection 25 mg IV TID 11/12/20 06/08/22 06/13/22 History solution (Phenergan) lidocaine 5 % topical ointment 1 appl topical QID PRN Pain 06/03/21 06/08/22 Unknown History Immuglobin IV TU 02/11/22 Unknown History Lactobacillus rhamnosus GG 10 1 cap PO BID 02/11/22 06/08/22 Unknown History billion cell capsule (Culturelle) benztropine 0.5 mg tablet 0.5 mg feeding tube DAILY 02/11/22 06/08/22 06/13/22 History diazepam 5 mg/5 mL (1 mg/mL) oral 2.5 mg PO BID@0900,1200 02/11/22 06/08/22 05/18/22 History solution diazepam 5 mg/5 mL (1 mg/mL) oral 5 mg PO BEDTIME 02/11/22 06/08/22 Unknown History solution enoxaparin 40 mg/0.4 mL 40 mg subcut DAILY 02/11/22 02/11/22 05/17/22 06:00 History subcutaneous syringe furosemide 40 mg tablet 60 mg PO BID 02/11/22 06/08/22 06/13/22 History gabapentin 300 mg/6 mL (6 mL) oral 600 mg PO BID@0900,1200 02/11/22 06/08/22 05/18/22 History solution gabapentin 300 mg/6 mL (6 mL) oral 800 mg PO BEDTIME 02/11/22 06/08/22 Unknown History solution hydrocortisone sod succinate 100 0.1 mg IV DAILY@1200 02/11/22 02/11/22 Unknown History mg solution for injection (Solu-Cortef) hydrocortisone sod succinate 100 0.2 mg IV DAILY 02/11/22 02/11/22 Unknown History mg solution for injection (Solu-Cortef) loxapine succinate 10 mg capsule 70 mg PO BID 02/11/22 06/08/22 06/13/22 History methylnaltrexone 8 mg/0.4 mL 8 mg subcut DAILY 02/11/22 05/12/22 Unknown History subcutaneous syringe (Relistor) ondansetron HCl (PF) 4 mg/2 mL 4 mg IV Q3H PRN nausea and vomiting 02/11/22 06/08/22 06/13/22 History injection syringe fluticasone propionate 110 1 puff inhalation BID 04/22/22 06/08/22 05/18/22 History mcg/actuation HFA aerosol inhaler (Flovent HFA) levetiracetam 500 mg/5 mL 500 mg IV BID 04/22/22 06/08/22 06/13/22 History intravenous solution (Keppra) morphine 50 mg/mL intravenous 5 mg subcut Q3-4H PRN Pain 04/22/22 06/08/22 06/13/22 History solution Exam Airway Mallampati Class: IV TM Dist: <=3cm Neck ROM: Limited Loose/Missing/Broken Teeth: Yes (Poor dentition globally) Heart: S1,S2 Lungs: b/l breath sounds Assessment and Plan Assessment Anesthesia Assessment: Anesthesia Plan Discussed Final Anesthetic Review NPO: Yes ASA Class: III Final Preanesthetic Review: Meds/Allgs Chart Reviewed, Consent Obtained/Reviewed and Anes Risks/Benef Reviewed Patient Risk: High Procedure Risk: Intermediate Anesthetic Plan Anesthetic Plan: MAC: Disposition: Standard PACU
--- NOTE | 2022-06-13 08:38 | PC.NURSE ---
Patient on IV cefazlin per infectious disease, Dr Pereira made aware, order for IV Levaquin cancelled per DR Pereira. Urine cancelled, patient refused.
[2022-06-13 08:47] LABS: Glucose, Whole Blood 96 mg/dL (60-115)
--- NOTE | 2022-06-13 09:15 | P.HPSUR_ITS ---
Pre-Procedural Eval Section A Date of Service: 06/13/22 The patient is an INPATIENT: No Changes since office visit: No Cold of Flu in the past 2 weeks, No New Medical Problems, No Changes in Medication and No Patient answered all questions The History & Physical has been completed within 30 days and I have reviewed it.: No Section B Chief Complaint: Neuromuscular dysfunction of bladder, unspecified Details of Present Illness: neuromuscular disease of the bladder suprapubic tube change Relevant Family History (Specify if Yes): No Relevant Social History: None Present Medications: see Short Stay Collaborative assessment Medical History: Significant History History of Previous Operations: Relevant previous surgery/procedure and date(s) Allergies: Allergies Allergy/AdvReac Type Severity Reaction Status Date / Time lamotrigine [From LAMICTAL] Allergy Severe CLEMENTINA Verified 04/22/22 12:01 GUIDO SYNDROME chlorhexidine [CHLORHEXIDINE] Allergy Intermediate RASH Verified 04/22/22 12:01 citalopram [From CELEXA] Allergy Intermediate PROLONGED Verified 04/22/22 12:01 QT INTERVAL divalproex sodium Allergy Intermediate BLACK Verified 04/22/22 12:01 [From DEPAKOTE] EYES escitalopram [From LEXAPRO] Allergy Intermediate SWELLING Verified 04/22/22 12:01 lactose [LACTOSE] Allergy Intermediate GI UPSET Verified 04/22/22 12:01 povidone-iodine Allergy Intermediate rash Verified 04/22/22 12:01 [From BETADINE] alprazolam [From Xanax] Allergy Mild Unknown Verified 04/22/22 12:01 sertraline [From Zoloft] Allergy Mild unknown Verified 04/22/22 12:01 ziprasidone [From Geodon] Allergy Mild dystonia Verified 04/22/22 12:01 clonazepam [From Klonopin] Allergy agitation Verified 04/22/22 12:01 lorazepam [From Ativan] Allergy agitation Verified 04/22/22 12:01 latex AdvReac Swelling Verified 04/22/22 12:01 BEETS Allergy Intermediate SWELLING Uncoded 08/10/21 09:04 STATLOC Allergy Intermediate RASH Uncoded 08/10/21 09:04 Review of Systems Sugical H&P ROS: Negative: Constitution, Cardiovascular, Respiratory, Neurological, Psychiatric, Hem-Onc, Allergic/Immunologic, Gastrointestinal, Genitourinary, Musculoskeletal, Integumentary, Endocrine and Eyes/Ears/Nose/Throat Exam Surgical H&P Exam: Normal: HEENT, Normal: Heart, Normal: Lungs, Normal: Extremit ies, Normal: Abdomen, Normal: Skin and Normal: Neurological Plan Diagnosis/Plan: Unchanged ( suprapubic tube change) I have reviewed the history and physical and performed a pertinent physical examination on my patient. No changes have occurred unless specified.
[2022-06-13 09:42] VITALS: BP 91/52; PULSE 88; RESP 15; TEMP 36.7; O2SAT 99
[2022-06-13 09:57] VITALS: BP 91/52; PULSE 88; RESP 15; O2SAT 100
--- NOTE | 2022-06-13 09:58 | W.PM.OPN ---
Operative Note Operative Note Date of Service: 06/13/22 Narrative: PreOperative Diagnosis:? Neurogenic bladder Post Operative Diagnosis:? Neurogenic bladder Procedure:? Suprapubic tube change Surgeon: Dr Denys Pereira Anesthesia:? Sedation Indications for procedure: Small neuronal disease with neurogenic bladder Procedure: After informed consent was verified the patient was brought to the operating room and placed in a supine position.? Anesthesia was administered per protocol. Marcela remained in her stretcher. The area was prepped with saline Suprapubic tube removed. Twenty-two [place] Waldron catheter placed - 7 cc in balloon ?tolerated well had been on antibiotics for known infection
[2022-06-13 10:12] VITALS: BP 101/57; PULSE 89; RESP 16; O2SAT 100
[2022-06-13] MEDS: HYDROmorphone HCl 0.5 MG/0.5 ML SYRINGE IVPUSH (10:12)
[2022-06-13 10:36] VITALS: BP 121/84; PULSE 89; RESP 16; O2SAT 100
[2022-06-13 10:39] VITALS: BP 118/88; PULSE 87; RESP 16; TEMP 36.3; O2SAT 100
[2022-06-13 10:47] VITALS: BP 124/84; PULSE 98; RESP 16; TEMP 36.2; O2SAT 100
== END 2022-06-13 11:08 | disposition home or self-care (01) ==
PROVIDERS: PCP Internal Medicine; Visit Provider Urology
PROC: (CPT 51705; principal; 2022-06-13 09:00)
DX: N31.9 Neuromuscular dysfunction of bladder, unspecified (principal); Z87.440 Personal history of urinary (tract) infections; G90.09 Other idiopathic peripheral autonomic neuropathy; K31.84 Gastroparesis; E11.9 Type 2 diabetes mellitus without complications; R56.9 Unspecified convulsions; Z79.51 Long term (current) use of inhaled steroids; Z79.891 Long term (current) use of opiate analgesic; Z79.899 Other long term (current) drug therapy; Z88.8 Allergy status to other drugs, medicaments and biological substances; Z91.040 Latex allergy status
CPT/HCPCS: 51705; 82947; J1170; J2250

== ENCOUNTER 2022-08-22 08:46 | Day surgery (SDC) | payer MEDICAID, SELFPAY ==
[2022-07-07 14:07] VITALS: BMI 16.0
--- NOTE | 2022-07-12 09:23 | HO.ANESPROP2 ---
HPI - Anesthesia Eval Consult details Narrative: 32yo F for Suprapubic Tube Exchange Last exchange 06/13/22 with MAC: Midaz 2, Prop 80 Chronic opioid *Multiple med allergies* PMFSH Active Problems Active Problems: All Active Problems (Updated 07/07/22 @ 13:58 by Nita Sigala RN) Neurogenic urinary bladder disorder (Acute) Neurologic disorder (Acute) Recurrent infections (Acute) Diarrhea associated with pseudomembranous colitis (Acute) Diarrhea (Acute) Gastroparesis (Acute) Past Medical History Medical History (Updated 07/07/22 @ 13:58 by Nita Sigala, JOSEF) Asthma Bacterial infection Brain bleed Brain tumor Chronic, continuous use of opioids Constipation Diabetes Fungal infection Gastroparesis GERD (gastroesophageal reflux disease) History of jejunostomy tube placement Hx pulmonary embolism Hypothyroidism Neuropathy Seizures Septic arthritis Small fiber polyneuropathy Suprapubic catheter Unspecified convulsions VRE (vancomycin-resistant Enterococci) Family History Family History Father Skin cancer Mother No problems noted. 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 Household Members Other:: live in aid Housing Other:: 24 hour care - live in aid Are you a primary career services manager to a significant other at home: No Do you presently have visiting nurse or other home services: Yes Alcohol intake: current Alcohol intake frequency: does not drink Patient Tobacco Use Status: Never used Tobacco Second Hand Smoke Exposure: No Advance Directives Date on File: 06/29/20 Meds Allergies Allergy/AdvReac Type Severity Reaction Status Date / Time lamotrigine [From LAMICTAL] Allergy Severe CLEMENTINA Verified 04/22/22 12:01 GUIDO SYNDROME chlorhexidine [CHLORHEXIDINE] Allergy Intermediate RASH Verified 04/22/22 12:01 citalopram [From CELEXA] Allergy Intermediate PROLONGED Verified 04/22/22 12:01 QT INTERVAL divalproex sodium Allergy Intermediate BLACK Verified 04/22/22 12:01 [From DEPAKOTE] EYES escitalopram [From LEXAPRO] Allergy Intermediate SWELLING Verified 04/22/22 12:01 lactose [LACTOSE] Allergy Intermediate GI UPSET Verified 04/22/22 12:01 povidone-iodine Allergy Intermediate rash Verified 04/22/22 12:01 [From BETADINE] alprazolam [From Xanax] Allergy Mild Unknown Verified 04/22/22 12:01 sertraline [From Zoloft] Allergy Mild unknown Verified 04/22/22 12:01 ziprasidone [From Geodon] Allergy Mild dystonia Verified 04/22/22 12:01 clonazepam [From Klonopin] Allergy agitation Verified 04/22/22 12:01 lorazepam [From Ativan] Allergy agitation Verified 04/22/22 12:01 latex AdvReac Swelling Verified 04/22/22 12:01 BEETS Allergy Intermediate SWELLING Uncoded 08/10/21 09:04 STATLOC Allergy Intermediate RASH Uncoded 08/10/21 09:04 Home Medications Medication Instructions Recorded Confirmed Last Taken Type albuterol sulfate 90 mcg/actuation 2 puff inhalation 6XD PRN Wheezing 06/25/20 07/07/22 Unknown History aerosol inhaler diphenhydramine HCl 50 mg/mL 50 mg IV Q4H 06/25/20 07/07/22 06/13/22 History injection solution pantoprazole 40 mg intravenous 40 mg IV BID 06/25/20 07/07/22 06/13/22 History solution (Protonix) acetaminophen 500 mg/15 mL oral 500 mg feeding tube QID PRN Pain 10/06/20 07/07/22 Unknown History liquid baclofen 5 mg/5 mL oral solution 15 mg feeding tube TID 10/06/20 07/07/22 06/13/22 History benztropine 1 mg tablet 1 mg feeding tube BEDTIME 10/06/20 07/07/22 05/18/22 History famotidine (PF) 20 mg/50 mL in 0.9 20 mg IV DAILY 10/06/20 07/07/22 06/13/22 History % NaCl (iso) intravenous piggyback fludrocortisone 0.1 mg tablet 0.1 mg feeding tube DAILY 10/06/20 07/07/22 06/13/22 History ipratropium 0.5 mg-albuterol 3 mg 3 ml inhalation Q6-8H PRN 10/06/20 07/07/22 Unknown History (2.5 mg base)/3 mL nebulization Shortness Of Breath Or Wheezing soln levothyroxine 112 mcg/mL oral 100 mcg feeding tube DAILY 10/06/20 07/07/22 05/18/22 History solution methenamine hippurate 1 gram 1 g feeding tube BID 10/06/20 07/07/22 06/13/22 History tablet (Hiprex) midodrine 10 mg tablet 10 mg feeding tube TID 10/06/20 07/07/22 05/18/22 History topiramate 200 mg tablet (Topamax) 200 mg feeding tube BID 10/06/20 07/07/22 06/13/22 History magnesium hydroxide 400 mg/5 mL 30 ml feeding tube DIRECTED PRN 11/12/20 07/07/22 Unknown History oral suspension (Milk of Magnesia) Gastric Reflux promethazine 25 mg/mL injection 25 mg IV TID 11/12/20 07/07/22 06/13/22 History solution (Phenergan) lidocaine 5 % topical ointment 1 appl topical QID PRN Pain 06/03/21 07/07/22 Unknown History Immuglobin IV TU 02/11/22 Unknown History Lactobacillus rhamnosus GG 10 1 cap PO BID 02/11/22 07/07/22 Unknown History billion cell capsule (Culturelle) benztropine 0.5 mg tablet 0.5 mg feeding tube DAILY 02/11/22 07/07/22 06/13/22 History diazepam 5 mg/5 mL (1 mg/mL) oral 2.5 mg PO BID@0900,1200 02/11/22 07/07/22 05/18/22 History solution diazepam 5 mg/5 mL (1 mg/mL) oral 5 mg PO BEDTIME 02/11/22 07/07/22 Unknown History solution enoxaparin 40 mg/0.4 mL 40 mg subcut DAILY 02/11/22 02/11/22 05/17/22 06:00 History subcutaneous syringe furosemide 40 mg tablet 60 mg PO BID 02/11/22 07/07/22 06/13/22 History gabapentin 300 mg/6 mL (6 mL) oral 600 mg PO BID@0900,1200 02/11/22 07/07/22 05/18/22 History solution gabapentin 300 mg/6 mL (6 mL) oral 800 mg PO BEDTIME 02/11/22 07/07/22 Unknown History solution hydrocortisone sod succinate 100 0.1 mg IV DAILY@1200 02/11/22 02/11/22 Unknown History mg solution for injection (Solu-Cortef) hydrocortisone sod succinate 100 0.2 mg IV DAILY 02/11/22 07/07/22 Unknown History mg solution for injection (Solu-Cortef) loxapine succinate 10 mg capsule 70 mg PO BID 02/11/22 07/07/22 06/13/22 History methylnaltrexone 8 mg/0.4 mL 8 mg subcut DAILY 02/11/22 07/07/22 Unknown History subcutaneous syringe (Relistor) ondansetron HCl (PF) 4 mg/2 mL 4 mg IV Q3H PRN nausea and vomiting 02/11/22 07/07/22 06/13/22 History injection syringe fluticasone propionate 110 1 puff inhalation BID 04/22/22 07/07/22 05/18/22 History mcg/actuation HFA aerosol inhaler (Flovent HFA) levetiracetam 500 mg/5 mL 500 mg IV BID 04/22/22 07/07/22 06/13/22 History intravenous solution (Keppra) morphine 50 mg/mL intravenous 5 mg subcut Q3-4H PRN Pain 04/22/22 07/07/22 06/13/22 History solution Exam Exam Date and Time: July 12, 2022 0923 Height,Weight and Vital Signs: Height 4 ft 9 in Weight 33.566 kg Pertinent Lab Results Pertinent Lab Results: Laboratory Tests 02/10/22 02/11/22 23:51 01:23 WBC 6.1 Hgb 10.3 L D Hct 29.1 L D Plt Count 225 Sodium 140 Potassium 3.4 D Chloride 105 Carbon Dioxide 25 BUN 18 H Creatinine 0.80 Assessment and Plan Assessment Anesthesia Assessment: Chart Reviewed Final Anesthetic Review Family History of Problems with Anesthesia: No History of Problems with Anesthesia: No
--- NOTE | 2022-08-19 10:47 | HO.ANESPROP2 ---
Documented by User: Lucila Bales NP 08/19/22 10:49 HPI - Anesthesia Eval Consult details Narrative: 32yo F for Suprapubic Tube Exchange Last exchange 05/18/22 with MAC: Midaz 2, Prop 70, Lido 40 Chronic opioid *Multiple med allergies* PMFSH Active Problems Active Problems: All Active Problems (Updated 07/07/22 @ 13:58 by Nita Sigala RN) Neurogenic urinary bladder disorder (Acute) Neurologic disorder (Acute) Recurrent infections (Acute) Diarrhea associated with pseudomembranous colitis (Acute) Diarrhea (Acute) Gastroparesis (Acute) Past Medical History Medical History Asthma Bacterial infection Brain bleed Brain tumor Chronic, continuous use of opioids Constipation Diabetes Fungal infection Gastroparesis GERD (gastroesophageal reflux disease) History of jejunostomy tube placement Hx pulmonary embolism Hypothyroidism Neuropathy Seizures Septic arthritis Small fiber polyneuropathy Suprapubic catheter Unspecified convulsions VRE (vancomycin-resistant Enterococci) Family History Family History Father Skin cancer Mother No problems noted. 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 Household Members Other:: live in aid Housing Other:: 24 hour care - live in aid Are you a primary caregiver services home to a significant other at home: No Do you presently have visiting nurse or other home services: Yes Alcohol intake: current Alcohol intake frequency: does not drink Patient Tobacco Use Status: Never used Tobacco Second Hand Smoke Exposure: No Are you DNR?: No Advance Directives: No Advance Directives Information Provided: Yes Advance Directives Date on File: 06/29/20 Patient : No FDLMP: patient has never Meds Allergies Allergy/AdvReac Type Severity Reaction Status Date / Time lamotrigine [From LAMICTAL] Allergy Severe CLEMENTINA Verified 08/22/22 09:04 GUIDO SYNDROME chlorhexidine [CHLORHEXIDINE] Allergy Intermediate RASH Verified 08/22/22 09:04 citalopram [From CELEXA] Allergy Intermediate PROLONGED Verified 08/22/22 09:04 QT INTERVAL divalproex sodium Allergy Intermediate BLACK Verified 08/22/22 09:04 [From DEPAKOTE] EYES escitalopram [From LEXAPRO] Allergy Intermediate SWELLING Verified 08/22/22 09:04 lactose [LACTOSE] Allergy Intermediate GI UPSET Verified 08/22/22 09:04 povidone-iodine Allergy Intermediate rash Verified 08/22/22 09:04 [From BETADINE] alprazolam [From Xanax] Allergy Mild Unknown Verified 08/22/22 09:04 sertraline [From Zoloft] Allergy Mild unknown Verified 08/22/22 09:04 ziprasidone [From Geodon] Allergy Mild dystonia Verified 08/22/22 09:04 clonazepam [From Klonopin] Allergy agitation Verified 08/22/22 09:04 lorazepam [From Ativan] Allergy agitation Verified 08/22/22 09:04 latex AdvReac Swelling Verified 08/22/22 09:04 BEETS Allergy Intermediate SWELLING Uncoded 08/22/22 09:04 STATLOC Allergy Intermediate RASH Uncoded 08/22/22 09:04 Home Medications Medication Instructions Recorded Confirmed Last Taken Type albuterol sulfate 90 mcg/actuation 2 puff inhalation 6XD PRN Wheezing 06/25/20 07/07/22 Unknown History aerosol inhaler diphenhydramine HCl 50 mg/mL 50 mg IV Q4H 06/25/20 07/07/22 06/13/22 History injection solution pantoprazole 40 mg intravenous 40 mg IV BID 06/25/20 07/07/22 06/13/22 History solution (Protonix) acetaminophen 500 mg/15 mL oral 500 mg feeding tube QID PRN Pain 10/06/20 07/07/22 Unknown History liquid baclofen 5 mg/5 mL oral solution 15 mg feeding tube TID 10/06/20 07/07/22 06/13/22 History benztropine 1 mg tablet 1 mg feeding tube BEDTIME 10/06/20 07/07/22 05/18/22 History famotidine (PF) 20 mg/50 mL in 0.9 20 mg IV DAILY 10/06/20 07/07/22 06/13/22 History % NaCl (iso) intravenous piggyback fludrocortisone 0.1 mg tablet 0.1 mg feeding tube DAILY 10/06/20 07/07/22 06/13/22 History ipratropium 0.5 mg-albuterol 3 mg 3 ml inhalation Q6-8H PRN 10/06/20 07/07/22 Unknown History (2.5 mg base)/3 mL nebulization Shortness Of Breath Or Wheezing soln levothyroxine 112 mcg/mL oral 100 mcg feeding tube DAILY 10/06/20 07/07/22 05/18/22 History solution methenamine hippurate 1 gram 1 g feeding tube BID 10/06/20 07/07/22 06/13/22 History tablet (Hiprex) midodrine 10 mg tablet 10 mg feeding tube TID 10/06/20 07/07/22 05/18/22 History topiramate 200 mg tablet (Topamax) 200 mg feeding tube BID 10/06/20 07/07/22 06/13/22 History magnesium hydroxide 400 mg/5 mL 30 ml feeding tube DIRECTED PRN 11/12/20 07/07/22 Unknown History oral suspension (Milk of Magnesia) Gastric Reflux promethazine 25 mg/mL injection 25 mg IV TID 11/12/20 07/07/22 06/13/22 History solution (Phenergan) lidocaine 5 % topical ointment 1 appl topical QID PRN Pain 06/03/21 07/07/22 Unknown History Immuglobin IV TU 02/11/22 Unknown History Lactobacillus rhamnosus GG 10 1 cap PO BID 02/11/22 07/07/22 Unknown History billion cell capsule (Culturelle) benztropine 0.5 mg tablet 0.5 mg feeding tube DAILY 02/11/22 07/07/22 06/13/22 History diazepam 5 mg/5 mL (1 mg/mL) oral 2.5 mg PO BID@0900,1200 02/11/22 07/07/22 05/18/22 History solution diazepam 5 mg/5 mL (1 mg/mL) oral 5 mg PO BEDTIME 02/11/22 07/07/22 Unknown History solution enoxaparin 40 mg/0.4 mL 40 mg subcut DAILY 02/11/22 02/11/22 05/17/22 06:00 History subcutaneous syringe furosemide 40 mg tablet 60 mg PO BID 02/11/22 07/07/22 06/13/22 History gabapentin 300 mg/6 mL (6 mL) oral 600 mg PO BID@0900,1200 02/11/22 07/07/22 05/18/22 History solution gabapentin 300 mg/6 mL (6 mL) oral 800 mg PO BEDTIME 02/11/22 07/07/22 Unknown History solution hydrocortisone sod succinate 100 0.1 mg IV DAILY@1200 02/11/22 02/11/22 Unknown History mg solution for injection (Solu-Cortef) hydrocortisone sod succinate 100 0.2 mg IV DAILY 02/11/22 07/07/22 Unknown History mg solution for injection (Solu-Cortef) loxapine succinate 10 mg capsule 70 mg PO BID 02/11/22 07/07/22 06/13/22 History methylnaltrexone 8 mg/0.4 mL 8 mg subcut DAILY 02/11/22 07/07/22 Unknown History subcutaneous syringe (Relistor) ondansetron HCl (PF) 4 mg/2 mL 4 mg IV Q3H PRN nausea and vomiting 02/11/22 07/07/22 06/13/22 History injection syringe fluticasone propionate 110 1 puff inhalation BID 04/22/22 07/07/22 05/18/22 History mcg/actuation HFA aerosol inhaler (Flovent HFA) levetiracetam 500 mg/5 mL 500 mg IV BID 04/22/22 07/07/22 06/13/22 History intravenous solution (Keppra) morphine 50 mg/mL intravenous 5 mg subcut Q3-4H PRN Pain 04/22/22 07/07/22 06/13/22 History solution Exam Exam Date and Time: August 19, 2022 1047 Height,Weight and Vital Signs: Height 4 ft 9 in Weight 33.566 kg Assessment and Plan Assessment Anesthesia Assessment: Chart Reviewed Final Anesthetic Review Family History of Problems with Anesthesia: No History of Problems with Anesthesia: No Documented by User: Rosey Lam MD 08/22/22 09:40 PMFSH Past Medical History Medical History Asthma Bacterial infection Brain bleed Brain tumor Chronic, continuous use of opioids Constipation Diabetes Fungal infection Gastroparesis GERD (gastroesophageal reflux disease) History of jejunostomy tube placement Hx pulmonary embolism Hypothyroidism Neuropathy Seizures Septic arthritis Small fiber polyneuropathy Suprapubic catheter Unspecified convulsions VRE (vancomycin-resistant Enterococci) Family History Family History Father Skin cancer Mother No problems noted. 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 Household Members Other:: live in aid Housing Other:: 24 hour care - live in aid Are you a primary caregiver services home to a significant other at home: No Do you presently have visiting nurse or other home services: Yes Alcohol intake: current Alcohol intake frequency: does not drink Patient Tobacco Use Status: Never used Tobacco Second Hand Smoke Exposure: No Are you DNR?: No Advance Directives: No Advance Directives Information Provided: Yes Advance Directives Date on File: 06/29/20 Patient : No FDLMP: patient has never Meds Allergies Allergy/AdvReac Type Severity Reaction Status Date / Time lamotrigine [From LAMICTAL] Allergy Severe CLEMENTINA Verified 08/22/22 09:04 GUIDO SYNDROME chlorhexidine [CHLORHEXIDINE] Allergy Intermediate RASH Verified 08/22/22 09:04 citalopram [From CELEXA] Allergy Intermediate PROLONGED Verified 08/22/22 09:04 QT INTERVAL divalproex sodium Allergy Intermediate BLACK Verified 08/22/22 09:04 [From DEPAKOTE] EYES escitalopram [From LEXAPRO] Allergy Intermediate SWELLING Verified 08/22/22 09:04 lactose [LACTOSE] Allergy Intermediate GI UPSET Verified 08/22/22 09:04 povidone-iodine Allergy Intermediate rash Verified 08/22/22 09:04 [From BETADINE] alprazolam [From Xanax] Allergy Mild Unknown Verified 08/22/22 09:04 sertraline [From Zoloft] Allergy Mild unknown Verified 08/22/22 09:04 ziprasidone [From Geodon] Allergy Mild dystonia Verified 08/22/22 09:04 clonazepam [From Klonopin] Allergy agitation Verified 08/22/22 09:04 lorazepam [From Ativan] Allergy agitation Verified 08/22/22 09:04 latex AdvReac Swelling Verified 08/22/22 09:04 BEETS Allergy Intermediate SWELLING Uncoded 08/22/22 09:04 STATLOC Allergy Intermediate RASH Uncoded 08/22/22 09:04 Home Medications Medication Instructions Recorded Confirmed Last Taken Type albuterol sulfate 90 mcg/actuation 2 puff inhalation 6XD PRN Wheezing 06/25/20 07/07/22 Unknown History aerosol inhaler diphenhydramine HCl 50 mg/mL 50 mg IV Q4H 06/25/20 07/07/22 06/13/22 History injection solution pantoprazole 40 mg intravenous 40 mg IV BID 06/25/20 07/07/22 06/13/22 History solution (Protonix) acetaminophen 500 mg/15 mL oral 500 mg feeding tube QID PRN Pain 10/06/20 07/07/22 Unknown History liquid baclofen 5 mg/5 mL oral solution 15 mg feeding tube TID 10/06/20 07/07/22 06/13/22 History benztropine 1 mg tablet 1 mg feeding tube BEDTIME 10/06/20 07/07/22 05/18/22 History famotidine (PF) 20 mg/50 mL in 0.9 20 mg IV DAILY 10/06/20 07/07/22 06/13/22 History % NaCl (iso) intravenous piggyback fludrocortisone 0.1 mg tablet 0.1 mg feeding tube DAILY 10/06/20 07/07/22 06/13/22 History ipratropium 0.5 mg-albuterol 3 mg 3 ml inhalation Q6-8H PRN 10/06/20 07/07/22 Unknown History (2.5 mg base)/3 mL nebulization Shortness Of Breath Or Wheezing soln levothyroxine 112 mcg/mL oral 100 mcg feeding tube DAILY 10/06/20 07/07/22 05/18/22 History solution methenamine hippurate 1 gram 1 g feeding tube BID 10/06/20 07/07/22 06/13/22 History tablet (Hiprex) midodrine 10 mg tablet 10 mg feeding tube TID 10/06/20 07/07/22 05/18/22 History topiramate 200 mg tablet (Topamax) 200 mg feeding tube BID 10/06/20 07/07/22 06/13/22 History magnesium hydroxide 400 mg/5 mL 30 ml feeding tube DIRECTED PRN 11/12/20 07/07/22 Unknown History oral suspension (Milk of Magnesia) Gastric Reflux promethazine 25 mg/mL injection 25 mg IV TID 11/12/20 07/07/22 06/13/22 History solution (Phenergan) lidocaine 5 % topical ointment 1 appl topical QID PRN Pain 06/03/21 07/07/22 Unknown History Immuglobin IV TU 02/11/22 Unknown History Lactobacillus rhamnosus GG 10 1 cap PO BID 02/11/22 07/07/22 Unknown History billion cell capsule (Culturelle) benztropine 0.5 mg tablet 0.5 mg feeding tube DAILY 02/11/22 07/07/22 06/13/22 History diazepam 5 mg/5 mL (1 mg/mL) oral 2.5 mg PO BID@0900,1200 02/11/22 07/07/22 05/18/22 History solution diazepam 5 mg/5 mL (1 mg/mL) oral 5 mg PO BEDTIME 02/11/22 07/07/22 Unknown History solution enoxaparin 40 mg/0.4 mL 40 mg subcut DAILY 02/11/22 02/11/22 05/17/22 06:00 History subcutaneous syringe furosemide 40 mg tablet 60 mg PO BID 02/11/22 07/07/22 06/13/22 History gabapentin 300 mg/6 mL (6 mL) oral 600 mg PO BID@0900,1200 02/11/22 07/07/22 05/18/22 History solution gabapentin 300 mg/6 mL (6 mL) oral 800 mg PO BEDTIME 02/11/22 07/07/22 Unknown History solution hydrocortisone sod succinate 100 0.1 mg IV DAILY@1200 02/11/22 02/11/22 Unknown History mg solution for injection (Solu-Cortef) hydrocortisone sod succinate 100 0.2 mg IV DAILY 02/11/22 07/07/22 Unknown History mg solution for injection (Solu-Cortef) loxapine succinate 10 mg capsule 70 mg PO BID 02/11/22 07/07/22 06/13/22 History methylnaltrexone 8 mg/0.4 mL 8 mg subcut DAILY 02/11/22 07/07/22 Unknown History subcutaneous syringe (Relistor) ondansetron HCl (PF) 4 mg/2 mL 4 mg IV Q3H PRN nausea and vomiting 02/11/22 07/07/22 06/13/22 History injection syringe fluticasone propionate 110 1 puff inhalation BID 04/22/22 07/07/22 05/18/22 History mcg/actuation HFA aerosol inhaler (Flovent HFA) levetiracetam 500 mg/5 mL 500 mg IV BID 04/22/22 07/07/22 06/13/22 History intravenous solution (Keppra) morphine 50 mg/mL intravenous 5 mg subcut Q3-4H PRN Pain 04/22/22 07/07/22 06/13/22 History solution Exam Airway Mallampati Class: III TM Dist: >3cm Neck ROM: Full Loose/Missing/Broken Teeth: No (poor dentition ) Heart: RRR Lungs: CTA Assessment and Plan Assessment Anesthesia Assessment: Anesthesia Plan Discussed Final Anesthetic Review NPO: Yes ASA Class: III Final Preanesthetic Review: Meds/Allgs Chart Reviewed, Consent Obtained/Reviewed and Anes Risks/Benef Reviewed Patient Risk: Low Procedure Risk: Intermediate Anesthetic Plan Anesthetic Plan: MAC: Disposition: Standard PACU
[2022-08-22] VITALS (7 sets, daily range): BP systolic 118–139; BP diastolic 72–89; PULSE 106–107; RESP 16–18; TEMP 36.1–36.6; O2SAT 100
--- NOTE | 2022-08-22 09:36 | PC.NURSE ---
Dr. Lam at bedside. Patient stated has never had sexual intercourse and has never had a menstrual cycle. Dr. Lam stated okay not to completed HCG
[2022-08-22 09:47] LABS: Glucose, Whole Blood 94 mg/dL (60-115)
--- NOTE | 2022-08-22 10:48 | MHC.SHP ---
Pre-Procedural Eval Section A Date of Service: 08/22/22 The patient is an INPATIENT: No Changes since office visit: No Cold of Flu in the past 2 weeks, No New Medical Problems, No Changes in Medication and No Patient answered all questions The History & Physical has been completed within 30 days and I have reviewed it.: No Section B Chief Complaint: Neuromuscular dysfunction of bladder, unspecified Details of Present Illness: Here for suprapubic tube exchange. Has noticed some reaction from proud tissue. Will cauterize in OR Relevant Family History (Specify if Yes): No Relevant Social History: None Present Medications: see Short Stay Collaborative assessment Medical History: Significant History History of Previous Operations: Relevant previous surgery/procedure and date(s) Allergies: Allergies Allergy/AdvReac Type Severity Reaction Status Date / Time lamotrigine [From LAMICTAL] Allergy Severe CLEMENTINA Verified 08/22/22 09:04 GUIDO SYNDROME chlorhexidine [CHLORHEXIDINE] Allergy Intermediate RASH Verified 08/22/22 09:04 citalopram [From CELEXA] Allergy Intermediate PROLONGED Verified 08/22/22 09:04 QT INTERVAL divalproex sodium Allergy Intermediate BLACK Verified 08/22/22 09:04 [From DEPAKOTE] EYES escitalopram [From LEXAPRO] Allergy Intermediate SWELLING Verified 08/22/22 09:04 lactose [LACTOSE] Allergy Intermediate GI UPSET Verified 08/22/22 09:04 povidone-iodine Allergy Intermediate rash Verified 08/22/22 09:04 [From BETADINE] alprazolam [From Xanax] Allergy Mild Unknown Verified 08/22/22 09:04 sertraline [From Zoloft] Allergy Mild unknown Verified 08/22/22 09:04 ziprasidone [From Geodon] Allergy Mild dystonia Verified 08/22/22 09:04 clonazepam [From Klonopin] Allergy agitation Verified 08/22/22 09:04 lorazepam [From Ativan] Allergy agitation Verified 08/22/22 09:04 latex AdvReac Swelling Verified 08/22/22 09:04 BEETS Allergy Intermediate SWELLING Uncoded 08/22/22 09:04 STATLOC Allergy Intermediate RASH Uncoded 08/22/22 09:04 Review of Systems Sugical H&P ROS: Negative: Constitution, Cardiovascular, Respiratory, Neurological, Psychiatric, Hem-Onc, Allergic/Immunologic, Gastrointestinal, Genitourinary, Musculoskeletal, Integumentary, Endocrine and Eyes/Ears/Nose/Throat Exam Surgical H&P Exam: Normal: HEENT, Normal: Heart, Normal: Lungs, Normal: Extremities, Normal: Abdomen, Normal: Skin and Normal: Neurological Plan Diagnosis/Plan: Unchanged (SPT change) I have reviewed the history and physical and performed a pertinent physical examination on my patient. No changes have occurred unless specified. Time Spent With Patient Time: Total time managing care of this patient today ____ minutes.
[2022-08-22] MEDS: Lactated Ringers 1,000 ML 100 ML IVCONT (10:58)
--- NOTE | 2022-08-22 11:12 | W.PM.OPN ---
Operative Note Operative Note Date of Service: 08/22/22 Narrative: PreOperative Diagnosis:? Neurogenic bladder, oozing proud tissue Post Operative Diagnosis:? Neurogenic bladder Procedure:? Suprapubic tube change with proud tissue cautery Surgeon: Dr Denys Pereira Anesthesia:? Sedation Indications for procedure: Small neuronal disease with neurogenic bladder Procedure: After informed consent was verified the patient was brought to the operating room and placed in a supine position.? Anesthesia was administered per protocol. Marcela remained in her stretcher. The area was prepped with saline Suprapubic tube removed. 18 Fr catheter with double balloon placed Proud tissue cauterized with silver nitrate sticks
[2022-08-22] MEDS: HYDROmorphone HCl 0.5 MG/0.5 ML SYRINGE IVPUSH ×2 (11:29→11:35)
== END 2022-08-22 11:58 | disposition home or self-care (01) ==
PROVIDERS: PCP Internal Medicine; Visit Provider Urology
PROC: (CPT 51710; principal; 2022-08-22 10:30)
DX: N31.9 Neuromuscular dysfunction of bladder, unspecified (principal); E11.9 Type 2 diabetes mellitus without complications; G62.89 Other specified polyneuropathies; J45.909 Unspecified asthma, uncomplicated; Z86.711 Personal history of pulmonary embolism; Z87.440 Personal history of urinary (tract) infections; Z79.891 Long term (current) use of opiate analgesic; Z79.899 Other long term (current) drug therapy; Z88.8 Allergy status to other drugs, medicaments and biological substances; Z91.040 Latex allergy status; Z93.4 Other artificial openings of gastrointestinal tract status
CPT/HCPCS: 51710; 82947; J1170

== ENCOUNTER 2022-09-19 08:01 | Day surgery (SDC) | payer MEDICAID, SELFPAY ==
[2022-09-19] VITALS (8 sets, daily range): BP systolic 96–125; BP diastolic 62–85; PULSE 92–101; RESP 14–18; TEMP 36.4–37; O2SAT 97–100; BMI 25.4
--- NOTE | 2022-09-19 09:31 | HO.ANESPROP2 ---
[facility] Active Problems Active Problems: All Active Problems (Updated 07/07/22 @ 13:58 by Nita Sigala RN) Neurogenic urinary bladder disorder (Acute) Neurologic disorder (Acute) Recurrent infections (Acute) Diarrhea associated with pseudomembranous colitis (Acute) Diarrhea (Acute) Gastroparesis (Acute) Past Medical History Medical History Asthma Bacterial infection Brain bleed Brain tumor Chronic, continuous use of opioids Constipation Diabetes Fungal infection Gastroparesis GERD (gastroesophageal reflux disease) History of jejunostomy tube placement Hx pulmonary embolism Hypothyroidism Neuropathy Seizures Septic arthritis Small fiber polyneuropathy Suprapubic catheter Unspecified convulsions VRE (vancomycin-resistant Enterococci) Family History Family History Father Skin cancer Mother No problems noted. 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 Household Members Other:: live in aid Housing Other:: 24 hour care - live in aid Are you a primary child care team lead to a significant other at home: No Do you presently have visiting nurse or other home services: Yes Alcohol intake: current Alcohol intake frequency: does not drink Patient Tobacco Use Status: Never used Tobacco Second Hand Smoke Exposure: No Advance Directives: No Advance Directives Information Provided: Yes Advance Directives Date on File: 06/29/20 Meds Allergies Allergy/AdvReac Type Severity Reaction Status Date / Time lamotrigine [From LAMICTAL] Allergy Severe CLEMENTINA Verified 08/22/22 09:04 GUIDO SYNDROME chlorhexidine [CHLORHEXIDINE] Allergy Intermediate RASH Verified 08/22/22 09:04 citalopram [From CELEXA] Allergy Intermediate PROLONGED Verified 08/22/22 09:04 QT INTERVAL divalproex sodium Allergy Intermediate BLACK Verified 08/22/22 09:04 [From DEPAKOTE] EYES escitalopram [From LEXAPRO] Allergy Intermediate SWELLING Verified 08/22/22 09:04 lactose [LACTOSE] Allergy Intermediate GI UPSET Verified 08/22/22 09:04 povidone-iodine Allergy Intermediate rash Verified 08/22/22 09:04 [From BETADINE] alprazolam [From Xanax] Allergy Mild Unknown Verified 08/22/22 09:04 sertraline [From Zoloft] Allergy Mild unknown Verified 08/22/22 09:04 ziprasidone [From Geodon] Allergy Mild dystonia Verified 08/22/22 09:04 clonazepam [From Klonopin] Allergy agitation Verified 08/22/22 09:04 lorazepam [From Ativan] Allergy agitation Verified 08/22/22 09:04 latex AdvReac Swelling Verified 08/22/22 09:04 BEETS Allergy Intermediate SWELLING Uncoded 08/22/22 09:04 STATLOC Allergy Intermediate RASH Uncoded 08/22/22 09:04 Active Medications: Current Medications Lactated Ringer's (Lr) 1,000 mls @ 80 mls/hr IVCONT .[id number] [facility] Home Medications Medication Instructions Recorded Confirmed Last Taken Type albuterol sulfate 90 mcg/actuation 2 puff inhalation 6XD PRN Wheezing 06/25/20 07/07/22 Unknown History aerosol inhaler diphenhydramine HCl 50 mg/mL 50 mg IV Q4H 06/25/20 07/07/22 06/13/22 History injection solution pantoprazole 40 mg intravenous 40 mg IV BID 06/25/20 07/07/22 06/13/22 History solution (Protonix) acetaminophen 500 mg/15 mL oral 500 mg feeding tube QID PRN Pain 10/06/20 07/07/22 Unknown History liquid baclofen 5 mg/5 mL oral solution 15 mg feeding tube TID 10/06/20 07/07/22 06/13/22 History benztropine 1 mg tablet 1 mg feeding tube BEDTIME 10/06/20 07/07/22 05/18/22 History famotidine (PF) 20 mg/50 mL in 0.9 20 mg IV DAILY 10/06/20 07/07/22 06/13/22 History % NaCl (iso) intravenous piggyback fludrocortisone 0.1 mg tablet 0.1 mg feeding tube DAILY 10/06/20 07/07/22 06/13/22 History ipratropium 0.5 mg-albuterol 3 mg 3 ml inhalation Q6-8H PRN 10/06/20 07/07/22 Unknown History (2.5 mg base)/3 mL nebulization Shortness Of Breath Or Wheezing soln levothyroxine 112 mcg/mL oral 100 mcg feeding tube DAILY 10/06/20 07/07/22 05/18/22 History solution methenamine hippurate 1 gram 1 g feeding tube BID 10/06/20 07/07/22 06/13/22 History tablet (Hiprex) midodrine 10 mg tablet 10 mg feeding tube TID 10/06/20 07/07/22 05/18/22 History topiramate 200 mg tablet (Topamax) 200 mg feeding tube BID 10/06/20 07/07/22 06/13/22 History magnesium hydroxide 400 mg/5 mL 30 ml feeding tube DIRECTED PRN 11/12/20 07/07/22 Unknown History oral suspension (Milk of Magnesia) Gastric Reflux promethazine 25 mg/mL injection 25 mg IV TID 11/12/20 07/07/22 06/13/22 History solution (Phenergan) lidocaine 5 % topical ointment 1 appl topical QID PRN Pain 06/03/21 07/07/22 Unknown History Immuglobin IV TU 02/11/22 Unknown History Lactobacillus rhamnosus GG 10 1 cap PO BID 02/11/22 07/07/22 Unknown History billion cell capsule (Culturelle) benztropine 0.5 mg tablet 0.5 mg feeding tube DAILY 02/11/22 07/07/22 06/13/22 History diazepam 5 mg/5 mL (1 mg/mL) oral 2.5 mg PO BID@0900,1200 02/11/22 07/07/22 05/18/22 History solution diazepam 5 mg/5 mL (1 mg/mL) oral 5 mg PO BEDTIME 02/11/22 07/07/22 Unknown History solution enoxaparin 40 mg/0.4 mL 40 mg subcut DAILY 02/11/22 08/22/22 08/22/22 History subcutaneous syringe furosemide 40 mg tablet 60 mg PO BID 02/11/22 07/07/22 06/13/22 History gabapentin 300 mg/6 mL (6 mL) oral 600 mg PO BID@0900,1200 02/11/22 07/07/22 05/18/22 History solution gabapentin 300 mg/6 mL (6 mL) oral 800 mg PO BEDTIME 02/11/22 07/07/22 Unknown History solution hydrocortisone sod succinate 100 0.1 mg IV DAILY@1200 02/11/22 02/11/22 Unknown History mg solution for injection (Solu-Cortef) hydrocortisone sod succinate 100 0.2 mg IV DAILY 02/11/22 07/07/22 Unknown History mg solution for injection (Solu-Cortef) loxapine succinate 10 mg capsule 70 mg PO BID 02/11/22 07/07/22 06/13/22 History methylnaltrexone 8 mg/0.4 mL 8 mg subcut DAILY 02/11/22 07/07/22 Unknown History subcutaneous syringe (Relistor) ondansetron HCl (PF) 4 mg/2 mL 4 mg IV Q3H PRN nausea and vomiting 02/11/22 07/07/22 06/13/22 History injection syringe fluticasone propionate 110 1 puff inhalation BID 04/22/22 07/07/22 05/18/22 History mcg/actuation HFA aerosol inhaler (Flovent HFA) levetiracetam 500 mg/5 mL 500 mg IV BID 04/22/22 07/07/22 06/13/22 History intravenous solution (Keppra) morphine 50 mg/mL intravenous 5 mg subcut Q3-4H PRN Pain 04/22/22 07/07/22 06/13/22 History solution Exam Exam Date and Time: September 19, 202231 Airway Mallampati Class: III TM Dist: >3cm Neck ROM: Full Assessment and Plan Assessment Anesthesia Assessment: Anesthesia Plan Discussed and Chart Reviewed Final Anesthetic Review Family History of Problems with Anesthesia: No History of Problems with Anesthesia: No NPO: Yes ASA Class: III Final Preanesthetic Review: No Changes in Pt Med Stat, Meds/Allgs Chart Reviewed, Consent Obtained/Reviewed and Anes Risks/Benef Reviewed Patient Risk: Intermediate Procedure Risk: Low Anesthetic Plan Anesthetic Plan: GA Disposition: Standard PACU
--- NOTE | 2022-09-19 09:44 | P.CONAN_ITS ---
[facility] Active Problems Active Problems: All Active Problems (Updated 07/07/22 @ 13:58 by Nita Sigala RN) Neurogenic urinary bladder disorder (Acute) Neurologic disorder (Acute) Recurrent infections (Acute) Diarrhea associated with pseudomembranous colitis (Acute) Diarrhea (Acute) Gastroparesis (Acute) Past Medical History Medical History Asthma Bacterial infection Brain bleed Brain tumor Chronic, continuous use of opioids Constipation Diabetes Fungal infection Gastroparesis GERD (gastroesophageal reflux disease) History of jejunostomy tube placement Hx pulmonary embolism Hypothyroidism Neuropathy Seizures Septic arthritis Small fiber polyneuropathy Suprapubic catheter Unspecified convulsions VRE (vancomycin-resistant Enterococci) Family History Family History Father Skin cancer Mother No problems noted. 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 Household Members Other:: live in aid Housing Other:: 24 hour care - live in aid Are you a primary nurse wound care to a significant other at home: No Do you presently have visiting nurse or other home services: Yes Alcohol intake: current Alcohol intake frequency: does not drink Patient Tobacco Use Status: Never used Tobacco Second Hand Smoke Exposure: No Advance Directives: No Advance Directives Information Provided: Yes Advance Directives Date on File: 06/29/20 Meds Allergies Allergy/AdvReac Type Severity Reaction Status Date / Time lamotrigine [From LAMICTAL] Allergy Severe CLEMENTINA Verified 08/22/22 09:04 GUIDO SYNDROME chlorhexidine [CHLORHEXIDINE] Allergy Intermediate RASH Verified 08/22/22 09:04 citalopram [From CELEXA] Allergy Intermediate PROLONGED Verified 08/22/22 09:04 QT INTERVAL divalproex sodium Allergy Intermediate BLACK Verified 08/22/22 09:04 [From DEPAKOTE] EYES escitalopram [From LEXAPRO] Allergy Intermediate SWELLING Verified 08/22/22 09:04 lactose [LACTOSE] Allergy Intermediate GI UPSET Verified 08/22/22 09:04 povidone-iodine Allergy Intermediate rash Verified 08/22/22 09:04 [From BETADINE] alprazolam [From Xanax] Allergy Mild Unknown Verified 08/22/22 09:04 sertraline [From Zoloft] Allergy Mild unknown Verified 08/22/22 09:04 ziprasidone [From Geodon] Allergy Mild dystonia Verified 08/22/22 09:04 clonazepam [From Klonopin] Allergy agitation Verified 08/22/22 09:04 lorazepam [From Ativan] Allergy agitation Verified 08/22/22 09:04 latex AdvReac Swelling Verified 08/22/22 09:04 BEETS Allergy Intermediate SWELLING Uncoded 08/22/22 09:04 STATLOC Allergy Intermediate RASH Uncoded 08/22/22 09:04 Active Medications: Current Medications Fentanyl (Fentanyl Citrate/Pf 100 Mcg/2 Ml Vial) 50 mcg IVPUSH Q5M PRN; Protocol PRN Reason: Pain, Severe (Pain Scale 7-10) Lactated Ringer's (Lr) 1,000 mls @ 80 mls/hr IVCONT .[id number] MARLON Ondansetron HCl (Ondansetron Hcl 4 Mg/2 Ml Vial) 4 mg IVPUSH ONCE PRN PRN Reason: Nausea and Vomiting Home Medications Medication Instructions Recorded Confirmed Last Taken Type albuterol sulfate 90 mcg/actuation 2 puff inhalation 6XD PRN Wheezing 06/25/20 07/07/22 Unknown History aerosol inhaler diphenhydramine HCl 50 mg/mL 50 mg IV Q4H 06/25/20 07/07/22 06/13/22 History injection solution pantoprazole 40 mg intravenous 40 mg IV BID 06/25/20 07/07/22 06/13/22 History solution (Protonix) acetaminophen 500 mg/15 mL oral 500 mg feeding tube QID PRN Pain 10/06/20 07/07/22 Unknown History liquid baclofen 5 mg/5 mL oral solution 15 mg feeding tube TID 10/06/20 07/07/22 06/13/22 History benztropine 1 mg tablet 1 mg feeding tube BEDTIME 10/06/20 07/07/22 05/18/22 History famotidine (PF) 20 mg/50 mL in 0.9 20 mg IV DAILY 10/06/20 07/07/22 06/13/22 History % NaCl (iso) intravenous piggyback fludrocortisone 0.1 mg tablet 0.1 mg feeding tube DAILY 10/06/20 07/07/22 06/13/22 History ipratropium 0.5 mg-albuterol 3 mg 3 ml inhalation Q6-8H PRN 10/06/20 07/07/22 Unknown History (2.5 mg base)/3 mL nebulization Shortness Of Breath Or Wheezing soln levothyroxine 112 mcg/mL oral 100 mcg feeding tube DAILY 10/06/20 07/07/22 History solution methenamine hippurate 1 gram 1 g feeding tube BID 10/06/20 07/07/22 06/13/22 History tablet (Hiprex) midodrine 10 mg tablet 10 mg feeding tube TID 10/06/20 07/07/22 05/18/22 History topiramate 200 mg tablet (Topamax) 200 mg feeding tube BID 10/06/20 07/07/22 06/13/22 History magnesium hydroxide 400 mg/5 mL 30 ml feeding tube DIRECTED PRN 11/12/2006/12 Unknown History oral suspension (Milk of Magnesia) Gastric Reflux promethazine 25 mg/mL injection 25 mg IV TID 11/12/20 07/07/22 06/13/22 History solution (Phenergan) lidocaine 5 % topical ointment 1 appl topical QID PRN Pain 06/03/21 07/07/22 Unknown History Immuglobin IV TU 02/11/22 Unknown History Lactobacillus rhamnosus GG 10 1 cap PO BID 02/11/22 07/07/22 Unknown History billion cell capsule (Culturelle) benztropine 0.5 mg tablet 0.5 mg feeding tube DAILY 02/11/22 07/07/22 06/13/22 History diazepam 5 mg/5 mL (1 mg/mL) oral 2.5 mg PO BID@0900,1200 02/11/22 07/07/22 05/18/22 History solution diazepam 5 mg/5 mL (1 mg/mL) oral 5 mg PO BEDTIME 02/11/22 07/07/22 Unknown History solution enoxaparin 40 mg/0.4 mL 40 mg subcut DAILY 02/11/22 08/22/22 08/22/22 History subcutaneous syringe furosemide 40 mg tablet 60 mg PO BID 02/11/22 07/07/22 06/13/22 History gabapentin 300 mg/6 mL (6 mL) oral 600 mg PO BID@0900,1200 02/11/22 07/07/22 05/18/22 History solution gabapentin 300 mg/6 mL (6 mL) oral 800 mg PO BEDTIME 02/11/22 07/07/22 Unknown History solution hydrocortisone sod succinate 100 0.1 mg IV DAILY@1200 02/11/22 02/11/22 Unknown History mg solution for injection (Solu-Cortef) hydrocortisone sod succinate 100 0.2 mg IV DAILY 02/11/22 07/07/22 Unknown History mg solution for injection (Solu-Cortef) loxapine succinate 10 mg capsule 70 mg PO BID 02/11/22 07/07/22 06/13/22 History methylnaltrexone 8 mg/0.4 mL 8 mg subcut DAILY 02/11/22 07/07/22 Unknown History subcutaneous syringe (Relistor) ondansetron HCl (PF) 4 mg/2 mL 4 mg IV Q3H PRN nausea and vomiting 02/11/22 07/07/22 06/13/22 History injection syringe fluticasone propionate 110 1 puff inhalation BID 04/22/22 07/07/22 05/18/22 History mcg/actuation HFA aerosol inhaler (Flovent HFA) levetiracetam 500 mg/5 mL 500 mg IV BID 04/22/22 07/07/22 06/13/22 History intravenous solution (Keppra) morphine 50 mg/mL intravenous 5 mg subcut Q3-4H PRN Pain 04/22/22 07/07/22 06/13/22 History solution Exam Exam Date and Time: September 19, 2022 0944 Height,Weight and Vital Signs: Height 4 ft 11 in Weight 57.153 kg Airway Mallampati Class: III TM Dist: >3cm Neck ROM: Full Assessment and Plan Assessment Anesthesia Assessment: Anesthesia Plan Discussed and Chart Reviewed Final Anesthetic Review Family History of Problems with Anesthesia: No History of Problems with Anesthesia: No NPO: Yes ASA Class: III Final Preanesthetic Review: No Changes in Pt Med Stat, Meds/Allgs Chart Reviewed, Consent Obtained/Reviewed and Anes Risks/Benef Reviewed Patient Risk: Low Procedure Risk: Low Anesthetic Plan Anesthetic Plan: MAC: Disposition: Standard PACU
[2022-09-19] MEDS: Lactated Ringers 1,000 ML 80 ML IVCONT (09:50)
--- NOTE | 2022-09-19 11:58 | P.HPSUR_ITS ---
Pre-Procedural Eval Section A Date of Service: 09/19/22 The patient is an INPATIENT: No Changes since office visit: No Cold of Flu in the past 2 weeks, No New Medical Problems, No Changes in Medication and No Patient answered all questions The History & Physical has been completed within 30 days and I have reviewed it.: No Section B Chief Complaint: Neuromuscular dysfunction of bladder, Details of Present Illness: change of bladder Relevant Family History (Specify if Yes): No Relevant Social History: None Present Medications: see Short Stay Collaborative assessment Medical History: Significant History History of Previous Operations: Relevant previous surgery/procedure and date(s) Allergies: Allergies Allergy/AdvReac Type Severity Reaction Status Date / Time lamotrigine [From LAMICTAL] Allergy Severe CLEMENTINA Verified 08/22/22 09:04 GUIDO SYNDROME chlorhexidine [CHLORHEXIDINE] Allergy Intermediate RASH Verified 08/22/22 09:04 citalopram [From CELEXA] Allergy Intermediate PROLONGED Verified 08/22/22 09:04 QT INTERVAL divalproex sodium Allergy Intermediate BLACK Verified 08/22/22 09:04 [From DEPAKOTE] EYES escitalopram [From LEXAPRO] Allergy Intermediate SWELLING Verified 08/22/22 09:04 lactose [LACTOSE] Allergy Intermediate GI UPSET Verified 08/22/22 09:04 povidone-iodine Allergy Intermediate rash Verified 08/22/22 09:04 [From BETADINE] alprazolam [From Xanax] Allergy Mild Unknown Verified 08/22/22 09:04 sertraline [From Zoloft] Allergy Mild unknown Verified 08/22/22 09:04 ziprasidone [From Geodon] Allergy Mild dystonia Verified 08/22/22 09:04 clonazepam [From Klonopin] Allergy agitation Verified 08/22/22 09:04 lorazepam [From Ativan] Allergy agitation Verified 08/22/22 09:04 latex AdvReac Swelling Verified 08/22/22 09:04 BEETS Allergy Intermediate SWELLING Uncoded 08/22/22 09:04 STATLOC Allergy Intermediate RASH Uncoded 08/22/22 09:04 Review of Systems Sugical H&P ROS: Negative: Constitution, Cardiovascular, Respiratory, Neurological, Psychiatric, Hem-Onc, Allergic/Immunologic, Gastrointestinal, Genitourinary, Musculoskeletal, Integumentary, Endocrine and Eyes/Ears/N ose/Throat Exam Surgical H&P Exam: Normal: HEENT, Normal: Heart, Normal: Lungs, Normal: Extremities, Normal: Abdomen, Normal: Skin and Normal: Neurological Plan Diagnosis/Plan: Unchanged (change suprapubic tube) I have reviewed the history and physical and performed a pertinent physical examination on my patient. No changes have occurred unless specified. Time Spent With Patient Time: Total time managing care of this patient today ____ minutes.
--- NOTE | 2022-09-19 12:33 | W.PM.OPN ---
Operative Note Operative Note Date of Service: 09/19/22 Narrative: PreOperative Diagnosis:? Neurogenic bladder Post Operative Diagnosis:? Neurogenic bladder Procedure:? Suprapubic tube change Surgeon: Dr Denys Pereira Anesthesia:? Sedation Indications for procedure: Small neuronal disease with neurogenic bladder Procedure: After informed consent was verified the patient was brought to the operating room and placed in a supine position.? Anesthesia was administered per protocol. Marcela remained in her stretcher. The area was prepped with saline Suprapubic tube removed. 18 Fr catheter with double balloon placed Estefany Mesa
[2022-09-19] MEDS: HYDROmorphone HCl 0.5 MG/0.5 ML SYRINGE IVPUSH ×2 (12:45→13:00)
== END 2022-09-19 13:42 | disposition home or self-care (01) ==
PROVIDERS: PCP Internal Medicine; Visit Provider Urology
PROC: (CPT 51705; principal; 2022-09-19 10:10)
DX: N31.9 Neuromuscular dysfunction of bladder, unspecified (principal); Z87.440 Personal history of urinary (tract) infections; G62.89 Other specified polyneuropathies; J45.909 Unspecified asthma, uncomplicated; R56.9 Unspecified convulsions; Z79.891 Long term (current) use of opiate analgesic; Z79.899 Other long term (current) drug therapy; Z88.8 Allergy status to other drugs, medicaments and biological substances; Z86.711 Personal history of pulmonary embolism
CPT/HCPCS: 51705; J1170; J2250; J3010

== ENCOUNTER 2022-10-24 06:06 | Day surgery (SDC) | payer MEDICAID, SELFPAY ==
[2022-10-19 16:01] VITALS: BMI 22.8
[2022-10-24] VITALS (11 sets, daily range): BP systolic 102–133; BP diastolic 65–82; PULSE 85–101; RESP 14–18; TEMP 36.1–36.2; O2SAT 100; BMI 22.8
--- NOTE | 2022-10-24 07:41 | MHC.SHP ---
Pre-Procedural Eval Section A Date of Service: 10/24/22 Changes since office visit: No Cold of Flu in the past 2 weeks, No New Medical Problems, No Changes in Medication and No Patient answered all questions The History & Physical has been completed within 30 days and I have reviewed it.: No Section B Chief Complaint: Neuromuscular dysfunction of bladder, unspecified Details of Present Illness: here for suprapubic tube change Relevant Social History: None Present Medications: see Short Stay Collaborative assessment Medical History: Significant History History of Previous Operations: Relevant previous surgery/procedure and date(s) Allergies: Allergies Allergy/AdvReac Type Severity Reaction Status Date / Time lamotrigine [From LAMICTAL] Allergy Severe CLEMENTINA Verified 10/19/22 15:30 GUIDO SYNDROME chlorhexidine [CHLORHEXIDINE] Allergy Intermediate RASH Verified 10/19/22 15:30 citalopram [From CELEXA] Allergy Intermediate PROLONGED Verified 10/19/22 15:30 QT INTERVAL divalproex sodium Allergy Intermediate BLACK Verified 10/19/22 15:30 [From DEPAKOTE] EYES escitalopram [From LEXAPRO] Allergy Intermediate SWELLING Verified 10/19/22 15:30 lactose [LACTOSE] Allergy Intermediate GI UPSET Verified 10/19/22 15:30 povidone-iodine Allergy Intermediate rash Verified 10/19/22 15:30 [From BETADINE] alprazolam [From Xanax] Allergy Mild Unknown Verified 10/19/22 15:30 sertraline [From Zoloft] Allergy Mild unknown Verified 10/19/22 15:30 ziprasidone [From Geodon] Allergy Mild dystonia Verified 10/19/22 15:30 clonazepam [From Klonopin] Allergy agitation Verified 10/19/22 15:30 lorazepam [From Ativan] Allergy agitation Verified 10/19/22 15:30 latex AdvReac Swelling Verified 10/19/22 15:30 BEETS Allergy Intermediate SWELLING Uncoded 10/19/22 15:30 STATLOC Allergy Intermediate RASH Uncoded 10/19/22 15:30 Review of Systems Sugical H&P ROS: Negative: Constitution, Cardiovascular, Respiratory, Neurological, Psychiatric, Hem-Onc, Allergic/Immunologic, Gastrointestinal, Genitourinary, Musculoskeletal, Integumentary, Endocrine and Eyes/Ears/Nose/Throat Exam Surgical H&P Exam: Normal: HEENT, Normal: Heart, Normal: Lungs, Normal: Extremities, Normal: Abdomen, Normal: Skin and Normal: Neurological Plan Diagnosis/Plan: Unchanged (suprapubic tube exchange) I have reviewed the history and physical and performed a pertinent physical examination on my patient. No changes have occurred unless specified. Time Spent With Patient Time: Total time managing care of this patient today ____ minutes.
--- NOTE | 2022-10-24 07:44 | HO.ANESPROP2 ---
HPI - Anesthesia Eval Consult details Narrative: 32 yr old female with multiple comorbidities for suprapubic tube exchange PMFSH Active Problems Active Problems: All Active Problems (Updated 07/07/22 @ 13:58 by Nita Sigala RN) Neurogenic urinary bladder disorder (Acute) Neurologic disorder (Acute) Recurrent infections (Acute) Diarrhea associated with pseudomembranous colitis (Acute) Diarrhea (Acute) Gastroparesis (Acute) Past Medical History Medical History Asthma Bacterial infection Brain bleed Brain tumor Chronic, continuous use of opioids Constipation Diabetes Fungal infection Gastroparesis GERD (gastroesophageal reflux disease) History of jejunostomy tube placement Hx pulmonary embolism Hypothyroidism Neuropathy Seizures Septic arthritis Small fiber polyneuropathy Suprapubic catheter Unspecified convulsions VRE (vancomycin-resistant Enterococci) Family History Family History Father Skin cancer Mother No problems noted. 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 If so, by whom?: No Are you DNR?: No Advance Directives: No Advance Directives Information Provided: Yes Advance Directives on File: No Advance Directives Date on File: 06/29/20 Nutrition Risks: Receiving home tube feeding or CPN Meds Allergies Allergy/AdvReac Type Severity Reaction Status Date / Time lamotrigine [From LAMICTAL] Allergy Severe CLEMENTINA Verified 10/19/22 15:30 GUIDO SYNDROME chlorhexidine [CHLORHEXIDINE] Allergy Intermediate RASH Verified 10/19/22 15:30 citalopram [From CELEXA] Allergy Intermediate PROLONGED Verified 10/19/22 15:30 QT INTERVAL divalproex sodium Allergy Intermediate BLACK Verified 10/19/22 15:30 [From DEPAKOTE] EYES escitalopram [From LEXAPRO] Allergy Intermediate SWELLING Verified 10/19/22 15:30 lactose [LACTOSE] Allergy Intermediate GI UPSET Verified 10/19/22 15:30 povidone-iodine Allergy Intermediate rash Verified 10/19/22 15:30 [From BETADINE] alprazolam [From Xanax] Allergy Mild Unknown Verified 10/19/22 15:30 sertraline [From Zoloft] Allergy Mild unknown Verified 10/19/22 15:30 ziprasidone [From Geodon] Allergy Mild dystonia Verified 10/19/22 15:30 clonazepam [From Klonopin] Allergy agitation Verified 10/19/22 15:30 lorazepam [From Ativan] Allergy agitation Verified 10/19/22 15:30 latex AdvReac Swelling Verified 10/19/22 15:30 BEETS Allergy Intermediate SWELLING Uncoded 10/19/22 15:30 STATLOC Allergy Intermediate RASH Uncoded 10/19/22 15:30 Home Medications Medication Instructions Recorded Confirmed Last Taken Type albuterol sulfate 90 mcg/actuation 2 puff inhalation 6XD PRN Wheezing 06/25/20 10/19/22 10/24/22 History aerosol inhaler diphenhydramine HCl 50 mg/mL 50 mg IV Q4H 06/25/20 10/19/22 10/24/22 History injection solution pantoprazole 40 mg intravenous 40 mg IV BID 06/25/20 10/19/22 10/24/22 History solution (Protonix) acetaminophen 500 mg/15 mL oral 500 mg feeding tube QID PRN Pain 10/06/20 07/07/22 Unknown History liquid baclofen 5 mg/5 mL oral solution 15 mg feeding tube TID 10/06/20 10/19/22 10/24/22 History benztropine 1 mg tablet 1 mg feeding tube BEDTIME 10/06/20 10/19/22 05/18/22 History famotidine (PF) 20 mg/50 mL in 0.9 20 mg IV DAILY 10/06/20 10/19/22 10/24/22 History % NaCl (iso) intravenous piggyback fludrocortisone 0.1 mg tablet 0.1 mg feeding tube DAILY 10/06/20 10/19/22 10/24/22 History ipratropium 0.5 mg-albuterol 3 mg 3 ml inhalation Q6-8H PRN 10/06/20 10/19/22 Unknown History (2.5 mg base)/3 mL nebulization Shortness Of Breath Or Wheezing soln levothyroxine 112 mcg/mL oral 100 mcg feeding tube DAILY 10/06/20 07/07/22 05/18/22 History solution methenamine hippurate 1 gram 1 g feeding tube BID 10/06/20 10/19/22 06/13/22 History tablet (Hiprex) midodrine 10 mg tablet 10 mg feeding tube TID 10/06/20 10/19/22 10/24/22 History topiramate 200 mg tablet (Topamax) 200 mg feeding tube BID 10/06/20 10/19/22 10/24/22 History magnesium hydroxide 400 mg/5 mL 30 ml feeding tube DIRECTED PRN 11/12/20 07/07/22 Unknown History oral suspension (Milk of Magnesia) Gastric Reflux promethazine 25 mg/mL injection 25 mg IV TID 11/12/20 10/19/22 10/24/22 History solution (Phenergan) lidocaine 5 % topical ointment 1 appl topical QID PRN Pain 06/03/21 07/07/22 Unknown History Immuglobin IV TU 02/11/22 Unknown History Lactobacillus rhamnosus GG 10 1 cap feeding tube BID 02/11/22 10/19/22 10/24/22 History billion cell capsule (Culturelle) benztropine 0.5 mg tablet 0.5 mg feeding tube DAILY 02/11/22 10/19/22 10/24/22 History diazepam 5 mg/5 mL (1 mg/mL) oral 3 mg feeding tube BID@0900,1200 02/11/22 10/19/22 10/24/22 History solution diazepam 5 mg/5 mL (1 mg/mL) oral 5 mg feeding tube BEDTIME 02/11/22 10/19/22 Unknown History solution enoxaparin 40 mg/0.4 mL 40 mg subcut DAILY 02/11/22 10/19/22 08/22/22 History subcutaneous syringe furosemide 40 mg tablet 60 mg feeding tube BID 02/11/22 10/19/22 10/24/22 History gabapentin 300 mg/6 mL (6 mL) oral 600 mg feeding tube BID@0900,1400 02/11/22 10/19/22 10/24/22 History solution gabapentin 300 mg/6 mL (6 mL) oral 800 mg feeding tube BEDTIME 02/11/22 10/19/22 Unknown History solution hydrocortisone sod succinate 100 0.1 mg IV DAILY@1200 02/11/22 02/11/22 Unknown History mg solution for injection (Solu-Cortef) hydrocortisone sod succinate 100 0.2 mg IV DAILY 02/11/22 07/07/22 10/24/22 History mg solution for injection (Solu-Cortef) loxapine succinate 10 mg capsule 70 mg feeding tube BID 02/11/22 10/19/22 10/24/22 History methylnaltrexone 8 mg/0.4 mL 8 mg subcut DAILY 02/11/22 07/07/22 Unknown History subcutaneous syringe (Relistor) ondansetron HCl (PF) 4 mg/2 mL 4 mg IV Q4H PRN nausea and vomiting 02/11/22 10/19/22 10/24/22 History injection syringe fluticasone propionate 110 1 puff inhalation BID 04/22/22 10/19/22 05/18/22 History mcg/actuation HFA aerosol inhaler (Flovent HFA) levetiracetam 500 mg/5 mL 500 mg IV BID 04/22/22 10/19/22 06/13/22 History intravenous solution (Keppra) morphine 50 mg/mL intravenous 5 mg subcut Q3-4H PRN Pain 04/22/22 07/07/22 10/24/22 History solution ciprofloxacin HCl 500 mg tablet 400 mg BID 10/19/22 10/24/22 Unknown History (Cipro) Exam Exam Date and Time: October 24, 2022 0744 Height,Weight and Vital Signs: Height 4 ft 11 in Weight 51.256 kg Last Vital Signs Temp 97.0 F 10/24/22 07:03 Pulse 101 H 10/24/22 07:03 Resp 18 10/24/22 07:03 BP 133/82 10/24/22 07:03 Pulse Ox 100 10/24/22 07:03 O2 Del Method 10/24/22 07:03 O2 Flow Rate 3 10/24/22 07:03 Airway Mallampati Class: III TM Dist: >3cm Neck ROM: Full Heart: rrr Lungs: cta Assessment and Plan Assessment Anesthesia Assessment: Anesthesia Plan Discussed and Chart Reviewed Final Anesthetic Review Family History of Problems with Anesthesia: No History of Problems with Anesthesia: No NPO: Yes ASA Class: III Final Preanesthetic Review: No Changes in Pt Med Stat, Meds/Allgs Chart Reviewed, Consent Obtained/Reviewed and Anes Risks/Benef Reviewed Patient Risk: Intermediate Procedure Risk: Low Anesthetic Plan Anesthetic Plan: MAC: Disposition: Standard PACU
--- NOTE | 2022-10-24 08:46 | W.PM.OPN ---
Operative Note Operative Note Date of Service: 10/24/22 Narrative: PreOperative Diagnosis:? Neurogenic bladder Post Operative Diagnosis:? Neurogenic bladder Procedure:? Suprapubic tube change Surgeon: Dr Denys Pereira Anesthesia:? Sedation Indications for procedure: Small neuronal disease with neurogenic bladder Procedure: After informed consent was verified the patient was brought to the operating room and placed in a supine position.? Anesthesia was administered per protocol. Marcela remained in her stretcher. The area was prepped with saline Suprapubic tube removed. 18 Fr catheter with double balloon placed Estefany Mesa
[2022-10-24] MEDS: HYDROmorphone HCl 0.5 MG/0.5 ML SYRINGE IVPUSH ×2 (09:06→09:33)
== END 2022-10-24 10:00 | disposition home or self-care (01) ==
PROVIDERS: PCP Internal Medicine; Visit Provider Urology
PROC: (CPT 51705; principal; 2022-10-24 08:10)
DX: N31.9 Neuromuscular dysfunction of bladder, unspecified (principal); G62.89 Other specified polyneuropathies; K31.84 Gastroparesis; E11.9 Type 2 diabetes mellitus without complications; J45.909 Unspecified asthma, uncomplicated; R56.9 Unspecified convulsions; Z87.440 Personal history of urinary (tract) infections; Z79.891 Long term (current) use of opiate analgesic; Z86.711 Personal history of pulmonary embolism; Z79.899 Other long term (current) drug therapy; Z88.8 Allergy status to other drugs, medicaments and biological substances; Z91.040 Latex allergy status
CPT/HCPCS: 51705; J1170; J2250; J3010

== ENCOUNTER → 2022-12-23 13:11 | Outpatient (BNVA) | payer MEDICAID, SELFPAY | PROVIDERS: PCP Internal Medicine; Visit Provider Urology ==

== ENCOUNTER 2023-01-11 07:08 | Day surgery (SDC) | payer OTHER, SELFPAY ==
[2023-01-06 14:01] VITALS: BMI 22.8
--- NOTE | 2023-01-10 09:22 | HO.ANESPROP2 ---
Documented by User: Lucila Bales NP 01/10/23 09:24 HPI - Anesthesia Eval Consult details Narrative: 32yo F for Suprapubic Tube Exchange Multiple comorbidities Last exchange 10/2022 with TIVA: Midaz 2, Prop 130 Chronic opioid *Multiple med allergies* PMFSH Active Problems Active Problems: All Active Problems (Updated 12/23/22 @ 13:30 by Denys Pereira MD) Bladder spasm (Acute) Neurogenic urinary bladder disorder (Acute) Neurologic disorder (Acute) Recurrent infections (Acute) Diarrhea associated with pseudomembranous colitis (Acute) Diarrhea (Acute) Gastroparesis (Acute) Past Medical History Medical History Asthma Bacterial infection Brain bleed Brain tumor Chronic, continuous use of opioids Constipation Diabetes Fungal infection Gastroparesis GERD (gastroesophageal reflux disease) History of jejunostomy tube placement Hx pulmonary embolism Hypothyroidism Neuropathy Seizures Septic arthritis Small fiber polyneuropathy Suprapubic catheter Unspecified convulsions VRE (vancomycin-resistant Enterococci) Family History Family History Father Skin cancer Mother No problems noted. 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) Alcohol intake: current Alcohol intake frequency: does not drink Patient Tobacco Use Status: Never used Tobacco Second Hand Smoke Exposure: No Advance Directives Date on File: 06/29/20 Meds Allergies Allergy/AdvReac Type Severity Reaction Status Date / Time lamotrigine [From LAMICTAL] Allergy Severe CLEMENTINA Verified 01/11/23 07:52 GUIDO SYNDROME chlorhexidine [CHLORHEXIDINE] Allergy Intermediate RASH Verified 01/11/23 07:52 citalopram [From CELEXA] Allergy Intermediate PROLONGED Verified 01/11/23 07:52 QT INTERVAL divalproex sodium Allergy Intermediate BLACK Verified 01/11/23 07:52 [From DEPAKOTE] EYES escitalopram [From LEXAPRO] Allergy Intermediate SWELLING Verified 01/11/23 07:52 lactose [LACTOSE] Allergy Intermediate GI UPSET Verified 01/11/23 07:52 povidone-iodine Allergy Intermediate rash Verified 01/11/23 07:52 [From BETADINE] alprazolam [From Xanax] Allergy Mild Unknown Verified 01/11/23 07:52 sertraline [From Zoloft] Allergy Mild unknown Verified 01/11/23 07:52 ziprasidone [From Geodon] Allergy Mild dystonia Verified 01/11/23 07:52 clonazepam [From Klonopin] Allergy agitation Verified 01/11/23 07:52 lorazepam [From Ativan] Allergy agitation Verified 01/11/23 07:52 latex AdvReac Swelling Verified 01/11/23 07:52 BEETS Allergy Intermediate SWELLING Uncoded 12/23/22 13:13 STATLOC Allergy Intermediate RASH Uncoded 12/23/22 13:13 Home Medications Medication Instructions Recorded Confirmed Last Taken Type albuterol sulfate 90 mcg/actuation 2 puff inhalation 6XD PRN Wheezing 06/25/20 12/23/22 10/24/22 History aerosol inhaler diphenhydramine HCl 50 mg/mL 50 mg IV Q4H 06/25/20 12/23/22 10/24/22 History injection solution pantoprazole 40 mg intravenous 40 mg IV BID 06/25/20 12/23/22 10/24/22 History solution (Protonix) acetaminophen 500 mg/15 mL oral 500 mg feeding tube QID PRN Pain 10/06/20 12/23/22 Unknown History liquid baclofen 5 mg/5 mL oral solution 15 mg feeding tube TID 10/06/20 12/23/22 10/24/22 History benztropine 1 mg tablet 1 mg feeding tube BEDTIME 10/06/20 12/23/22 05/18/22 History famotidine (PF) 20 mg/50 mL in 0.9 20 mg IV DAILY 10/06/20 12/23/22 10/24/22 History % NaCl (iso) intravenous piggyback fludrocortisone 0.1 mg tablet 0.1 mg feeding tube DAILY 10/06/20 12/23/22 10/24/22 History ipratropium 0.5 mg-albuterol 3 mg 3 ml inhalation Q6-8H PRN 10/06/20 12/23/22 Unknown History (2.5 mg base)/3 mL nebulization Shortness Of Breath Or Wheezing soln levothyroxine 112 mcg/mL oral 100 mcg feeding tube DAILY 10/06/20 12/23/22 05/18/22 History solution methenamine hippurate 1 gram 1 g feeding tube BID 10/06/20 12/23/22 06/13/22 History tablet (Hiprex) midodrine 10 mg tablet 10 mg feeding tube TID 10/06/20 12/23/22 10/24/22 History topiramate 200 mg tablet (Topamax) 200 mg feeding tube BID 10/06/20 12/23/22 10/24/22 History magnesium hydroxide 400 mg/5 mL 30 ml feeding tube DIRECTED PRN 11/12/20 12/23/22 Unknown History oral suspension (Milk of Magnesia) Gastric Reflux promethazine 25 mg/mL injection 25 mg IV TID 11/12/20 12/23/22 10/24/22 History solution (Phenergan) lidocaine 5 % topical ointment 1 appl topical QID PRN Pain 06/03/21 12/23/22 Unknown History Immuglobin IV TU 02/11/22 12/23/22 Unknown History Lactobacillus rhamnosus GG 10 1 cap feeding tube BID 02/11/22 12/23/22 10/24/22 History billion cell capsule (Culturelle) benztropine 0.5 mg tablet 0.5 mg feeding tube DAILY 02/11/22 12/23/22 10/24/22 History diazepam 5 mg/5 mL (1 mg/mL) oral 3 mg feeding tube BID@0900,1200 02/11/22 12/23/22 10/24/22 History solution diazepam 5 mg/5 mL (1 mg/mL) oral 5 mg feeding tube BEDTIME 02/11/22 12/23/22 Unknown History solution enoxaparin 40 mg/0.4 mL 40 mg subcut DAILY 02/11/22 12/23/22 08/22/22 History subcutaneous syringe furosemide 40 mg tablet 60 mg feeding tube BID 02/11/22 12/23/22 10/24/22 History gabapentin 300 mg/6 mL (6 mL) oral 600 mg feeding tube BID@0900,1400 02/11/22 12/23/22 10/24/22 History solution gabapentin 300 mg/6 mL (6 mL) oral 800 mg feeding tube BEDTIME 02/11/22 12/23/22 Unknown History solution hydrocortisone sod succinate 100 0.05 mg IV DAILY@1200 02/11/22 12/23/22 Unknown History mg solution for injection (Solu-Cortef) hydrocortisone sod succinate 100 0.1 mg IV DAILY 02/11/22 12/23/22 10/24/22 History mg solution for injection (Solu-Cortef) loxapine succinate 10 mg capsule 70 mg feeding tube BID 02/11/22 12/23/22 10/24/22 History methylnaltrexone 8 mg/0.4 mL 8 mg subcut DAILY 02/11/22 12/23/22 Unknown History subcutaneous syringe (Relistor) ondansetron HCl (PF) 4 mg/2 mL 4 mg IV Q4H PRN nausea and vomiting 02/11/22 12/23/22 10/24/22 History injection syringe fluticasone propionate 110 1 puff inhalation BID 04/22/22 12/23/22 05/18/22 History mcg/actuation HFA aerosol inhaler (Flovent HFA) levetiracetam 500 mg/5 mL 500 mg IV BID 04/22/22 12/23/22 06/13/22 History intravenous solution (Keppra) ciprofloxacin HCl 500 mg tablet 400 mg BID 10/19/22 12/23/22 Unknown History (Cipro) hydromorphone 1 mg/mL oral liquid 4 mg PO Q3H 11/17/22 12/23/22 Unknown History (Dilaudid) baclofen 5 mg tablet 15 mg PO TID 12/23/22 12/23/22 Unknown History gabapentin 400 mg capsule 800 mg PO BID 12/23/22 12/23/22 Unknown History diazepam 5 mg/5 mL (1 mg/mL) oral 1 mg PO PRN Anxiety 01/11/23 Unknown History solution Exam Exam Date and Time: January 10, 2023921 Height,Weight and Vital Signs: Height 4 ft 11 in Weight 51.2 kg Assessment and Plan Assessment Anesthesia Assessment: Chart Reviewed Final Anesthetic Review Family History of Problems with Anesthesia: No History of Problems with Anesthesia: No Documented by User: John Armenta MD 01/11/23 09:02 [facility] Past Medical History Medical History Asthma Bacterial infection Brain bleed Brain tumor Chronic, continuous use of opioids Constipation Diabetes Fungal infection Gastroparesis GERD (gastroesophageal reflux disease) History of jejunostomy tube placement Hx pulmonary embolism Hypothyroidism Neuropathy Seizures Septic arthritis Small fiber polyneuropathy Suprapubic catheter Unspecified convulsions VRE (vancomycin-resistant Enterococci) Patient : No Family History Family History Father Skin cancer Mother No problems noted. 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) Alcohol intake: current Alcohol intake frequency: does not drink Patient Tobacco Use Status: Never used Tobacco Second Hand Smoke Exposure: No Advance Directives Date on File: 06/29/20 Meds Allergies Allergy/AdvReac Type Severity Reaction Status Date / Time lamotrigine [From LAMICTAL] Allergy Severe CLEMENTINA Verified 01/11/23 07:52 GUIDO SYNDROME chlorhexidine [CHLORHEXIDINE] Allergy Intermediate RASH Verified 01/11/23 07:52 citalopram [From CELEXA] Allergy Intermediate PROLONGED Verified 01/11/23 07:52 QT INTERVAL divalproex sodium Allergy Intermediate BLACK Verified 01/11/23 07:52 [From DEPAKOTE] EYES escitalopram [From LEXAPRO] Allergy Intermediate SWELLING Verified 01/11/23 07:52 lactose [LACTOSE] Allergy Intermediate GI UPSET Verified 01/11/23 07:52 povidone-iodine Allergy Intermediate rash Verified 01/11/23 07:52 [From BETADINE] alprazolam [From Xanax] Allergy Mild Unknown Verified 01/11/23 07:52 sertraline [From Zoloft] Allergy Mild unknown Verified 01/11/23 07:52 ziprasidone [From Geodon] Allergy Mild dystonia Verified 01/11/23 07:52 clonazepam [From Klonopin] Allergy agitation Verified 01/11/23 07:52 lorazepam [From Ativan] Allergy agitation Verified 01/11/23 07:52 latex AdvReac Swelling Verified 01/11/23 07:52 BEETS Allergy Intermediate SWELLING Uncoded 12/23/22 13:13 STATLOC Allergy Intermediate RASH Uncoded 12/23/22 13:13 Home Medications Medication Instructions Recorded Confirmed Last Taken Type albuterol sulfate 90 mcg/actuation 2 puff inhalation 6XD PRN Wheezing 06/25/20 12/23/22 10/24/22 History aerosol inhaler diphenhydramine HCl 50 mg/mL 50 mg IV Q4H 06/25/20 12/23/22 10/24/22 History injection solution pantoprazole 40 mg intravenous 40 mg IV BID 06/25/20 12/23/22 10/24/22 History solution (Protonix) acetaminophen 500 mg/15 mL oral 500 mg feeding tube QID PRN Pain 10/06/20 12/23/22 Unknown History liquid baclofen 5 mg/5 mL oral solution 15 mg feeding tube TID 10/06/20 12/23/22 10/24/22 History benztropine 1 mg tablet 1 mg feeding tube BEDTIME 10/06/20 12/23/22 05/18/22 History famotidine (PF) 20 mg/50 mL in 0.9 20 mg IV DAILY 10/06/20 12/23/22 10/24/22 History % NaCl (iso) intravenous piggyback fludrocortisone 0.1 mg tablet 0.1 mg feeding tube DAILY 10/06/20 12/23/22 10/24/22 History ipratropium 0.5 mg-albuterol 3 mg 3 ml inhalation Q6-8H PRN 10/06/20 12/23/22 Unknown History (2.5 mg base)/3 mL nebulization Shortness Of Breath Or Wheezing soln levothyroxine 112 mcg/mL oral 100 mcg feeding tube DAILY 10/06/20 12/23/22 05/18/22 History solution methenamine hippurate 1 gram 1 g feeding tube BID 10/06/20 12/23/22 06/13/22 History tablet (Hiprex) midodrine 10 mg tablet 10 mg feeding tube TID 10/06/20 12/23/22 10/24/22 History topiramate 200 mg tablet (Topamax) 200 mg feeding tube BID 10/06/20 12/23/22 10/24/22 History magnesium hydroxide 400 mg/5 mL 30 ml feeding tube DIRECTED PRN 11/12/20 12/23/22 Unknown History oral suspension (Milk of Magnesia) Gastric Reflux promethazine 25 mg/mL injection 25 mg IV TID 11/12/20 12/23/22 10/24/22 History solution (Phenergan) lidocaine 5 % topical ointment 1 appl topical QID PRN Pain 06/03/21 12/23/22 Unknown History Immuglobin IV TU 02/11/22 12/23/22 Unknown History Lactobacillus rhamnosus GG 10 1 cap feeding tube BID 02/11/22 12/23/22 10/24/22 History billion cell capsule (Culturelle) benztropine 0.5 mg tablet 0.5 mg feeding tube DAILY 02/11/22 12/23/22 10/24/22 History diazepam 5 mg/5 mL (1 mg/mL) oral 3 mg feeding tube BID@0900,1200 02/11/22 12/23/22 10/24/22 History solution diazepam 5 mg/5 mL (1 mg/mL) oral 5 mg feeding tube BEDTIME 02/11/22 12/23/22 Unknown History solution enoxaparin 40 mg/0.4 mL 40 mg subcut DAILY 02/11/22 12/23/22 08/22/22 History subcutaneous syringe furosemide 40 mg tablet 60 mg feeding tube BID 02/11/22 12/23/22 10/24/22 History gabapentin 300 mg/6 mL (6 mL) oral 600 mg feeding tube BID@0900,1400 02/11/22 12/23/22 10/24/22 History solution gabapentin 300 mg/6 mL (6 mL) oral 800 mg feeding tube BEDTIME 02/11/22 12/23/22 Unknown History solution hydrocortisone sod succinate 100 0.05 mg IV DAILY@1200 02/11/22 12/23/22 Unknown History mg solution for injection (Solu-Cortef) hydrocortisone sod succinate 100 0.1 mg IV DAILY 02/11/22 12/23/22 10/24/22 History mg solution for injection (Solu-Cortef) loxapine succinate 10 mg capsule 70 mg feeding tube BID 02/11/22 12/23/22 10/24/22 History methylnaltrexone 8 mg/0.4 mL 8 mg subcut DAILY 02/11/22 12/23/22 Unknown History subcutaneous syringe (Relistor) ondansetron HCl (PF) 4 mg/2 mL 4 mg IV Q4H PRN nausea and vomiting 02/11/22 12/23/22 10/24/22 History injection syringe fluticasone propionate 110 1 puff inhalation BID 04/22/22 12/23/22 05/18/22 History mcg/actuation HFA aerosol inhaler (Flovent HFA) levetiracetam 500 mg/5 mL 500 mg IV BID 04/22/22 12/23/22 06/13/22 History intravenous solution (Keppra) ciprofloxacin HCl 500 mg tablet 400 mg BID 10/19/22 12/23/22 Unknown History (Cipro) hydromorphone 1 mg/mL oral liquid 4 mg PO Q3H 11/17/22 12/23/22 Unknown History (Dilaudid) baclofen 5 mg tablet 15 mg PO TID 12/23/22 12/23/22 Unknown History gabapentin 400 mg capsule 800 mg PO BID 12/23/22 12/23/22 Unknown History diazepam 5 mg/5 mL (1 mg/mL) oral 1 mg PO PRN Anxiety 01/11/23 Unknown History solution Exam Airway Mallampati Class: I TM Dist: <=3cm Neck ROM: Full Heart: ok Lungs: ok Assessment and Plan Assessment Anesthesia Assessment: Anesthesia Plan Discussed Final Anesthetic Review NPO: Yes ASA Class: III Final Preanesthetic Review: No Changes in Pt Med Stat, Meds/Allgs Chart Reviewed, Consent Obtained/Reviewed and Anes Risks/Benef Reviewed Patient Risk: Intermediate Procedure Risk: Low Anesthetic Plan Anesthetic Plan: MAC: and Agree w/ Assess. and Plan Disposition: Standard PACU
[2023-01-11 07:58] VITALS: BP 106/75; PULSE 97; RESP 16; TEMP 36.1; O2SAT 98
[2023-01-11] MEDS: Lactated Ringers 1,000 ML 100 ML IVCONT (08:08)
--- NOTE | 2023-01-11 08:09 | P.HPSUR_ITS ---
Pre-Procedural Eval Section A Date of Service: 01/11/23 The patient is an INPATIENT: No Changes since office visit: No Cold of Flu in the past 2 weeks, No New Medical Problems, No Changes in Medication and No Patient answered all questions The History & Physical has been completed within 30 days and I have reviewed it.: No Section B Chief Complaint: Neuromuscular dysfunction of bladder, unspecified Details of Present Illness: spt change Relevant Family History (Specify if Yes): No Relevant Social History: None Present Medications: see Short Stay Collaborative assessment Medical History: Significant History History of Previous Operations: Relevant previous surgery/procedure and date(s) Allergies: Allergies Allergy/AdvReac Type Severity Reaction Status Date / Time lamotrigine [From LAMICTAL] Allergy Severe CLEMENTINA Verified 01/11/23 07:52 GUIDO SYNDROME chlorhexidine [CHLORHEXIDINE] Allergy Intermediate RASH Verified 01/11/23 07:52 citalopram [From CELEXA] Allergy Intermediate PROLONGED Verified 01/11/23 07:52 QT INTERVAL divalproex sodium Allergy Intermediate BLACK Verified 01/11/23 07:52 [From DEPAKOTE] EYES escitalopram [From LEXAPRO] Allergy Intermediate SWELLING Verified 01/11/23 07:52 lactose [LACTOSE] Allergy Intermediate GI UPSET Verified 01/11/23 07:52 povidone-iodine Allergy Intermediate rash Verified 01/11/23 07:52 [From BETADINE] alprazolam [From Xanax] Allergy Mild Unknown Verified 01/11/23 07:52 sertraline [From Zoloft] Allergy Mild unknown Verified 01/11/23 07:52 ziprasidone [From Geodon] Allergy Mild dystonia Verified 01/11/23 07:52 clonazepam [From Klonopin] Allergy agitation Verified 01/11/23 07:52 lorazepam [From Ativan] Allergy agitation Verified 01/11/23 07:52 latex AdvReac Swelling Verified 01/11/23 07:52 BEETS Allergy Intermediate SWELLING Uncoded 12/23/22 13:13 STATLOC Allergy Intermediate RASH Uncoded 12/23/22 13:13 Review of Systems Sugical H&P ROS: Negative: Constitution, Cardiovascular, Respiratory, Neurological, Psychiatric, Hem-Onc, Allergic/Immunologic, Gastrointestinal, Genitourinary, Musculoskeletal, Integumentary, Endocrine and Eyes/E ars/Nose/Throat Exam Surgical H&P Exam: Normal: HEENT, Normal: Heart, Normal: Lungs, Normal: Extremities, Normal: Abdomen, Normal: Skin and Normal: Neurological Plan Diagnosis/Plan: Unchanged (suprapubic tube change) I have reviewed the history and physical and performed a pertinent physical examination on my patient. No changes have occurred unless specified. Time Spent With Patient Time: Total time managing care of this patient today ____ minutes.
--- NOTE | 2023-01-11 08:49 | W.PM.OPN ---
Operative Note Operative Note Date of Service: 01/11/23 Narrative: PreOperative Diagnosis:? Neurogenic bladder Post Operative Diagnosis:? Neurogenic bladder Procedure:? Suprapubic tube change Surgeon:?Dr Denys Pereira Anesthesia:? Sedation Indications for procedure: Small neuronal disease with neurogenic bladder Procedure: After informed consent was verified the patient was brought to the operating room and placed in a supine position.? Anesthesia was administered per protocol. Marcela remained in her stretcher. The area was prepped with saline Suprapubic tube removed. 18 Fr catheter with double balloon placed Estefany Mesa
[2023-01-11 08:56] VITALS: BP 100/65; PULSE 87; RESP 18; TEMP 36.4; O2SAT 100
[2023-01-11] MEDS: HYDROmorphone HCl 1 MG/ML SYRINGE 0.75 MG IVPUSH ×2 (08:59→09:20)
[2023-01-11 09:10] VITALS: BP 119/74; PULSE 95; RESP 18; TEMP 36.4; O2SAT 100
[2023-01-11 09:25] VITALS: BP 119/74; PULSE 95; RESP 18; TEMP 36.4; O2SAT 100
== END 2023-01-11 09:29 | disposition home or self-care (01) ==
PROVIDERS: PCP Internal Medicine; Visit Provider Urology
PROC: (CPT 51705; principal; 2023-01-11 08:50)
DX: Z43.5 Encounter for attention to cystostomy (principal); N31.9 Neuromuscular dysfunction of bladder, unspecified; E11.9 Type 2 diabetes mellitus without complications; J45.909 Unspecified asthma, uncomplicated
CPT/HCPCS: 51705; J1170; J2250

== ENCOUNTER → 2023-02-27 09:51 | Outpatient (BNVA) | payer OTHER, SELFPAY | PROVIDERS: PCP Internal Medicine; Visit Provider Internal Medicine Gastroenterology ==

== ENCOUNTER 2023-03-08 10:09 | Day surgery (SDC) | payer OTHER, SELFPAY ==
[2023-02-24 13:46] VITALS: BMI 22.8
--- NOTE | 2023-02-28 10:13 | P.CONAN_ITS ---
Documented by User: Lucila Bales NP 03/06/23 13:23 HPI - Anesthesia Eval Consult details Narrative: 32yo F for Suprapubic Tube Exchange 03/08/23 Multiple comorbidities Last exchange 01/2023 with [facility]IVA: Midaz 2, Prop 60, Lido 20 Chronic opioid *Multiple med allergies* PMFSH Active Problems Active Problems: All Active Problems (Updated 02/24/23 @ 13:38 by Nita Sigala RN) Neurogenic urinary bladder disorder (Acute) Neurologic disorder (Acute) Recurrent infections (Acute) Diarrhea associated with pseudomembranous colitis (Acute) Diarrhea (Acute) Bladder spasm (Acute) Gastroparesis (Acute) Past Medical History Medical History Asthma Bacterial infection Brain bleed Brain tumor Chronic, continuous use of opioids Constipation Diabetes Fungal infection Gastroparesis GERD (gastroesophageal reflux disease) History of jejunostomy tube placement Hx pulmonary embolism Hypothyroidism Neuropathy Seizures Septic arthritis Small fiber polyneuropathy Suprapubic catheter Unspecified convulsions VRE (vancomycin-resistant Enterococci) Family History Family History Father Skin cancer Mother No problems noted. 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 Household Members Other:: live in aid Housing Other:: 24 hour care - live in aid Are you a primary social worker palliative care to a significant other at home: No Do you presently have visiting nurse or other home services: Yes (03/04 live in aid) Alcohol intake: current Alcohol intake frequency: does not drink Patient Tobacco Use Status: Never used Tobacco Second Hand Smoke Exposure: No Use of substances other than those prescribed or required for medical reasons: No Advance Directives: Yes Advance Directives Information Provided: Yes Advance Directives on File: Yes Advance Directives Date on File: 06/29/20 Patient : No Meds Allergies Allergy/AdvReac Type Severity Reaction Status Date / Time lamotrigine [From LAMICTAL] Allergy Severe CLEMENTINA Verified 02/27/23 09:52 GUIDO SYNDROME chlorhexidine [CHLORHEXIDINE] Allergy Intermediate RASH Verified 02/27/23 09:52 citalopram [From CELEXA] Allergy Intermediate PROLONGED Verified 02/27/23 09:52 QT INTERVAL divalproex sodium Allergy Intermediate BLACK Verified 02/27/23 09:52 [From DEPAKOTE] EYES escitalopram [From LEXAPRO] Allergy Intermediate SWELLING Verified 02/27/23 09:52 lactose [LACTOSE] Allergy Intermediate GI UPSET Verified 02/27/23 09:52 povidone-iodine Allergy Intermediate rash Verified 02/27/23 09:52 [From BETADINE] alprazolam [From Xanax] Allergy Mild Unknown Verified 02/27/23 09:52 sertraline [From Zoloft] Allergy Mild unknown Verified 02/27/23 09:52 ziprasidone [From Geodon] Allergy Mild dystonia Verified 02/27/23 09:52 clonazepam [From Klonopin] Allergy agitation Verified 02/27/23 09:52 lorazepam [From Ativan] Allergy agitation Verified 02/27/23 09:52 latex AdvReac Swelling Verified 02/27/23 09:52 BEETS Allergy Intermediate SWELLING Uncoded 02/27/23 09:52 STATLOC Allergy Intermediate RASH Uncoded 02/27/23 09:52 Home Medications Medication Instructions Recorded Confirmed Last Taken Type albuterol sulfate 90 mcg/actuation 2 puff inhalation 6XD PRN Wheezing 06/25/20 02/24/23 10/24/22 History aerosol inhaler diphenhydramine HCl 50 mg/mL 50 mg IV Q4H 06/25/20 02/24/23 10/24/22 History injection solution pantoprazole 40 mg intravenous 40 mg IV BID 06/25/20 02/24/23 10/24/22 History solution (Protonix) acetaminophen 500 mg/15 mL oral 500 mg feeding tube QID PRN Pain 10/06/20 02/24/23 Unknown History liquid baclofen 5 mg/5 mL oral solution 15 mg feeding tube TID 10/06/20 02/24/23 10/24/22 History benztropine 1 mg tablet 1 mg feeding tube BEDTIME 01/2612/23/22 05/18/22 History famotidine (PF) 20 mg/50 mL in 0.9 20 mg IV DAILY 10/06/20 02/24/23 10/24/22 History % NaCl (iso) intravenous piggyback fludrocortisone 0.1 mg tablet 0.1 mg feeding tube DAILY 10/06/20 02/24/23 10/24/22 History ipratropium 0.5 mg-albuterol 3 mg 3 ml inhalation Q6-8H PRN 10/06/20 02/24/23 Unknown History (2.5 mg base)/3 mL nebulization Shortness Of Breath Or Wheezing soln levothyroxine 112 mcg/mL oral 100 mcg feeding tube DAILY 10/06/20 02/24/23 05/18/22 History solution methenamine hippurate 1 gram 1 g feeding tube BID 10/06/20 02/24/23 06/13/22 History tablet (Hiprex) midodrine 10 mg tablet 10 mg feeding tube TID 10/06/20 02/24/23 10/24/22 History topiramate 200 mg tablet (Topamax) 200 mg feeding tube BID 10/06/20 02/24/23 10/24/22 History magnesium hydroxide 400 mg/5 mL 30 ml feeding tube DIRECTED PRN 11/12/20 02/24/23 Unknown History oral suspension (Milk of Magnesia) Gastric Reflux promethazine 25 mg/mL injection 25 mg IV TID 11/12/20 02/24/23 10/24/22 History solution (Phenergan) lidocaine 5 % topical ointment 1 appl topical QID PRN Pain 06/03/21 02/24/23 Unknown History Immuglobin IV TU 02/11/22 12/23/22 Unknown History Lactobacillus rhamnosus GG 10 1 cap feeding tube BID 02/11/22 12/23/22 10/24/22 History billion cell capsule (Culturelle) benztropine 0.5 mg tablet 0.5 mg feeding tube DAILY 02/11/22 02/24/23 10/24/22 History diazepam 5 mg/5 mL (1 mg/mL) oral 3 mg feeding tube BID@0900,1200 02/11/22 02/24/23 10/24/22 History solution diazepam 5 mg/5 mL (1 mg/mL) oral 5 mg feeding tube BEDTIME 02/11/22 02/24/23 Unknown History solution enoxaparin 40 mg/0.4 mL 40 mg subcut DAILY 02/11/22 02/24/23 08/22/22 History subcutaneous syringe furosemide 40 mg tablet 60 mg feeding tube BID 02/11/22 02/24/23 10/24/22 History gabapentin 300 mg/6 mL (6 mL) oral 600 mg feeding tube BID@0900,1400 02/11/22 02/24/23 10/24/22 History solution gabapentin 300 mg/6 mL (6 mL) oral 800 mg feeding tube BEDTIME 02/11/22 02/24/23 Unknown History solution hydrocortisone sod succinate 100 0.05 mg IV DAILY@1200 02/11/22 12/23/22 Unknown History mg solution for injection (Solu-Cortef) hydrocortisone sod succinate 100 0.1 mg IV DAILY 02/11/22 12/23/22 10/24/22 History mg solution for injection (Solu-Cortef) loxapine succinate 10 mg capsule 70 mg feeding tube BID 02/11/22 02/24/23 10/24/22 History methylnaltrexone 8 mg/0.4 mL 8 mg subcut DAILY 02/11/22 12/23/22 Unknown History subcutaneous syringe (Relistor) ondansetron HCl (PF) 4 mg/2 mL 4 mg IV Q4H PRN nausea and vomiting 02/11/22 02/24/23 10/24/22 History injection syringe fluticasone propionate 110 1 puff inhalation BID 04/22/22 02/24/23 05/18/22 History mcg/actuation HFA aerosol inhaler (Flovent HFA) levetiracetam 500 mg/5 mL 500 mg IV BID 04/22/22 02/24/23 06/13/22 History intravenous solution (Keppra) ciprofloxacin HCl 500 mg tablet 400 mg BID 10/19/22 12/23/22 Unknown History (Cipro) hydromorphone 1 mg/mL oral liquid 4 mg PO Q3H 11/17/22 02/24/23 Unknown History (Dilaudid) baclofen 5 mg tablet 15 mg PO TID 12/23/22 12/23/22 Unknown History gabapentin 400 mg capsule 800 mg PO BID 12/23/22 12/23/22 Unknown History diazepam 5 mg/5 mL (1 mg/mL) oral 1 mg PO PRN Anxiety 01/11/23 Unknown History solution fremanezumab-vfrm 225 mg/1.5 mL mg subcut 02/27/23 Unknown History subcutaneous auto-injector (Ajovy) mirabegron 8 mg/mL oral mg PO 02/27/23 Unknown History suspension,extended release (Myrbetriq) sennosides 8.6 mg tablet (senna) 17.2 mg PO BID 02/27/23 Unknown History Exam Exam Date and Time: February 28, 2023 1013 Height,Weight and Vital Signs: Height 4 ft 11 in Weight 51.2 kg Assessment and Plan Assessment Anesthesia Assessment: Chart Reviewed Final Anesthetic Review Family History of Problems with Anesthesia: No History of Problems with Anesthesia: No Documented by User: John Armenta MD 03/08/23 12:19 [facility], [facility] Past Medical History Medical History Asthma Bacterial infection Brain bleed Brain tumor Chronic, continuous use of opioids Constipation Diabetes Fungal infection Gastroparesis GERD (gastroesophageal reflux disease) History of jejunostomy tube placement Hx pulmonary embolism Hypothyroidism Neuropathy Seizures Septic arthritis Small fiber polyneuropathy Suprapubic catheter Unspecified convulsions VRE (vancomycin-resistant Enterococci) Patient : No Family History Family History Father Skin cancer Mother No problems noted. 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 Household Members Other:: live in aid Housing Other:: 24 hour care - live in aid Are you a primary social worker palliative care to a significant other at home: No Do you presently have visiting nurse or other home services: Yes (03/04 live in aid) Alcohol intake: current Alcohol intake frequency: does not drink Patient Tobacco Use Status: Never used Tobacco Second Hand Smoke Exposure: No Use of substances other than those prescribed or required for medical reasons: No Advance Directives: Yes Advance Directives Information Provided: Yes Advance Directives on File: Yes Advance Directives Date on File: 06/29/20 Patient : No Meds Allergies Allergy/AdvReac Type Severity Reaction Status Date / Time lamotrigine [From LAMICTAL] Allergy Severe CLEMENTINA Verified 02/27/23 09:52 GUIDO SYNDROME chlorhexidine [CHLORHEXIDINE] Allergy Intermediate RASH Verified 02/27/23 09:52 citalopram [From CELEXA] Allergy Intermediate PROLONGED Verified 02/27/23 09:52 QT INTERVAL divalproex sodium Allergy Intermediate BLACK Verified 02/27/23 09:52 [From DEPAKOTE] EYES escitalopram [From LEXAPRO] Allergy Intermediate SWELLING Verified 02/27/23 09:52 lactose [LACTOSE] Allergy Intermediate GI UPSET Verified 02/27/23 09:52 povidone-iodine Allergy Intermediate rash Verified 02/27/23 09:52 [From BETADINE] alprazolam [From Xanax] Allergy Mild Unknown Verified 02/27/23 09:52 sertraline [From Zoloft] Allergy Mild unknown Verified 02/27/23 09:52 ziprasidone [From Geodon] Allergy Mild dystonia Verified 02/27/23 09:52 clonazepam [From Klonopin] Allergy agitation Verified 02/27/23 09:52 lorazepam [From Ativan] Allergy agitation Verified 02/27/23 09:52 latex AdvReac Swelling Verified 02/27/23 09:52 BEETS Allergy Intermediate SWELLING Uncoded 02/27/23 09:52 STATLOC Allergy Intermediate RASH Uncoded 02/27/23 09:52 Home Medications Medication Instructions Recorded Confirmed Last Taken Type albuterol sulfate 90 mcg/actuation 2 puff inhalation 6XD PRN Wheezing 06/25/20 02/24/23 10/24/22 History aerosol inhaler diphenhydramine HCl 50 mg/mL 50 mg IV Q4H 06/25/20 02/24/23 10/24/22 History injection solution pantoprazole 40 mg intravenous 40 mg IV BID 06/25/20 02/24/23 10/24/22 History solution (Protonix) acetaminophen 500 mg/15 mL oral 500 mg feeding tube QID PRN Pain 10/06/20 02/24/23 Unknown History liquid baclofen 5 mg/5 mL oral solution 15 mg feeding tube TID 10/06/20 02/24/23 10/24/22 History benztropine 1 mg tablet 1 mg feeding tube BEDTIME 10/06/20 12/23/22 05/18/22 History famotidine (PF) 20 mg/50 mL in 0.9 20 mg IV DAILY 10/06/20 02/24/23 10/24/22 History % NaCl (iso) intravenous piggyback fludrocortisone 0.1 mg tablet 0.1 mg feeding tube DAILY 10/06/20 02/24/23 10/24/22 History ipratropium 0.5 mg-albuterol 3 mg 3 ml inhalation Q6-8H PRN 10/06/20 02/24/23 Unknown History (2.5 mg base)/3 mL nebulization Shortness Of Breath Or Wheezing soln levothyroxine 112 mcg/mL oral 100 mcg feeding tube DAILY 10/06/20 02/24/23 05/18/22 History solution methenamine hippurate 1 gram 1 g feeding tube BID 10/06/20 02/24/23 06/13/22 History tablet (Hiprex) midodrine 10 mg tablet 10 mg feeding tube TID 10/06/20 02/24/23 10/24/22 History topiramate 200 mg tablet (Topamax) 200 mg feeding tube BID 10/06/20 02/24/23 10/24/22 History magnesium hydroxide 400 mg/5 mL 30 ml feeding tube DIRECTED PRN 11/12/20 02/24/23 Unknown History oral suspension (Milk of Magnesia) Gastric Reflux promethazine 25 mg/mL injection 25 mg IV TID 11/12/20 02/24/23 10/24/22 History solution (Phenergan) lidocaine 5 % topical ointment 1 appl topical QID PRN Pain 06/03/21 02/24/23 Unknown History Immuglobin IV TU 02/11/22 12/23/22 Unknown History Lactobacillus rhamnosus GG 10 1 cap feeding tube BID 02/11/22 12/23/22 10/24/22 History billion cell capsule (Culturelle) benztropine 0.5 mg tablet 0.5 mg feeding tube DAILY 02/11/22 02/24/23 10/24/22 History diazepam 5 mg/5 mL (1 mg/mL) oral 3 mg feeding tube BID@0900,1200 02/11/22 02/24/23 10/24/22 History solution diazepam 5 mg/5 mL (1 mg/mL) oral 5 mg feeding tube BEDTIME 02/11/22 02/24/23 Unknown History solution enoxaparin 40 mg/0.4 mL 40 mg subcut DAILY 02/11/22 02/24/23 08/22/22 History subcutaneous syringe furosemide 40 mg tablet 60 mg feeding tube BID 02/11/22 02/24/23 10/24/22 History gabapentin 300 mg/6 mL (6 mL) oral 600 mg feeding tube BID@0900,1400 02/11/22 02/24/23 10/24/22 History solution gabapentin 300 mg/6 mL (6 mL) oral 800 mg feeding tube BEDTIME 02/11/22 02/24/23 Unknown History solution hydrocortisone sod succinate 100 0.05 mg IV DAILY@1200 02/11/22 12/23/22 Unknown History mg solution for injection (Solu-Cortef) hydrocortisone sod succinate 100 0.1 mg IV DAILY 02/11/22 12/23/22 10/24/22 History mg solution for injection (Solu-Cortef) loxapine succinate 10 mg capsule 70 mg feeding tube BID 02/11/22 02/24/23 10/24/22 History methylnaltrexone 8 mg/0.4 mL 8 mg subcut DAILY 02/11/22 12/23/22 Unknown History subcutaneous syringe (Relistor) ondansetron HCl (PF) 4 mg/2 mL 4 mg IV Q4H PRN nausea and vomiting 02/11/22 02/24/23 10/24/22 History injection syringe fluticasone propionate 110 1 puff inhalation BID 04/22/22 02/24/23 05/18/22 History mcg/actuation HFA aerosol inhaler (Flovent HFA) levetiracetam 500 mg/5 mL 500 mg IV BID 04/22/22 02/24/2306/13/22 History intravenous solution (Keppra) ciprofloxacin HCl 500 mg tablet 400 mg BID 10/19/22 12/23/22 Unknown History (Cipro) hydromorphone 1 mg/mL oral liquid 4 mg PO Q3H 11/17/22 02/24/23 Unknown History (Dilaudid) baclofen 5 mg tablet 15 mg PO TID 12/23/22 12/23/22 Unknown History gabapentin 400 mg capsule 800 mg PO BID 12/23/22 12/23/22 Unknown History diazepam 5 mg/5 mL (1 mg/mL) oral 1 mg PO PRN Anxiety 01/11/23 Unknown History solution fremanezumab-vfrm 225 mg/1.5 mL mg subcut 02/27/23 Unknown History subcutaneous auto-injector (Ajovy) mirabegron 8 mg/mL oral mg PO 02/27/23 Unknown History suspension,extended release (Myrbetriq) sennosides 8.6 mg tablet (senna) 17.2 mg PO BID 02/27/23 Unknown History Exam Airway Mallampati Class: III TM Dist: <=3cm Neck ROM: Full Loose/Missing/Broken Teeth: Yes and Lower Heart: ok Lungs: ok Other: SpO2 on 3L NC is 100%. She insists that she must be on 3L NC minimum at all times Assessment and Plan Assessment Anesthesia Assessment: Anesthesia Plan Discussed Final Anesthetic Review NPO: Yes ASA Class: III Final Preanesthetic Review: No Changes in Pt Med Stat, Meds/Allgs Chart Reviewed, Consent Obtained/Reviewed and Anes Risks/Benef Reviewed Patient Risk: Intermediate Procedure Risk: Low Anesthetic Plan Anesthetic Plan: MAC: and Agree w/ Assess. and Plan Disposition: Standard PACU
[2023-03-08 10:45] VITALS: BP 119/84; PULSE 98; RESP 20; TEMP 36.3; O2SAT 100
[2023-03-08 10:54] LABS: Glucose, Whole Blood 93 mg/dL (60-115)
--- NOTE | 2023-03-08 11:25 | PC.NURSE ---
No HCG lab testing to be done per DR Romero. Order cancelled.
--- NOTE | 2023-03-08 12:42 | W.PM.OPN ---
Operative Note Operative Note Date of Service: 03/08/23 Narrative: PreOperative Diagnosis:? Neurogenic bladder Post Operative Diagnosis:? Neurogenic bladder Procedure:? Suprapubic tube change Surgeon:?Dr Denys Pereira Anesthesia:? Sedation Indications for procedure: Small neuronal disease with neurogenic bladder Procedure: After informed consent was verified the patient was brought to the operating room and placed in a supine position.? Anesthesia was administered per protocol. Marcela remained in her stretcher. The area was prepped with saline Suprapubic tube removed. 18 Fr catheter with double balloon placed Estefany Mesa
--- NOTE | 2023-03-08 12:44 | P.HPSUR_ITS ---
Pre-Procedural Eval Section A Date of Service: 03/08/23 The patient is an INPATIENT: No Changes since office visit: No Cold of Flu in the past 2 weeks, No New Medical Problems, No Changes in Medication and No Patient answered all questions The History & Physical has been completed within 30 days and I have reviewed it.: No Section B Chief Complaint: Neuromuscular dysfunction of bladder, unspecified Details of Present Illness: SPT change Relevant Family History (Specify if Yes): No Relevant Social History: None Present Medications: see Short Stay Collaborative assessment Medical History: Significant History History of Previous Operations: Relevant previous surgery/procedure and date(s) Allergies: Allergies Allergy/AdvReac Type Severity Reaction Status Date / Time lamotrigine [From LAMICTAL] Allergy Severe CLEMENTINA Verified 02/27/23 09:52 GUIDO SYNDROME chlorhexidine [CHLORHEXIDINE] Allergy Intermediate RASH Verified 02/27/23 09:52 citalopram [From CELEXA] Allergy Intermediate PROLONGED Verified 02/27/23 09:52 QT INTERVAL divalproex sodium Allergy Intermediate BLACK Verified 02/27/23 09:52 [From DEPAKOTE] EYES escitalopram [From LEXAPRO] Allergy Intermediate SWELLING Verified 02/27/23 09:52 lactose [LACTOSE] Allergy Intermediate GI UPSET Verified 02/27/23 09:52 povidone-iodine Allergy Intermediate rash Verified 02/27/23 09:52 [From BETADINE] alprazolam [From Xanax] Allergy Mild Unknown Verified 02/27/23 09:52 sertraline [From Zoloft] Allergy Mild unknown Verified 02/27/23 09:52 ziprasidone [From Geodon] Allergy Mild dystonia Verified 02/27/23 09:52 clonazepam [From Klonopin] Allergy agitation Verified 02/27/23 09:52 lorazepam [From Ativan] Allergy agitation Verified 02/27/23 09:52 latex AdvReac Swelling Verified 02/27/23 09:52 BEETS Allergy Intermediate SWELLING Uncoded 02/27/23 09:52 STATLOC Allergy Intermediate RASH Uncoded 02/27/23 09:52 Review of Systems Sugical H&P ROS: Negative: Constitution, Cardiovascular, Respiratory, Neurological, Psychiatric, Hem-Onc, Allergic/Immunologic, Gastrointestinal, Genitourinary, Musculoskeletal, Integumentary, Endocrine and Eyes/E ars/Nose/Throat Exam Surgical H&P Exam: Normal: HEENT, Normal: Heart, Normal: Lungs, Normal: Extremities, Normal: Abdomen, Normal: Skin and Normal: Neurological Plan Diagnosis/Plan: Unchanged I have reviewed the history and physical and performed a pertinent physical examination on my patient. No changes have occurred unless specified. Time Spent With Patient Time: Total time managing care of this patient today ____ minutes.
[2023-03-08 12:48] VITALS: RESP 16
[2023-03-08] MEDS: HYDROmorphone HCl 1 MG/ML SYRINGE 0.75 MG IVPUSH ×2 (12:48→13:01)
[2023-03-08 12:51] VITALS: BP 96/65; PULSE 91; RESP 16; TEMP 36.2; O2SAT 97
[2023-03-08 13:01] VITALS: RESP 18
[2023-03-08 13:06] VITALS: BP 108/84; PULSE 95; RESP 18; O2SAT 100
[2023-03-08 13:21] VITALS: BP 101/70; PULSE 94; RESP 18; TEMP 36.1; O2SAT 97
== END 2023-03-08 13:41 | disposition home or self-care (01) ==
PROVIDERS: PCP Internal Medicine; Visit Provider Urology
PROC: (CPT 51705; principal; 2023-03-08 12:00)
DX: Z43.5 Encounter for attention to cystostomy (principal); N31.9 Neuromuscular dysfunction of bladder, unspecified; K31.84 Gastroparesis; R56.9 Unspecified convulsions; E11.9 Type 2 diabetes mellitus without complications; J45.909 Unspecified asthma, uncomplicated; Z86.711 Personal history of pulmonary embolism; Z79.01 Long term (current) use of anticoagulants; Z79.891 Long term (current) use of opiate analgesic; Z79.899 Other long term (current) drug therapy; Z88.8 Allergy status to other drugs, medicaments and biological substances; Z91.040 Latex allergy status
CPT/HCPCS: 51705; 82947; J1170

== ENCOUNTER 2023-03-29 08:06 | Day surgery (SDC) | payer OTHER, SELFPAY ==
--- NOTE | 2023-03-28 10:39 | HO.ANESPROP2 ---
HPI - Anesthesia Eval Consult details Narrative: 33yo F for Suprapubic Tube Exchange Multiple comorbidities Last exchange 02/2023 with [facility]: Prop 90 Chronic opioid *Multiple med allergies* PMFSH Active Problems Active Problems: All Active Problems (Updated 02/24/23 @ 13:38 by Nita Sigala RN) Neurogenic urinary bladder disorder (Acute) Neurologic disorder (Acute) Recurrent infections (Acute) Diarrhea associated with pseudomembranous colitis (Acute) Diarrhea (Acute) Bladder spasm (Acute) Gastroparesis (Acute) Past Medical History Medical History Asthma Bacterial infection Brain bleed Brain tumor Chronic, continuous use of opioids Constipation Diabetes Fungal infection Gastroparesis GERD (gastroesophageal reflux disease) History of jejunostomy tube placement Hx pulmonary embolism Hypothyroidism Neuropathy Seizures Septic arthritis Small fiber polyneuropathy Suprapubic catheter Unspecified convulsions VRE (vancomycin-resistant Enterococci) Family History Family History Father Skin cancer Mother No problems noted. 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 Household Members Other:: live in aid Housing Other:: 24 hour care - live in aid Are you a primary acute care occupational therapist to a significant other at home: No Do you presently have visiting nurse or other home services: Yes (03/04 live in aid) Alcohol intake: current Alcohol intake frequency: does not drink Patient Tobacco Use Status: Never used Tobacco Second Hand Smoke Exposure: No Advance Directives Date on File: 06/29/20 Meds Allergies Allergy/AdvReac Type Severity Reaction Status Date / Time lamotrigine [From LAMICTAL] Allergy Severe CLEMENTINA Verified 02/27/23 09:52 GUIDO SYNDROME chlorhexidine [CHLORHEXIDINE] Allergy Intermediate RASH Verified 02/27/23 09:52 citalopram [From CELEXA] Allergy Intermediate PROLONGED Verified 02/27/23 09:52 QT INTERVAL divalproex sodium Allergy Intermediate BLACK Verified 02/27/23 09:52 [From DEPAKOTE] EYES escitalopram [From LEXAPRO] Allergy Intermediate SWELLING Verified 02/27/23 09:52 lactose [LACTOSE] Allergy Intermediate GI UPSET Verified 02/27/23 09:52 povidone-iodine Allergy Intermediate rash Verified 02/27/23 09:52 [From BETADINE] alprazolam [From Xanax] Allergy Mild Unknown Verified 02/27/23 09:52 sertraline [From Zoloft] Allergy Mild unknown Verified 02/27/23 09:52 ziprasidone [From Geodon] Allergy Mild dystonia Verified 02/27/23 09:52 clonazepam [From Klonopin] Allergy agitation Verified 02/27/23 09:52 lorazepam [From Ativan] Allergy agitation Verified 02/27/23 09:52 latex AdvReac Swelling Verified 02/27/23 09:52 BEETS Allergy Intermediate SWELLING Uncoded 02/27/23 09:52 STATLOC Allergy Intermediate RASH Uncoded 02/27/23 09:52 Home Medications Medication Instructions Recorded Confirmed Last Taken Type albuterol sulfate 90 mcg/actuation 2 puff inhalation 6XD PRN Wheezing 06/25/20 02/24/23 10/24/22 History aerosol inhaler diphenhydramine HCl 50 mg/mL 50 mg IV Q4H 06/25/20 02/24/23 10/24/22 History injection solution pantoprazole 40 mg intravenous 40 mg IV BID 06/25/20 02/24/23 10/24/22 History solution (Protonix) acetaminophen 500 mg/15 mL oral 500 mg feeding tube QID PRN Pain 10/06/20 02/24/23 Unknown History liquid baclofen 5 mg/5 mL oral solution 15 mg feeding tube TID 10/06/20 02/24/23 10/24/22 History benztropine 1 mg tablet 1 mg feeding tube BEDTIME 10/06/20 12/23/22 05/18/22 History famotidine (PF) 20 mg/50 mL in 0.9 20 mg IV DAILY 10/06/20 02/24/23 10/24/22 History % NaCl (iso) intravenous piggyback fludrocortisone 0.1 mg tablet 0.1 mg feeding tube DAILY 10/06/20 02/24/23 10/24/22 History ipratropium 0.5 mg-albuterol 3 mg 3 ml inhalation Q6-8H PRN 10/06/20 02/24/23 Unknown History (2.5 mg base)/3 mL nebulization Shortness Of Breath Or Wheezing soln levothyroxine 112 mcg/mL oral 100 mcg feeding tube DAILY 10/06/20 02/24/23 05/18/22 History solution methenamine hippurate 1 gram 1 g feeding tube BID 10/06/20 02/24/23 06/13/22 History tablet (Hiprex) midodrine 10 mg tablet 10 mg feeding tube TID 10/06/20 02/24/23 10/24/22 History topiramate 200 mg tablet (Topamax) 200 mg feeding tube BID 10/06/20 02/24/23 10/24/22 History magnesium hydroxide 400 mg/5 mL 30 ml feeding tube DIRECTED PRN 11/12/20 02/24/23 Unknown History oral suspension (Milk of Magnesia) Gastric Reflux promethazine 25 mg/mL injection 25 mg IV TID 11/12/20 02/24/23 10/24/22 History solution (Phenergan) lidocaine 5 % topical ointment 1 appl topical QID PRN Pain 06/03/21 02/24/23 Unknown History Immuglobin IV TU 02/11/22 12/23/22 Unknown History Lactobacillus rhamnosus GG 10 1 cap feeding tube BID 02/11/22 12/23/22 10/24/22 History billion cell capsule (Culturelle) benztropine 0.5 mg tablet 0.5 mg feeding tube DAILY 02/11/22 02/24/23 10/24/22 History diazepam 5 mg/5 mL (1 mg/mL) oral 3 mg feeding tube BID@0900,1200 02/11/22 02/24/23 10/24/22 History solution diazepam 5 mg/5 mL (1 mg/mL) oral 5 mg feeding tube BEDTIME 02/11/22 02/24/23 Unknown History solution enoxaparin 40 mg/0.4 mL 40 mg subcut DAILY 02/11/22 02/24/23 08/22/22 History subcutaneous syringe furosemide 40 mg tablet 60 mg feeding tube BID 06/11/3002/24/23 10/24/22 History gabapentin 300 mg/6 mL (6 mL) oral 600 mg feeding tube BID@0900,1400 02/11/22 02/24/23 10/24/22 History solution gabapentin 300 mg/6 mL (6 mL) oral 800 mg feeding tube BEDTIME 02/11/22 02/24/23 Unknown History solution hydrocortisone sod succinate 100 0.05 mg IV DAILY@1200 02/11/22 12/23/22 Unknown History mg solution for injection (Solu-Cortef) hydrocortisone sod succinate 100 0.1 mg IV DAILY 02/11/22 12/23/22 10/24/22 History mg solution for injection (Solu-Cortef) loxapine succinate 10 mg capsule 70 mg feeding tube BID 02/11/22 02/24/23 10/24/22 History methylnaltrexone 8 mg/0.4 mL 8 mg subcut DAILY 02/11/22 12/23/22 Unknown History subcutaneous syringe (Relistor) ondansetron HCl (PF) 4 mg/2 mL 4 mg IV Q4H PRN nausea and vomiting 02/11/22 02/24/23 10/24/22 History injection syringe fluticasone propionate 110 1 puff inhalation BID 04/22/22 02/24/23 05/18/22 History mcg/actuation HFA aerosol inhaler (Flovent HFA) levetiracetam 500 mg/5 mL 500 mg IV BID 04/22/22 02/24/23 06/13/22 History intravenous solution (Keppra) ciprofloxacin HCl 500 mg tablet 400 mg BID 10/19/22 12/23/22 Unknown History (Cipro) hydromorphone 1 mg/mL oral liquid 4 mg PO Q3H 11/17/22 02/24/23 Unknown History (Dilaudid) baclofen 5 mg tablet 15 mg PO TID 12/23/22 12/23/22 Unknown History gabapentin 400 mg capsule 800 mg PO BID 12/23/22 12/23/22 Unknown History diazepam 5 mg/5 mL (1 mg/mL) oral 1 mg PO PRN Anxiety 01/11/23 Unknown History solution fremanezumab-vfrm 225 mg/1.5 mL mg subcut 02/27/23 Unknown History subcutaneous auto-injector (Ajovy) mirabegron 8 mg/mL oral mg PO 02/27/23 Unknown History suspension,extended release (Myrbetriq) sennosides 8.6 mg tablet (senna) 17.2 mg PO BID 02/27/23 Unknown History Exam Exam Date and Time: March 28, 2023 1039 Assessment and Plan Assessment Anesthesia Assessment: Chart Reviewed Final Anesthetic Review Family History of Problems with Anesthesia: No History of Problems with Anesthesia: No
[2023-03-29 08:14] VITALS: BMI 24.4
[2023-03-29 09:55] VITALS: BP 117/86; PULSE 102; RESP 20; TEMP 36.1; O2SAT 96; BMI 25.7
[2023-03-29 10:10] LABS: Glucose, Whole Blood 99 mg/dL (60-115)
--- NOTE | 2023-03-29 13:26 | P.HPSUR_ITS ---
Pre-Procedural Eval Section A Date of Service: 03/29/23 The patient is an INPATIENT: No Changes since office visit: No Cold of Flu in the past 2 weeks, No New Medical Problems, No Changes in Medication and No Patient answered all questions The History & Physical has been completed within 30 days and I have reviewed it.: No Section B Chief Complaint: Neuromuscular dysfunction of bladder, unspecified Details of Present Illness: bladder tube change Relevant Social History: None Present Medications: see Short Stay Collaborative assessment Medical History: Significant History History of Previous Operations: Relevant previous surgery/procedure and date(s) Allergies: Allergies Allergy/AdvReac Type Severity Reaction Status Date / Time lamotrigine [From LAMICTAL] Allergy Severe CLEMENTINA Verified 02/27/23 09:52 GUIDO SYNDROME chlorhexidine [CHLORHEXIDINE] Allergy Intermediate RASH Verified 02/27/23 09:52 citalopram [From CELEXA] Allergy Intermediate PROLONGED Verified 02/27/23 09:52 QT INTERVAL divalproex sodium Allergy Intermediate BLACK Verified 02/27/23 09:52 [From DEPAKOTE] EYES escitalopram [From LEXAPRO] Allergy Intermediate SWELLING Verified 02/27/23 09:52 lactose [LACTOSE] Allergy Intermediate GI UPSET Verified 02/27/23 09:52 povidone-iodine Allergy Intermediate rash Verified 02/27/23 09:52 [From BETADINE] alprazolam [From Xanax] Allergy Mild Unknown Verified 02/27/23 09:52 sertraline [From Zoloft] Allergy Mild unknown Verified 02/27/23 09:52 ziprasidone [From Geodon] Allergy Mild dystonia Verified 02/27/23 09:52 clonazepam [From Klonopin] Allergy agitation Verified 02/27/23 09:52 lorazepam [From Ativan] Allergy agitation Verified 02/27/23 09:52 latex AdvReac Swelling Verified 02/27/23 09:52 BEETS Allergy Intermediate SWELLING Uncoded 02/27/23 09:52 STATLOC Allergy Intermediate RASH Uncoded 02/27/23 09:52 Review of Systems Sugical H&P ROS: Negative: Constitution, Cardiovascular, Respiratory, Rene rological, Psychiatric, Hem-Onc, Allergic/Immunologic, Gastrointestinal, Genitourinary, Musculoskeletal, Integumentary, Endocrine and Eyes/Ears/Nose/Throat Exam Surgical H&P Exam: Normal: HEENT, Normal: Heart, Normal: Lungs, Normal: Extremities, Normal: Abdomen, Normal: Skin and Normal: Neurological Plan Diagnosis/Plan: Unchanged I have reviewed the history and physical and performed a pertinent physical examination on my patient. No changes have occurred unless specified. Time Spent With Patient Time: Total time managing care of this patient today ____ minutes.
--- NOTE | 2023-03-29 13:46 | W.PM.OPN ---
Operative Note Operative Note Date of Service: 03/29/23 Narrative: PreOperative Diagnosis:? Neurogenic bladder Post Operative Diagnosis:? Neurogenic bladder Procedure:? Suprapubic tube change Surgeon:?Dr Denys Pereira Anesthesia:? Sedation Indications for procedure: Small neuronal disease with neurogenic bladder Procedure: After informed consent was verified the patient was brought to the operating room and placed in a supine position.? Anesthesia was administered per protocol. Marcela remained in her stretcher. The area was prepped with saline Suprapubic tube removed. 18 Fr catheter with double balloon placed Estefany Mesa
[2023-03-29 13:54] VITALS: BP 128/88; PULSE 106; RESP 20; TEMP 36.1; O2SAT 100
[2023-03-29 13:55] VITALS: RESP 20
[2023-03-29] MEDS: HYDROmorphone HCl 1 MG/ML SYRINGE 0.75 MG IVPUSH ×2 (13:55→14:10)
[2023-03-29 14:00] VITALS: BP 124/87; PULSE 103; RESP 20; O2SAT 99
--- NOTE | 2023-03-29 14:02 | HO.ANESPROP2 ---
[facility] Active Problems Active Problems: All Active Problems (Updated 02/24/23 @ 13:38 by Nita Sigala RN) Neurogenic urinary bladder disorder (Acute) Neurologic disorder (Acute) Recurrent infections (Acute) Diarrhea associated with pseudomembranous colitis (Acute) Diarrhea (Acute) Bladder spasm (Acute) Gastroparesis (Acute) Past Medical History Medical History Asthma Bacterial infection Brain bleed Brain tumor Chronic, continuous use of opioids Constipation Diabetes Fungal infection Gastroparesis GERD (gastroesophageal reflux disease) History of jejunostomy tube placement Hx pulmonary embolism Hypothyroidism Neuropathy Seizures Septic arthritis Small fiber polyneuropathy Suprapubic catheter Unspecified convulsions VRE (vancomycin-resistant Enterococci) Family History Family History Father Skin cancer Mother No problems noted. 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 Household Members Other:: live in aid Housing Other:: 24 hour care - live in aid Are you a primary patient care coordinator to a significant other at home: No Do you presently have visiting nurse or other home services: Yes (03/04 live in aid) Alcohol intake: current Alcohol intake frequency: does not drink Patient Tobacco Use Status: Never used Tobacco Second Hand Smoke Exposure: No Are you DNR?: No Advance Directives: No Advance Directives Information Provided: Yes Advance Directives Date on File: 06/29/20 Nutrition Risks: No Nutritional Risk Patient : No Meds Allergies Allergy/AdvReac Type Severity Reaction Status Date / Time lamotrigine [From LAMICTAL] Allergy Severe CLEMENTINA Verified 02/27/23 09:52 GUIDO SYNDROME chlorhexidine [CHLORHEXIDINE] Allergy Intermediate RASH Verified 02/27/23 09:52 citalopram [From CELEXA] Allergy Intermediate PROLONGED Verified 02/27/23 09:52 QT INTERVAL divalproex sodium Allergy Intermediate BLACK Verified 02/27/23 09:52 [From DEPAKOTE] EYES escitalopram [From LEXAPRO] Allergy Intermediate SWELLING Verified 02/27/23 09:52 lactose [LACTOSE] Allergy Intermediate GI UPSET Verified 02/27/23 09:52 povidone-iodine Allergy Intermediate rash Verified 02/27/23 09:52 [From BETADINE] alprazolam [From Xanax] Allergy Mild Unknown Verified 02/27/23 09:52 sertraline [From Zoloft] Allergy Mild unknown Verified 02/27/23 09:52 ziprasidone [From Geodon] Allergy Mild dystonia Verified 02/27/23 09:52 clonazepam [From Klonopin] Allergy agitation Verified 02/27/23 09:52 lorazepam [From Ativan] Allergy agitation Verified 02/27/23 09:52 latex AdvReac Swelling Verified 02/27/23 09:52 BEETS Allergy Intermediate SWELLING Uncoded 02/27/23 09:52 STATLOC Allergy Intermediate RASH Uncoded 02/27/23 09:52 Active Medications: Current Medications Albuterol Sulfate (Albuterol Sulfate (0.083%) 2.5 Mg/3 Ml Vial.Neb) 2.5 mg INHALE ONCE PRN PRN Reason: Shortness of Breath/Wheezing Lactated Ringer's (Lr) 1,000 mls @ 100 mls/hr IVCONT .Q10H [facility] Home Medications Medication Instructions Recorded Confirmed Last Taken Type albuterol sulfate 90 mcg/actuation 2 puff inhalation 6XD PRN Wheezing 06/25/20 02/24/23 10/24/22 History aerosol inhaler diphenhydramine HCl 50 mg/mL 50 mg IV Q4H 06/25/20 02/24/23 10/24/22 History injection solution pantoprazole 40 mg intravenous 40 mg IV BID 06/25/20 02/24/23 10/24/22 History solution (Protonix) acetaminophen 500 mg/15 mL oral 500 mg feeding tube QID PRN Pain 10/06/20 02/24/23 Unknown History liquid baclofen 5 mg/5 mL oral solution 15 mg feeding tube TID 10/06/20 02/24/23 10/24/22 History benztropine 1 mg tablet 1 mg feeding tube BEDTIME 0112/23/22 05/18/22 History famotidine (PF) 20 mg/50 mL in 0.9 20 mg IV DAILY 10/06/20 02/24/23 10/24/22 History % NaCl (iso) intravenous piggyback fludrocortisone 0.1 mg tablet 0.1 mg feeding tube DAILY 10/06/20 02/24/23 10/24/22 History ipratropium 0.5 mg-albuterol 3 mg 3 ml inhalation Q6-8H PRN 10/06/20 02/24/23 Unknown History (2.5 mg base)/3 mL nebulization Shortness Of Breath Or Wheezing soln levothyroxine 112 mcg/mL oral 100 mcg feeding tube DAILY 10/06/20 02/24/23 05/18/22 History solution methenamine hippurate 1 gram 1 g feeding tube BID 10/06/20 02/24/23 06/13/22 History tablet (Hiprex) midodrine 10 mg tablet 10 mg feeding tube TID 10/06/20 02/24/23 10/24/22 History topiramate 200 mg tablet (Topamax) 200 mg feeding tube BID 10/06/20 02/24/23 10/24/22 History magnesium hydroxide 400 mg/5 mL 30 ml feeding tube DIRECTED PRN 11/12/20 02/24/23 Unknown History oral suspension (Milk of Magnesia) Gastric Reflux promethazine 25 mg/mL injection 25 mg IV TID 11/12/20 02/24/23 10/24/22 History solution (Phenergan) lidocaine 5 % topical ointment 1 appl topical QID PRN Pain 06/03/21 02/24/23 Unknown History Immuglobin IV TU 02/11/22 12/23/22 Unknown History Lactobacillus rhamnosus GG 10 1 cap feeding tube BID 02/11/22 12/23/22 10/24/22 History billion cell capsule (Culturelle) benztropine 0.5 mg tablet 0.5 mg feeding tube DAILY 02/11/22 02/24/23 10/24/22 History diazepam 5 mg/5 mL (1 mg/mL) oral 3 mg feeding tube BID@0900,1200 02/11/22 02/24/23 10/24/22 History solution diazepam 5 mg/5 mL (1 mg/mL) oral 5 mg feeding tube BEDTIME 02/11/22 02/24/23 Unknown History solution enoxaparin 40 mg/0.4 mL 40 mg subcut DAILY 02/11/22 02/24/23 03/28/23 06:00 History subcutaneous syringe furosemide 40 mg tablet 60 mg feeding tube BID 02/11/22 02/24/23 10/24/22 History gabapentin 300 mg/6 mL (6 mL) oral 600 mg feeding tube BID@0900,1400 02/11/22 02/24/23 10/24/22 History solution gabapentin 300 mg/6 mL (6 mL) oral 800 mg feeding tube BEDTIME 02/11/22 02/24/23 Unknown History solution hydrocortisone sod succinate 100 0.05 mg IV DAILY@1200 02/11/22 12/23/22 Unknown History mg solution for injection (Solu-Cortef) hydrocortisone sod succinate 100 0.1 mg IV DAILY 02/11/22 12/23/22 10/24/22 History mg solution for injection (Solu-Cortef) loxapine succinate 10 mg capsule 70 mg feeding tube BID 02/11/22 02/24/23 10/24/22 History methylnaltrexone 8 mg/0.4 mL 8 mg subcut DAILY 02/11/22 12/23/22 Unknown History subcutaneous syringe (Relistor) ondansetron HCl (PF) 4 mg/2 mL 4 mg IV Q4H PRN nausea and vomiting 02/11/22 02/24/23 10/24/22 History injection syringe fluticasone propionate 110 1 puff inhalation BID 04/22/22 02/24/23 05/18/22 History mcg/actuation HFA aerosol inhaler (Flovent HFA) levetiracetam 500 mg/5 mL 500 mg IV BID 04/22/22 02/24/23 06/13/22 History intravenous solution (Keppra) ciprofloxacin HCl 500 mg tablet 400 mg BID 10/19/22 12/23/22 Unknown History (Cipro) hydromorphone 1 mg/mL oral liquid 4 mg PO Q3H 11/17/22 02/24/23 Unknown History (Dilaudid) baclofen 5 mg tablet 15 mg PO TID 12/23/22 12/23/22 Unknown History gabapentin 400 mg capsule 800 mg PO BID 12/23/22 12/23/22 Unknown History diazepam 5 mg/5 mL (1 mg/mL) oral 1 mg PO PRN Anxiety 01/11/23 Unknown History solution fremanezumab-vfrm 225 mg/1.5 mL mg subcut 02/27/23 Unknown History subcutaneous auto-injector (Ajovy) mirabegron 8 mg/mL oral mg PO 02/27/23 Unknown History suspension,extended release (Myrbetriq) sennosides 8.6 mg tablet (senna) 17.2 mg PO BID 02/27/23 Unknown History Exam Exam Date and Time: March 29, 2023 1402 Height,Weight and Vital Signs: Height 4 ft 9 in Weight 53.977 kg Last Vital Signs Temp 97 F 03/29/23 13:54 Pulse 103 H 03/29/23 14:00 Resp 20 03/29/23 14:00 BP 124/87 03/29/23 14:00 Pulse Ox 99 03/29/23 14:00 O2 Del Method Nasal Cannula 03/29/23 14:00 O2 Flow Rate 3 03/29/23 14:00 Pertinent Lab Results Pertinent Lab Results: Laboratory Tests 03/29/23 10:06 POC Glucose 99 Airway TM Dist: >3cm Neck ROM: Full Heart: RRR Lungs: CTA Assessment and Plan Final Anesthetic Review Family History of Problems with Anesthesia: No History of Problems with Anesthesia: No ASA Class: III Final Preanesthetic Review: Meds/Allgs Chart Reviewed, Consent Obtained/Reviewed and Anes Risks/Benef Reviewed Patient Risk: Intermediate Procedure Risk: Low Anesthetic Plan Anesthetic Plan: GA Disposition: Standard PACU
[2023-03-29 14:10] VITALS: BP 120/80; PULSE 94; RESP 16; RESP 18; O2SAT 100
[2023-03-29 14:15] VITALS: BP 126/83; PULSE 97; RESP 14; TEMP 36.1; O2SAT 99
== END 2023-03-29 14:27 | disposition home or self-care (01) ==
PROVIDERS: PCP Internal Medicine; Visit Provider Urology
PROC: (CPT 51705; principal; 2023-03-29 10:10)
DX: Z43.5 Encounter for attention to cystostomy (principal); N31.9 Neuromuscular dysfunction of bladder, unspecified; E11.9 Type 2 diabetes mellitus without complications; J45.909 Unspecified asthma, uncomplicated; Z88.8 Allergy status to other drugs, medicaments and biological substances
CPT/HCPCS: 51705; 82947; J1170; J2250

== ENCOUNTER → 2023-03-29 08:06 | Outpatient (BNV) | payer OTHER, SELFPAY | PROVIDERS: PCP Internal Medicine; Visit Provider Urology | DX: N31.9 Neuromuscular dysfunction of bladder, unspecified (principal) | CPT/HCPCS: 51705 ==

== ENCOUNTER 2023-04-26 06:14 | Day surgery (SDC) | payer OTHER, SELFPAY ==
[2023-04-21 15:03] VITALS: BMI 25.7
[2023-04-26] VITALS (13 sets, daily range): BP systolic 99–125; BP diastolic 65–89; PULSE 84–102; RESP 16–20; TEMP 36.2–36.6; O2SAT 97–100
[2023-04-26 07:12] LABS: Glucose, Whole Blood 114 mg/dL (60-115)
--- NOTE | 2023-04-26 07:20 | HO.ANESPROP2 ---
Documented by User: Lucila Bales NP 04/25/23 09:28 HPI - Anesthesia Eval Consult details Narrative: 33yo F for Insertion Suprapubic Tube last exchange 03/29/23 with GA: Prop 90, Lido 40, Midaz 2 PMFSH Active Problems Active Problems: All Active Problems (Updated 02/24/23 @ 13:38 by Nita Sigala RN) Neurogenic urinary bladder disorder (Acute) Neurologic disorder (Acute) Recurrent infections (Acute) Diarrhea associated with pseudomembranous colitis (Acute) Diarrhea (Acute) Bladder spasm (Acute) Gastroparesis (Acute) Past Medical History Medical History Asthma Bacterial infection Brain bleed Brain tumor Chronic, continuous use of opioids Constipation Diabetes Fungal infection Gastroparesis GERD (gastroesophageal reflux disease) History of jejunostomy tube placement Hx pulmonary embolism Hypothyroidism Neuropathy Seizures Septic arthritis Small fiber polyneuropathy Suprapubic catheter Unspecified convulsions VRE (vancomycin-resistant Enterococci) Family History Family History Father Skin cancer Mother No problems noted. 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 If so, by whom?: No Advance Directives: Yes Advance Directives Information Provided: Yes Advance Directives on File: Yes Advance Directives Date on File: 06/29/20 Recently lost weight without trying: No Eating poorly because of decreased appetite: No Patient : No Poor oral hygiene: No Meds Allergies Allergy/AdvReac Type Severity Reaction Status Date / Time lamotrigine [From LAMICTAL] Allergy Severe CLEMENTINA Verified 02/27/23 09:52 GUIDO SYNDROME chlorhexidine [CHLORHEXIDINE] Allergy Intermediate RASH Verified 02/27/23 09:52 citalopram [From CELEXA] Allergy Intermediate PROLONGED Verified 02/27/23 09:52 QT INTERVAL divalproex sodium Allergy Intermediate BLACK Verified 02/27/23 09:52 [From DEPAKOTE] EYES escitalopram [From LEXAPRO] Allergy Intermediate SWELLING Verified 02/27/23 09:52 lactose [LACTOSE] Allergy Intermediate GI UPSET Verified 02/27/23 09:52 povidone-iodine Allergy Intermediate rash Verified 02/27/23 09:52 [From BETADINE] alprazolam [From Xanax] Allergy Mild Unknown Verified 02/27/23 09:52 sertraline [From Zoloft] Allergy Mild unknown Verified 02/27/23 09:52 ziprasidone [From Geodon] Allergy Mild dystonia Verified 02/27/23 09:52 clonazepam [From Klonopin] Allergy agitation Verified 02/27/23 09:52 lorazepam [From Ativan] Allergy agitation Verified 02/27/23 09:52 latex AdvReac Swelling Verified 02/27/23 09:52 BEETS Allergy Intermediate SWELLING Uncoded 02/27/23 09:52 STATLOC Allergy Intermediate RASH Uncoded 02/27/23 09:52 Home Medications Medication Instructions Recorded Confirmed Last Taken Type albuterol sulfate 90 mcg/actuation 2 puff inhalation 6XD PRN Wheezing 06/25/20 04/21/23 10/24/22 History aerosol inhaler diphenhydramine HCl 50 mg/mL 50 mg IV Q4H 06/25/20 04/21/23 10/24/22 History injection solution pantoprazole 40 mg intravenous 40 mg IV BID 06/25/20 04/21/23 10/24/22 History solution (Protonix) acetaminophen 500 mg/15 mL oral 500 mg feeding tube QID PRN Pain 10/06/20 04/21/23 Unknown History liquid baclofen 5 mg/5 mL oral solution 15 mg feeding tube TID 10/06/20 04/21/23 10/24/22 History benztropine 1 mg tablet 1 mg feeding tube BID 10/06/20 04/26/23 05/18/22 History famotidine (PF) 20 mg/50 mL in 0.9 20 mg IV DAILY 10/06/20 04/21/23 10/24/22 History % NaCl (iso) intravenous piggyback fludrocortisone 0.1 mg tablet 0.1 mg feeding tube DAILY 10/06/20 04/21/23 10/24/22 History ipratropium 0.5 mg-albuterol 3 mg 3 ml inhalation Q6-8H PRN 10/06/20 04/21/23 Unknown History (2.5 mg base)/3 mL nebulization Shortness Of Breath Or Wheezing soln levothyroxine 112 mcg/mL oral 100 mcg feeding tube DAILY 10/06/20 04/21/23 05/18/22 History solution methenamine hippurate 1 gram 1 g feeding tube BID 10/06/20 04/21/23 06/13/22 History tablet (Hiprex) midodrine 10 mg tablet 10 mg feeding tube TID 10/06/20 04/21/23 10/24/22 History topiramate 200 mg tablet (Topamax) 200 mg feeding tube BID 10/06/20 04/21/23 10/24/22 History magnesium hydroxide 400 mg/5 mL 30 ml feeding tube DIRECTED PRN 11/12/20 04/21/23 Unknown History oral suspension (Milk of Magnesia) Gastric Reflux promethazine 25 mg/mL injection 25 mg IV TID 11/12/20 04/21/23 10/24/22 History solution (Phenergan) lidocaine 5 % topical ointment 1 appl topical QID PRN Pain 06/03/21 04/21/23 Unknown History Immuglobin IV TU 02/11/22 12/23/22 Unknown History Lactobacillus rhamnosus GG 10 1 cap feeding tube BID 02/11/22 04/26/23 10/24/22 History billion cell capsule (Culturelle) benztropine 0.5 mg tablet 0.5 mg feeding tube DAILY 02/11/22 04/21/23 10/24/22 History diazepam 5 mg/5 mL (1 mg/mL) oral 3 mg feeding tube BID@0900,1200 02/11/22 04/26/2323 History solution diazepam 5 mg/5 mL (1 mg/mL) oral 5 mg feeding tube BEDTIME 02/11/22 04/26/23 Unknown History solution enoxaparin 40 mg/0.4 mL 40 mg subcut DAILY 02/11/22 04/21/23 03/28/23 06:00 History subcutaneous syringe furosemide 40 mg tablet 60 mg feeding tube TID 02/11/22 04/26/23 10/24/22 History gabapentin 300 mg/6 mL (6 mL) oral 600 mg feeding tube BID@0900,1400 02/11/22 04/21/23 10/24/22 History solution gabapentin 300 mg/6 mL (6 mL) oral 800 mg feeding tube BEDTIME 02/11/22 04/21/23 Unknown History solution hydrocortisone sod succinate 100 0.05 mg IV DAILY@1200 02/11/22 12/23/22 Unknown History mg solution for injection (Solu-Cortef) hydrocortisone sod succinate 100 0.1 mg IV DAILY 02/11/22 12/23/22 10/24/22 History mg solution for injection (Solu-Cortef) loxapine succinate 10 mg capsule 70 mg feeding tube BID 02/11/22 04/21/23 10/24/22 History methylnaltrexone 8 mg/0.4 mL 8 mg subcut DAILY 02/11/22 12/23/22 Unknown History subcutaneous syringe (Relistor) ondansetron HCl (PF) 4 mg/2 mL 4 mg IV Q4H 02/11/22 04/21/23 10/24/22 History injection syringe fluticasone propionate 110 1 puff inhalation BID 04/22/22 04/21/23 05/18/22 History mcg/actuation HFA aerosol inhaler (Flovent HFA) levetiracetam 500 mg/5 mL 500 mg IV BID 04/22/22 04/21/23 06/13/22 History intravenous solution (Keppra) hydromorphone 1 mg/mL oral liquid 4 mg PO Q3H 11/17/22 04/21/23 Unknown History (Dilaudid) baclofen 5 mg tablet 15 mg PO TID 12/23/22 04/26/23 Unknown History gabapentin 400 mg capsule 800 mg PO BID 12/23/22 12/23/22 Unknown History diazepam 5 mg/5 mL (1 mg/mL) oral 1 mg PO DAILY PRN Anxiety 01/11/23 04/21/23 Unknown History solution fremanezumab-vfrm 225 mg/1.5 mL mg subcut 02/27/23 Unknown History subcutaneous auto-injector (Ajovy) mirabegron 8 mg/mL oral 12 mg PO DAILY 02/27/23 Unknown History suspension,extended release (Myrbetriq) sennosides 8.6 mg tablet (senna) 17.2 mg PO BID 02/27/23 Unknown History Exam Exam Date and Time: April 25, 2023 0921 Height,Weight and Vital Signs: Height 4 ft 9 in Weight 53.977 kg Assessment and Plan Assessment Anesthesia Assessment: Chart Reviewed Final Anesthetic Review Family History of Problems with Anesthesia: No History of Problems with Anesthesia: No Documented by User: Leanna Edwards DO 04/26/23 07:32 HPI - Anesthesia Eval Consult details Narrative: 33yo F for Insertion Suprapubic Tube last exchange 03/29/23 with GA: Prop 90, Lido 40, Midaz 2 Home O2 3LNC PMFSH Past Medical History Medical History Asthma Bacterial infection Brain bleed Brain tumor Chronic, continuous use of opioids Constipation Diabetes Fungal infection Gastroparesis GERD (gastroesophageal reflux disease) History of jejunostomy tube placement Hx pulmonary embolism Hypothyroidism Neuropathy Seizures Septic arthritis Small fiber polyneuropathy Suprapubic catheter Unspecified convulsions VRE (vancomycin-resistant Enterococci) Family History Family History Father Skin cancer Mother No problems noted. 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 If so, by whom?: No Advance Directives: Yes Advance Directives Information Provided: Yes Advance Directives on File: Yes Advance Directives Date on File: 06/29/20 Recently lost weight without trying: No Eating poorly because of decreased appetite: No Patient : No Poor oral hygiene: No Meds Allergies Allergy/AdvReac Type Severity Reaction Status Date / Time lamotrigine [From LAMICTAL] Allergy Severe CLEMENTINA Verified 02/27/23 09:52 GUIDO SYNDROME chlorhexidine [CHLORHEXIDINE] Allergy Intermediate RASH Verified 02/27/23 09:52 citalopram [From CELEXA] Allergy Intermediate PROLONGED Verified 02/27/23 09:52 QT INTERVAL divalproex sodium Allergy Intermediate BLACK Verified 02/27/23 09:52 [From DEPAKOTE] EYES escitalopram [From LEXAPRO] Allergy Intermediate SWELLING Verified 02/27/23 09:52 lactose [LACTOSE] Allergy Intermediate GI UPSET Verified 02/27/23 09:52 povidone-iodine Allergy Intermediate rash Verified 02/27/23 09:52 [From BETADINE] alprazolam [From Xanax] Allergy Mild Unknown Verified 02/27/23 09:52 sertraline [From Zoloft] Allergy Mild unknown Verified 02/27/23 09:52 ziprasidone [From Geodon] Allergy Mild dystonia Verified 02/27/23 09:52 clonazepam [From Klonopin] Allergy agitation Verified 02/27/23 09:52 lorazepam [From Ativan] Allergy agitation Verified 02/27/23 09:52 latex AdvReac Swelling Verified 02/27/23 09:52 BEETS Allergy Intermediate SWELLING Uncoded 02/27/23 09:52 STATLOC Allergy Intermediate RASH Uncoded 02/27/23 09:52 Home Medications Medication Instructions Recorded Confirmed Last Taken Type albuterol sulfate 90 mcg/actuation 2 puff inhalation 6XD PRN Wheezing 06/25/20 04/21/23 10/24/22 History aerosol inhaler diphenhydramine HCl 50 mg/mL 50 mg IV Q4H 06/25/20 04/21/23 10/24/22 History injection solution pantoprazole 40 mg intravenous 40 mg IV BID 06/25/20 04/21/23 10/24/22 History solution (Protonix) acetaminophen 500 mg/15 mL oral 500 mg feeding tube QID PRN Pain 10/06/20 04/21/23 Unknown History liquid baclofen 5 mg/5 mL oral solution 15 mg feeding tube TID 10/06/20 04/21/23 10/24/22 History benztropine 1 mg tablet 1 mg feeding tube BID 10/06/20 04/26/23 05/18/22 History famotidine (PF) 20 mg/50 mL in 0.9 20 mg IV DAILY 10/06/20 04/21/23 10/24/22 History % NaCl (iso) intravenous piggyback fludrocortisone 0.1 mg tablet 0.1 mg feeding tube DAILY 10/06/20 04/21/23 10/24/22 History ipratropium 0.5 mg-albuterol 3 mg 3 ml inhalation Q6-8H PRN 10/06/20 04/21/23 Unknown History (2.5 mg base)/3 mL nebulization Shortness Of Breath Or Wheezing soln levothyroxine 112 mcg/mL oral 100 mcg feeding tube DAILY 10/06/20 04/21/23 05/18/22 History solution methenamine hippurate 1 gram 1 g feeding tube BID 10/06/20 04/21/23 06/13/22 History tablet (Hiprex) midodrine 10 mg tablet 10 mg feeding tube TID 10/06/20 04/21/23 10/24/22 History topiramate 200 mg tablet (Topamax) 200 mg feeding tube BID 10/06/20 04/21/23 10/24/22 History magnesium hydroxide 400 mg/5 mL 30 ml feeding tube DIRECTED PRN 11/12/20 04/21/23 Unknown History oral suspension (Milk of Magnesia) Gastric Reflux promethazine 25 mg/mL injection 25 mg IV TID 11/12/20 04/21/23 10/24/22 History solution (Phenergan) lidocaine 5 % topical ointment 1 appl topical QID PRN Pain 06/03/21 04/21/23 Unknown History Immuglobin IV TU 02/11/22 12/23/22 Unknown History Lactobacillus rhamnosus GG 10 1 cap feeding tube BID 02/11/22 04/26/23 10/24/22 History billion cell capsule (Culturelle) benztropine 0.5 mg tablet 0.5 mg feeding tube DAILY 02/11/22 04/21/23 10/24/22 History diazepam 5 mg/5 mL (1 mg/mL) oral 3 mg feeding tube BID@0900,1200 02/11/22 04/26/23 10/24/22 History solution diazepam 5 mg/5 mL (1 mg/mL) oral 5 mg feeding tube BEDTIME 02/11/22 04/26/23 Unknown History solution enoxaparin 40 mg/0.4 mL 40 mg subcut DAILY 02/11/22 04/21/23 03/28/23 06:00 History subcutaneous syringe furosemide 40 mg tablet 60 mg feeding tube TID 02/11/22 04/26/23 10/24/22 History gabapentin 300 mg/6 mL (6 mL) oral 600 mg feeding tube BID@0900,1400 02/11/22 04/21/23 10/24/22 History solution gabapentin 300 mg/6 mL (6 mL) oral 800 mg feeding tube BEDTIME 02/11/22 04/21/23 Unknown History solution hydrocortisone sod succinate 100 0.05 mg IV DAILY@1200 02/11/22 12/23/22 Unknown History mg solution for injection (Solu-Cortef) hydrocortisone sod succinate 100 0.1 mg IV DAILY 02/11/22 12/23/22 10/24/22 History mg solution for injection (Solu-Cortef) loxapine succinate 10 mg capsule 70 mg feeding tube BID 02/11/22 04/21/23 10/24/22 History methylnaltrexone 8 mg/0.4 mL 8 mg subcut DAILY 02/11/22 12/23/22 Unknown History subcutaneous syringe (Relistor) ondansetron HCl (PF) 4 mg/2 mL 4 mg IV Q4H 02/11/22 04/21/23 10/24/22 History injection syringe fluticasone propionate 110 1 puff inhalation BID 04/22/22 04/21/23 05/18/22 History mcg/actuation HFA aerosol inhaler (Flovent HFA) levetiracetam 500 mg/5 mL 500 mg IV BID 04/22/22 04/21/23 06/13/22 History intravenous solution (Keppra) hydromorphone 1 mg/mL oral liquid 4 mg PO Q3H 11/17/22 04/21/23 Unknown History (Dilaudid) baclofen 5 mg tablet 15 mg PO TID 12/23/22 04/26/23 Unknown History gabapentin 400 mg capsule 800 mg PO BID 12/23/22 12/23/22 Unknown History diazepam 5 mg/5 mL (1 mg/mL) oral 1 mg PO DAILY PRN Anxiety 01/11/23 04/21/23 Unknown History solution fremanezumab-vfrm 225 mg/1.5 mL mg subcut 02/27/23 Unknown History subcutaneous auto-injector (Ajovy) mirabegron 8 mg/mL oral 12 mg PO DAILY 02/27/23 Unknown History suspension,extended release (Myrbetriq) sennosides 8.6 mg tablet (senna) 17.2 mg PO BID 02/27/23 Unknown History Exam Exam Date and Time: April 26, 2023 0720 Height,Weight and Vital Signs: Height 4 ft 9 in Weight 53.977 kg Vital Signs Temperature 97.1 F 04/26/23 06:41 Pulse Rate 101 H 04/26/23 06:41 Respiratory Rate 18 04/26/23 06:41 Blood Pressure 111/76 04/26/23 06:41 Pulse Oximetry 97 04/26/23 06:41 Oxygen Delivery Method Nasal Cannula 04/26/23 06:41 Oxygen Flow Rate 3 04/26/23 06:41 Temperature 97.1 F 04/26/23 06:41 Pulse Rate 101 H 04/26/23 06:41 Respiratory Rate 18 04/26/23 06:41 Blood Pressure 111/76 04/26/23 06:41 Pulse Oximetry 97 04/26/23 06:41 Oxygen Delivery Method Nasal Cannula 04/26/23 06:41 Oxygen Flow Rate 3 04/26/23 06:41 Airway Mallampati Class: III TM Dist: <=3cm Neck ROM: Limited Loose/Missing/Broken Teeth: No Heart: S1S2 Lungs: CTAB Assessment and Plan Assessment Anesthesia Assessment: Anesthesia Plan Discussed and Chart Reviewed Final Anesthetic Review Family History of Problems with Anesthesia: No History of Problems with Anesthesia: No NPO: Yes ASA Class: III Final Preanesthetic Review: No Changes in Pt Med Stat, Meds/Allgs Chart Reviewed, Consent Obtained/Reviewed, Anes Risks/Benef Reviewed and DNR Form (If Appl.) (DNR reversed until discharge from PACU) Patient Risk: Intermediate Procedure Risk: Low Anesthetic Plan Anesthetic Plan: MAC: and Agree w/ Assess. and Plan Disposition: Standard PACU
--- NOTE | 2023-04-26 07:48 | MHC.SHP ---
Pre-Procedural Eval Section A Date of Service: 04/26/23 The patient is an INPATIENT: No Changes since office visit: No Cold of Flu in the past 2 weeks, No New Medical Problems, No Changes in Medication and No Patient answered all questions The History & Physical has been completed within 30 days and I have reviewed it.: No Section B Chief Complaint: Neuromuscular dysfunction of bladder, unspecified Details of Present Illness: Suprapubic tube exchange Relevant Family History (Specify if Yes): No Relevant Social History: None Present Medications: None Medical History: No relevant PMH History of Previous Operations: Relevant previous surgery/procedure and date(s) Allergies: Allergies Allergy/AdvReac Type Severity Reaction Status Date / Time lamotrigine [From LAMICTAL] Allergy Severe CLEMENTINA Verified 02/27/23 09:52 GUIDO SYNDROME chlorhexidine [CHLORHEXIDINE] Allergy Intermediate RASH Verified 02/27/23 09:52 citalopram [From CELEXA] Allergy Intermediate PROLONGED Verified 02/27/23 09:52 QT INTERVAL divalproex sodium Allergy Intermediate BLACK Verified 02/27/23 09:52 [From DEPAKOTE] EYES escitalopram [From LEXAPRO] Allergy Intermediate SWELLING Verified 02/27/23 09:52 lactose [LACTOSE] Allergy Intermediate GI UPSET Verified 02/27/23 09:52 povidone-iodine Allergy Intermediate rash Verified 02/27/23 09:52 [From BETADINE] alprazolam [From Xanax] Allergy Mild Unknown Verified 02/27/23 09:52 sertraline [From Zoloft] Allergy Mild unknown Verified 02/27/23 09:52 ziprasidone [From Geodon] Allergy Mild dystonia Verified 02/27/23 09:52 clonazepam [From Klonopin] Allergy agitation Verified 02/27/23 09:52 lorazepam [From Ativan] Allergy agitation Verified 02/27/23 09:52 latex AdvReac Swelling Verified 02/27/23 09:52 BEETS Allergy Intermediate SWELLING Uncoded 02/27/23 09:52 STATLOC Allergy Intermediate RASH Uncoded 02/27/23 09:52 Review of Systems Sugical H&P ROS: Negative: Constitution, Cardiovascular, Respiratory, Neurological, Psychiatric, Hem-Onc, Allergic/Immunologic, Gastrointestinal, Genitourinary, Musculoskeletal, Integumentary, Endocrine and Eyes/Ears/Nose/Throat Exam Surgical H&P Exam: Normal: HEENT, Normal: Heart, Normal: Lungs, Normal: Extremities, Normal: Abdomen, Normal: Skin and Normal: Neurological Plan Diagnosis/Plan: Unchanged (SPT exchange) I have reviewed the history and physical and performed a pertinent physical examination on my patient. No changes have occurred unless specified. Time Spent With Patient Time: Total time managing care of this patient today ____ minutes.
--- NOTE | 2023-04-26 08:03 | W.PM.OPN ---
Operative Note Operative Note Date of Service: 04/26/23 Narrative: PreOperative Diagnosis:? Neurogenic bladder Post Operative Diagnosis:? Neurogenic bladder Procedure:? Suprapubic tube change Surgeon:?Dr Denys Pereira Anesthesia:? Sedation Indications for procedure: Small neuronal disease with neurogenic bladder Procedure: After informed consent was verified the patient was brought to the operating room and placed in a supine position.? Anesthesia was administered per protocol. Marcela remained in her stretcher. The area was prepped with saline Suprapubic tube removed. 18 Fr catheter with double balloon placed Estefany Mesa
[2023-04-26] MEDS: HYDROmorphone HCl 1 MG/ML SYRINGE 0.75 MG IVPUSH ×2 (08:27→08:44)
== END 2023-04-26 09:20 | disposition home or self-care (01) ==
PROVIDERS: PCP Internal Medicine; Visit Provider Urology
PROC: (CPT 51102; principal; 2023-04-26 07:30)
DX: Z43.5 Encounter for attention to cystostomy (principal); N31.9 Neuromuscular dysfunction of bladder, unspecified; E11.9 Type 2 diabetes mellitus without complications; J45.909 Unspecified asthma, uncomplicated; K31.84 Gastroparesis; Z86.711 Personal history of pulmonary embolism; Z79.01 Long term (current) use of anticoagulants; Z79.891 Long term (current) use of opiate analgesic; Z79.899 Other long term (current) drug therapy; Z88.8 Allergy status to other drugs, medicaments and biological substances; Z91.040 Latex allergy status
CPT/HCPCS: 51705; 82947; J1170; J2250

== ENCOUNTER → 2023-04-26 06:14 | Outpatient (BNV) | payer OTHER, SELFPAY | PROVIDERS: PCP Internal Medicine; Visit Provider Urology | DX: N31.9 Neuromuscular dysfunction of bladder, unspecified (principal) | CPT/HCPCS: 51705 ==

== ENCOUNTER 2023-05-29 12:30 | Outpatient (AMB) | payer OTHER, SELFPAY ==
--- NOTE | 2023-05-29 12:31 | A.OFFVIS_ITS ---
Intake Intake Visit Reasons: 3 month follow up Intake Note: Marcela presents as a telehealth today. CC: constipation still - pains a lot in her stomach and in her back. She does bnot see any blood. Allergies lamotrigine [From LAMICTAL] Allergy (Severe, Verified 05/29/23 12:32) CLEMENTINA GUIDO SYNDROME chlorhexidine [CHLORHEXIDINE] Allergy (Intermediate, Verified 05/29/23 12:32) RASH citalopram [From CELEXA] Allergy (Intermediate, Verified 05/29/23 12:32) PROLONGED QT INTERVAL divalproex sodium [From DEPAKOTE] Allergy (Intermediate, Verified 05/29/23 12:32) BLACK EYES escitalopram [From LEXAPRO] Allergy (Intermediate, Verified 05/29/23 12:32) SWELLING lactose [LACTOSE] Allergy (Intermediate, Verified 05/29/23 12:32) GI UPSET povidone-iodine [From BETADINE] Allergy (Intermediate, Verified 05/29/23 12:32) rash alprazolam [From Xanax] Allergy (Mild, Verified 05/29/23 12:32) Unknown sertraline [From Zoloft] Allergy (Mild, Verified 05/29/23 12:32) unknown ziprasidone [From Geodon] Allergy (Mild, Verified 05/29/23 12:32) dystonia clonazepam [From Klonopin] Allergy (Verified 05/29/23 12:32) agitation lorazepam [From Ativan] Allergy (Verified 05/29/23 12:32) agitation latex Adverse Reaction (Verified 05/29/23 12:32) Swelling BEETS Allergy (Intermediate, Uncoded 05/29/23 12:32) SWELLING STATLOC Allergy (Intermediate, Uncoded 05/29/23 12:32) RASH HPI 3 month follow up HPI Details 33 yr old f being called for f/u RECAP: ? She told me she had recent hep c ab pos but viral load was neg ? she was looking for a way to be able to take meds without throwing up ? she has been getting her meds thru the G-J tube and gets feeds thru central line ? she can' tolerate carbonated beverages ? mood is good, depression not an issue ? breathing is variable ? getting IVIG, going on for several months ? she is unsure if helping or not ? I gave her motegrity to see if helped her sx, advised to stop trulance ? also advised to reduce lactulose could cause bloating which she was also complaining off. ? motegrity didn;t help and she went back on movantik and trulance she was admitted to [place] with line infection, had fungal infection with fungemia, line was changed out as well as urine catheter due to urine infection, aspiration she was on Ig treatment for small nerve autoneuropathy (been in since 11/2019), felt it was helping BP and HR on IV benadryl, IV phenergan and IV zofran and IV pepcid and IV PPI she cant take carafate as it makes her nausea worse she tried tigan, didn;'t help so much also tried scopolamine patch but didn;t help phone call: 09/2019: she had septic arthritis with osteomyelitis and required wash out of right hip-- fungal infection recovery has been painful she has been getting IV fluconazole she has stopped all anti diarrheals she has not been taking movantik she took imodium the other night and it didn;t help that much nausea is better controlled? with higher dose of phenergan we had increased azfran as well for her nausea, will need ECG every so often to monitor QTc and labs she had also been seeing Dr Amor for immune def work up ? INTERIM: she had been in [facility] recently with cellulitis and infection had suprapaubic changed and GJ but they gave KARON button instead and she is not happy about this she has noted constipation but since back on TPN she has been passing small amounts of stool she can only take lactulose once a week she has issues with elevated LFT, which is probably from TPN she is not on oxygen she has lost more weight over 6 months working with her PCP on better pain control --she is worried she is not absorbing her drugs fully keerthi opiates she is on chronic oxygen she is unable to access palliative care Assessment & Plan 1/ Recurrent infections: due to immobili ty, multiple lines, admissions to hospital 2/ Steroid insuff, autonomic dysfn, smal l nerve fiber neuropathy -- 3/ constipation, only real rx at this ti me is lactulose PLAN: 1/ cont with lactulose as needed when co nstipation is an issue 2/ she is worried she is not absorbing h er meds properly keerthi opiates she may benefit from changing preparations to liquids and pharmacy input [facility] Medical History Constipation Fungal infection VRE (vancomycin-resistant Enterococci) Chronic, continuous use of opioids Small fiber polyneuropathy Hx pulmonary embolism Bacterial infection Septic arthritis Seizures Brain bleed Suprapubic catheter History of jejunostomy tube placement Hypothyroidism Diabetes GERD (gastroesophageal reflux disease) Unspecified convulsions Gastroparesis Asthma Brain tumor Neuropathy Surgical History S/P urological surgery History of esophagogastroduodenoscopy (EGD) History of hip surgery Hx of endoscopy History of colonoscopy Hx of oral surgery Family History Father Skin cancer Mother No problems noted. Social History Household Members: Caregiver Household Members Other:: caregiver-live in aid Both parents involved: No Caregiver staying overnight: Yes Housing Other:: 24 hour care - live in aid Are you a primary care process manager to a significant other at home: No Do you presently have visiting nurse or other home services: Yes (03/04 live in care) Alcohol intake: current Alcohol intake frequency: does not drink Patient Tobacco Use Status: Never used Tobacco Second Hand Smoke Exposure: No Advance Directives Date on File: 06/29/20 Assessment & Plan Assessment & Plan Medications: New lactulose 30 grams orally twice a week; 3,000 mL 2RF Telehealth Telehealth Location of provider rendering services: practice address Location of patient: address on file Patient Identification confirmed using: Name, : Yes Telehealth method: voice only Patient verbally consented to treatment: Yes Patient verbally consented to billing insurance company: Yes Patient informed of any privacy concerns related to visit: Yes Minutes spent on Phone/Video with Pt.: 18 Coding Level of Care Code Tele Est Pt Level 2 (71593)
== END 2023-05-29 16:21 | disposition home or self-care (01) ==
LOC: HO.HGI 12:30
PROVIDERS: PCP Internal Medicine; Visit Provider Internal Medicine Gastroenterology
DX: K59.00 Constipation, unspecified (principal)
CPT/HCPCS: 99442

== ENCOUNTER → 2023-05-29 12:30 | Outpatient (BNVA) | payer OTHER, SELFPAY | PROVIDERS: PCP Internal Medicine; Visit Provider Internal Medicine Gastroenterology ==

== ENCOUNTER 2023-07-26 05:53 | Day surgery (SDC) | payer OTHER, SELFPAY ==
--- NOTE | 2023-07-25 09:43 | P.CONAN_ITS ---
Documented by User: Lucila Bales NP 07/25/23 09:44 HPI - Anesthesia Eval Consult details Narrative: 33yo F for Insertion Suprapubic Tube exchange last exchange 04/2023 with MAC: Prop 120, Lido 50, Midaz 2 Home O2 3LNC PMFSH Active Problems Active Problems: All Active Problems (Updated 02/24/23 @ 13:38 by Nita Sigala RN) Bladder spasm (Acute) Diarrhea (Acute) Diarrhea associated with pseudomembranous colitis (Acute) Recurrent infections (Acute) Neurologic disorder (Acute) Neurogenic urinary bladder disorder (Acute) Gastroparesis (Acute) Past Medical History Medical History Constipation Fungal infection VRE (vancomycin-resistant Enterococci) Chronic, continuous use of opioids Small fiber polyneuropathy Hx pulmonary embolism Bacterial infection Septic arthritis Seizures Brain bleed Suprapubic catheter History of jejunostomy tube placement Hypothyroidism Diabetes GERD (gastroesophageal reflux disease) Unspecified convulsions Gastroparesis Asthma Brain tumor Neuropathy Family History Family History Father Skin cancer Mother No problems noted. 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 Household Members Other:: caregiver-live in aid Housing Other:: 24 hour care - live in aid Are you a primary residential care officer to a significant other at home: No Do you presently have visiting nurse or other home services: Yes (03/04 live in care) Alcohol intake: current Alcohol intake frequency: does not drink Patient Tobacco Use Status: Never used Tobacco Second Hand Smoke Exposure: No Use of substances other than those prescribed or required for medical reasons: No Are you DNR?: No Advance Directives: No Advance Directives Information Provided: Yes Advance Directives Date on File: 06/29/20 Meds Allergies Allergy/AdvReac Type Severity Reaction Status Date / Time lamotrigine [From LAMICTAL] Allergy Severe CLEMENTINA Verified 07/26/23 07:01 GUIDO SYNDROME chlorhexidine [CHLORHEXIDINE] Allergy Intermediate RASH Verified 07/26/23 07:01 citalopram [From CELEXA] Allergy Intermediate PROLONGED Verified 07/26/23 07:01 QT INTERVAL divalproex sodium Allergy Intermediate BLACK Verified 07/26/23 07:01 [From DEPAKOTE] EYES escitalopram [From LEXAPRO] Allergy Intermediate SWELLING Verified 07/26/23 07:01 lactose [LACTOSE] Allergy Intermediate GI UPSET Verified 07/26/23 07:01 povidone-iodine Allergy Intermediate rash Verified 07/26/23 07:01 [From BETADINE] alprazolam [From Xanax] Allergy Mild Unknown Verified 07/26/23 07:01 sertraline [From Zoloft] Allergy Mild unknown Verified 07/26/23 07:01 ziprasidone [From Geodon] Allergy Mild dystonia Verified 07/26/23 07:01 clonazepam [From Klonopin] Allergy agitation Verified 07/26/23 07:01 lorazepam [From Ativan] Allergy agitation Verified 07/26/23 07:01 latex AdvReac Swelling Verified 07/26/23 07:01 BEETS Allergy Intermediate SWELLING Uncoded 05/29/23 12:32 STATLOC Allergy Intermediate RASH Uncoded 05/29/23 12:32 Home Medications Medication Instructions Recorded Confirmed Last Taken Type albuterol sulfate 90 mcg/actuation 2 puff inhalation 6XD PRN Wheezing 06/25/20 05/29/23 10/24/22 History aerosol inhaler diphenhydramine HCl 50 mg/mL 50 mg IV Q3H 06/25/20 05/29/23 10/24/22 History injection solution pantoprazole 40 mg intravenous 40 mg IV BID 06/25/20 05/29/23 10/24/22 History solution (Protonix) acetaminophen 500 mg/15 mL oral 500 mg feeding tube QID PRN Pain 10/06/20 05/29/23 Unknown History liquid baclofen 5 mg/5 mL oral solution 15 mg feeding tube TID 10/06/20 05/29/23 10/24/22 History benztropine 1 mg tablet 1 mg feeding tube BID 10/06/20 05/29/23 05/18/22 History famotidine (PF) 20 mg/50 mL in 0.9 20 mg IV DAILY 10/06/20 05/29/23 10/24/22 History % NaCl (iso) intravenous piggyback fludrocortisone 0.1 mg tablet 0.1 mg feeding tube DAILY 10/06/20 05/29/23 10/24/22 History ipratropium 0.5 mg-albuterol 3 mg 3 ml inhalation Q6-8H PRN 10/06/20 05/29/23 Unknown History (2.5 mg base)/3 mL nebulization Shortness Of Breath Or Wheezing soln midodrine 10 mg tablet 10 mg feeding tube TID 10/06/20 05/29/23 10/24/22 History topiramate 200 mg tablet (Topamax) 200 mg feeding tube BID 10/06/20 05/29/23 10/24/22 History magnesium hydroxide 400 mg/5 mL 30 ml feeding tube DIRECTED PRN 11/12/20 05/29/23 Unknown History oral suspension (Milk of Magnesia) Gastric Reflux promethazine 25 mg/mL injection 25 mg IV TID 11/12/20 05/29/23 10/24/22 History solution (Phenergan) lidocaine 5 % topical ointment 1 appl topical QID PRN Pain 06/03/21 05/29/23 Unknown History Immuglobin IV TU 02/11/22 12/23/22 Unknown History Lactobacillus rhamnosus GG 10 1 cap feeding tube BID 02/11/22 05/29/23 10/24/22 History billion cell capsule (Culturelle) benztropine 0.5 mg tablet 0.5 mg feeding tube DAILY 02/11/22 05/29/23 10/24/22 History enoxaparin 40 mg/0.4 mL 40 mg subcut DAILY 02/11/22 05/29/23 03/28/23 06:00 History subcutaneous syringe furosemide 40 mg tablet 60 mg feeding tube TID 02/11/22 05/29/23 10/24/22 History gabapentin 300 mg/6 mL (6 mL) oral 800 mg feeding tube BEDTIME 02/11/22 05/29/23 Unknown History solution ondansetron HCl (PF) 4 mg/2 mL 4 mg IV Q4H 02/11/22 05/29/23 10/24/22 History injection syringe fluticasone propionate 110 1 puff inhalation BID 04/22/22 05/29/23 05/18/22 History mcg/actuation HFA aerosol inhaler (Flovent HFA) levetiracetam 500 mg/5 mL 500 mg IV BID 04/22/22 05/29/23 06/13/22 History intravenous solution (Keppra) baclofen 5 mg tablet 15 mg PO TID 12/23/22 04/26/23 Unknown History gabapentin 400 mg capsule 800 mg PO BID 12/23/22 12/23/22 Unknown History fremanezumab-vfrm 225 mg/1.5 mL 225 mg subcut QMONTH 02/27/23 05/29/23 Unknown History subcutaneous auto-injector (Ajovy) dextran 70-hypromellose 0.1 %-0.3 drp ophthalmic (eye) 05/29/23 Unknown History % eye drops (Lubricating Tears) diazepam 5 mg/5 mL (1 mg/mL) oral 1 mg PO DAILY PRN Anxiety 05/29/23 Unknown History solution hydromorphone 1 mg/mL oral liquid 5 mg PO Q3H 05/29/23 Unknown History (Dilaudid) lactulose 10 gram/15 mL (15 mL) 30 g PO BID PRN constipation 05/29/23 Unknown History oral solution levothyroxine 112 mcg/mL oral 80 mcg feeding tube DAILY 05/29/23 Unknown History solution loxapine succinate 10 mg capsule 70 mg feeding tube BID 05/29/23 Unknown History methylnaltrexone 12 mg/0.6 mL subcut 05/29/23 Unknown History subcutaneous syringe (Relistor) mirabegron 8 mg/mL oral 16 mg PO DAILY 05/29/23 Unknown History suspension,extended release (Myrbetriq) trospium 20 mg tablet 20 mg PO BID 05/29/23 Unknown History vibegron 75 mg tablet (Gemtesa) 75 mg PO DAILY 05/29/23 Unknown History Exam Exam Date and Time: July 25, [id number] Assessment and Plan Assessment Anesthesia Assessment: Chart Reviewed Final Anesthetic Review Family History of Problems with Anesthesia: No History of Problems with Anesthesia: No Documented by User: Rosey Lam MD 07/26/23 07:24 [facility] Past Medical History Medical History Constipation Fungal infection VRE (vancomycin-resistant Enterococci) Chronic, continuous use of opioids Small fiber polyneuropathy Hx pulmonary embolism Bacterial infection Septic arthritis Seizures Brain bleed Suprapubic catheter History of jejunostomy tube placement Hypothyroidism Diabetes GERD (gastroesophageal reflux disease) Unspecified convulsions Gastroparesis Asthma Brain tumor Neuropathy Family History Family History Father Skin cancer Mother No problems noted. 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 Household Members Other:: caregiver-live in aid Housing Other:: 24 hour care - live in aid Are you a primary residential care officer to a significant other at home: No Do you presently have visiting nurse or other home services: Yes (03/04 live in care) Alcohol intake: current Alcohol intake frequency: does not drink Patient Tobacco Use Status: Never used Tobacco Second Hand Smoke Exposure: No Use of substances other than those prescribed or required for medical reasons: No Are you DNR?: No Advance Directives: No Advance Directives Information Provided: Yes Advance Directives Date on File: 06/29/20 Meds Allergies Allergy/AdvReac Type Severity Reaction Status Date / Time lamotrigine [From LAMICTAL] Allergy Severe CLEMENTINA Verified 07/26/23 07:01 GUIDO SYNDROME chlorhexidine [CHLORHEXIDINE] Allergy Intermediate RASH Verified 07/26/23 07:01 citalopram [From CELEXA] Allergy Intermediate PROLONGED Verified 07/26/23 07:01 QT INTERVAL divalproex sodium Allergy Intermediate BLACK Verified 07/26/23 07:01 [From DEPAKOTE] EYES escitalopram [From LEXAPRO] Allergy Intermediate SWELLING Verified 07/26/23 07:01 lactose [LACTOSE] Allergy Intermediate GI UPSET Verified 07/26/23 07:01 povidone-iodine Allergy Intermediate rash Verified 07/26/23 07:01 [From BETADINE] alprazolam [From Xanax] Allergy Mild Unknown Verified 07/26/23 07:01 sertraline [From Zoloft] Allergy Mild unknown Verified 07/26/23 07:01 ziprasidone [From Geodon] Allergy Mild dystonia Verified 07/26/23 07:01 clonazepam [From Klonopin] Allergy agitation Verified 07/26/23 07:01 lorazepam [From Ativan] Allergy agitation Verified 07/26/23 07:01 latex AdvReac Swelling Verified 07/26/23 07:01 BEETS Allergy Intermediate SWELLING Uncoded 05/29/23 12:32 STATLOC Allergy Intermediate RASH Uncoded 05/29/23 12:32 Home Medications Medication Instructions Recorded Confirmed Last Taken Type albuterol sulfate 90 mcg/actuation 2 puff inhalation 6XD PRN Wheezing 06/25/20 05/29/23 10/24/22 History aerosol inhaler diphenhydramine HCl 50 mg/mL 50 mg IV Q3H 06/25/20 05/29/23 10/24/22 History injection solution pantoprazole 40 mg intravenous 40 mg IV BID 06/25/20 05/29/23 10/24/22 History solution (Protonix) acetaminophen 500 mg/15 mL oral 500 mg feeding tube QID PRN Pain 10/06/20 Unknown History liquid baclofen 5 mg/5 mL oral solution 15 mg feeding tube TID 10/06/20 05/29/23 10/24/22 History benztropine 1 mg tablet 1 mg feeding tube BID 10/06/20 05/29/23 05/18/22 History famotidine (PF) 20 mg/50 mL in 0.9 20 mg IV DAILY 10/06/20 05/29/23 10/24/22 History % NaCl (iso) intravenous piggyback fludrocortisone 0.1 mg tablet 0.1 mg feeding tube DAILY 10/06/20 05/29/23 10/24/22 History ipratropium 0.5 mg-albuterol 3 mg 3 ml inhalation Q6-8H PRN 10/06/20 05/29/23 Unknown History (2.5 mg base)/3 mL nebulization Shortness Of Breath Or Wheezing soln midodrine 10 mg tablet 10 mg feeding tube TID 10/06/20 05/29/23 10/24/22 History topiramate 200 mg tablet (Topamax) 200 mg feeding tube BID 10/06/20 05/29/23 10/24/22 History magnesium hydroxide 400 mg/5 mL 30 ml feeding tube DIRECTED PRN 11/12/20 05/29/23 Unknown History oral suspension (Milk of Magnesia) Gastric Reflux promethazine 25 mg/mL injection 25 mg IV TID 11/12/20 05/29/23 10/24/22 History solution (Phenergan) lidocaine 5 % topical ointment 1 appl topical QID PRN Pain 06/03/21 05/29/23 Unknown History Immuglobin IV TU 02/11/22 12/23/22 Unknown History Lactobacillus rhamnosus GG 10 1 cap feeding tube BID 02/11/22 05/29/23 10/24/22 History billion cell capsule (Culturelle) benztropine 0.5 mg tablet 0.5 mg feeding tube DAILY 02/11/22 05/29/23 10/24/22 History enoxaparin 40 mg/0.4 mL 40 mg subcut DAILY 02/11/22 05/29/23 03/28/23 06:00 History subcutaneous syringe furosemide 40 mg tablet 60 mg feeding tube TID 02/11/22 05/29/23 10/24/22 History gabapentin 300 mg/6 mL (6 mL) oral 800 mg feeding tube BEDTIME 02/11/22 05/29/23 Unknown History solution ondansetron HCl (PF) 4 mg/2 mL 4 mg IV Q4H 02/11/22 05/29/23 10/24/22 History injection syringe fluticasone propionate 110 1 puff inhalation BID 04/22/22 05/29/23 05/18/22 History mcg/actuation HFA aerosol inhaler (Flovent HFA) levetiracetam 500 mg/5 mL 500 mg IV BID 04/22/22 05/29/23 06/13/22 History intravenous solution (Keppra) baclofen 5 mg tablet 15 mg PO TID 12/23/22 04/26/23 Unknown History gabapentin 400 mg capsule 800 mg PO BID 12/23/22 12/23/22 Unknown History fremanezumab-vfrm 225 mg/1.5 mL 225 mg subcut QMONTH 02/27/23 05/29/23 Unknown History subcutaneous auto-injector (Ajovy) dextran 70-hypromellose 0.1 %-0.3 drp ophthalmic (eye) 05/29/23 Unknown History % eye drops (Lubricating Tears) diazepam 5 mg/5 mL (1 mg/mL) oral 1 mg PO DAILY PRN Anxiety 05/29/23 Unknown History solution hydromorphone 1 mg/mL oral liquid 5 mg PO Q3H 05/29/23 Unknown History (Dilaudid) lactulose 10 gram/15 mL (15 mL) 30 g PO BID PRN constipation 05/29/23 Unknown History oral solution levothyroxine 112 mcg/mL oral 80 mcg feeding tube DAILY 05/29/23 Unknown History solution loxapine succinate 10 mg capsule 70 mg feeding tube BID 05/29/23 Unknown History methylnaltrexone 12 mg/0.6 mL subcut 05/29/23 Unknown History subcutaneous syringe (Relistor) mirabegron 8 mg/mL oral 16 mg PO DAILY 05/29/23 Unknown History suspension,extended release (Myrbetriq) trospium 20 mg tablet 20 mg PO BID 05/29/23 Unknown History vibegron 75 mg tablet (Gemtesa) 75 mg PO DAILY 05/29/23 Unknown History Exam Airway Mallampati Class: III TM Dist: >3cm Neck ROM: Limited Loose/Missing/Broken Teeth: No Heart: RRR Lungs: CTA Assessment and Plan Assessment Anesthesia Assessment: Anesthesia Plan Discussed Final Anesthetic Review NPO: Yes ASA Class: IV Final Preanesthetic Review: Meds/Allgs Chart Reviewed, Consent Obtained/Reviewed and Anes Risks/Benef Reviewed Patient Risk: High Procedure Risk: Low Anesthetic Plan Anesthetic Plan: MAC: Disposition: Standard PACU
[2023-07-26] VITALS (8 sets, daily range): BP systolic 117–133; BP diastolic 76–92; PULSE 100–114; RESP 16–18; TEMP 36.1–36.2; O2SAT 100; BMI 21.8
[2023-07-26] MEDS: Lactated Ringers 1,000 ML 100 ML IVCONT (06:50)
[2023-07-26 07:03] LABS: Glucose, Whole Blood 97 mg/dL (60-115)
--- NOTE | 2023-07-26 07:32 | MHC.SHP ---
Pre-Procedural Eval Section A Date of Service: 07/26/23 The patient is an INPATIENT: No Changes since office visit: No Cold of Flu in the past 2 weeks, No New Medical Problems, No Changes in Medication and No Patient answered all questions The History & Physical has been completed within 30 days and I have reviewed it.: No Section B Chief Complaint: Neuromuscular dysfunction of bladder, unspecified Details of Present Illness: change SPT Relevant Social History: None Present Medications: see Short Stay Collaborative assessment Medical History: Significant History History of Previous Operations: Relevant previous surgery/procedure and date(s) Allergies: Allergies Allergy/AdvReac Type Severity Reaction Status Date / Time lamotrigine [From LAMICTAL] Allergy Severe CLEMENTINA Verified 07/26/23 07:01 GUIDO SYNDROME chlorhexidine [CHLORHEXIDINE] Allergy Intermediate RASH Verified 07/26/23 07:01 citalopram [From CELEXA] Allergy Intermediate PROLONGED Verified 07/26/23 07:01 QT INTERVAL divalproex sodium Allergy Intermediate BLACK Verified 07/26/23 07:01 [From DEPAKOTE] EYES escitalopram [From LEXAPRO] Allergy Intermediate SWELLING Verified 07/26/23 07:01 lactose [LACTOSE] Allergy Intermediate GI UPSET Verified 07/26/23 07:01 povidone-iodine Allergy Intermediate rash Verified 07/26/23 07:01 [From BETADINE] alprazolam [From Xanax] Allergy Mild Unknown Verified 07/26/23 07:01 sertraline [From Zoloft] Allergy Mild unknown Verified 07/26/23 07:01 ziprasidone [From Geodon] Allergy Mild dystonia Verified 07/26/23 07:01 clonazepam [From Klonopin] Allergy agitation Verified 07/26/23 07:01 lorazepam [From Ativan] Allergy agitation Verified 07/26/23 07:01 latex AdvReac Swelling Verified 07/26/23 07:01 BEETS Allergy Intermediate SWELLING Uncoded 05/29/23 12:32 STATLOC Allergy Intermediate RASH Uncoded 05/29/23 12:32 Review of Systems Sugical H&P ROS: Negative: Constitution, Cardiovascular, Respiratory, Neurological, Psychiatric, Hem-Onc, Allergic/Immunologic, Gastrointestinal, Genitourinary, Musculoskeletal, Integumentary, Endocrine and Eyes/Ears/Nose/Throat Exam Surgical H&P Exam: Normal: HEENT, Normal: Heart, Normal: Lungs, Normal: Extremities, Normal: Abdomen, Normal: Skin and Normal: Neurological Plan Diagnosis/Plan: Unchanged I have reviewed the history and physical and performed a pertinent physical examination on my patient. No changes have occurred unless specified. Time Spent With Patient Time: Total time managing care of this patient today ____ minutes.
[2023-07-26] MEDS: HYDROmorphone HCl 1 MG/ML SYRINGE 0.75 MG IVPUSH ×2 (08:03→08:17)
--- NOTE | 2023-07-26 09:03 | W.PM.OPN ---
Operative Note Operative Note Date of Service: 07/26/23 Narrative: PreOperative Diagnosis:? Neurogenic bladder Post Operative Diagnosis:? Neurogenic bladder Procedure:? Suprapubic tube change Surgeon:?Dr Denys Pereira Anesthesia:? Sedation Indications for procedure: Small neuronal disease with neurogenic bladder Procedure: After informed consent was verified the patient was brought to the operating room and placed in a supine position.? Anesthesia was administered per protocol. Marcela remained in her stretcher. The area was prepped with saline Suprapubic tube removed. 18 Fr catheter with double balloon placed Estefany Mesa
== END 2023-07-26 09:03 | disposition home or self-care (01) ==
PROVIDERS: PCP Internal Medicine; Visit Provider Urology
PROC: (CPT 51102; principal; 2023-07-26 07:30)
DX: N31.9 Neuromuscular dysfunction of bladder, unspecified (principal); E11.9 Type 2 diabetes mellitus without complications; K21.9 Gastro-esophageal reflux disease without esophagitis; K31.84 Gastroparesis; J45.909 Unspecified asthma, uncomplicated; R56.9 Unspecified convulsions; E03.9 Hypothyroidism, unspecified; Z93.1 Gastrostomy status; A04.72 Enterocolitis due to Clostridium difficile, not specified as recurrent; Z86.711 Personal history of pulmonary embolism; Z79.899 Other long term (current) drug therapy; Z79.891 Long term (current) use of opiate analgesic
CPT/HCPCS: 51102; 82947; J1170; J2250; J2704

== ENCOUNTER → 2023-07-26 05:53 | Outpatient (BNV) | payer OTHER, SELFPAY | PROVIDERS: PCP Internal Medicine; Visit Provider Urology | DX: N31.9 Neuromuscular dysfunction of bladder, unspecified (principal); Z96.0 Presence of urogenital implants | CPT/HCPCS: 51705 ==

== ENCOUNTER 2023-08-30 06:02 | Day surgery (SDC) | payer OTHER, SELFPAY ==
[2023-08-28 10:02] VITALS: BMI 21.8
--- NOTE | 2023-08-29 08:45 | HO.ANESPROP2 ---
Documented by User: Lucila Bales NP 08/29/23 08:46 HPI - Anesthesia Eval Consult details Narrative: 33yo F for Suprapubic Tube Exchange Last 07/27/23 with MAC PMFSH Active Problems Active Problems: All Active Problems (Updated 07/26/23 @ 07:00 by Leanna Edwards RN) Bladder spasm (Acute) Diarrhea (Acute) Diarrhea associated with pseudomembranous colitis (Acute) Recurrent infections (Acute) Neurologic disorder (Acute) Neurogenic urinary bladder disorder (Acute) Gastroparesis (Acute) Past Medical History Medical History Constipation Fungal infection VRE (vancomycin-resistant Enterococci) Chronic, continuous use of opioids Small fiber polyneuropathy Hx pulmonary embolism Bacterial infection Septic arthritis Seizures Brain bleed Suprapubic catheter History of jejunostomy tube placement Hypothyroidism Diabetes GERD (gastroesophageal reflux disease) Unspecified convulsions Gastroparesis Asthma Brain tumor Neuropathy Family History Family History Father Skin cancer Mother No problems noted. 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 Household Members Other:: caregiver-live in aid Housing Other:: 24 hour care - live in aid Are you a primary home visit field care manager to a significant other at home: No Do you presently have visiting nurse or other home services: Yes (03/04 live in care) Alcohol intake: current Alcohol intake frequency: does not drink Comment: larger catheter inserted Patient Tobacco Use Status: Never used Tobacco Second Hand Smoke Exposure: No Use of substances other than those prescribed or required for medical reasons: No Are you DNR?: No Advance Directives: No Advance Directives Information Provided: Yes Advance Directives Date on File: 06/29/20 Meds Allergies Allergy/AdvReac Type Severity Reaction Status Date / Time lamotrigine [From LAMICTAL] Allergy Severe CLEMENTINA Verified 08/30/23 06:48 GUIDO SYNDROME chlorhexidine [CHLORHEXIDINE] Allergy Intermediate RASH Verified 08/30/23 06:48 citalopram [From CELEXA] Allergy Intermediate PROLONGED Verified 08/30/23 06:48 QT INTERVAL divalproex sodium Allergy Intermediate BLACK Verified 08/30/23 06:48 [From DEPAKOTE] EYES escitalopram [From LEXAPRO] Allergy Intermediate SWELLING Verified 08/30/23 06:48 lactose [LACTOSE] Allergy Intermediate GI UPSET Verified 08/30/23 06:48 povidone-iodine Allergy Intermediate rash Verified 08/30/23 06:48 [From BETADINE] alprazolam [From Xanax] Allergy Mild Unknown Verified 08/30/23 06:48 sertraline [From Zoloft] Allergy Mild unknown Verified 08/30/23 06:48 ziprasidone [From Geodon] Allergy Mild dystonia Verified 08/30/23 06:48 clonazepam [From Klonopin] Allergy agitation Verified 08/30/23 06:48 lorazepam [From Ativan] Allergy agitation Verified 08/30/23 06:48 latex AdvReac Swelling Verified 08/30/23 06:48 BEETS Allergy Intermediate SWELLING Uncoded 05/29/23 12:32 STATLOC Allergy Intermediate RASH Uncoded 05/29/23 12:32 Home Medications Medication Instructions Recorded Confirmed Last Taken Type albuterol sulfate 90 mcg/actuation 2 puff inhalation 6XD PRN Wheezing 06/25/20 08/28/23 10/24/22 History aerosol inhaler diphenhydramine HCl 50 mg/mL 50 mg IV Q3H 06/25/20 08/28/23 10/24/22 History injection solution pantoprazole 40 mg intravenous 40 mg IV BID 06/25/20 08/28/23 10/24/22 History solution (Protonix) acetaminophen 500 mg/15 mL oral 500 mg feeding tube QID PRN Pain 10/06/20 08/28/23 Unknown History liquid baclofen 5 mg/5 mL oral solution 15 mg feeding tube TID 10/06/20 08/28/23 10/24/22 History benztropine 1 mg tablet 1 mg feeding tube BID 10/06/20 08/28/23 05/18/22 History famotidine (PF) 20 mg/50 mL in 0.9 20 mg IV DAILY 10/06/20 08/28/2310/24/23 History % NaCl (iso) intravenous piggyback fludrocortisone 0.1 mg tablet 0.1 mg feeding tube DAILY 10/06/20 08/28/23 10/24/22 History ipratropium 0.5 mg-albuterol 3 mg 3 ml inhalation Q6-8H PRN 10/06/20 08/28/23 Unknown History (2.5 mg base)/3 mL nebulization Shortness Of Breath Or Wheezing soln midodrine 10 mg tablet 10 mg feeding tube TID 10/06/20 08/28/23 10/24/22 History topiramate 200 mg tablet (Topamax) 200 mg feeding tube BID 10/06/20 08/28/23 10/24/22 History magnesium hydroxide 400 mg/5 mL 30 ml feeding tube DIRECTED PRN 11/12/20 08/28/23 Unknown History oral suspension (Milk of Magnesia) Gastric Reflux promethazine 25 mg/mL injection 25 mg IV TID 11/12/20 08/28/23 10/24/22 History solution (Phenergan) lidocaine 5 % topical ointment 1 appl topical QID PRN Pain 06/03/21 08/28/23 Unknown History Immuglobin IV TU 02/11/22 12/23/22 Unknown History Lactobacillus rhamnosus GG 10 1 cap feeding tube BID 02/11/22 08/28/23 10/24/22 History billion cell capsule (Culturelle) benztropine 0.5 mg tablet 0.5 mg feeding tube DAILY 02/11/22 08/28/23 10/24/22 History enoxaparin 40 mg/0.4 mL 40 mg subcut DAILY 02/11/22 08/28/23 03/28/23 06:00 History subcutaneous syringe furosemide 40 mg tablet 60 mg feeding tube TID 02/11/22 08/28/23 10/24/22 History gabapentin 300 mg/6 mL (6 mL) oral 800 mg feeding tube BEDTIME 02/11/22 08/28/23 Unknown History solution ondansetron HCl (PF) 4 mg/2 mL 4 mg IV Q4H 02/11/22 08/28/23 10/24/22 History injection syringe fluticasone propionate 110 1 puff inhalation BID 04/22/22 08/28/23 05/18/22 History mcg/actuation HFA aerosol inhaler (Flovent HFA) levetiracetam 500 mg/5 mL 500 mg IV BID 04/22/22 08/28/23 06/13/22 History intravenous solution (Keppra) baclofen 5 mg tablet 15 mg PO TID 12/23/22 08/28/23 Unknown History gabapentin 400 mg capsule 800 mg PO BID 12/23/22 08/28/23 Unknown History fremanezumab-vfrm 225 mg/1.5 mL 225 mg subcut QMONTH 02/27/23 05/29/23 Unknown History subcutaneous auto-injector (Ajovy) dextran 70-hypromellose 0.1 %-0.3 drp ophthalmic (eye) 05/29/23 Unknown History % eye drops (Lubricating Tears) diazepam 5 mg/5 mL (1 mg/mL) oral 1 mg PO DAILY PRN Anxiety 05/29/23 Unknown History solution hydromorphone 1 mg/mL oral liquid 5 mg PO Q3H 05/29/23 08/28/23 Unknown History (Dilaudid) lactulose 10 gram/15 mL (15 mL) 30 g PO BID PRN constipation 05/29/23 Unknown History oral solution levothyroxine 112 mcg/mL oral 80 mcg feeding tube DAILY 05/29/23 Unknown History solution loxapine succinate 10 mg capsule 70 mg feeding tube BID 05/29/23 Unknown History methylnaltrexone 12 mg/0.6 mL subcut 05/29/23 Unknown History subcutaneous syringe (Relistor) mirabegron 8 mg/mL oral 16 mg PO DAILY 05/29/23 Unknown History suspension,extended release (Myrbetriq) trospium 20 mg tablet 20 mg PO BID 05/29/23 Unknown History vibegron 75 mg tablet (Gemtesa) 75 mg PO DAILY 05/29/23 Unknown History prochlorperazine edisylate 5 mg/mL 5 mg Q4H 08/30/23 08/30/23 Unknown History injection syringe Exam Height,Weight and Vital Signs: Height 4 ft 11 in Weight 48.988 kg Assessment and Plan Assessment Anesthesia Assessment: Chart Reviewed Final Anesthetic Review Family History of Problems with Anesthesia: No History of Problems with Anesthesia: No Documented by User: Devin Ansari MD 08/30/23 07:22 PMFSH Past Medical History Medical History Constipation Fungal infection VRE (vancomycin-resistant Enterococci) Chronic, continuous use of opioids Small fiber polyneuropathy Hx pulmonary embolism Bacterial infection Septic arthritis Seizures Brain bleed Suprapubic catheter History of jejunostomy tube placement Hypothyroidism Diabetes GERD (gastroesophageal reflux disease) Unspecified convulsions Gastroparesis Asthma Brain tumor Neuropathy Family History Family History Father Skin cancer Mother No problems noted. 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 Household Members Other:: caregiver-live in aid Housing Other:: 24 hour care - live in aid Are you a primary home visit field care manager to a significant other at home: No Do you presently have visiting nurse or other home services: Yes (03/04 live in care) Alcohol intake: current Alcohol intake frequency: does not drink Comment: larger catheter inserted Patient Tobacco Use Status: Never used Tobacco Second Hand Smoke Exposure: No Use of substances other than those prescribed or required for medical reasons: No Are you DNR?: No Advance Directives: No Advance Directives Information Provided: Yes Advance Directives Date on File: 06/29/20 Meds Allergies Allergy/AdvReac Type Severity Reaction Status Date / Time lamotrigine [From LAMICTAL] Allergy Severe CLEMENTINA Verified 08/30/23 06:48 GUIDO SYNDROME chlorhexidine [CHLORHEXIDINE] Allergy Intermediate RASH Verified 08/30/23 06:48 citalopram [From CELEXA] Allergy Intermediate PROLONGED Verified 08/30/23 06:48 QT INTERVAL divalproex sodium Allergy Intermediate BLACK Verified 08/30/23 06:48 [From DEPAKOTE] EYES escitalopram [From LEXAPRO] Allergy Intermediate SWELLING Verified 08/30/23 06:48 lactose [LACTOSE] Allergy Intermediate GI UPSET Verified 08/30/23 06:48 povidone-iodine Allergy Intermediate rash Verified 08/30/23 06:48 [From BETADINE] alprazolam [From Xanax] Allergy Mild Unknown Verified 08/30/23 06:48 sertraline [From Zoloft] Allergy Mild unknown Verified 08/30/23 06:48 ziprasidone [From Geodon] Allergy Mild dystonia Verified 08/30/23 06:48 clonazepam [From Klonopin] Allergy agitation Verified 08/30/23 06:48 lorazepam [From Ativan] Allergy agitation Verified 08/30/23 06:48 latex AdvReac Swelling Verified 08/30/23 06:48 BEETS Allergy Intermediate SWELLING Uncoded 05/29/23 12:32 STATLOC Allergy Intermediate RASH Uncoded 05/29/23 12:32 Home Medications Medication Instructions Recorded Confirmed Last Taken Type albuterol sulfate 90 mcg/actuation 2 puff inhalation 6XD PRN Wheezing 06/25/20 08/28/23 10/24/22 History aerosol inhaler diphenhydramine HCl 50 mg/mL 50 mg IV Q3H 06/25/20 08/28/23 10/24/22 History injection solution pantoprazole 40 mg intravenous 40 mg IV BID 06/25/20 08/28/23 10/24/22 History solution (Protonix) acetaminophen 500 mg/15 mL oral 500 mg feeding tube QID PRN Pain 10/06/20 08/28/23 Unknown History liquid baclofen 5 mg/5 mL oral solution 15 mg feeding tube TID 10/06/20 08/28/23 10/24/22 History benztropine 1 mg tablet 1 mg feeding tube BID 10/06/20 08/28/23 05/18/22 History famotidine (PF) 20 mg/50 mL in 0.9 20 mg IV DAILY 10/06/20 08/28/23 10/24/22 History % NaCl (iso) intravenous piggyback fludrocortisone 0.1 mg tablet 0.1 mg feeding tube DAILY 10/06/20 08/28/23 10/24/22 History ipratropium 0.5 mg-albuterol 3 mg 3 ml inhalation Q6-8H PRN 10/06/20 08/28/23 Unknown History (2.5 mg base)/3 mL nebulization Shortness Of Breath Or Wheezing soln midodrine 10 mg tablet 10 mg feeding tube TID 10/06/20 08/28/23 10/24/22 History topiramate 200 mg tablet (Topamax) 200 mg feeding tube BID 10/06/20 08/28/23 10/24/22 History magnesium hydroxide 400 mg/5 mL 30 ml feeding tube DIRECTED PRN 11/12/20 08/28/23 Unknown History oral suspension (Milk of Magnesia) Gastric Reflux promethazine 25 mg/mL injection 25 mg IV TID 11/12/20 08/28/23 10/24/22 History solution (Phenergan) lidocaine 5 % topical ointment 1 appl topical QID PRN Pain 06/03/21 08/28/23 Unknown History Immuglobin IV TU 02/11/22 12/23/22 Unknown History Lactobacillus rhamnosus GG 10 1 cap feeding tube BID 02/11/22 08/28/23 10/24/22 History billion cell capsule (Culturelle) benztropine 0.5 mg tablet 0.5 mg feeding tube DAILY 02/11/22 08/28/23 10/24/22 History enoxaparin 40 mg/0.4 mL 40 mg subcut DAILY 02/11/22 08/28/23 03/28/23 06:00 History subcutaneous syringe furosemide 40 mg tablet 60 mg feeding tube TID 02/11/22 08/28/23 10/24/22 History gabapentin 300 mg/6 mL (6 mL) oral 800 mg feeding tube BEDTIME 02/11/22 08/28/23 Unknown History solution ondansetron HCl (PF) 4 mg/2 mL 4 mg IV Q4H 02/11/22 08/28/23 10/24/22 History injection syringe fluticasone propionate 110 1 puff inhalation BID 04/22/22 08/28/23 05/18/22 History mcg/actuation HFA aerosol inhaler (Flovent HFA) levetiracetam 500 mg/5 mL 500 mg IV BID 04/22/22 08/28/23 06/13/22 History intravenous solution (Keppra) baclofen 5 mg tablet 15 mg PO TID 12/23/22 08/28/23 Unknown History gabapentin 400 mg capsule 800 mg PO BID 12/23/22 08/28/23 Unknown History fremanezumab-vfrm 225 mg/1.5 mL 225 mg subcut QMONTH 02/27/23 05/29/23 Unknown History subcutaneous auto-injector (Ajovy) dextran 70-hypromellose 0.1 %-0.3 drp ophthalmic (eye) 05/29/23 Unknown History % eye drops (Lubricating Tears) diazepam 5 mg/5 mL (1 mg/mL) oral 1 mg PO DAILY PRN Anxiety 05/29/23 Unknown History solution hydromorphone 1 mg/mL oral liquid 5 mg PO Q3H 05/29/23 08/28/23 Unknown History (Dilaudid) lactulose 10 gram/15 mL (15 mL) 30 g PO BID PRN constipation 05/29/23 Unknown History oral solution levothyroxine 112 mcg/mL oral 80 mcg feeding tube DAILY 05/29/23 Unknown History solution loxapine succinate 10 mg capsule 70 mg feeding tube BID 05/29/23 Unknown History methylnaltrexone 12 mg/0.6 mL subcut 05/29/23 Unknown History subcutaneous syringe (Relistor) mirabegron 8 mg/mL oral 16 mg PO DAILY 05/29/23 Unknown History suspension,extended release (Myrbetriq) trospium 20 mg tablet 20 mg PO BID 05/29/23 Unknown History vibegron 75 mg tablet (Gemtesa) 75 mg PO DAILY 05/29/23 Unknown History prochlorperazine edisylate 5 mg/mL 5 mg Q4H 08/30/23 08/30/23 Unknown History injection syringe Exam Airway Mallampati Class: II TM Dist: >3cm Neck ROM: Full Loose/Missing/Broken Teeth: Yes Heart: [id number] Lungs: cta b/l Assessment and Plan Assessment Anesthesia Assessment: Anesthesia Plan Discussed Final Anesthetic Review NPO: Yes ASA Class: III Final Preanesthetic Review: No Changes in Pt Med Stat, Meds/Allgs Chart Reviewed, Consent Obtained/Reviewed and Anes Risks/Benef Reviewed Patient Risk: Intermediate Procedure Risk: Intermediate Assessment/Block/Sedation in SS: Assess/Block/Sedation-SS Anesthetic Plan Anesthetic Plan: MAC: and Agree w/ Assess. and Plan Disposition: Standard PACU
[2023-08-30] VITALS (7 sets, daily range): BP systolic 98–136; BP diastolic 65–88; PULSE 88–96; RESP 16–20; TEMP 36.2–36.8; O2SAT 100; BMI 21.8
[2023-08-30 06:52] LABS: Glucose, Whole Blood 95 mg/dL (60-115)
--- NOTE | 2023-08-30 07:30 | MHC.SHP ---
Pre-Procedural Eval Section A Date of Service: 08/30/23 The patient is an INPATIENT: No Changes since office visit: No Cold of Flu in the past 2 weeks, No New Medical Problems, No Changes in Medication and No Patient answered all questions The History & Physical has been completed within 30 days and I have reviewed it.: No Section B Chief Complaint: Neuromuscular dysfunction of bladder, unspecified Relevant Family History (Specify if Yes): No Relevant Social History: None Allergies: Allergies Allergy/AdvReac Type Severity Reaction Status Date / Time lamotrigine [From LAMICTAL] Allergy Severe CLEMENTINA Verified 08/30/23 06:48 GUIDO SYNDROME chlorhexidine [CHLORHEXIDINE] Allergy Intermediate RASH Verified 08/30/23 06:48 citalopram [From CELEXA] Allergy Intermediate PROLONGED Verified 08/30/23 06:48 QT INTERVAL divalproex sodium Allergy Intermediate BLACK Verified 08/30/23 06:48 [From DEPAKOTE] EYES escitalopram [From LEXAPRO] Allergy Intermediate SWELLING Verified 08/30/23 06:48 lactose [LACTOSE] Allergy Intermediate GI UPSET Verified 08/30/23 06:48 povidone-iodine Allergy Intermediate rash Verified 08/30/23 06:48 [From BETADINE] alprazolam [From Xanax] Allergy Mild Unknown Verified 08/30/23 06:48 sertraline [From Zoloft] Allergy Mild unknown Verified 08/30/23 06:48 ziprasidone [From Geodon] Allergy Mild dystonia Verified 08/30/23 06:48 clonazepam [From Klonopin] Allergy agitation Verified 08/30/23 06:48 lorazepam [From Ativan] Allergy agitation Verified 08/30/23 06:48 latex AdvReac Swelling Verified 08/30/23 06:48 BEETS Allergy Intermediate SWELLING Uncoded 05/29/23 12:32 STATLOC Allergy Intermediate RASH Uncoded 05/29/23 12:32 Review of Systems Sugical H&P ROS: Negative: Constitution, Cardiovascular, Respiratory, Neurological, Psychiatric, Hem-Onc, Allergic/Immunologic, Gastrointestinal, Genitourinary, Musculoskeletal, Integumentary, Endocrine and Eyes/Ears/Nose/Throat Exam Surgical H&P Exam: Normal: HEENT, Normal: Heart, Normal: Lungs, Normal: Extremities, Normal: Abdomen, Normal: Skin and Normal: Neurological Plan Diagnosis/Plan: Unchanged I have reviewed the history and physical and performed a pertinent physical examination on my patient. No changes have occurred unless specified. Time Spent With Patient Time: Total time managing care of this patient today ____ minutes.
--- NOTE | 2023-08-30 07:44 | W.PM.OPN ---
Operative Note Operative Note Date of Service: 08/30/23 Narrative: PreOperative Diagnosis:? Neurogenic bladder Post Operative Diagnosis:? Neurogenic bladder Procedure:? Suprapubic tube change Surgeon:?Dr Denys Pereira Anesthesia:? Sedation Indications for procedure: Small neuronal disease with neurogenic bladder Procedure: After informed consent was verified the patient was brought to the operating room and placed in a supine position.? Anesthesia was administered per protocol. Marcela remained in her stretcher. The area was prepped with saline Suprapubic tube removed. 18 Fr catheter with double balloon placed Estefany Mesa
[2023-08-30] MEDS: HYDROmorphone HCl 0.5 MG/0.5 ML SYRINGE IVPUSH ×3 (07:54→08:04)
== END 2023-08-30 08:44 | disposition home or self-care (01) ==
PROVIDERS: PCP Internal Medicine; Visit Provider Urology
PROC: (CPT 51705; principal; 2023-08-30 07:30)
DX: N31.9 Neuromuscular dysfunction of bladder, unspecified (principal); G62.89 Other specified polyneuropathies; R56.9 Unspecified convulsions; E11.9 Type 2 diabetes mellitus without complications; J45.909 Unspecified asthma, uncomplicated; Z86.711 Personal history of pulmonary embolism; Z66 Do not resuscitate; F11.90 Opioid use, unspecified, uncomplicated; Z79.51 Long term (current) use of inhaled steroids; Z79.899 Other long term (current) drug therapy; Z88.8 Allergy status to other drugs, medicaments and biological substances; Z91.040 Latex allergy status
CPT/HCPCS: 51705; 82947; J1170

== ENCOUNTER → 2023-08-30 06:02 | Outpatient (BNV) | payer OTHER, SELFPAY | PROVIDERS: PCP Internal Medicine; Visit Provider Urology | DX: N31.9 Neuromuscular dysfunction of bladder, unspecified (principal); Z96.0 Presence of urogenital implants | CPT/HCPCS: 51705 ==

== ENCOUNTER → 2023-11-15 06:06 | Day surgery (SDC) | payer OTHER, SELFPAY ==
--- NOTE | 2023-09-25 12:59 | HO.ANESPROP2 ---
HPI - Anesthesia Eval Consult details Narrative: 33yo F for Suprapubic Tube Exchange s/p same 08/30/23 with MAC - prop 50 Pt declines Urine HCG PMFSH Active Problems Active Problems: All Active Problems (Updated 07/26/23 @ 07:00 by Leanna Edwards RN) Bladder spasm (Acute) Diarrhea (Acute) Diarrhea associated with pseudomembranous colitis (Acute) Recurrent infections (Acute) Neurologic disorder (Acute) Neurogenic urinary bladder disorder (Acute) Gastroparesis (Acute) Past Medical History Medical History Constipation Fungal infection VRE (vancomycin-resistant Enterococci) Chronic, continuous use of opioids Small fiber polyneuropathy Hx pulmonary embolism Bacterial infection Septic arthritis Seizures Brain bleed Suprapubic catheter History of jejunostomy tube placement Hypothyroidism Diabetes GERD (gastroesophageal reflux disease) Unspecified convulsions Gastroparesis Asthma Brain tumor Neuropathy Family History Family History Father Skin cancer Mother No problems noted. 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 Household Members Other:: caregiver-live in aid Both parents involved: No Caregiver staying overnight: Yes Housing Other:: 24 hour care - live in aid Are you a primary palliative care specialist to a significant other at home: No Do you presently have visiting nurse or other home services: Yes (03/04 live in care) Alcohol intake: current Alcohol intake frequency: does not drink Comment: larger catheter inserted Patient Tobacco Use Status: Never used Tobacco Second Hand Smoke Exposure: No Advance Directives Date on File: 06/29/20 Meds Allergies Allergy/AdvReac Type Severity Reaction Status Date / Time lamotrigine [From LAMICTAL] Allergy Severe CLEMENTINA Verified 08/30/23 06:48 GUIDO SYNDROME chlorhexidine [CHLORHEXIDINE] Allergy Intermediate RASH Verified 08/30/23 06:48 citalopram [From CELEXA] Allergy Intermediate PROLONGED Verified 12/20/23 06:48 QT INTERVAL divalproex sodium Allergy Intermediate BLACK Verified 08/30/23 06:48 [From DEPAKOTE] EYES escitalopram [From LEXAPRO] Allergy Intermediate SWELLING Verified 08/30/23 06:48 lactose [LACTOSE] Allergy Intermediate GI UPSET Verified 08/30/23 06:48 povidone-iodine Allergy Intermediate rash Verified 08/30/23 06:48 [From BETADINE] alprazolam [From Xanax] Allergy Mild Unknown Verified 08/30/23 06:48 sertraline [From Zoloft] Allergy Mild unknown Verified 08/30/23 06:48 ziprasidone [From Geodon] Allergy Mild dystonia Verified 08/30/23 06:48 clonazepam [From Klonopin] Allergy agitation Verified 08/30/23 06:48 lorazepam [From Ativan] Allergy agitation Verified 08/30/23 06:48 latex AdvReac Swelling Verified 08/30/23 06:48 BEETS Allergy Intermediate SWELLING Uncoded 05/29/23 12:32 STATLOC Allergy Intermediate RASH Uncoded 05/29/23 12:32 Home Medications Medication Instructions Recorded Confirmed Last Taken Type albuterol sulfate 90 mcg/actuation 2 puff inhalation 6XD PRN Wheezing 06/25/20 08/28/23 10/24/22 History aerosol inhaler diphenhydramine HCl 50 mg/mL 50 mg IV Q3H 06/25/20 08/28/23 10/24/22 History injection solution pantoprazole 40 mg intravenous 40 mg IV BID 06/25/20 08/28/23 10/24/22 History solution (Protonix) acetaminophen 500 mg/15 mL oral 500 mg feeding tube QID PRN Pain 10/06/20 08/28/23 Unknown History liquid baclofen 5 mg/5 mL oral solution 15 mg feeding tube TID 10/06/20 08/28/23 10/24/22 History benztropine 1 mg tablet 1 mg feeding tube BID 10/06/20 08/28/23 05/18/22 History famotidine (PF) 20 mg/50 mL in 0.9 20 mg IV DAILY 10/06/20 08/28/23 10/24/22 History % NaCl (iso) intravenous piggyback fludrocortisone 0.1 mg tablet 0.1 mg feeding tube DAILY 10/06/20 08/28/23 10/24/22 History ipratropium 0.5 mg-albuterol 3 mg 3 ml inhalation Q6-8H PRN 10/06/20 08/28/23 Unknown History (2.5 mg base)/3 mL nebulization Shortness Of Breath Or Wheezing soln midodrine 10 mg tablet 10 mg feeding tube TID 10/06/20 08/28/23 10/24/22 History topiramate 200 mg tablet (Topamax) 200 mg feeding tube BID 10/06/20 08/28/23 10/24/22 History magnesium hydroxide 400 mg/5 mL 30 ml feeding tube DIRECTED PRN 11/12/20 08/28/23 Unknown History oral suspension (Milk of Magnesia) Gastric Reflux promethazine 25 mg/mL injection 25 mg IV TID 11/12/20 08/28/23 10/24/22 History solution (Phenergan) lidocaine 5 % topical ointment 1 appl topical QID PRN Pain 06/03/21 08/28/23 Unknown History Immuglobin IV TU 02/11/22 12/23/22 Unknown History Lactobacillus rhamnosus GG 10 1 cap feeding tube BID 02/11/22 08/28/23 10/24/22 History billion cell capsule (Culturelle) benztropine 0.5 mg tablet 0.5 mg feeding tube DAILY 02/11/22 08/28/23 10/24/22 History enoxaparin 40 mg/0.4 mL 40 mg subcut DAILY 02/11/22 08/28/23 03/28/23 06:00 History subcutaneous syringe furosemide 40 mg tablet 60 mg feeding tube TID 02/11/22 08/28/23 10/24/22 History gabapentin 300 mg/6 mL (6 mL) oral 800 mg feeding tube BEDTIME 02/11/22 08/28/23 Unknown History solution ondansetron HCl (PF) 4 mg/2 mL 4 mg IV Q4H 02/11/22 08/28/23 10/24/22 History injection syringe fluticasone propionate 110 1 puff inhalation BID 04/22/22 08/28/23 05/18/22 History mcg/actuation HFA aerosol inhaler (Flovent HFA) levetiracetam 500 mg/5 mL 500 mg IV BID 04/22/22 08/28/23 06/13/22 History intravenous solution (Keppra) baclofen 5 mg tablet 15 mg PO TID 12/23/22 08/28/23 Unknown History gabapentin 400 mg capsule 800 mg PO BID 12/23/22 08/28/23 Unknown History fremanezumab-vfrm 225 mg/1.5 mL 225 mg subcut QMONTH 02/27/23 05/29/23 Unknown History subcutaneous auto-injector (Ajovy) dextran 70-hypromellose 0.1 %-0.3 drp ophthalmic (eye) 05/29/23 Unknown History % eye drops (Lubricating Tears) diazepam 5 mg/5 mL (1 mg/mL) oral 1 mg PO DAILY PRN Anxiety 05/29/23 Unknown History solution hydromorphone 1 mg/mL oral liquid 5 mg PO Q3H 05/29/23 08/28/23 Unknown History (Dilaudid) lactulose 10 gram/15 mL (15 mL) 30 g PO BID PRN constipation 05/29/23 Unknown History oral solution levothyroxine 112 mcg/mL oral 80 mcg feeding tube DAILY 05/29/23 Unknown History solution loxapine succinate 10 mg capsule 70 mg feeding tube BID 05/29/23 Unknown History methylnaltrexone 12 mg/0.6 mL subcut 05/29/23 Unknown History subcutaneous syringe (Relistor) mirabegron 8 mg/mL oral 16 mg PO DAILY 05/29/23 Unknown History suspension,extended release (Myrbetriq) trospium 20 mg tablet 20 mg PO BID 05/29/23 Unknown History vibegron 75 mg tablet (Gemtesa) 75 mg PO DAILY 05/29/23 Unknown History prochlorperazine edisylate 5 mg/mL 5 mg Q4H 08/30/23 08/30/23 Unknown History injection syringe Assessment and Plan Assessment Anesthesia Assessment: Chart Reviewed Final Anesthetic Review Family History of Problems with Anesthesia: No History of Problems with Anesthesia: No
[2023-09-25 14:05] VITALS: BMI 21.8
--- NOTE | 2023-11-13 13:40 | HO.ANESPROP2 ---
HPI - Anesthesia Eval Consult details Narrative: Pt sent to ED from preop d/t lethargy, alt mental status, change from baseline. 33yo F for Suprapubic Tube Exchange Last exchange 08/2023 with MAC: Prop 50 Pt declines Urine HCG test PMFSH Active Problems Active Problems: All Active Problems (Updated 09/25/23 @ 14:06 by Nita Sigala RN) Bladder spasm (Acute) Diarrhea (Acute) Diarrhea associated with pseudomembranous colitis (Acute) Recurrent infections (Acute) Neurologic disorder (Acute) Neurogenic urinary bladder disorder (Acute) Gastroparesis (Acute) Past Medical History Medical History (Updated 11/27/23 @ 11:58 by Jacobo Ayala MD) Constipation Fungal infection VRE (vancomycin-resistant Enterococci) Chronic, continuous use of opioids Small fiber polyneuropathy Hx pulmonary embolism Bacterial infection Septic arthritis Seizures Brain bleed Suprapubic catheter History of jejunostomy tube placement Hypothyroidism Diabetes GERD (gastroesophageal reflux disease) Unspecified convulsions Gastroparesis Asthma Brain tumor Neuropathy Family History Family History Father Skin cancer Mother No problems noted. 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 Household Members Other:: caregiver-live in aid Both parents involved: No Caregiver staying overnight: Yes Housing Other:: 24 hour care - live in aid Are you a primary transitional care manager to a significant other at home: No Do you presently have visiting nurse or other home services: Yes (03/04 live in care) Alcohol intake: current Alcohol intake frequency: does not drink Comment: larger catheter inserted Patient Tobacco Use Status: Never used Tobacco Second Hand Smoke Exposure: No Advance Directives Date on File: 06/29/20 Meds Allergies Allergy/AdvReac Type Severity Reaction Status Date / Time lamotrigine [From LAMICTAL] Allergy Severe CLEMENTINA Verified 11/27/23 11:16 GUIDO SYNDROME chlorhexidine [CHLORHEXIDINE] Allergy Intermediate RASH Verified 11/27/23 11:16 citalopram [From CELEXA] Allergy Intermediate PROLONGED Verified 11/27/23 11:16 QT INTERVAL divalproex sodium Allergy Intermediate BLACK Verified 11/27/23 11:16 [From DEPAKOTE] EYES escitalopram [From LEXAPRO] Allergy Intermediate SWELLING Verified 11/27/23 11:16 lactose [LACTOSE] Allergy Intermediate GI UPSET Verified 11/27/23 11:16 povidone-iodine Allergy Intermediate rash Verified 11/27/23 11:16 [From BETADINE] alprazolam [From Xanax] Allergy Mild Unknown Verified 11/27/23 11:16 sertraline [From Zoloft] Allergy Mild unknown Verified 11/27/23 11:16 ziprasidone [From Geodon] Allergy Mild dystonia Verified 11/27/23 11:16 clonazepam [From Klonopin] Allergy agitation Verified 11/27/23 11:16 lorazepam [From Ativan] Allergy agitation Verified 11/27/23 11:16 latex AdvReac Swelling Verified 11/27/23 11:16 BEETS Allergy Intermediate SWELLING Uncoded 11/27/23 11:16 STATLOC Allergy Intermediate RASH Uncoded 11/27/23 11:16 Home Medications Medication Instructions Recorded Confirmed Last Taken Type albuterol sulfate 90 mcg/actuation 2 puff inhalation 6XD PRN Wheezing 06/25/20 09/25/23 10/24/22 History aerosol inhaler diphenhydramine HCl 50 mg/mL 50 mg IV Q3H 06/25/20 09/25/23 10/24/22 History injection solution pantoprazole 40 mg intravenous 40 mg IV BID 06/25/20 09/25/23 10/24/22 History solution (Protonix) acetaminophen 500 mg/15 mL oral 500 mg feeding tube QID PRN Pain 10/06/20 09/25/23 Unknown History liquid famotidine (PF) 20 mg/50 mL in 0.9 20 mg IV DAILY 10/06/20 09/25/23 10/24/22 History % NaCl (iso) intravenous piggyback fludrocortisone 0.1 mg tablet 0.1 mg feeding tube DAILY 10/06/20 09/25/23 10/24/22 History ipratropium 0.5 mg-albuterol 3 mg 3 ml inhalation Q6-8H PRN 10/06/20 09/25/23 Unknown History (2.5 mg base)/3 mL nebulization Shortness Of Breath Or Wheezing soln midodrine 10 mg tablet 10 mg feeding tube TID 10/06/20 09/25/23 10/24/22 History topiramate 200 mg tablet (Topamax) 200 mg feeding tube BID 10/06/20 09/25/23 10/24/22 History magnesium hydroxide 400 mg/5 mL 30 ml feeding tube DIRECTED PRN 11/12/20 09/25/23 Unknown History oral suspension (Milk of Magnesia) Gastric Reflux promethazine 25 mg/mL injection 25 mg IV TID 11/12/20 09/25/23 10/24/22 History solution (Phenergan) lidocaine 5 % topical ointment 1 appl topical QID PRN Pain 06/03/21 09/25/23 Unknown History Immuglobin IV TU 02/11/22 12/23/22 Unknown History Lactobacillus rhamnosus GG 10 1 cap feeding tube BID 02/11/22 09/25/23 10/24/22 History billion cell capsule (Culturelle) benztropine 0.5 mg tablet 0.5 mg feeding tube DAILY 02/11/22 09/25/23 10/24/22 History enoxaparin 40 mg/0.4 mL 40 mg subcut DAILY 02/11/22 09/25/23 03/28/23 06:00 History subcutaneous syringe furosemide 40 mg tablet 60 mg feeding tube TID 02/11/22 09/25/23 10/24/22 History gabapentin 300 mg/6 mL (6 mL) oral 800 mg feeding tube BEDTIME 02/11/22 09/25/23 Unknown History solution ondansetron HCl (PF) 4 mg/2 mL 4 mg IV Q4H 02/11/22 09/25/23 10/24/22 History injection syringe fluticasone propionate 110 1 puff inhalation BID 04/22/22 09/25/23 05/18/22 History mcg/actuation HFA aerosol inhaler (Flovent HFA) levetiracetam 500 mg/5 mL 500 mg IV BID 04/22/22 09/25/23 06/13/22 History intravenous solution (Keppra) fremanezumab-vfrm 225 mg/1.5 mL 225 mg subcut QMONTH 02/27/23 09/25/23 Unknown History subcutaneous auto-injector (Ajovy) dextran 70-hypromellose 0.1 %-0.3 drp ophthalmic (eye) 05/29/23 Unknown History % eye drops (Lubricating Tears) diazepam 5 mg/5 mL (1 mg/mL) oral 1 mg PO DAILY PRN Anxiety 05/29/23 09/25/23 Unknown History solution hydromorphone 1 mg/mL oral liquid 5 mg PO Q3H 05/29/23 09/25/23 Unknown History (Dilaudid) lactulose 10 gram/15 mL (15 mL) 30 g PO BID PRN constipation 05/29/23 09/25/23 Unknown History oral solution levothyroxine 112 mcg/mL oral 80 mcg feeding tube DAILY 05/29/23 09/25/23 Unknown History solution loxapine succinate 10 mg capsule 70 mg feeding tube BID 05/29/23 09/25/23 Unknown History methylnaltrexone 12 mg/0.6 mL subcut 05/29/23 Unknown History subcutaneous syringe (Relistor) mirabegron 8 mg/mL oral 16 mg PO DAILY 05/29/23 09/25/23 Unknown History suspension,extended release (Myrbetriq) trospium 20 mg tablet 20 mg PO BID 05/29/23 09/25/23 Unknown History vibegron 75 mg tablet (Gemtesa) 75 mg PO DAILY 05/29/23 09/25/23 Unknown History prochlorperazine edisylate 5 mg/mL 5 mg Q4H 08/30/23 09/25/23 Unknown History injection syringe ampicillin sodium 2 gram solution 1 g IM Q6H 11/27/23 Unknown History for injection baclofen 5 mg tablet 15 mg PO TID 11/27/23 Unknown History benztropine 1 mg tablet mg PO 11/27/23 Unknown History gabapentin 400 mg capsule 800 mg PO BID 11/27/23 Unknown History Exam Exam Date and Time: April 26, [id number] Height,Weight and Vital Signs: Height 4 ft 11 in Weight 49.033 kg Assessment and Plan Assessment Anesthesia Assessment: Chart Reviewed Final Anesthetic Review Family History of Problems with Anesthesia: No History of Problems with Anesthesia: No
[2023-11-15 06:15] VITALS: BP 105/76; PULSE 92; RESP 12; TEMP 36.2; O2SAT 100
[2023-11-15 07:06] LABS: Glucose, Whole Blood 94 mg/dL (60-115)
--- NOTE | 2023-11-15 07:11 | PC.NURSE ---
Patient brought to hospital by MD PSYCHIATRY, Bernabe, and was slumped in w/c, lethargic. MD PSYCHIATRY stated that she received all of her a.m. medications. Author questioned if this was patient baseline, as usually she is A+O x3. MD PSYCHIATRY stated she has been this way recently, we think that she has a UTI, we need to test her urine later. Patient brought into [facility]. 3 staff assist to bed. chavez catheter drained 550 ML clear yellow urine. Biliary drain patent and tea/green color. The only answer that the patient gave besides her wristband was that this drain was new when she left [facility] 10 days ago. Patient remained sleeping, sternal rub would give a slight eye opening. VS WNL. Dr. Pereira and Dr. Ansari updated and decision made to bring patient to ER. Report given to Brittney Rueda at 0710. POC 94. Lungs diminished in bilateral bases. All patient belongings and mechanical w/c in pacu, Er nurse aware of all of the above. Dr. Ansari to ER to give report to doctor. Dr. Pereira to assess patient in ER.
--- NOTE | 2023-11-15 08:00 | PC.NURSE ---
Per RESEARCH CHEMIST that dropped the patient off, Radha is the patient's nurse and she was notified by author that patient was sent to ER.
--- NOTE | 2023-11-15 10:19 | PC.NURSE ---
Er major case detective Jen Rivera is involved in case and has been updated and communicating with author as needed.
== END ==
PROVIDERS: PCP Internal Medicine; Visit Provider Urology
DX: N31.9 Neuromuscular dysfunction of bladder, unspecified (principal); Z53.8 Procedure and treatment not carried out for other reasons; E11.9 Type 2 diabetes mellitus without complications; Z79.899 Other long term (current) drug therapy; Z66 Do not resuscitate
CPT/HCPCS: 82947

== ENCOUNTER 2023-11-15 07:00 | Emergency (ER) | payer OTHER, SELFPAY ==
--- NOTE | ~2023-11-15 | XR_ITS ---
EXAMINATION: XR CHEST CLINICAL INFORMATION: Unresponsive COMPARISON: 12/05/2018 TECHNIQUE: Frontal view of the chest was obtained. FINDINGS: Central venous catheter tip with internal tip in the SVC/right atrial junction. Heart, mediastinum and vessels within normal limits. Mild right midlung atelectasis. No consolidations or effusions. Bony structures are intact. Cholecystectomy clips. Multiple lines overlie the patient. XR/XR chest 1V IMPRESSION: Right midlung atelectasis.
--- NOTE | 2023-11-15 07:21 | ECG_ITS ---
Test Reason : unresponsive Blood Pressure : / mmHG Vent. Rate : 104 BPM Atrial Rate : 104 BPM P-R Int : 136 ms QRS Dur : 084 ms QT Int : 402 ms P-R-T Axes : 038 025 011 degrees QTc Int : 528 ms Sinus tachycardia Possible Inferior infarct (cited on or before 22-AUG-2019) Prolonged QT Abnormal ECG When compared with ECG of 22-AUG-2019 17:08, No significant change was found Referred By: Griffin Sierra Electronically Signed By:Aydin Hicks
[2023-11-15] MEDS: Naloxone HCl 2 MG/2 ML SYRINGE 1 MG IVPUSH (07:23)
[2023-11-15 07:27] VITALS: BP 113/78; PULSE 86; RESP 30; TEMP 35.7; O2SAT 100; BMI 20.1
[2023-11-15] MEDS: Hydrocortisone Sod Succ/PF 100 MG VIAL IVPUSH (07:49)
--- NOTE | 2023-11-15 07:55 | ED.GENADULT ---
HPI - General Adult General Chief complaint: Overdose Stated complaint: Drowsy Time Seen by Provider: 11/15/23 07:07 Source: other (nursing) Mode of arrival: wheelchair Limitations: altered mental status History of Present Illness HPI narrative: Patient is a chronically ill female with neuro degenerative disease followed at [facility], patient on chronic TPN, adrenal insufficiency. She was brought to PACU for suprpubic cath change but was found to be unresponsive. She was brought to the ED for poor respirations and unresponsive. Onset (ago): unknown Related Data Home Medications Medication Instructions Recorded Confirmed albuterol sulfate 90 mcg/actuation 2 puff inhalation 6XD PRN Wheezing 06/25/20 09/25/23 aerosol inhaler diphenhydramine HCl 50 mg/mL 50 mg IV Q3H 06/25/20 09/25/23 injection solution pantoprazole 40 mg intravenous 40 mg IV BID 06/25/20 09/25/23 solution (Protonix) acetaminophen 500 mg/15 mL oral 500 mg feeding tube QID PRN Pain 10/06/20 09/25/23 liquid baclofen 5 mg/5 mL oral solution 15 mg feeding tube TID 10/06/20 09/25/23 famotidine (PF) 20 mg/50 mL in 0.9 20 mg IV DAILY 10/06/20 09/25/23 % NaCl (iso) intravenous piggyback fludrocortisone 0.1 mg tablet 0.1 mg feeding tube DAILY 10/06/20 09/25/23 ipratropium 0.5 mg-albuterol 3 mg 3 ml inhalation Q6-8H PRN 10/06/20 09/25/23 (2.5 mg base)/3 mL nebulization Shortness Of Breath Or Wheezing soln midodrine 10 mg tablet 10 mg feeding tube TID 10/06/20 09/25/23 topiramate 200 mg tablet (Topamax) 200 mg feeding tube BID 10/06/20 09/25/23 magnesium hydroxide 400 mg/5 mL 30 ml feeding tube DIRECTED PRN 11/12/20 09/25/23 oral suspension (Milk of Magnesia) Gastric Reflux promethazine 25 mg/mL injection 25 mg IV TID 11/12/20 09/25/23 solution (Phenergan) lidocaine 5 % topical ointment 1 appl topical QID PRN Pain 06/03/21 09/25/23 Immuglobin IV TU 02/11/22 12/23/22 Lactobacillus rhamnosus GG 10 1 cap feeding tube BID 02/11/22 09/25/23 billion cell capsule (Culturelle) benztropine 0.5 mg tablet 0.5 mg feeding tube DAILY 02/11/22 09/25/23 enoxaparin 40 mg/0.4 mL 40 mg subcut DAILY 02/11/22 09/25/23 subcutaneous syringe furosemide 40 mg tablet 60 mg feeding tube TID 02/11/22 09/25/23 gabapentin 300 mg/6 mL (6 mL) oral 800 mg feeding tube BEDTIME 02/11/22 09/25/23 solution ondansetron HCl (PF) 4 mg/2 mL 4 mg IV Q4H 02/11/22 09/25/23 injection syringe fluticasone propionate 110 1 puff inhalation BID 04/22/22 09/25/23 mcg/actuation HFA aerosol inhaler (Flovent HFA) levetiracetam 500 mg/5 mL 500 mg IV BID 04/22/22 09/25/23 intravenous solution (Keppra) fremanezumab-vfrm 225 mg/1.5 mL 225 mg subcut QMONTH 02/27/23 09/25/23 subcutaneous auto-injector (Ajovy) dextran 70-hypromellose 0.1 %-0.3 drp ophthalmic (eye) 05/29/23 % eye drops (Lubricating Tears) diazepam 5 mg/5 mL (1 mg/mL) oral 1 mg PO DAILY PRN Anxiety 05/29/23 09/25/23 solution hydromorphone 1 mg/mL oral liquid 5 mg PO Q3H 05/29/23 09/25/23 (Dilaudid) lactulose 10 gram/15 mL (15 mL) 30 g PO BID PRN constipation 05/29/23 09/25/23 oral solution levothyroxine 112 mcg/mL oral 80 mcg feeding tube DAILY 05/29/23 09/25/23 solution loxapine succinate 10 mg capsule 70 mg feeding tube BID 05/29/23 09/25/23 methylnaltrexone 12 mg/0.6 mL subcut 05/29/23 subcutaneous syringe (Relistor) mirabegron 8 mg/mL oral 16 mg PO DAILY 05/29/23 09/25/23 suspension,extended release (Myrbetriq) trospium 20 mg tablet 20 mg PO BID 05/29/23 09/25/23 vibegron 75 mg tablet (Gemtesa) 75 mg PO DAILY 05/29/23 09/25/23 prochlorperazine edisylate 5 mg/mL 5 mg Q4H 08/30/23 09/25/23 injection syringe Previous Rx's Medication Instructions Recorded drainage bag 2,000 mL (Kenguard #4 ea 09/09/20 Urinary Drain Bag) docusate sodium 50 mg/5 mL oral 50 mg (5 mL) PO BID #473 mL 02/27/23 liquid lactulose 20 gram/30 mL oral 30 g (45 mL) PO .COMPLEX #3,000 mL 05/29/23 solution Allergies Allergy/AdvReac Type Severity Reaction Status Date / Time lamotrigine [From LAMICTAL] Allergy Severe CLEMENTINA Verified 08/30/23 06:48 GUIDO SYNDROME chlorhexidine [CHLORHEXIDINE] Allergy Intermediate RASH Verified 08/30/23 06:48 citalopram [From CELEXA] Allergy Intermediate PROLONGED Verified 08/30/23 06:48 QT INTERVAL divalproex sodium Allergy Intermediate BLACK Verified 08/30/23 06:48 [From DEPAKOTE] EYES escitalopram [From LEXAPRO] Allergy Intermediate SWELLING Verified 08/30/23 06:48 lactose [LACTOSE] Allergy Intermediate GI UPSET Verified 08/30/23 06:48 povidone-iodine Allergy Intermediate rash Verified 08/30/23 06:48 [From BETADINE] alprazolam [From Xanax] Allergy Mild Unknown Verified 08/30/23 06:48 sertraline [From Zoloft] Allergy Mild unknown Verified 08/30/23 06:48 ziprasidone [From Geodon] Allergy Mild dystonia Verified 08/30/23 06:48 clonazepam [From Klonopin] Allergy agitation Verified 08/30/23 06:48 lorazepam [From Ativan] Allergy agitation Verified 08/30/23 06:48 latex AdvReac Swelling Verified 08/30/23 06:48 BEETS Allergy Intermediate SWELLING Uncoded 05/29/23 12:32 STATLOC Allergy Intermediate RASH Uncoded 05/29/23 12:32 Review of Systems Review of Systems: Yes Unobtainable due to mental status [facility] Past Medical History Medical History Constipation Fungal infection VRE (vancomycin-resistant Enterococci) Chronic, continuous use of opioids Small fiber polyneuropathy Hx pulmonary embolism Bacterial infection Septic arthritis Seizures Brain bleed Suprapubic catheter History of jejunostomy tube placement Hypothyroidism Diabetes GERD (gastroesophageal reflux disease) Unspecified convulsions Gastroparesis Asthma Brain tumor Neuropathy Surgical History S/P urological surgery History of esophagogastroduodenoscopy (EGD) History of hip surgery Hx of endoscopy History of colonoscopy Hx of oral surgery Family History Family History Father Skin cancer Mother No problems noted. Social History Social History Household Members: Caregiver Household Members Other:: caregiver-live in aid Housing Other:: 24 hour care - live in aid Are you a primary care specialist to a significant other at home: No Do you presently have visiting nurse or other home services: Yes (03/04 live in care) Alcohol intake: current Alcohol intake frequency: does not drink Comment: larger catheter inserted Patient Tobacco Use Status: Never used Tobacco Smoked in Last 30 Days: No Second Hand Smoke Exposure: No Use of substances other than those prescribed or required for medical reasons: No Advance Directives: Yes Advance Directives on File: Yes Advance Directives Date on File: 06/29/20 Physical Exam ED Vital Signs: Vital Signs - 24 hr 11/15/23 07:27 11/15/23 07:57 11/15/23 07:59 Temperature 96.2 F L Pulse Rate 86 104 H 109 H Respiratory Rate 30 H 21 H 15 Blood Pressure 113/78 145/92 H 127/102 H Pulse Oximetry 100 100 100 Oxygen Delivery Method Non-Rebreather Mask Non-Rebreather Mask Non-Rebreather Mask Oxygen Flow Rate 15 15 BMI result Body Mass Index 20.1 Const Other: cachectic chronically ill female not responding, breathing at 5 Limitations: altered mental status HENMT Other: dry oral mucosa Ears: external ears normal General nose exam: Normal external nose present Mouth: Normal oral and palatal mucosa present and oropharynx normal Eyes Other: pinpoint pupils Neck Neck: Yes normal visual inspection Chest Other: central line ports in place Resp Other: clear with minimal respiratory effort Cardio Jugular venous distension: no JVD Rate: regular rate Rhythm: regular rhythm Heart sounds: S1 normal heart sound present and S2 normal heart sound present GI Inspection: Yes normal to inspection Palpation (GI): Soft to palpation, nontender and No hepatosplenomegaly present Auscultation: normal bowel sounds General: Yes no CVA tenderness Back/Spine/Pelvis Back: no CVA tenderness Skin General skin exam: no rashes or lesions noted Neuro Other: Initially no movement Extrem General: Yes normal to inspection Psych Appearance: grossly normal Course Reevaluation(s) Reevaluation #1: patient is awake and breathing wants to go home because she is in pain now after getting narcan. Will observe for one hour and then dc home Time: 09:02 Medications Administered Discontinued Medications Generic Name Dose Route Start Last Admin Trade Name Freq PRN Reason Stop Dose Admin Hydrocortisone Sodium Succinate 100 mg 11/15/23 07:21 11/15/23 07:49 Hydrocortisone Sod Succ/Pf 100 Mg Vial IVPUSH 11/15/23 07:22 100 mg ONCE ONE Administration Naloxone HCl 1 mg 11/15/23 07:23 11/15/23 07:23 Naloxone Hcl 2 Mg/2 Ml Syringe IVPUSH 11/15/23 07:24 1 mg ONCE ONE Administration Medical Decision Making Differential Diagnosis Differential Diagnoses: The differential diagnosis associated with the presentation includes (sepsis, opiate overdose, cerebral bleed, UTI, electrolyte abnormality) Admission/Observation Consideration of admission/observation: Escalation of care including admission/observation considered (Upon arrival patient considered for admission) Lab Data MDM Lab Attestation statement: I reviewed the patient's lab results. 11/15/23 08:34 11/15/23 08:34 Labs: Lab Results 11/15/23 11/15/23 Range/Units 08:03 08:34 WBC 9.4 (4.8-10.8) X10*3/uL RBC 4.32 D (4.20-5.50) X10*6/uL Hgb 13.3 D (12.0-16.0) g/dl Hct 39.5 D (37.0-47.0) % MCV 91.4 (80.0-98.0) fL MCH 30.8 (27.0-33.0) pg MCHC 33.7 (31.0-35.0) g/dl RDW 13.8 (11.0-16.0) % Plt Count 220 (160-400) X10*3/uL MPV 12.1 (9.4-12.3) fL Immature Gran % (Auto) 0.3 (0.0-0.4) % Neut % (Auto) 58.1 (45-73) % Lymph % (Auto) 30.3 (20-40) % [place] % (Auto) 8.2 (2-11) % Eos % (Auto) 2.2 (0-4) % Baso % (Auto) 0.9 (0-2) % Lymph # (Auto) 2.8 (1.2-4.9) X10*3/uL [place] # (Auto) 0.8 (0.1-1.2) X10*3/uL Eos # (Auto) 0.2 (0.0-0.4) X10*3/uL Baso # (Auto) 0.1 (0.0-0.2) X10*3/uL Abs Immat Gran (auto) 0.03 (0.00-0.03) X10*3/uL Absolute Neuts (auto) 5.4 (2.0-8.3) x10*3/uL Absolute Nucleated RBC 0.000 (0.0-0.012) X10*3/uL Nucleated RBC % (auto) 0.0 (0.0-0.2) /100WBC Sodium 140 (135-145) mmol/L Potassium 4.0 (3.3-5.1) mmol/L Chloride 103 (96-108) mmol/L Carbon Dioxide 25 (22-29) mmol/L Anion Gap 16 (12-20) BUN 28 H (9-16) mg/dL Creatinine 1.14 (0.5-1.4) mg/dL Estim Creat Clear Calc 44.9 Estimated GFR 55 Random Glucose 82 (60-115) mg/dL Calcium 9.9 D (8.4-10.2) mg/dL Urine Color Yellow Urine Appearance Clear Urine pH 6.5 (5.0-9.0) Ur Specific [place] 1.010 (1.005-1.025) Urine Protein Negative (Neg-Trace) mg/dL Urine Glucose (UA) Negative (Negative) mg/dL Urine Ketones Negative (Negative) mg/dL Urine Blood Negative (Negative) Urine Nitrite Negative (Negative) Ur Leukocyte Esterase Trace H (Negative) Urine RBC 0-2 (0-2) /HPF Urine WBC 0-5 (0-5) /HPF Ur Squamous Epith Cells 0-2 (0-2) /HPF Urine Bacteria None Seen (None Seen) Hyaline Casts 0-2 (0-2) /LPF Urine Opiates Screen POSITIVE H (Not Detect) Urine Fentanyl Screen Not Detected (Not Detect) Ur Barbiturates Screen Not Detected (Not Detect) Ur Phencyclidine Scrn Not Detected (Not Detect) Ur Amphetamines Screen Not Detected (Not Detect) U Benzodiazepines Scrn POSITIVE H (Not Detect) Urine Cocaine Screen Not Detected (Not Detect) U Marijuana (THC) Screen Not Detected (Not Detect) Independent Interpretation I performed an independent interpretation of an: EKG (sinus 100, no st or twave changes) and Plain X-Ray (central line in place, no infiltrate) Independent Historian Clinical information obtained from an independent historian. History obtained from or confirmed by: Parent (I discussed the situation with the mother) Tests considered The following testing was considered but not selected: Head CT considered but patient woke up with narcan Chronic Conditions Patient?s care impacted by: Diabetes and Other (neuro degenerative disorder) Discharge Plan Discharge Clinical Impression: Opiate overdose Patient Disposition: Home, Self-Care Instructions: Prescription Opioid Overdose (ED) Prescriptions: No Action lidocaine 5 % Ointment 1 appl TOPICAL QID PRN (Reason: Pain) pantoprazole [Protonix] 40 mg Recon Soln 40 mg IV BID diphenhydramine HCl 50 mg/mL Solution 50 mg IV Q3H albuterol sulfate 90 mcg/actuation Hfa Aerosol Inhaler 2 puff INHALATION 6XD PRN (Reason: Wheezing) ipratropium-albuterol 0.5 mg-3 mg(2.5 mg base)/3 mL Solution For Nebulization 3 ml INHALATION Q6-8H PRN (Reason: Shortness Of Breath Or Wheezing) topiramate [Topamax] 200 mg Tablet 200 mg feeding tube BID acetaminophen 500 mg/15 mL Liquid 500 mg feeding tube QID PRN (Reason: Pain) fludrocortisone 0.1 mg Tablet 0.1 mg feeding tube DAILY midodrine 10 mg Tablet 10 mg feeding tube TID baclofen 5 mg/5 mL Solution 15 mg feeding tube TID famotidine (PF)-NaCl (iso-os) 20 mg/50 mL Piggyback 20 mg IV DAILY Rx Instructions: add to TPN levothyroxine 112 mcg/mL solution 80 mcg feeding tube DAILY promethazine [Phenergan] 25 mg/mL solution 25 mg IV TID magnesium hydroxide [Milk of Magnesia] 400 mg/5 mL Suspension 30 ml feeding tube DIRECTED PRN (Reason: Gastric Reflux) hydromorphone [Dilaudid] 1 mg/mL liquid 5 mg PO Q3H Rx Instructions: Thru J tube benztropine 0.5 mg Tablet 0.5 mg feeding tube DAILY furosemide 40 mg Tablet 60 mg feeding tube TID Patient Comments: also 60 mg PRN up to 3 x week gabapentin 300 mg/6 mL (6 mL) Solution 800 mg feeding tube BEDTIME Culturelle 10 billion cell Capsule 1 cap feeding tube BID enoxaparin 40 mg/0.4 mL Syringe 40 mg SUBCUT DAILY Immuglobin IV TU ondansetron HCl (PF) 4 mg/2 mL syringe 4 mg IV Q4H Rx Instructions: Can take prn in addition to scheduled dosing no more than x 2 prn doses a day (discard prior script for IM dose) loxapine succinate 10 mg capsule 70 mg feeding tube BID Rx Instructions: 70 am and 80 pm diazepam 5 mg/5 mL (1 mg/mL) solution 1 mg PO DAILY PRN (Reason: Anxiety) Rx Instructions: 3 BID and 1 PM Compazine 5 mg/mL Syringe 5 mg Q4H (DME) Kenguard Urinary Drain Bag 2,000 mL misc See Rx Instructions .ROUTE .MEDSUPPLY Qty: 4 6RF Rx Instructions: As directed levetiracetam [Keppra] 500 mg/5 mL solution 500 mg IV BID Rx Instructions: administer over 15 minutes fluticasone propionate [Flovent HFA] 110 mcg/actuation HFA aerosol inhaler 1 puff inhalation BID Ajovy Autoinjector 225 mg/1.5 mL auto-injector 225 mg subcut QMONTH docusate sodium 50 mg/5 mL liquid 50 mg PO BID Qty: 473 2RF Myrbetriq 8 mg/mL suspension,extended rel recon 16 mg PO DAILY lactulose 10 gram/15 mL (15 mL) solution 30 g PO BID PRN (Reason: constipation) Relistor 12 mg/0.6 mL syringe subcut Gemtesa 75 mg tablet 75 mg PO DAILY Lubricating Tears 0.1-0.3 % drops ophthalmic (eye) trospium 20 mg tablet 20 mg PO BID lactulose 20 gram/30 mL solution 30 g PO .COMPLEX Qty: 3000 2RF Rx Instructions: 30 grams orally twice a week; Referrals: Lincoln Miller MD [Primary Care Provider] - 3 days
[2023-11-15 07:57] VITALS: BP 145/92; PULSE 104; RESP 21; O2SAT 100
[2023-11-15 07:59] VITALS: BP 127/102; PULSE 109; RESP 15; O2SAT 100
[2023-11-15 08:14] LABS: Color Urine Yellow
[2023-11-15 08:15] LABS: Appearance Urine Clear; Glucose Urine UA Negative (Negative); Leukocyte Esterase Urine Trace (Negative); Nitrite Urine Negative (Negative); PH 6.5 (5.0-9.0); UMIC TRIGGER UACC YES; Urine Blood Negative (Negative); Urine Ketones Negative (Negative); Urine Protein Negative (Neg-Trace)
[2023-11-15 08:19] LABS: Bacteria Urine None Seen (None Seen); Hyaline Casts Urine 0-2 /LPF (0-2); RBC Urine 0-2 /HPF (0-2); Squamous Epithelial Cell Urine 0-2 /HPF (0-2); WBC Urine 0-5 /HPF (0-5)
[2023-11-15 08:28] LABS: Amphetamine Screen Urine Not Detected (Not Detect); Barbiturates, Urine Not Detected (Not Detect); Benzodiazepines Screen Urine POSITIVE (Not Detect); Cannabinoid Screen Urine Not Detected (Not Detect); Cocaine Screen Urine Not Detected (Not Detect); Fentanyl, urine Not Detected (Not Detect); Opiate Screen Urine POSITIVE (Not Detect); Phencyclidine Screen Urine Not Detected (Not Detect)
[2023-11-15 08:40] LABS: MANUAL DIFF FLAG NO
--- NOTE | 2023-11-15 08:40 | MHC.EDTECH ---
This pct attempted to obtain an EKG on patient but wasnt able to due to patient moving too much will try again soon. RN Aware
[2023-11-15 08:42] LABS: Basophils Absolute Auto 0.1 X10*3/uL (0.0-0.2); Basophils Percent Auto 0.9 % (0-2); Eosinophils Absolute Auto 0.2 X10*3/uL (0.0-0.4); Eosinophils Percent Auto 2.2 % (0-4); Hematocrit 39.5 % (37.0-47.0); Hemoglobin 13.3 g/dl (12.0-16.0); Imm Gran Abs Auto 0.03 X10*3/uL (0.00-0.03); Imm Gran Pct Auto 0.3 % (0.0-0.4); Lymphocytes Absolute Auto 2.8 X10*3/uL (1.2-4.9); Lymphocytes Percent Auto 30.3 % (20-40); Mean Corpuscular HGB Conc 33.7 g/dl (31.0-35.0); Mean Corpuscular Hemoglobin 30.8 pg (27.0-33.0); Mean Corpuscular Volume 91.4 fL (80.0-98.0); Mean Platelet Volume 12.1 fL (9.4-12.3); Monocytes Absolute Auto 0.8 X10*3/uL (0.1-1.2); Monocytes Percent Auto 8.2 % (2-11); Neutrophils Absolute Auto 5.4 x10*3/uL (2.0-8.3); Neutrophils Percent Auto 58.1 % (45-73); Platelet Count 220 X10*3/uL (160-400); Red Blood Count 4.32 X10*6/uL (4.20-5.50); Red Cell Distribution Width 13.8 % (11.0-16.0); White Blood Count 9.4 X10*3/uL (4.8-10.8)
[2023-11-15 08:54] LABS: Anion Gap 16 (12-20); Blood Urea Nitrogen 28 mg/dL (9-16); Calcium 9.9 mg/dL (8.4-10.2); Carbon Dioxide 25 mmol/L (22-29); Chloride 103 mmol/L (96-108); Creatinine Clr Calc Pharmacy 44.9; Estimated Glomerular Filt Rate 55; Glucose Random 82 mg/dL (60-115); Sodium 140 mmol/L (135-145)
[2023-11-15 10:22] VITALS: BP 116/80; PULSE 98; RESP 10; O2SAT 100
[2023-11-15 10:53] LABS: Troponin-I High Sensitivity < 2.7 ng/L (<3.5-17.0)
--- NOTE | 2023-11-15 11:09 | PC.NURSE ---
late entry: pt came in unresponsive to pain and name from PACU, shallow breathing. pt is known pt to PACU in for routine suprapubic catheter change and pt was not at all herself per PACU nurse. per PACY nurse, pt was dropped off by her CLAIM ANALYST and rushed out of here stating 'i gotta go!' with no explanation as to why the pt was like this . upon assessment, pt given 1mg IV narcan emergently, per Dr. Sierra and pt came back to. pt started withdrawing from dilaudid that pt appeared to have overdosed from earlier this morning. pt restless, difficult to obtain vital signs. pt with central line, unable to draw labs off of. pt with NS and TPN running in central line. labs drawn by JOSEF Gaytan and sent. pt requesting more dilaudid and her bhaskar bear from PACU. JOSEF Gaytan went to retrieve pt's belongings. pt thankful. pt's home nurse arrived to pt's bedside and updated on pt's status. pt reporting 9/10 pain to suprapubic catheter area. will get home meds per Dr. Sierra when discharged. pt appears much more alert and oriented, participating in her care and stating I think my CLAIM ANALYST gave me too much dilaudid . pt cleared medically and discharged per Dr. Sierra. christiano Barclay assisted in transferring pt back into electric wheelchair.
--- NOTE | 2023-11-15 12:38 | MHC.CM.ED ---
Received case management consult from Dr Sierra. Patient came to the ER from the same day surgery. Patient was scheduled to have her suprapubic catheter changed by Dr Pereira. Patient was found to be lethargic and only breathing 4 times a minute. Patient was transferred to the ER and given narcan. T/W spoke with patient's mother, Erica, via telephone at [phone]. Erica was aware of situation but was unsure if catheter was changed. T/W verified catheter was not changed. Erica states this is not the 1st time a situation like this has happened to patient. Typically this happens when she has an UTI. She is given IV solu-cortef and then gets better. T/W explained solu-cortef was already given in ER. Erica feels patient can safely return home. Met with patient and Radha RN. Patient has 24/7 care at home. Radha is not happy with the SEED BUYER today. Radha does not feel patient was safely transported in her van by the SEED BUYER. Also does not feel SEED BUYER should have left patient. She will have a conversation with this SEED BUYER about this whole scenario. Both patient and Radha feel patient can safely return home. Radha will transport patient home. Dr Sierra aware. Continue to monitor for d/c needs.
== END 2023-11-15 11:51 | disposition home or self-care (01) ==
PROVIDERS: Emergency Provider Emergency Medicine; PCP Internal Medicine
DX: T40.2X1A Poisoning by other opioids, accidental (unintentional), initial encounter (principal); Y92.238 Other place in hospital as the place of occurrence of the external cause; E27.40 Unspecified adrenocortical insufficiency; E11.9 Type 2 diabetes mellitus without complications; Z79.891 Long term (current) use of opiate analgesic; Z93.50 Unspecified cystostomy status
CPT/HCPCS: 36415; 71045; 80048; 80307; 81001; 84484; 85025; 87040; 93005; 96374; 96375; 99284; 99285; J1720; J2310

== ENCOUNTER → 2023-11-15 07:21 | Outpatient (BNV) | payer OTHER, SELFPAY | PROVIDERS: Emergency Provider Emergency Medicine; PCP Internal Medicine; Visit Provider Internal Medicine Cardiovascular Disease | DX: R00.0 Tachycardia, unspecified (principal) | CPT/HCPCS: 93010 ==

== ENCOUNTER 2023-11-27 11:04 | Outpatient (AMB) | payer OTHER, SELFPAY ==
--- NOTE | 2023-11-27 11:11 | A.OFFVIS_ITS ---
Intake Vital Signs 11/27/23 11:17 Height 4 ft 10 in BP 131/97 H Blood Pressure Location Rt brachial Position Sitting Pulse 117 H Intake Visit Reasons: 4 month follow up Intake Note: Marcela casillas in the office as a 4 month follow up. CC: Is suffering constipation but when she finally has a BM it is all diarrhea. When she has to go she strains and when she does it will hurt her bowel - she strains even with the diarrhea. Allergies lamotrigine [From LAMICTAL] Allergy (Severe, Verified 11/27/23 11:16) CLEMENTINA GUIDO SYNDROME chlorhexidine [CHLORHEXIDINE] Allergy (Intermediate, Verified 11/27/23 11:16) RASH citalopram [From CELEXA] Allergy (Intermediate, Verified 11/27/23 11:16) PROLONGED QT INTERVAL divalproex sodium [From DEPAKOTE] Allergy (Intermediate, Verified 11/27/23 11:16) BLACK EYES escitalopram [From LEXAPRO] Allergy (Intermediate, Verified 11/27/23 11:16) SWELLING lactose [LACTOSE] Allergy (Intermediate, Verified 11/27/23 11:16) GI UPSET povidone-iodine [From BETADINE] Allergy (Intermediate, Verified 11/27/23 11:16) rash alprazolam [From Xanax] Allergy (Mild, Verified 11/27/23 11:16) Unknown sertraline [From Zoloft] Allergy (Mild, Verified 11/27/23 11:16) unknown ziprasidone [From Geodon] Allergy (Mild, Verified 11/27/23 11:16) dystonia clonazepam [From Klonopin] Allergy (Verified 11/27/23 11:16) agitation lorazepam [From Ativan] Allergy (Verified 11/27/23 11:16) agitation latex Adverse Reaction (Verified 11/27/23 11:16) Swelling BEETS Allergy (Intermediate, Uncoded 11/27/23 11:16) SWELLING STATLOC Allergy (Intermediate, Uncoded 11/27/23 11:16) RASH HPI 4 month follow up HPI Details 33 yr old f being called for f/u RECAP: ? She told me she had recent hep c ab pos but viral load was neg ? she was looking for a way to be able to take meds without throwing up ? she has been getting her meds thru the G-J tube and gets feeds thru central line ? she can' tolerate carbonated beverages ? mood is good, depression not an issue ? breathing is variable ? getting IVIG, going on for several months ? she is unsure if helping or not ? I gave her motegrity to see if helped her sx, advised to stop trulance ? also advised to reduce lactulose could cause bloating which she was also complaining off. ? motegrity didn;t help and she went back on movantik and trulance she was admitted to [place] with line infection, had fungal infection with fungemia, line was changed out as well as urine catheter due to urine infection, aspiration she was on Ig treatment for small nerve autoneuropathy (been in since 11/2019), felt it was helping BP and HR on IV benadryl, IV phenergan and IV zofran and IV pepcid and IV PPI she cant take carafate as it makes her nausea worse she tried tigan, didn;'t help so much also tried scopolamine patch but didn;t help phone call: 09/2019: she had septic arthritis with osteomyelitis and required wash out of right hip-- fungal infection recovery has been painful she has been getting IV fluconazole she has stopped all anti diarrheals she has not been taking movantik she took imodium the other night and it didn;t help that much nausea is better controlled? with higher dose of phenergan we had increased azfran as well for her nausea, will need ECG every so often to monitor QTc and labs she had also been seeing Dr Amor for immune def work up ? INTERIM: She has issues with her suprapubic catheter and seeing urology she was at [facility] with abn LFT and she had cholecystectomy, she had cardiac arrest thereafter and needed to go on the vent she had post op infection and fluid collection and needed drainage she was in hospital for 6 weeks due to this she still has issues with dizziness and weight she has nurse marker hand, Radha for weekdays and Ella for weekends currently constipation is an issue---she has a regimen, takes lactulose 45 ml every 5 days she is on relistor injections as well hates doing enemas and supps she showed me Ct scan from 10/04--pleural effusion, hepatic fluid collections EXAM: GENERAL: The patient is weak, cachexic VITAL SIGNS:see workflow HEENT: Nonicteric sclerae, PERRLA, EOMI. Oropharynx clear. Moist mucous membranes. Conjunctivae appear well perfused. No thyroid mass. CHEST: Chest wall is nontender. HEART: Regular rate and rhythm without murmurs. LUNGS: Clear to auscultation bilaterally. ABDOMEN: Soft, positive bowel sounds, tender diffusely, no organomegaly.no flank tenderness SKIN: No rash, no excessive bruising, petechiae, or purpura. NEUROLOGIC: Cranial nerves II-XII intact without motor/sensory deficit. Psych: normal affect TPN noted and catheter Assessment & Plan 1/ Recurrent infections: due to immobili ty, multiple lines, admissions to hospital 2/ Steroid insuff, autonomic dysfn, smal l nerve fiber neuropathy -- 3/ constipation, only real rx at this ti me is lactulose --already on relistor, PLAN: 1/ cont with lactulose as doing, add mary k mid dose linaclotide 145 mcg 2/ get notes from [facility] Medical History (Updated 11/27/23 @ 11:58 by Jacobo Ayala MD) Constipation Fungal infection VRE (vancomycin-resistant Enterococci) Chronic, continuous use of opioids Small fiber polyneuropathy Hx pulmonary embolism Bacterial infection Septic arthritis Seizures Brain bleed Suprapubic catheter History of jejunostomy tube placement Hypothyroidism Diabetes GERD (gastroesophageal reflux disease) Unspecified convulsions Gastroparesis Asthma Brain tumor Neuropathy Surgical History S/P urological surgery History of esophagogastroduodenoscopy (EGD) History of hip surgery Hx of endoscopy History of colonoscopy Hx of oral surgery Family History Father Skin cancer Mother No problems noted. Social History Household Members: Caregiver Household Members Other:: caregiver-live in aid Both parents involved: No Caregiver staying overnight: Yes Housing Other:: 24 hour care - live in aid Are you a primary day care attendant to a significant other at home: No Do you presently have visiting nurse or other home services: Yes (03/04 live in care) Alcohol intake: current Alcohol intake frequency: does not drink Comment: larger catheter inserted Patient Tobacco Use Status: Never used Tobacco Second Hand Smoke Exposure: No Advance Directives Date on File: 06/29/20 Physical Exam Vital Signs: Last Vital Signs Pulse 117 H 11/27/23 11:17 BP 131/97 H 11/27/23 11:17 Assessment & Plan Assessment & Plan (1) Constipation: Code(s): K59.00 - Constipation, unspecified Plan: see above Medications: New linaclotide 72 mcg PO DAILY 30 caps 3RF Coding Level of Care Code Est Pt Level 3 (00729) Diagnoses Constipation K59.00
[2023-11-27 11:17] VITALS: BP 131/97; PULSE 117
== END 2023-11-27 12:54 | disposition home or self-care (01) ==
LOC: HO.HGI 11:04
PROVIDERS: PCP Internal Medicine; Visit Provider Internal Medicine Gastroenterology
DX: K59.00 Constipation, unspecified (principal)
CPT/HCPCS: 99213

== ENCOUNTER → 2023-11-27 11:04 | Outpatient (BNVA) | payer OTHER, SELFPAY | PROVIDERS: PCP Internal Medicine; Visit Provider Internal Medicine Gastroenterology ==

== ENCOUNTER 2023-12-04 06:05 | Day surgery (SDC) | payer OTHER, SELFPAY ==
--- NOTE | 2023-12-01 11:45 | HO.ANESPROP2 ---
Documented by User: Lucila Bales NP 12/01/23 11:57 HPI - Anesthesia Eval Consult details Narrative: 33yo F for Suprapubic Tube Exchange 11/16/23 SSS: sent to ED from preop d/t lethargy, alt mental status, change from baseline. Last exchange 08/2023 with MAC: Prop 50 Pt declines Urine HCG test PMFSH Active Problems Active Problems: All Active Problems (Updated 11/27/23 @ 11:58 by Jacobo Ayala MD) Constipation (Acute) Bladder spasm (Acute) Diarrhea (Acute) Diarrhea associated with pseudomembranous colitis (Acute) Recurrent infections (Acute) Neurologic disorder (Acute) Neurogenic urinary bladder disorder (Acute) Gastroparesis (Acute) Past Medical History Medical History Constipation Fungal infection VRE (vancomycin-resistant Enterococci) Chronic, continuous use of opioids Small fiber polyneuropathy Hx pulmonary embolism Bacterial infection Septic arthritis Seizures Brain bleed Suprapubic catheter History of jejunostomy tube placement Hypothyroidism Diabetes GERD (gastroesophageal reflux disease) Unspecified convulsions Gastroparesis Asthma Brain tumor Neuropathy Family History Family History Father Skin cancer Mother No problems noted. 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 Household Members Other:: caregiver-live in aid Housing Other:: 24 hour care - live in aid Are you a primary clinical care leader to a significant other at home: No Do you presently have visiting nurse or other home services: Yes (03/04 live in care) Alcohol intake: current Alcohol intake frequency: does not drink Comment: larger catheter inserted Patient Tobacco Use Status: Never used Tobacco Second Hand Smoke Exposure: No Use of substances other than those prescribed or required for medical reasons: No Are you DNR?: Yes Advance Directives: No Advance Directives Information Provided: Yes Advance Directives Date on File: 06/29/20 Meds Allergies Allergy/AdvReac Type Severity Reaction Status Date / Time lamotrigine [From LAMICTAL] Allergy Severe CLEMENTINA Verified 12/04/23 06:25 GUIDO SYNDROME chlorhexidine [CHLORHEXIDINE] Allergy Intermediate RASH Verified 12/04/23 06:25 citalopram [From CELEXA] Allergy Intermediate PROLONGED Verified 12/04/23 06:25 QT INTERVAL divalproex sodium Allergy Intermediate BLACK Verified 12/04/23 06:25 [From DEPAKOTE] EYES escitalopram [From LEXAPRO] Allergy Intermediate SWELLING Verified 12/04/23 06:25 lactose [LACTOSE] Allergy Intermediate GI UPSET Verified 12/04/23 06:25 povidone-iodine Allergy Intermediate rash Verified 12/04/23 06:25 [From BETADINE] alprazolam [From Xanax] Allergy Mild Unknown Verified 12/04/23 06:25 sertraline [From Zoloft] Allergy Mild unknown Verified 12/04/23 06:25 ziprasidone [From Geodon] Allergy Mild dystonia Verified 12/04/23 06:25 clonazepam [From Klonopin] Allergy agitation Verified 12/04/23 06:25 lorazepam [From Ativan] Allergy agitation Verified 12/04/23 06:25 latex AdvReac Swelling Verified 12/04/23 06:25 BEETS Allergy Intermediate SWELLING Uncoded 12/04/23 06:25 STATLOC Allergy Intermediate RASH Uncoded 12/04/23 06:25 Home Medications Medication Instructions Recorded Confirmed Last Taken Type albuterol sulfate 90 mcg/actuation 2 puff inhalation 6XD PRN Wheezing 06/25/20 09/25/23 10/24/22 History aerosol inhaler diphenhydramine HCl 50 mg/mL 50 mg IV Q3H 06/25/20 12/04/23 12/04/23 History injection solution pantoprazole 40 mg intravenous 40 mg IV BID 06/25/20 12/04/23 12/04/23 History solution (Protonix) acetaminophen 500 mg/15 mL oral 500 mg feeding tube QID PRN Pain 10/06/20 09/25/23 Unknown History liquid famotidine (PF) 20 mg/50 mL in 0.9 20 mg IV DAILY 10/06/20 12/04/23 12/04/23 History % NaCl (iso) intravenous piggyback fludrocortisone 0.1 mg tablet 0.1 mg feeding tube DAILY 10/06/20 09/25/23 10/24/22 History ipratropium 0.5 mg-albuterol 3 mg 3 ml inhalation Q6-8H PRN 10/06/20 09/25/23 Unknown History (2.5 mg base)/3 mL nebulization Shortness Of Breath Or Wheezing soln midodrine 10 mg tablet 10 mg feeding tube TID 10/06/20 12/04/23 12/04/23 History topiramate 200 mg tablet (Topamax) 200 mg feeding tube BID 10/06/20 12/04/23 12/04/23 History magnesium hydroxide 400 mg/5 mL 30 ml feeding tube DIRECTED PRN 11/12/20 09/25/23 Unknown History oral suspension (Milk of Magnesia) Gastric Reflux promethazine 25 mg/mL injection 25 mg IV TID 11/12/20 12/04/23 12/04/23 History solution (Phenergan) lidocaine 5 % topical ointment 1 appl topical QID PRN Pain 06/03/21 09/25/23 Unknown History Immuglobin IV TU 02/11/22 12/23/22 Unknown History Lactobacillus rhamnosus GG 10 1 cap feeding tube BID 02/11/22 12/04/23 12/04/23 History billion cell capsule (Culturelle) benztropine 0.5 mg tablet 0.5 mg feeding tube DAILY 02/11/22 12/04/23 12/04/23 History enoxaparin 40 mg/0.4 mL 40 mg subcut DAILY 02/11/22 09/25/23 03/28/23 06:00 History subcutaneous syringe furosemide 40 mg tablet 60 mg feeding tube TID 02/11/22 12/04/23 12/04/23 History gabapentin 300 mg/6 mL (6 mL) oral 800 mg feeding tube BEDTIME 02/11/22 09/25/23 Unknown History solution ondansetron HCl (PF) 4 mg/2 mL 4 mg IV Q4H 02/11/22 12/04/23 12/04/23 History injection syringe fluticasone propionate 110 1 puff inhalation BID 04/22/22 12/04/23 12/04/23 History mcg/actuation HFA aerosol inhaler (Flovent HFA) levetiracetam 500 mg/5 mL 500 mg IV BID 04/22/22 12/04/23 12/04/23 History intravenous solution (Keppra) fremanezumab-vfrm 225 mg/1.5 mL 225 mg subcut QMONTH 02/27/23 09/25/23 Unknown History subcutaneous auto-injector (Ajovy) dextran 70-hypromellose 0.1 %-0.3 drp ophthalmic (eye) 05/29/23 Unknown History % eye drops (Lubricating Tears) diazepam 5 mg/5 mL (1 mg/mL) oral 1 mg PO DAILY PRN Anxiety 05/29/23 12/04/23 12/04/23 History solution hydromorphone 1 mg/mL oral liquid 5 mg PO Q3H 05/29/23 12/04/23 12/04/23 History (Dilaudid) lactulose 10 gram/15 mL (15 mL) 30 g PO BID PRN constipation 05/29/23 09/25/23 Unknown History oral solution levothyroxine 112 mcg/mL oral 80 mcg feeding tube DAILY 05/29/23 12/04/23 12/04/23 History solution loxapine succinate 10 mg capsule 70 mg feeding tube BID 05/29/23 09/25/23 Unknown History methylnaltrexone 12 mg/0.6 mL subcut 05/29/23 Unknown History subcutaneous syringe (Relistor) mirabegron 8 mg/mL oral 16 mg PO DAILY 05/29/23 09/25/23 Unknown History suspension,extended release (Myrbetriq) trospium 20 mg tablet 20 mg PO BID 05/29/23 12/04/23 12/04/23 History vibegron 75 mg tablet (Gemtesa) 75 mg PO DAILY 05/29/23 12/04/23 12/04/23 History prochlorperazine edisylate 5 mg/mL 5 mg Q4H 08/30/23 12/04/23 12/04/23 History injection syringe ampicillin sodium 2 gram solution 1 g IM Q6H 11/27/23 Unknown History for injection baclofen 5 mg tablet 15 mg PO TID 11/27/23 12/04/23 12/04/23 History benztropine 1 mg tablet mg PO 11/27/23 Unknown History gabapentin 400 mg capsule 800 mg PO BID 11/27/23 12/04/23 12/04/23 History Exam Pertinent Lab Results Pertinent Lab Results: Laboratory Tests 11/15/23 08:34 WBC 9.4 Hgb 13.3 D Hct 39.5 D Plt Count 220 Sodium 140 Potassium 4.0 Chloride 103 Carbon Dioxide 25 BUN 28 H Creatinine 1.14 Assessment and Plan Assessment Anesthesia Assessment: Chart Reviewed Final Anesthetic Review Family History of Problems with Anesthesia: No History of Problems with Anesthesia: No Documented by User: John Armenta MD 12/04/23 07:42 PMFSH Past Medical History Medical History Constipation Fungal infection VRE (vancomycin-resistant Enterococci) Chronic, continuous use of opioids Small fiber polyneuropathy Hx pulmonary embolism Bacterial infection Septic arthritis Seizures Brain bleed Suprapubic catheter History of jejunostomy tube placement Hypothyroidism Diabetes GERD (gastroesophageal reflux disease) Unspecified convulsions Gastroparesis Asthma Brain tumor Neuropathy Patient : No Family History Family History Father Skin cancer Mother No problems noted. 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 Household Members Other:: caregiver-live in aid Housing Other:: 24 hour care - live in aid Are you a primary clinical care leader to a significant other at home: No Do you presently have visiting nurse or other home services: Yes (03/04 live in care) Alcohol intake: current Alcohol intake frequency: does not drink Comment: larger catheter inserted Patient Tobacco Use Status: Never used Tobacco Second Hand Smoke Exposure: No Use of substances other than those prescribed or required for medical reasons: No Are you DNR?: Yes Advance Directives: No Advance Directives Information Provided: Yes Advance Directives Date on File: 06/29/20 Meds Allergies Allergy/AdvReac Type Severity Reaction Status Date / Time lamotrigine [From LAMICTAL] Allergy Severe CLEMENTINA Verified 12/04/23 06:25 GUIDO SYNDROME chlorhexidine [CHLORHEXIDINE] Allergy Intermediate RASH Verified 12/04/23 06:25 citalopram [From CELEXA] Allergy Intermediate PROLONGED Verified 12/04/23 06:25 QT INTERVAL divalproex sodium Allergy Intermediate BLACK Verified 12/04/23 06:25 [From DEPAKOTE] EYES escitalopram [From LEXAPRO] Allergy Intermediate SWELLING Verified 12/04/23 06:25 lactose [LACTOSE] Allergy Intermediate GI UPSET Verified 12/04/23 06:25 povidone-iodine Allergy Intermediate rash Verified 12/04/23 06:25 [From BETADINE] alprazolam [From Xanax] Allergy Mild Unknown Verified 12/04/23 06:25 sertraline [From Zoloft] Allergy Mild unknown Verified 12/04/23 06:25 ziprasidone [From Geodon] Allergy Mild dystonia Verified 12/04/23 06:25 clonazepam [From Klonopin] Allergy agitation Verified 12/04/23 06:25 lorazepam [From Ativan] Allergy agitation Verified 12/04/23 06:25 latex AdvReac Swelling Verified 12/04/23 06:25 BEETS Allergy Intermediate SWELLING Uncoded 12/04/23 06:25 STATLOC Allergy Intermediate RASH Uncoded 12/04/23 06:25 Home Medications Medication Instructions Recorded Confirmed Last Taken Type albuterol sulfate 90 mcg/actuation 2 puff inhalation 6XD PRN Wheezing 06/25/20 09/25/23 10/24/22 History aerosol inhaler diphenhydramine HCl 50 mg/mL 50 mg IV Q3H 06/25/20 12/04/23 12/04/23 History injection solution pantoprazole 40 mg intravenous 40 mg IV BID 06/25/20 12/04/23 12/04/23 History solution (Protonix) acetaminophen 500 mg/15 mL oral 500 mg feeding tube QID PRN Pain 10/06/20 09/25/23 Unknown History liquid famotidine (PF) 20 mg/50 mL in 0.9 20 mg IV DAILY 10/06/20 12/04/23 12/04/23 History % NaCl (iso) intravenous piggyback fludrocortisone 0.1 mg tablet 0.1 mg feeding tube DAILY 10/06/20 09/25/23 10/24/22 History ipratropium 0.5 mg-albuterol 3 mg 3 ml inhalation Q6-8H PRN 10/06/20 09/25/23 Unknown History (2.5 mg base)/3 mL nebulization Shortness Of Breath Or Wheezing soln midodrine 10 mg tablet 10 mg feeding tube TID 10/06/20 12/04/23 12/04/23 History topiramate 200 mg tablet (Topamax) 200 mg feeding tube BID 10/06/20 12/04/23 12/04/23 History magnesium hydroxide 400 mg/5 mL 30 ml feeding tube DIRECTED PRN 11/12/20 09/25/23 Unknown History oral suspension (Milk of Magnesia) Gastric Reflux promethazine 25 mg/mL injection 25 mg IV TID 11/12/20 12/04/23 12/04/23 History solution (Phenergan) lidocaine 5 % topical ointment 1 appl topical QID PRN Pain 06/03/21 09/25/23 Unknown History Immuglobin IV TU 02/11/22 12/23/22 Unknown History Lactobacillus rhamnosus GG 10 1 cap feeding tube BID 02/11/22 12/04/23 12/04/23 History billion cell capsule (Culturelle) benztropine 0.5 mg tablet 0.5 mg feeding tube DAILY 02/11/22 12/04/23 12/04/23 History enoxaparin 40 mg/0.4 mL 40 mg subcut DAILY 02/11/22 09/25/23 03/28/23 06:00 History subcutaneous syringe furosemide 40 mg tablet 60 mg feeding tube TID 02/11/22 12/04/23 12/04/23 History gabapentin 300 mg/6 mL (6 mL) oral 800 mg feeding tube BEDTIME 02/11/22 09/25/23 Unknown History solution ondansetron HCl (PF) 4 mg/2 mL 4 mg IV Q4H 02/11/22 12/04/23 12/04/23 History injection syringe fluticasone propionate 110 1 puff inhalation BID 04/22/22 12/04/23 12/04/23 History mcg/actuation HFA aerosol inhaler (Flovent HFA) levetiracetam 500 mg/5 mL 500 mg IV BID 04/22/22 12/04/23 12/04/23 History intravenous solution (Keppra) fremanezumab-vfrm 225 mg/1.5 mL 225 mg subcut QMONTH 02/27/23 09/25/23 Unknown History subcutaneous auto-injector (Ajovy) dextran 70-hypromellose 0.1 %-0.3 drp ophthalmic (eye) 05/29/23 Unknown History % eye drops (Lubricating Tears) diazepam 5 mg/5 mL (1 mg/mL) oral 1 mg PO DAILY PRN Anxiety 05/29/23 12/04/23 12/04/23 History solution hydromorphone 1 mg/mL oral liquid 5 mg PO Q3H 05/29/23 12/04/23 12/04/23 History (Dilaudid) lactulose 10 gram/15 mL (15 mL) 30 g PO BID PRN constipation 05/29/23 09/25/23 Unknown History oral solution levothyroxine 112 mcg/mL oral 80 mcg feeding tube DAILY 05/29/23 12/04/23 12/04/23 History solution loxapine succinate 10 mg capsule 70 mg feeding tube BID 05/29/23 09/25/23 Unknown History methylnaltrexone 12 mg/0.6 mL subcut 05/29/23 Unknown History subcutaneous syringe (Relistor) mirabegron 8 mg/mL oral 16 mg PO DAILY 05/29/23 09/25/23 Unknown History suspension,extended release (Myrbetriq) trospium 20 mg tablet 20 mg PO BID 05/29/23 12/04/23 12/04/23 History vibegron 75 mg tablet (Gemtesa) 75 mg PO DAILY 05/29/23 12/04/23 12/04/23 History prochlorperazine edisylate 5 mg/mL 5 mg Q4H 08/30/23 12/04/23 12/04/23 History injection syringe ampicillin sodium 2 gram solution 1 g IM Q6H 11/27/23 Unknown History for injection baclofen 5 mg tablet 15 mg PO TID 11/27/23 12/04/23 12/04/23 History benztropine 1 mg tablet mg PO 11/27/23 Unknown History gabapentin 400 mg capsule 800 mg PO BID 11/27/23 12/04/23 12/04/23 History Exam Airway Mallampati Class: II TM Dist: <=3cm Neck ROM: Full Heart: ok Lungs: ok. Assessment and Plan Assessment Anesthesia Assessment: Anesthesia Plan Discussed Final Anesthetic Review NPO: Yes ASA Class: III Final Preanesthetic Review: No Changes in Pt Med Stat, Meds/Allgs Chart Reviewed, Consent Obtained/Reviewed, Anes Risks/Benef Reviewed and DNR Form (If Appl.) Patient Risk: High Procedure Risk: Low Anesthetic Plan Anesthetic Plan: MAC: and Agree w/ Assess. and Plan Disposition: Standard PACU
[2023-12-04 06:22] VITALS: BMI 19.8
[2023-12-04 06:45] VITALS: BP 132/84; PULSE 103; RESP 16; TEMP 36.3; O2SAT 100
[2023-12-04] MEDS: Lactated Ringers 1,000 ML 100 ML IVCONT (06:46)
[2023-12-04 06:59] LABS: Glucose, Whole Blood 99 mg/dL (60-115)
--- NOTE | 2023-12-04 07:15 | P.HPSUR_ITS ---
Pre-Procedural Eval Section A - 24 Hr Update-Section A only Date of Service: 12/04/23 The patient is an INPATIENT: No Changes since office visit: No Cold of Flu in the past 2 weeks, No New Medical Problems, No Changes in Medication and No Patient answered all questions The patient has been examined within 24 hours of the surgical procedure. The History & Physical has been completed within 30 days and I have reviewed it.: No Section B - Complete if H&P > 30 days Chief Complaint: Neuromuscular dysfunction of bladder, unspecified Details of Present Illness: neurogenic bladder Relevant Family History (Specify if Yes): No Relevant Social History: None Present Medications: see Short Stay Collaborative assessment Medical History: Significant History History of Previous Operations: Relevant previous surgery/procedure and date(s) Allergies: Allergies Allergy/AdvReac Type Severity Reaction Status Date / Time lamotrigine [From LAMICTAL] Allergy Severe CLEMENTINA Verified 12/04/23 06:25 GUIDO SYNDROME chlorhexidine [CHLORHEXIDINE] Allergy Intermediate RASH Verified 12/04/23 06:25 citalopram [From CELEXA] Allergy Intermediate PROLONGED Verified 12/04/23 06:25 QT INTERVAL divalproex sodium Allergy Intermediate BLACK Verified 12/04/23 06:25 [From DEPAKOTE] EYES escitalopram [From LEXAPRO] Allergy Intermediate SWELLING Verified 12/04/23 06:25 lactose [LACTOSE] Allergy Intermediate GI UPSET Verified 12/04/23 06:25 povidone-iodine Allergy Intermediate rash Verified 12/04/23 06:25 [From BETADINE] alprazolam [From Xanax] Allergy Mild Unknown Verified 12/04/23 06:25 sertraline [From Zoloft] Allergy Mild unknown Verified 12/04/23 06:25 ziprasidone [From Geodon] Allergy Mild dystonia Verified 12/04/23 06:25 clonazepam [From Klonopin] Allergy agitation Verified 12/04/23 06:25 lorazepam [From Ativan] Allergy agitation Verified 12/04/23 06:25 latex AdvReac Swelling Verified 12/04/23 06:25 BEETS Allergy Intermediate SWELLING Uncoded 12/04/23 06:25 STATLOC Allergy Intermediate RASH Uncoded 12/04/23 06:25 Review of Systems Sugical H&P ROS: Negative: Constitution, Cardiovascular, Respiratory, Neur ological, Psychiatric, Hem-Onc, Allergic/Immunologic, Gastrointestinal, Genitourinary, Musculoskeletal, Integumentary, Endocrine and Eyes/Ears/Nose/Throat Exam Surgical H&P Exam: Normal: HEENT, Normal: Heart, Normal: Lungs, Normal: Extremities, Normal: Abdomen, Normal: Skin and Normal: Neurological Plan Diagnosis/Plan: Unchanged (SPT exchange) I have reviewed the history and physical and performed a pertinent physical examination on my patient. No changes have occurred unless specified. Time Spent With Patient Time: Total time managing care of this patient today ____ minutes.
--- NOTE | 2023-12-04 07:47 | P.OP_ITS ---
Operative Note Operative Note Date of Service: 12/04/23 Narrative: PreOperative Diagnosis:? Neurogenic bladder Post Operative Diagnosis:? Neurogenic bladder Procedure:? Suprapubic tube change Surgeon: Dr Denys Pereira Anesthesia:? Sedation Indications for procedure: Small neuronal disease with neurogenic bladder Procedure: After informed consent was verified the patient was brought to the operating room and placed in a supine position.? Anesthesia was administered per protocol. Marcela remained in her stretcher. The area was prepped with saline Suprapubic tube removed. Twenty-two Bahraini Waldron catheter - double balloon - 10cc in proximal balloon - 5cc in distal balloon
[2023-12-04 07:55] VITALS: BP 149/97; PULSE 103; RESP 16; RESP 20; TEMP 36.3; O2SAT 100
[2023-12-04] MEDS: HYDROmorphone HCl 1 MG/ML SYRINGE 0.75 MG IVPUSH ×2 (07:55→08:03)
[2023-12-04 08:00] VITALS: BP 132/94; PULSE 111; RESP 17; O2SAT 100
[2023-12-04 08:05] VITALS: BP 138/91; PULSE 108; RESP 16; O2SAT 100
[2023-12-04 08:10] VITALS: BP 119/80; PULSE 99; RESP 16; TEMP 36.4; O2SAT 100
== END 2023-12-04 08:50 | disposition home or self-care (01) ==
PROVIDERS: PCP Internal Medicine; Visit Provider Urology
PROC: (CPT 51705; principal; 2023-12-04 07:30)
DX: N31.9 Neuromuscular dysfunction of bladder, unspecified (principal); J45.909 Unspecified asthma, uncomplicated; Z86.711 Personal history of pulmonary embolism; G62.89 Other specified polyneuropathies; E11.9 Type 2 diabetes mellitus without complications; R56.9 Unspecified convulsions; Z79.51 Long term (current) use of inhaled steroids; Z79.899 Other long term (current) drug therapy; Z66 Do not resuscitate; Z88.8 Allergy status to other drugs, medicaments and biological substances; Z91.040 Latex allergy status
CPT/HCPCS: 51705; 82947; J1170; J2704

== ENCOUNTER → 2023-12-04 06:05 | Outpatient (BNV) | payer OTHER, SELFPAY | PROVIDERS: PCP Internal Medicine; Visit Provider Urology | DX: N31.9 Neuromuscular dysfunction of bladder, unspecified (principal) | CPT/HCPCS: 51705 ==

== ENCOUNTER 2023-12-27 06:06 | Day surgery (SDC) | payer OTHER, SELFPAY ==
[2023-12-22 08:51] VITALS: BMI 19.8
[2023-12-27] VITALS (14 sets, daily range): BP systolic 105–159; BP diastolic 67–104; PULSE 81–106; RESP 16–20; TEMP 36.2–36.7; O2SAT 100; BMI 16.3
--- NOTE | 2023-12-27 07:05 | P.CONAN_ITS ---
[facility] Active Problems Active Problems: All Active Problems Bladder spasm (Acute) Diarrhea (Acute) Diarrhea associated with pseudomembranous colitis (Acute) Recurrent infections (Acute) Neurologic disorder (Acute) Neurogenic urinary bladder disorder (Acute) Constipation (Acute) Gastroparesis (Acute) Past Medical History Medical History Constipation Fungal infection VRE (vancomycin-resistant Enterococci) Chronic, continuous use of opioids Small fiber polyneuropathy Hx pulmonary embolism Bacterial infection Septic arthritis Seizures Brain bleed Suprapubic catheter History of jejunostomy tube placement Hypothyroidism Diabetes GERD (gastroesophageal reflux disease) Unspecified convulsions Gastroparesis Asthma Brain tumor Neuropathy Family History Family History Father Skin cancer Mother No problems noted. Family history of problems with anesthesia: No Surgical History Surgical History (Updated 12/27/23 @ 06:37 by Barb Phoenix RN) Hx of cholecystectomy S/P urological surgery History of esophagogastroduodenoscopy (EGD) History of hip surgery Hx of endoscopy History of colonoscopy Hx of oral surgery History of Problems with Anesthesia: No Social History Social History Household Members: Caregiver Household Members Other:: caregiver-live in aid Housing Other:: 24 hour care - live in aid Are you a primary career development coordinator/teacher to a significant other at home: No Do you presently have visiting nurse or other home services: Yes (03/04 live in care) Alcohol intake: current Alcohol intake frequency: does not drink Comment: larger catheter inserted Patient Tobacco Use Status: Never used Tobacco Second Hand Smoke Exposure: No Use of substances other than those prescribed or required for medical reasons: No Are you DNR?: Yes Advance Directives: No Advance Directives Information Provided: Yes Advance Directives Date on File: 06/29/20 Meds Allergies Allergy/AdvReac Type Severity Reaction Status Date / Time lamotrigine [From LAMICTAL] Allergy Severe CLEMENTINA Verified 12/04/23 06:25 GUIDO SYNDROME chlorhexidine [CHLORHEXIDINE] Allergy Intermediate RASH Verified 12/04/23 06:25 citalopram [From CELEXA] Allergy Intermediate PROLONGED Verified 12/04/23 06:25 QT INTERVAL divalproex sodium Allergy Intermediate BLACK Verified 12/04/23 06:25 [From DEPAKOTE] EYES escitalopram [From LEXAPRO] Allergy Intermediate SWELLING Verified 12/04/23 06:25 lactose [LACTOSE] Allergy Intermediate GI UPSET Verified 12/04/23 06:25 povidone-iodine Allergy Intermediate rash Verified 12/04/23 06:25 [From BETADINE] alprazolam [From Xanax] Allergy Mild Unknown Verified 12/04/23 06:25 sertraline [From Zoloft] Allergy Mild unknown Verified 12/04/23 06:25 ziprasidone [From Geodon] Allergy Mild dystonia Verified 12/04/23 06:25 clonazepam [From Klonopin] Allergy agitation Verified 12/04/23 06:25 lorazepam [From Ativan] Allergy agitation Verified 12/04/23 06:25 latex AdvReac Swelling Verified 12/04/23 06:25 BEETS Allergy Intermediate SWELLING Uncoded 12/04/23 06:25 STATLOC Allergy Intermediate RASH Uncoded 12/04/23 06:25 Home Medications ?Medication ?Instructions ?Recorded ?Confirmed ?Last Taken ?Type albuterol sulfate 90 mcg/actuation 2 puff inhalation 6XD PRN Wheezing 06/25/20 12/27/23 10/24/22 History aerosol inhaler diphenhydramine HCl 50 mg/mL 50 mg IV Q3H 06/25/20 12/27/23 12/04/23 History injection solution pantoprazole 40 mg intravenous 40 mg IV BID 06/25/20 12/27/23 12/04/23 History solution (Protonix) acetaminophen 500 mg/15 mL oral 500 mg feeding tube QID PRN Pain 10/06/20 12/27/23 Unknown History liquid famotidine (PF) 20 mg/50 mL in 0.9 20 mg IV DAILY 10/06/20 12/27/23 12/04/23 History % NaCl (iso) intravenous piggyback fludrocortisone 0.1 mg tablet 0.1 mg feeding tube DAILY 10/06/20 12/27/23 10/24/22 History ipratropium 0.5 mg-albuterol 3 mg 3 ml inhalation Q6-8H PRN 10/06/20 12/27/23 Unknown History (2.5 mg base)/3 mL nebulization Shortness Of Breath Or Wheezing soln midodrine 10 mg tablet 10 mg feeding tube TID 10/06/20 12/27/23 12/04/23 History topiramate 200 mg tablet (Topamax) 200 mg feeding tube BID 10/06/20 12/27/23 12/04/23 History magnesium hydroxide 400 mg/5 mL 30 ml feeding tube DIRECTED PRN 11/12/20 12/27/23 Unknown History oral suspension (Milk of Magnesia) Gastric Reflux lidocaine 5 % topical ointment 1 appl topical QID PRN Pain 06/03/21 12/27/23 Unknown History Immuglobin IV TU 02/11/22 12/23/22 Unknown History Lactobacillus rhamnosus GG 10 1 cap feeding tube BID 02/11/22 12/27/23 12/04/23 History billion cell capsule (Culturelle) benztropine 0.5 mg tablet 0.5 mg feeding tube DAILY 02/11/22 12/27/23 12/04/23 History enoxaparin 40 mg/0.4 mL 40 mg subcut DAILY 02/11/22 12/27/23 03/28/23 06:00 History subcutaneous syringe furosemide 40 mg tablet 60 mg feeding tube TID 02/11/22 12/27/23 12/04/23 History ondansetron HCl (PF) 4 mg/2 mL 4 mg IV Q4H 02/11/22 12/27/23 12/04/23 History injection syringe fluticasone propionate 110 1 puff inhalation BID 04/22/22 12/27/23 12/04/23 History mcg/actuation HFA aerosol inhaler (Flovent HFA) levetiracetam 500 mg/5 mL 500 mg IV BID 04/22/22 12/27/23 12/04/23 History intravenous solution (Keppra) fremanezumab-vfrm 225 mg/1.5 mL 225 mg subcut QMONTH 02/27/23 12/27/23 Unknown History subcutaneous auto-injector (Ajovy) dextran 70-hypromellose 0.1 %-0.3 drp ophthalmic (eye) 05/29/23 Unknown History % eye drops (Lubricating Tears) diazepam 5 mg/5 mL (1 mg/mL) oral 1 mg PO DAILY PRN Anxiety 05/29/23 12/27/23 12/04/23 History solution hydromorphone 1 mg/mL oral liquid 5 mg PO Q3H 05/29/23 12/27/23 12/04/23 History (Dilaudid) lactulose 10 gram/15 mL (15 mL) 30 g PO BID PRN constipation 05/29/23 12/27/23 Unknown History oral solution levothyroxine 112 mcg/mL oral 80 mcg feeding tube DAILY 05/29/23 12/27/23 12/04/23 History solution loxapine succinate 10 mg capsule 70 mg feeding tube BID 05/29/23 12/27/23 Unknown History methylnaltrexone 12 mg/0.6 mL 12 mg subcut Q2D 05/29/23 12/27/23 Unknown History subcutaneous syringe (Relistor) mirabegron 8 mg/mL oral 16 mg PO DAILY 05/29/23 12/27/23 Unknown History suspension,extended release (Myrbetriq) trospium 20 mg tablet 20 mg PO BID 05/29/23 12/27/23 12/04/23 History vibegron 75 mg tablet (Gemtesa) 75 mg PO DAILY 05/29/23 12/27/23 12/04/23 History prochlorperazine edisylate 5 mg/mL 5 mg Q4H 08/30/23 12/27/23 12/04/23 History injection syringe baclofen 5 mg tablet 15 mg PO TID 11/27/23 12/27/23 12/04/23 History benztropine 1 mg tablet mg PO 11/27/23 Unknown History gabapentin 400 mg capsule 800 mg PO BID 11/27/23 12/27/23 12/04/23 History plecanatide 3 mg tablet (Trulance) 3 mg PO DAILY 12/22/23 12/27/23 Unknown History Exam Height,Weight and Vital Signs: Height 4 ft 10 in Weight 35.38 kg Last Vital Signs Temp 97.2 F 12/27/23 06:58 Pulse 99 12/27/23 06:58 Resp 16 12/27/23 06:58 BP 122/86 12/27/23 06:58 Pulse Ox 100 12/27/23 06:58 O2 Del Method Nasal Cannula 12/27/23 06:58 O2 Flow Rate 3 12/27/23 06:58 Airway Mallampati Class: IV TM Dist: >3cm Neck ROM: Full Loose/Missing/Broken Teeth: No Heart: rrr Lungs: cta Assessment and Plan Assessment Anesthesia Assessment: Anesthesia Plan Discussed and Chart Reviewed Final Anesthetic Review Family History of Problems with Anesthesia: No History of Problems with Anesthesia: No NPO: Yes ASA Class: III Final Preanesthetic Review: No Changes in Pt Med Stat, Meds/Allgs Chart Reviewed, Consent Obtained/Reviewed, Anes Risks/Benef Reviewed and DNR Form (If Appl.) Patient Risk: Intermediate Procedure Risk: Intermediate Anesthetic Plan Anesthetic Plan: GA Disposition: Standard PACU
--- NOTE | 2023-12-27 07:36 | MHC.SHP ---
Pre-Procedural Eval Section A - 24 Hr Update-Section A only Date of Service: 12/27/23 The patient is an INPATIENT: No Changes since office visit: No Cold of Flu in the past 2 weeks, No New Medical Problems, No Changes in Medication and No Patient answered all questions The patient has been examined within 24 hours of the surgical procedure. The History & Physical has been completed within 30 days and I have reviewed it.: No Section B - Complete if H&P > 30 days Chief Complaint: Neuromuscular dysfunction of bladder, unspecified Details of Present Illness: per CT small fragment in bladder balloon Relevant Social History: None Present Medications: see Short Stay [facility] assessment Medical History: Significant History History of Previous Operations: Relevant previous surgery/procedure and date(s) Allergies: Allergies Allergy/AdvReac Type Severity Reaction Status Date / Time lamotrigine [From LAMICTAL] Allergy Severe CLEMENTINA Verified 12/04/23 06:25 GUIDO SYNDROME chlorhexidine [CHLORHEXIDINE] Allergy Intermediate RASH Verified 12/04/23 06:25 citalopram [From CELEXA] Allergy Intermediate PROLONGED Verified 12/04/23 06:25 QT INTERVAL divalproex sodium Allergy Intermediate BLACK Verified 12/04/23 06:25 [From DEPAKOTE] EYES escitalopram [From LEXAPRO] Allergy Intermediate SWELLING Verified 12/04/23 06:25 lactose [LACTOSE] Allergy Intermediate GI UPSET Verified 12/04/23 06:25 povidone-iodine Allergy Intermediate rash Verified 12/04/23 06:25 [From BETADINE] alprazolam [From Xanax] Allergy Mild Unknown Verified 12/04/23 06:25 sertraline [From Zoloft] Allergy Mild unknown Verified 12/04/23 06:25 ziprasidone [From Geodon] Allergy Mild dystonia Verified 12/04/23 06:25 clonazepam [From Klonopin] Allergy agitation Verified 12/04/23 06:25 lorazepam [From Ativan] Allergy agitation Verified 12/04/23 06:25 latex AdvReac Swelling Verified 12/04/23 06:25 BEETS Allergy Intermediate SWELLING Uncoded 12/04/23 06:25 STATLOC Allergy Intermediate RASH Uncoded 12/04/23 06:25 Review of Systems Sugical H&P ROS: Negative: Constitution, Cardiovascular, Respiratory, Neurological, Psychiatric, Hem-Onc, Allergic/Immunologic, Gastrointestinal, Genitourinary, Musculoskeletal, Integumentary, Endocrine and Eyes/Ears/Nose/Throat Exam Surgical H&P Exam: Normal: HEENT, Normal: Heart, Normal: Lungs, Normal: Extremities, Normal: Abdomen, Normal: Skin and Normal: Neurological Plan Diagnosis/Plan: Unchanged (flexible cystoscopy with SPT change) I have reviewed the history and physical and performed a pertinent physical examination on my patient. No changes have occurred unless specified. Time Spent With Patient Time: Total time managing care of this patient today ____ minutes.
--- NOTE | 2023-12-27 08:00 | W.PM.OPN ---
Operative Note Operative Note Date of Service: 12/27/23 Narrative: PreOperative Diagnosis:? Neurogenic bladder Post Operative Diagnosis:? Neurogenic bladder Procedure:? Suprapubic tube change with ocystoscopy for possible foreign body Surgeon: Dr Denys Pereira Anesthesia:? Sedation Indications for procedure: Small neuronal disease with neurogenic bladder Procedure: After informed consent was verified the patient was brought to the operating room and placed in a supine position.? Anesthesia was administered per protocol. Marcela remained in her stretcher. The area was prepped with saline Suprapubic tube removed. Cystoscopy performed - no evidence of foreign body Twenty-two English Waldron catheter - double balloon - 10cc in proximal balloon - 5cc in distal balloon
[2023-12-27] MEDS: HYDROmorphone HCl 1 MG/ML SYRINGE 0.75 MG IVPUSH ×2 (08:18→08:30)
[2023-12-27] MEDS: fentaNYL citrate/PF 100 MCG/2 ML VIAL 25 MCG IVPUSH ×2 (09:15→09:28)
== END 2023-12-27 09:56 | disposition home or self-care (01) ==
PROVIDERS: PCP Internal Medicine; Visit Provider Urology
PROC: (CPT 51705; principal; 2023-12-27 07:30)
DX: N31.9 Neuromuscular dysfunction of bladder, unspecified (principal); N32.89 Other specified disorders of bladder; K31.84 Gastroparesis; J45.909 Unspecified asthma, uncomplicated; Z86.711 Personal history of pulmonary embolism; G62.89 Other specified polyneuropathies; E11.9 Type 2 diabetes mellitus without complications; R56.9 Unspecified convulsions; Z79.51 Long term (current) use of inhaled steroids; Z79.899 Other long term (current) drug therapy; Z66 Do not resuscitate; Z88.8 Allergy status to other drugs, medicaments and biological substances; Z91.040 Latex allergy status
CPT/HCPCS: 51705; J1170; J2405; J2704; J3010

== ENCOUNTER → 2023-12-27 06:06 | Outpatient (BNV) | payer OTHER, SELFPAY | PROVIDERS: PCP Internal Medicine; Visit Provider Urology | DX: N31.9 Neuromuscular dysfunction of bladder, unspecified (principal); Z96.0 Presence of urogenital implants | CPT/HCPCS: 51102 ==

== ENCOUNTER 2024-01-05 12:06 | Outpatient (AMB) | payer OTHER, SELFPAY ==
[2024-01-05 12:17] VITALS: BP 104/75; PULSE 105; BMI 20.9
--- NOTE | 2024-01-05 12:17 | A.OFFVIS_ITS ---
Vital Signs 01/05/24 12:17 Height 4 ft 10 in Weight 100 lb BMI 20.9 BP 104/75 Blood Pressure Location Rt brachial Position Sitting Pulse 105 H Intake Visit Reasons: 4 week follow up Intake Note: Marcela casillas in the office as a 4 month follow up of constipation and CT results. CC: Patient reports that the Linzess and Trulance are helping her with constipation. She states she still has to strain even when stools are liquid. Building Consultant Required: No Accompanied by: nurse Allergies lamotrigine [From LAMICTAL] Allergy (Severe, Verified 01/05/24 12:21) CLEMENTINA GUIDO SYNDROME chlorhexidine [CHLORHEXIDINE] Allergy (Intermediate, Verified 01/05/24 12:21) RASH citalopram [From CELEXA] Allergy (Intermediate, Verified 01/05/24 12:21) PROLONGED QT INTERVAL divalproex sodium [From DEPAKOTE] Allergy (Intermediate, Verified 01/05/24 12:21) BLACK EYES escitalopram [From LEXAPRO] Allergy (Intermediate, Verified 01/05/24 12:21) SWELLING lactose [LACTOSE] Allergy (Intermediate, Verified 01/05/24 12:21) GI UPSET povidone-iodine [From BETADINE] Allergy (Intermediate, Verified 01/05/24 12:21) rash alprazolam [From Xanax] Allergy (Mild, Verified 01/05/24 12:21) Unknown sertraline [From Zoloft] Allergy (Mild, Verified 01/05/24 12:21) unknown ziprasidone [From Geodon] Allergy (Mild, Verified 01/05/24 12:21) dystonia clonazepam [From Klonopin] Allergy (Verified 01/05/24 12:21) agitation lorazepam [From Ativan] Allergy (Verified 01/05/24 12:21) agitation latex Adverse Reaction (Verified 01/05/24 12:21) Swelling BEETS Allergy (Intermediate, Uncoded 12/04/23 06:25) SWELLING STATLOC Allergy (Intermediate, Uncoded 12/04/23 06:25) RASH HPI HPI 4 week follow up: Details: 33 yr old f being called for f/u RECAP: ? She told me she had recent hep c ab pos but viral load was neg ? she was looking for a way to be able to take meds without throwing up ? she has been getting her meds thru the G-J tube and gets feeds thru central line ? she can' tolerate carbonated beverages ? mood is good, depression not an issue ? breathing is variable ? getting IVIG, going on for several months ? she is unsure if helping or not ? I gave her motegrity to see if helped her sx, advised to stop trulance ? also advised to reduce lactulose could cause bloating which she was also complaining off. ? motegrity didn;t help and she went back on movantik and trulance she was admitted to [place] with line infection, had fungal infection with fungemia, line was changed out as well as urine catheter due to urine infection, aspiration she was on Ig treatment for small nerve autoneuropathy (been in since 11/2019), felt it was helping BP and HR on IV benadryl, IV phenergan and IV zofran and IV pepcid and IV PPI she cant take carafate as it makes her nausea worse she tried tigan, didn;'t help so much also tried scopolamine patch but didn;t help phone call: 09/2019: she had septic arthritis with osteomyelitis and required wash out of right hip-- fungal infection recovery has been painful she has been getting IV fluconazole she has stopped all anti diarrheals she has not been taking movantik she took imodium the other night and it didn;t help that much nausea is better controlled? with higher dose of phenergan we had increased azfran as well for her nausea, will need ECG every so often to monitor QTc and labs she had also been seeing Dr Amor for immune def work up She had issues with her suprapubic catheter and seeing urology she was at [facility] [place] and she had cholecystectomy, she had cardiac arrest thereafter and needed to go on the vent she had post op infection and fluid collection and needed drainage she was in hospital for 6 weeks due to this she still has issues with dizziness and weight she has nurse manager multimedia, Radha for weekdays and Ella for weekends currently constipation is an issue---she has a regimen, takes lactulose 45 ml every 5 days she is on relistor injections as well hates doing enemas and supps she showed me Ct scan from 10/04--pleural effusion, hepatic fluid collections ? 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 and GB fossa she saw surgeons at [facility] but no further action planned? EXAM: GENERAL: The patient is weak, cachexic VITAL SIGNS:see workflow HEENT: Nonicteric sclerae, PERRLA, EOMI. Oropharynx clear. Moist mucous membranes. Conjunctivae appear well perfused. No thyroid mass. CHEST: Chest wall is nontender. HEART: Regular rate and rhythm without murmurs. LUNGS: Clear to auscultation bilaterally. ABDOMEN: Soft, positive bowel sounds, tender diffusely, no organomegaly.no flank tenderness SKIN: No rash, no excessive bruising, petechiae, or purpura. NEUROLOGIC: AAO x 3, mucositis Psych: normal affect TPN noted and catheter Assessment & Plan 1/ Recurrent infections: due to immobility, multiple lines, admissions to hospital 2/ Steroid insuff, autonomic dysfn, small nerve fiber neuropathy -- 3/ constipation, only real rx at this time is lactulose --already on relistor, 4/ Worsening abdominal pain ? due to abscess or fludi collections vs neuropathic pain from her chronic neuropathy PLAN: 1/ US abdomen, to assess further, if needs drained will have to decide whether can be done locally or at [facility]was offered to send her to ED for rapid a ssessment, but she refuses [facility] Medical History (Updated 01/05/24 @ 12:56 by Jacobo Ayala MD) Constipation Fungal infection VRE (vancomycin-resistant Enterococci) Chronic, continuous use of opioids Small fiber polyneuropathy Hx pulmonary embolism Bacterial infection Septic arthritis Seizures Brain bleed Suprapubic catheter History of jejunostomy tube placement Hypothyroidism Diabetes GERD (gastroesophageal reflux disease) Unspecified convulsions Gastroparesis Asthma Brain tumor Neuropathy Surgical History (Updated 12/27/23 @ 06:37 by Barb Phoenix RN) Hx of cholecystectomy S/P urological surgery History of esophagogastroduodenoscopy (EGD) History of hip surgery Hx of endoscopy History of colonoscopy Hx of oral surgery Family History Father Skin cancer Mother No problems noted. Social History Household Members: Caregiver Household Members Other:: caregiver-live in aid Both parents involved: No Caregiver staying overnight: Yes Housing Other:: 24 hour care - live in aid Are you a primary care specialist to a significant other at home: No Do you presently have visiting nurse or other home services: Yes (03/04 live in care) Alcohol intake: current Alcohol intake frequency: does not drink Comment: larger catheter inserted Patient Tobacco Use Status: Never used Tobacco Second Hand Smoke Exposure: No Advance Directives Date on File: 06/29/20 Physical Exam Vital Signs: Last Vital Signs Pulse 105 H 01/05/24 12:17 BP 104/75 01/05/24 12:17 BMI result Body Mass Index 20.9 Assessment & Plan Assessment & Plan (1) Intraabdominal fluid collection: Code(s): R18.8 - Other ascites Category: Medical Plan: see abive Orders: Orders US abdomen complete 01/05/24 R18.8 - Other ascites Coding Level of Care Code Est Pt Level 3 (96925) Diagnoses Intraabdominal fluid collection R18.8
== END 2024-01-05 13:26 | disposition home or self-care (01) ==
PROVIDERS: PCP Internal Medicine; Visit Provider Internal Medicine Gastroenterology
DX: R18.8 Other ascites (principal)
CPT/HCPCS: 99213

== ENCOUNTER → 2024-01-05 12:06 | Outpatient (BNVA) | payer OTHER, SELFPAY | PROVIDERS: PCP Internal Medicine; Visit Provider Internal Medicine Gastroenterology ==

== ENCOUNTER 2024-02-16 11:53 | Outpatient (AMB) | payer OTHER, SELFPAY ==
--- NOTE | 2024-02-16 11:55 | A.OFFVIS_ITS ---
Vital Signs 02/16/24 11:57 Height 4 ft 10 in Weight 81 lb BMI 16.9 BP 109/83 Blood Pressure Location Rt brachial Position Sitting Pulse 118 H Intake Visit Reasons: 4 week follow up Intake Note: Marcela presents in the office as a 4 week follow up. CC: states she has a spot on her stomach that is dent that she feels like it gets stuck before it reflates. She was in the ED - she noticed sharp pains in the stomach that turned into a dent. Was put on 'buspar 5mg daily for 2 weeks and then she is going to taper down. Allergies lamotrigine [From LAMICTAL] Allergy (Severe, Verified 02/16/24 11:58) CLEMENTINA GUIDO SYNDROME chlorhexidine [CHLORHEXIDINE] Allergy (Intermediate, Verified 02/16/24 11:58) RASH citalopram [From CELEXA] Allergy (Intermediate, Verified 02/16/24 11:58) PROLONGED QT INTERVAL clonazepam [From Klonopin] Allergy (Intermediate, Verified 02/16/24 11:58) agitation divalproex sodium [From DEPAKOTE] Allergy (Intermediate, Verified 02/16/24 11:58) BLACK EYES escitalopram [From LEXAPRO] Allergy (Intermediate, Verified 02/16/24 11:58) SWELLING lactose [LACTOSE] Allergy (Intermediate, Verified 02/16/24 11:58) GI UPSET lorazepam [From Ativan] Allergy (Intermediate, Verified 02/16/24 11:58) agitation povidone-iodine [From BETADINE] Allergy (Intermediate, Verified 02/16/24 11:58) rash alprazolam [From Xanax] Allergy (Mild, Verified 02/16/24 11:58) Unknown sertraline [From Zoloft] Allergy (Mild, Verified 02/16/24 11:58) unknown ziprasidone [From Geodon] Allergy (Mild, Verified 02/16/24 11:58) dystonia latex Adverse Reaction (Intermediate, Verified 02/16/24 11:58) Swelling BEETS Allergy (Intermediate, Uncoded 02/16/24 11:58) SWELLING STATLOC Allergy (Intermediate, Uncoded 02/16/24 11:58) RASH HPI HPI 4 week follow up : Details: 33 yr old f being seen for f/u RECAP: ? She told me she had recent hep c ab pos but viral load was neg ? she was looking for a way to be able to take meds without throwing up ? she has been getting her meds thru the [facility] tube and gets feeds thru central line ? she can' tolerate carbonated beverages ? mood is good, depression not an issue ? breathing is variable ? getting IVIG, going on for several months ? she is unsure if helping or not ? I gave her motegrity to see if helped her sx, advised to stop trulance ? also advised to reduce lactulose could cause bloating which she was also complaining off. ? motegrity didn;t help and she went back on movantik and trulance she was admitted to [facility] with line infection, had fungal infection with fungemia, line was changed out as well as urine catheter due to urine infection, aspiration she was on Ig treatment for small nerve autoneuropathy (been in since 11/2019), felt it was helping BP and HR on IV benadryl, IV phenergan and IV zofran and IV pepcid and IV PPI she cant take carafate as it makes her nausea worse she tried tigan, didn;'t help so much also tried scopolamine patch but didn;t help phone call: 09/2019: she had septic arthritis with osteomyelitis and required wash out of right hip-- fungal infection recovery has been painful she has been getting IV fluconazole she has stopped all anti diarrheals she has not been taking movantik she took imodium the other night and it didn;t help that much nausea is better controlled? with higher dose of phenergan we had increased azfran as well for her nausea, will need ECG every so often to monitor QTc and labs she had also been seeing Dr Amor for immune def work up She had issues with her suprapubic catheter and seeing urology [place] [facility] [place] and she had cholecystectomy, she had cardiac arrest thereafter and needed to go on the vent she had post op infection and fluid collection and needed drainage she was in hospital for 6 weeks due to this she still has issues with dizziness and weight she has nurse pop singer, Radha for weekdays and Ella for weekends currently constipation is an issue---she has a regimen, takes lactulose 45 ml every 5 days she is on relistor injections as well hates doing enemas and supps she showed me Ct scan from 10/04--pleural effusion, hepatic fluid collections she has been having worsening generalized pain, worse than her normal, completed multiple courses of abx for UTI from her ID doc, incl ertepenam chronic 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 and GB fossa she saw surgeons at [facility] but no further action planned She was at [facility] [place] 3 [place] due to drowsiness ?due to adrenal gland issues she had her steroid doses increased and vitamin levels reduced she had CT scans of abdomen there as well, but no action was needed INTERIM: she is taking 72 mcg of linaclotide daily with trulance and seems to work well goes 2-3 times a day she is still on IV fluids and TPN follwoing uo with mass gen for her other chronci complex needs EXAM: GENERAL: The patient is weak, cachexic VITAL SIGNS:see workflow HEENT: Nonicteric sclerae, PERRLA, EOMI. Oropharynx clear. Moist mucous membranes. Conjunctivae appear well perfused. No thyroid mass. CHEST: Chest wall is nontender. HEART: Regular rate and rhythm without murmurs. LUNGS: Clear to auscultation bilaterally. ABDOMEN: Soft, positive bowel sounds, tender diffusely, no organomegaly.no flank tenderness SKIN: No rash, no excessive bruising, petechiae, or purpura. NEUROLOGIC: AAO x 3, mucositis Psych: normal affect TPN noted and catheter Assessment & Plan 1/ Recurrent infections: due to immobility, multiple lines, admissions to hosp [facility] 2/ Steroid insuff, autonomic dysfn, small nerve fiber neuropathy -- 3/ constipation, better PLAN: 1/ No change to current plan, cont with current laxative regimen [facility] Medical History Constipation Fungal infection VRE (vancomycin-resistant Enterococci) Chronic, continuous use of opioids Small fiber polyneuropathy Hx pulmonary embolism Bacterial infection Septic arthritis Seizures Brain bleed Suprapubic catheter History of jejunostomy tube placement Hypothyroidism Diabetes GERD (gastroesophageal reflux disease) Unspecified convulsions Gastroparesis Asthma Brain tumor Neuropathy Surgical History Hx of cholecystectomy S/P urological surgery History of esophagogastroduodenoscopy (EGD) History of hip surgery Hx of endoscopy History of colonoscopy Hx of oral surgery Family History Father Skin cancer Mother No problems noted. Social History Household Members: Caregiver Household Members Other:: caregiver-live in aid Both parents involved: No Caregiver staying overnight: Yes Housing Other:: 24 hour care - live in aid Are you a primary sub acute care nurse to a significant other at home: No Do you presently have visiting nurse or other home services: Yes (03/04 live in care) Alcohol intake: current Alcohol intake frequency: does not drink Comment: larger catheter inserted Patient Tobacco Use Status: Never used Tobacco Second Hand Smoke Exposure: No Advance Directives Date on File: 06/29/20 Physical Exam Vital Signs: Last Vital Signs Pulse 118 H 02/16/24 11:57 BP 109/83 02/16/24 11:57 BMI result Body Mass Index 16.9 Assessment & Plan Assessment & Plan (1) Constipation: Code(s): K59.00 - Constipation, unspecified Category: Medical Plan: see above Coding Level of Care Code Est Pt Level 3 (07474) Diagnoses Constipation K59.00
[2024-02-16 11:57] VITALS: BP 109/83; PULSE 118; BMI 16.9
== END 2024-02-16 12:34 | disposition home or self-care (01) ==
PROVIDERS: PCP Internal Medicine; Visit Provider Internal Medicine Gastroenterology
DX: K59.00 Constipation, unspecified (principal)
CPT/HCPCS: 99213

== ENCOUNTER → 2024-02-16 11:53 | Outpatient (BNVA) | payer OTHER, SELFPAY | PROVIDERS: PCP Internal Medicine; Visit Provider Internal Medicine Gastroenterology ==

== ENCOUNTER 2024-03-04 06:08 | Day surgery (SDC) | payer OTHER, SELFPAY ==
[2024-01-22 14:39] VITALS: BMI 16.3
--- NOTE | 2024-01-23 10:22 | P.CONAN_ITS ---
HPI - Anesthesia Eval Consult details Narrative: 33yo F for Suprapubic Tube Exchange Last exchange 12/27/23 with [facility] Pt declines Urine HCG test PMFSH Active Problems Active Problems: All Active Problems (Updated 01/05/24 @ 12:56 by Jacobo Ayala MD) Intraabdominal fluid collection (Acute) Bladder spasm (Acute) Diarrhea (Acute) Diarrhea associated with pseudomembranous colitis (Acute) Recurrent infections (Acute) Neurologic disorder (Acute) Neurogenic urinary bladder disorder (Acute) Constipation (Acute) Gastroparesis (Acute) Past Medical History Medical History (Updated 01/05/24 @ 12:56 by Jacobo Ayala MD) Constipation Fungal infection VRE (vancomycin-resistant Enterococci) Chronic, continuous use of opioids Small fiber polyneuropathy Hx pulmonary embolism Bacterial infection Septic arthritis Seizures Brain bleed Suprapubic catheter History of jejunostomy tube placement Hypothyroidism Diabetes GERD (gastroesophageal reflux disease) Unspecified convulsions Gastroparesis Asthma Brain tumor Neuropathy Family History Family History Father Skin cancer Mother No problems noted. Family history of problems with anesthesia: No Surgical History Surgical History (Updated 12/27/23 @ 06:37 by Barb Phoenix RN) Hx of cholecystectomy S/P urological surgery History of esophagogastroduodenoscopy (EGD) History of hip surgery Hx of endoscopy History of colonoscopy Hx of oral surgery History of Problems with Anesthesia: No Social History Social History Household Members: Caregiver Household Members Other:: caregiver-live in aid Housing Other:: 24 hour care - live in aid Are you a primary medical care evaluation specialist to a significant other at home: No Do you presently have visiting nurse or other home services: Yes (03/04 live in care) Alcohol intake: current Alcohol intake frequency: does not drink Comment: larger catheter inserted Patient Tobacco Use Status: Never used Tobacco Second Hand Smoke Exposure: No Advance Directives Date on File: 06/29/20 Meds Allergies Allergy/AdvReac Type Severity Reaction Status Date / Time lamotrigine [From LAMICTAL] Allergy Severe CLEMENTINA Verified 01/05/24 12:21 GUIDO SYNDROME chlorhexidine [CHLORHEXIDINE] Allergy Intermediate RASH Verified 01/05/24 12:21 citalopram [From CELEXA] Allergy Intermediate PROLONGED Verified 01/05/24 12:21 QT INTERVAL clonazepam [From Klonopin] Allergy Intermediate agitation Verified 01/22/24 14:38 divalproex sodium Allergy Intermediate BLACK Verified 01/05/24 12:21 [From DEPAKOTE] EYES escitalopram [From LEXAPRO] Allergy Intermediate SWELLING Verified 01/05/24 12:21 lactose [LACTOSE] Allergy Intermediate GI UPSET Verified 01/05/24 12:21 lorazepam [From Ativan] Allergy Intermediate agitation Verified 01/22/24 14:38 povidone-iodine Allergy Intermediate rash Verified 01/05/24 12:21 [From BETADINE] alprazolam [From Xanax] Allergy Mild Unknown Verified 01/05/24 12:21 sertraline [From Zoloft] Allergy Mild unknown Verified 01/05/24 12:21 ziprasidone [From Geodon] Allergy Mild dystonia Verified 01/05/24 12:21 latex AdvReac Intermediate Swelling Verified 01/22/24 14:38 BEETS Allergy Intermediate SWELLING Uncoded 12/04/23 06:25 STATLOC Allergy Intermediate RASH Uncoded 12/04/23 06:25 Home Medications ?Medication ?Instructions ?Recorded ?Confirmed ?Last Taken ?Type albuterol sulfate 90 mcg/actuation 2 puff inhalation 6XD PRN Wheezing 06/25/20 01/22/24 10/24/22 History aerosol inhaler diphenhydramine HCl 50 mg/mL 50 mg IV Q3H 06/25/20 01/22/24 12/04/23 History injection solution pantoprazole 40 mg intravenous 40 mg IV BID 06/25/20 01/22/24 12/04/23 History solution (Protonix) acetaminophen 500 mg/15 mL oral 500 mg feeding tube QID PRN Pain 10/06/20 01/22/24 Unknown History liquid famotidine (PF) 20 mg/50 mL in 0.9 20 mg IV DAILY 10/06/20 01/22/24 12/04/23 History % NaCl (iso) intravenous piggyback fludrocortisone 0.1 mg tablet 0.1 mg feeding tube DAILY 10/06/20 01/22/24 10/24/22 History ipratropium 0.5 mg-albuterol 3 mg 3 ml inhalation Q6-8H PRN 10/06/20 01/22/24 Unknown History (2.5 mg base)/3 mL nebulization Shortness Of Breath Or Wheezing soln topiramate 200 mg tablet (Topamax) 200 mg feeding tube BID 10/06/20 01/22/24 12/04/23 History magnesium hydroxide 400 mg/5 mL 30 ml feeding tube DIRECTED PRN 11/12/20 01/22/24 Unknown History oral suspension (Milk of Magnesia) Gastric Reflux lidocaine 5 % topical ointment 1 appl topical QID PRN Pain 06/03/21 01/22/24 Unknown History Immuglobin IV TU 02/11/22 12/23/22 Unknown History Lactobacillus rhamnosus GG 10 1 cap feeding tube BID 02/11/22 01/22/24 12/04/23 History billion cell capsule (Culturelle) benztropine 0.5 mg tablet 0.5 mg feeding tube DAILY 02/11/22 01/22/24 12/04/23 History enoxaparin 40 mg/0.4 mL 40 mg subcut DAILY 02/11/22 01/22/24 03/28/23 06:00 History subcutaneous syringe furosemide 40 mg tablet 60 mg feeding tube TID 02/11/22 01/22/24 12/04/23 History ondansetron HCl (PF) 4 mg/2 mL 4 mg IV Q4H 02/11/22 01/22/24 12/04/23 History injection syringe fluticasone propionate 110 1 puff inhalation BID 04/22/22 01/22/24 12/04/23 History mcg/actuation HFA aerosol inhaler (Flovent HFA) levetiracetam 500 mg/5 mL 500 mg IV BID 04/22/22 01/22/24 12/04/23 History intravenous solution (Keppra) fremanezumab-vfrm 225 mg/1.5 mL 225 mg subcut QMONTH 02/27/23 01/22/24 Unknown History subcutaneous auto-injector (Ajovy) dextran 70-hypromellose 0.1 %-0.3 1 drp ophthalmic (eye) DAILY 05/29/23 01/22/24 Unknown History % eye drops (Lubricating Tears) diazepam 5 mg/5 mL (1 mg/mL) oral 1 mg PO DAILY PRN Anxiety 05/29/23 01/22/24 12/04/23 History solution hydromorphone 1 mg/mL oral liquid 5 mg PO Q3H 05/29/23 01/22/24 12/04/23 History (Dilaudid) levothyroxine 112 mcg/mL oral 80 mcg feeding tube DAILY 05/29/23 01/22/24 12/04/23 History solution loxapine succinate 10 mg capsule 70 mg feeding tube BID 05/29/23 01/22/24 Unknown History methylnaltrexone 12 mg/0.6 mL 12 mg subcut Q2D 05/29/23 01/22/24 Unknown History subcutaneous syringe (Relistor) trospium 20 mg tablet 20 mg PO BID 05/29/23 01/22/24 12/04/23 History vibegron 75 mg tablet (Gemtesa) 75 mg PO DAILY 05/29/23 01/22/24 12/04/23 History prochlorperazine edisylate 5 mg/mL 5 mg Q4H 08/30/23 01/22/24 12/04/23 History injection syringe baclofen 5 mg tablet 15 mg PO TID 11/27/23 01/22/24 12/04/23 History benztropine 1 mg tablet 1 mg PO DAILY 11/27/23 01/22/24 Unknown History gabapentin 400 mg capsule 800 mg PO BID 11/27/23 01/22/24 12/04/23 History plecanatide 3 mg tablet (Trulance) 3 mg PO DAILY 12/22/23 01/22/24 Unknown History midodrine 10 mg tablet 10 mg feeding tube QID 01/05/24 01/22/24 Unknown History mirabegron 8 mg/mL oral 48 mg PO TID 01/05/24 01/22/24 Unknown History suspension,extended release (Myrbetriq) oxybutynin chloride 5 mg/5 mL oral 5 mg PO DAILY 01/05/24 01/22/24 Unknown History syrup zolmitriptan 5 mg nasal spray 5 mg intranasal ONCE PRN Migraine 01/05/24 01/22/24 Unknown History Headache Exam Height,Weight and Vital Signs: Height 4 ft 10 in Weight 35.38 kg Pertinent Lab Results Pertinent Lab Results: Laboratory Tests 11/15/23 08:34 WBC 9.4 Hgb 13.3 D Hct 39.5 D Plt Count 220 Sodium 140 Potassium 4.0 Chloride 103 Carbon Dioxide 25 BUN 28 H Creatinine 1.14 Narrative Narrative: EKG 11/2023 Vent. Rate : 104 BPM Atrial Rate : 104 BPM P-R Int : 136 ms QRS Dur : 084 ms QT Int : 402 ms P-R-T Axes : 038 025 011 degrees QTc Int : 528 ms Sinus tachycardia Possible Inferior infarct (cited on or before 22-AUG-2019) Prolonged QT Abnormal ECG When compared with ECG of 22-AUG-2019 17:08, No significant change was found Assessment and Plan Assessment Anesthesia Assessment: Chart Reviewed Final Anesthetic Review Family History of Problems with Anesthesia: No History of Problems with Anesthesia: No
[2024-02-29 14:10] VITALS: BMI 16.9
[2024-03-04] VITALS (7 sets, daily range): BP systolic 117–150; BP diastolic 75–107; PULSE 89–108; RESP 16–18; TEMP 36.3–36.6; O2SAT 98–100; BMI 18.0
--- NOTE | 2024-03-04 07:15 | HO.ANESPROP2 ---
PMFSH Active Problems Active Problems: All Active Problems Intraabdominal fluid collection (Acute) Bladder spasm (Acute) Diarrhea (Acute) Diarrhea associated with pseudomembranous colitis (Acute) Recurrent infections (Acute) Neurologic disorder (Acute) Neurogenic urinary bladder disorder (Acute) Constipation (Acute) Gastroparesis (Acute) Past Medical History Medical History Constipation Fungal infection VRE (vancomycin-resistant Enterococci) Chronic, continuous use of opioids Small fiber polyneuropathy Hx pulmonary embolism Bacterial infection Septic arthritis Seizures Brain bleed Suprapubic catheter History of jejunostomy tube placement Hypothyroidism Diabetes GERD (gastroesophageal reflux disease) Unspecified convulsions Gastroparesis Asthma Brain tumor Neuropathy Family History Family History Father Skin cancer Mother No problems noted. 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: Caregiver Household Members Other:: caregiver-live in aid Housing Other:: 24 hour care - live in aid Are you a primary congregational care pastor to a significant other at home: No Do you presently have visiting nurse or other home services: Yes (03/04 live in care) Alcohol intake: current Alcohol intake frequency: does not drink Comment: larger catheter inserted Patient Tobacco Use Status: Never used Tobacco Second Hand Smoke Exposure: No Advance Directives: No Advance Directives Information Provided: Yes Advance Directives Date on File: 06/29/20 Meds Allergies Allergy/AdvReac Type Severity Reaction Status Date / Time lamotrigine [From LAMICTAL] Allergy Severe CLEMENTINA Verified 02/16/24 11:58 GUIDO SYNDROME chlorhexidine [CHLORHEXIDINE] Allergy Intermediate RASH Verified 02/16/24 11:58 citalopram [From CELEXA] Allergy Intermediate PROLONGED Verified 02/16/24 11:58 QT INTERVAL clonazepam [From Klonopin] Allergy Intermediate agitation Verified 02/16/24 11:58 divalproex sodium Allergy Intermediate BLACK Verified 02/16/24 11:58 [From DEPAKOTE] EYES escitalopram [From LEXAPRO] Allergy Intermediate SWELLING Verified 02/16/24 11:58 lactose [LACTOSE] Allergy Intermediate GI UPSET Verified 02/16/24 11:58 lorazepam [From Ativan] Allergy Intermediate agitation Verified 02/16/24 11:58 povidone-iodine Allergy Intermediate rash Verified 02/16/24 11:58 [From BETADINE] alprazolam [From Xanax] Allergy Mild Unknown Verified 02/16/24 11:58 sertraline [From Zoloft] Allergy Mild unknown Verified 02/16/24 11:58 ziprasidone [From Geodon] Allergy Mild dystonia Verified 02/16/24 11:58 latex AdvReac Intermediate Swelling Verified 02/16/24 11:58 BEETS Allergy Intermediate SWELLING Uncoded 02/16/24 11:58 STATLOC Allergy Intermediate RASH Uncoded 02/16/24 11:58 Active Medications: Current Medications Lactated Ringer's (Lr) 1,000 mls @ 100 mls/hr IVCONT .Q10H MARLON Home Medications ?Medication ?Instructions ?Recorded ?Confirmed ?Last Taken ?Type albuterol sulfate 90 mcg/actuation 2 puff inhalation 6XD PRN Wheezing 06/25/20 01/22/24 10/24/22 History aerosol inhaler diphenhydramine HCl 50 mg/mL 50 mg IV Q3H 06/25/20 01/22/24 12/04/23 History injection solution pantoprazole 40 mg intravenous 40 mg IV BID 06/25/20 01/22/24 12/04/23 History solution (Protonix) acetaminophen 500 mg/15 mL oral 500 mg feeding tube QID PRN Pain 10/06/20 01/22/24 Unknown History liquid famotidine (PF) 20 mg/50 mL in 0.9 20 mg IV DAILY 10/06/20 01/22/24 12/04/23 History % NaCl (iso) intravenous piggyback ipratropium 0.5 mg-albuterol 3 mg 3 ml inhalation Q6-8H PRN 10/06/20 01/22/24 Unknown History (2.5 mg base)/3 mL nebulization Shortness Of Breath Or Wheezing soln topiramate 200 mg tablet (Topamax) 200 mg feeding tube BID 10/06/20 01/22/24 12/04/23 History magnesium hydroxide 400 mg/5 mL 30 ml feeding tube DIRECTED PRN 11/12/20 01/22/24 Unknown History oral suspension (Milk of Magnesia) Gastric Reflux lidocaine 5 % topical ointment 1 appl topical QID PRN Pain 06/03/21 01/22/24 Unknown History Immuglobin IV TU 02/11/22 12/23/22 Unknown History Lactobacillus rhamnosus GG 10 1 cap feeding tube BID 02/11/22 01/22/24 12/04/23 History billion cell capsule (Culturelle) benztropine 0.5 mg tablet 0.5 mg feeding tube DAILY 02/11/22 01/22/24 12/04/23 History enoxaparin 40 mg/0.4 mL 40 mg subcut DAILY 02/11/22 01/22/24 03/28/23 06:00 History subcutaneous syringe furosemide 40 mg tablet 60 mg feeding tube TID 02/11/22 01/22/24 12/04/23 History ondansetron HCl (PF) 4 mg/2 mL 4 mg IV Q4H 02/11/22 01/22/24 12/04/23 History injection syringe fluticasone propionate 110 1 puff inhalation BID 04/22/22 01/22/24 12/04/23 History mcg/actuation HFA aerosol inhaler (Flovent HFA) levetiracetam 500 mg/5 mL 500 mg IV BID 04/22/22 01/22/24 12/04/23 History intravenous solution (Keppra) fremanezumab-vfrm 225 mg/1.5 mL 225 mg subcut QMONTH 02/27/23 01/22/24 Unknown History subcutaneous auto-injector (Ajovy) dextran 70-hypromellose 0.1 %-0.3 1 drp ophthalmic (eye) DAILY 05/29/23 01/22/24 Unknown History % eye drops (Lubricating Tears) diazepam 5 mg/5 mL (1 mg/mL) oral 1 mg PO DAILY PRN Anxiety 05/29/23 01/22/24 12/04/23 History solution hydromorphone 1 mg/mL oral liquid 5 mg PO Q3H 05/29/23 01/22/24 12/04/23 History (Dilaudid) levothyroxine 112 mcg/mL oral 80 mcg feeding tube DAILY 05/29/23 01/22/24 12/04/23 History solution methylnaltrexone 12 mg/0.6 mL 12 mg subcut Q2D 05/29/23 01/22/24 Unknown History subcutaneous syringe (Relistor) trospium 20 mg tablet 20 mg PO BID 05/29/23 01/22/24 12/04/23 History vibegron 75 mg tablet (Gemtesa) 75 mg PO DAILY 05/29/23 01/22/24 12/04/23 History prochlorperazine edisylate 5 mg/mL 5 mg Q4H 08/30/23 01/22/24 12/04/23 History injection syringe baclofen 5 mg tablet 15 mg PO TID 11/27/23 01/22/24 12/04/23 History benztropine 1 mg tablet 1 mg PO DAILY 11/27/23 01/22/24 Unknown History gabapentin 400 mg capsule 800 mg PO BID 11/27/23 01/22/24 12/04/23 History plecanatide 3 mg tablet (Trulance) 3 mg PO DAILY 12/22/23 01/22/24 Unknown History midodrine 10 mg tablet 10 mg feeding tube QID 01/05/24 01/22/24 Unknown History mirabegron 8 mg/mL oral 48 mg PO TID 01/05/24 01/22/24 Unknown History suspension,extended release (Myrbetriq) zolmitriptan 5 mg nasal spray 5 mg intranasal ONCE PRN Migraine 01/05/24 01/22/24 Unknown History Headache fludrocortisone 0.1 mg tablet 0.1 mg feeding tube DAILY 02/16/24 Unknown History lactulose 20 gram/30 mL oral 30 g PO .COMPLEX PRN 02/16/24 Unknown History solution loxapine succinate 10 mg capsule 80 mg feeding tube BID 02/16/24 Unknown History morphine 10 mg/5 mL oral solution mg PO 02/16/24 Unknown History oxybutynin chloride 5 mg/5 mL oral 5 mg PO DAILY PRN 02/16/24 Unknown History syrup Exam Height,Weight and Vital Signs: Height 4 ft 10 in Weight 36.741 kg Last Vital Signs Temp 97.9 F 03/04/24 07:05 Pulse 108 H 03/04/24 07:05 Resp 18 03/04/24 07:05 BP 132/107 H 03/04/24 07:05 Pulse Ox 100 03/04/24 07:05 O2 Del Method Room Air 03/04/24 07:05 Airway Mallampati Class: II TM Dist: >3cm Neck ROM: Limited Loose/Missing/Broken Teeth: No Heart: RRR Lungs: CTA Assessment and Plan Assessment Anesthesia Assessment: Anesthesia Plan Discussed and Chart Reviewed Final Anesthetic Review Family History of Problems with Anesthesia: No History of Problems with Anesthesia: No NPO: Yes ASA Class: IV Final Preanesthetic Review: Meds/Allgs Chart Reviewed, Consent Obtained/Reviewed and Anes Risks/Benef Reviewed Patient Risk: High Procedure Risk: Low Anesthetic Plan Anesthetic Plan: MAC: Disposition: Standard PACU
[2024-03-04] MEDS: Lactated Ringers 1,000 ML 100 ML IVCONT (07:24)
--- NOTE | 2024-03-04 07:43 | P.HPSUR_ITS ---
Pre-Procedural Eval Section A - 24 Hr Update-Section A only Date of Service: 03/04/24 The patient is an INPATIENT: No Changes since office visit: No Cold of Flu in the past 2 weeks, No New Medical Problems, No Changes in Medication and No Patient answered all questions The patient has been examined within 24 hours of the surgical procedure. The History & Physical has been completed within 30 days and I have reviewed it.: No Section B - Complete if H&P > 30 days Chief Complaint: Neuromuscular dysfunction of bladder, unspecified Details of Present Illness: Longstanding - periodic SPT changes under sedation Relevant Social History: None Present Medications: see Short Stay Collaborative assessment Medical History: Significant History History of Previous Operations: Relevant previous surgery/procedure and date(s) Allergies: Allergies Allergy/AdvReac Type Severity Reaction Status Date / Time lamotrigine [From LAMICTAL] Allergy Severe CLEMENTINA Verified 02/16/24 11:58 GUIDO SYNDROME chlorhexidine [CHLORHEXIDINE] Allergy Intermediate RASH Verified 02/16/24 11:58 citalopram [From CELEXA] Allergy Intermediate PROLONGED Verified 02/16/24 11:58 QT INTERVAL clonazepam [From Klonopin] Allergy Intermediate agitation Verified 02/16/24 11:58 divalproex sodium Allergy Intermediate BLACK Verified 02/16/24 11:58 [From DEPAKOTE] EYES escitalopram [From LEXAPRO] Allergy Intermediate SWELLING Verified 02/16/24 11:58 lactose [LACTOSE] Allergy Intermediate GI UPSET Verified 02/16/24 11:58 lorazepam [From Ativan] Allergy Intermediate agitation Verified 02/16/24 11:58 povidone-iodine Allergy Intermediate rash Verified 02/16/24 11:58 [From BETADINE] alprazolam [From Xanax] Allergy Mild Unknown Verified 02/16/24 11:58 sertraline [From Zoloft] Allergy Mild unknown Verified 02/16/24 11:58 ziprasidone [From Geodon] Allergy Mild dystonia Verified 02/16/24 11:58 latex AdvReac Intermediate Swelling Verified 02/16/24 11:58 BEETS Allergy Intermediate SWELLING Uncoded 02/16/24 11:58 STATLOC Allergy Intermediate RASH Uncoded 02/16/24 11:58 Review of Systems Sugical H&P ROS: Negative: Constitution, Cardiovascular, Respiratory, Neuro logical, Psychiatric, Hem-Onc, Allergic/Immunologic, Gastrointestinal, Genitourinary, Musculoskeletal, Integumentary, Endocrine and Eyes/Ears/Nose/Throat Exam Surgical H&P Exam: Normal: HEENT, Normal: Heart, Normal: Lungs, Normal: Extremities, Normal: Abdomen, Normal: Skin and Normal: Neurological Plan Diagnosis/Plan: Unchanged (Suprapubuc tube change) I have reviewed the history and physical and performed a pertinent physical examination on my patient. No changes have occurred unless specified. Time Spent With Patient Time: Total time managing care of this patient today ____ minutes.
[2024-03-04] MEDS: HYDROmorphone HCl 1 MG/ML SYRINGE 0.8 MG IVPUSH ×2 (08:18→08:30)
--- NOTE | 2024-03-04 08:19 | P.OP_ITS ---
Operative Note Operative Note Date of Service: 03/04/24 Narrative: PreOperative Diagnosis:? Neurogenic bladder Post Operative Diagnosis:? Neurogenic bladder Procedure:? Suprapubic tube change Surgeon: Dr Denys Pereira Anesthesia:? Sedation Indications for procedure: Small neuronal disease with neurogenic bladder Procedure: After informed consent was verified the patient was brought to the operating room and placed in a supine position.? Anesthesia was administered per protocol. Marcela remained in her stretcher. The area was prepped with saline Suprapubic tube removed. Twenty-two [place] Waldron catheter - double balloon - 10cc in proximal balloon - 5cc in distal balloon
--- NOTE | 2024-03-04 08:32 | PC.NURSE ---
Patient has left chest access for TPN, fluids. Line patent LR hung as ordered.
== END 2024-03-04 09:18 | disposition home or self-care (01) ==
PROVIDERS: PCP Internal Medicine; Visit Provider Urology
PROC: (CPT 51705; principal; 2024-03-04 07:30)
DX: N31.9 Neuromuscular dysfunction of bladder, unspecified (principal); N32.89 Other specified disorders of bladder; K31.84 Gastroparesis; J45.909 Unspecified asthma, uncomplicated; Z79.51 Long term (current) use of inhaled steroids; Z79.899 Other long term (current) drug therapy; Z66 Do not resuscitate; Z88.8 Allergy status to other drugs, medicaments and biological substances; Z91.041 Radiographic dye allergy status
CPT/HCPCS: 51705; J0131; J1170; J2704; J2795

== ENCOUNTER → 2024-03-04 06:08 | Outpatient (BNV) | payer OTHER, SELFPAY | PROVIDERS: PCP Internal Medicine; Visit Provider Urology | DX: N31.9 Neuromuscular dysfunction of bladder, unspecified (principal); Z43.5 Encounter for attention to cystostomy | CPT/HCPCS: 51705 ==

== ENCOUNTER 2024-03-27 06:14 | Day surgery (SDC) | payer MEDICAID, SELFPAY ==
[2024-03-25 14:26] VITALS: BMI 18.0
--- NOTE | 2024-03-26 08:51 | P.CONAN_ITS ---
Documented by User: Lucila Bales NP 03/26/24 08:52 HPI - Anesthesia Eval Consult details Narrative: 34yo F for Insertion Suprapubic Tube exchange Last exchange 02/2024 with TIVA: Prop 90, Lido 30, Ofirmev 1000 Pt declines Urine HCG test PMFSH Active Problems Active Problems: All Active Problems Intraabdominal fluid collection (Acute) Bladder spasm (Acute) Diarrhea (Acute) Diarrhea associated with pseudomembranous colitis (Acute) Recurrent infections (Acute) Neurologic disorder (Acute) Neurogenic urinary bladder disorder (Acute) Constipation (Acute) Gastroparesis (Acute) Past Medical History Medical History Constipation Fungal infection VRE (vancomycin-resistant Enterococci) Chronic, continuous use of opioids Small fiber polyneuropathy Hx pulmonary embolism Bacterial infection Septic arthritis Seizures Brain bleed Suprapubic catheter History of jejunostomy tube placement Hypothyroidism Diabetes GERD (gastroesophageal reflux disease) Unspecified convulsions Gastroparesis Asthma Brain tumor Neuropathy Family History Family History Father Skin cancer Mother No problems noted. 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: Caregiver Household Members Other:: caregiver-live in aid Housing Other:: 24 hour care - live in aid Are you a primary long term care administrator to a significant other at home: No Do you presently have visiting nurse or other home services: Yes (03/04 live in care) Alcohol intake: current Alcohol intake frequency: does not drink Comment: larger catheter inserted Patient Tobacco Use Status: Never used Tobacco Second Hand Smoke Exposure: No Advance Directives Date on File: 06/29/20 Meds Allergies Allergy/AdvReac Type Severity Reaction Status Date / Time lamotrigine [From LAMICTAL] Allergy Severe CLEMENTINA Verified 03/27/24 06:26 GUIDO SYNDROME chlorhexidine [CHLORHEXIDINE] Allergy Intermediate RASH Verified 03/27/24 06:26 citalopram [From CELEXA] Allergy Intermediate PROLONGED Verified 03/27/24 06:26 QT INTERVAL clonazepam [From Klonopin] Allergy Intermediate agitation Verified 03/27/24 06:26 divalproex sodium Allergy Intermediate BLACK Verified 03/27/24 06:26 [From DEPAKOTE] EYES escitalopram [From LEXAPRO] Allergy Intermediate SWELLING Verified 03/27/24 06:26 lactose [LACTOSE] Allergy Intermediate GI UPSET Verified 03/27/24 06:26 lorazepam [From Ativan] Allergy Intermediate agitation Verified 03/27/24 06:26 povidone-iodine Allergy Intermediate rash Verified 03/27/24 06:26 [From BETADINE] alprazolam [From Xanax] Allergy Mild Unknown Verified 03/27/24 06:26 sertraline [From Zoloft] Allergy Mild unknown Verified 03/27/24 06:26 ziprasidone [From Geodon] Allergy Mild dystonia Verified 03/27/24 06:26 latex AdvReac Intermediate Swelling Verified 03/27/24 06:26 BEETS Allergy Intermediate SWELLING Uncoded 03/27/24 06:26 STATLOC Allergy Intermediate RASH Uncoded 03/27/24 06:26 Home Medications ?Medication ?Instructions ?Recorded ?Confirmed ?Last Taken ?Type albuterol sulfate 90 mcg/actuation 2 puff inhalation 6XD PRN Wheezing 06/25/20 03/25/24 10/24/22 History aerosol inhaler diphenhydramine HCl 50 mg/mL 50 mg IV Q3H 06/25/20 03/25/24 03/27/24 History injection solution pantoprazole 40 mg intravenous 40 mg IV BID 06/25/20 03/25/24 03/27/24 History solution (Protonix) acetaminophen 500 mg/15 mL oral 500 mg feeding tube QID PRN Pain 10/06/20 03/25/24 Unknown History liquid famotidine (PF) 20 mg/50 mL in 0.9 20 mg IV DAILY 10/06/20 03/25/24 03/27/24 History % NaCl (iso) intravenous piggyback ipratropium 0.5 mg-albuterol 3 mg 3 ml inhalation Q6-8H PRN 10/06/20 03/25/24 Unknown History (2.5 mg base)/3 mL nebulization Shortness Of Breath Or Wheezing soln topiramate 200 mg tablet (Topamax) 200 mg feeding tube BID 10/06/20 03/25/24 03/27/24 History magnesium hydroxide 400 mg/5 mL 30 ml feeding tube DIRECTED PRN 11/12/20 03/25/24 Unknown History oral suspension (Milk of Magnesia) Gastric Reflux lidocaine 5 % topical ointment 1 appl topical QID PRN Pain 06/03/21 03/25/24 Unknown History Immuglobin IV TU 02/11/22 12/23/22 Unknown History Lactobacillus rhamnosus GG 10 1 cap feeding tube BID 02/11/22 03/25/24 12/04/23 History billion cell capsule (Culturelle) benztropine 0.5 mg tablet 0.5 mg feeding tube DAILY 02/11/22 03/25/24 03/27/24 History enoxaparin 40 mg/0.4 mL 40 mg subcut DAILY 02/11/22 03/25/24 03/26/24 History subcutaneous syringe furosemide 40 mg tablet 60 mg feeding tube TID 02/11/22 03/25/24 03/27/24 History ondansetron HCl (PF) 4 mg/2 mL 4 mg IV Q4H 02/11/22 03/25/24 03/27/24 History injection syringe fluticasone propionate 110 1 puff inhalation BID 04/22/22 03/25/24 12/04/23 History mcg/actuation HFA aerosol inhaler (Flovent HFA) levetiracetam 500 mg/5 mL 500 mg IV BID 04/22/22 03/25/24 03/27/24 History intravenous solution (Keppra) fremanezumab-vfrm 225 mg/1.5 mL 225 mg subcut QMONTH 02/27/23 03/25/24 Unknown History subcutaneous auto-injector (Ajovy) dextran 70-hypromellose 0.1 %-0.3 1 drp ophthalmic (eye) DAILY 05/29/23 03/25/24 Unknown History % eye drops (Lubricating Tears) diazepam 5 mg/5 mL (1 mg/mL) oral 1 mg PO DAILY PRN Anxiety 05/29/23 03/25/24 03/27/24 History solution hydromorphone 1 mg/mL oral liquid 5 mg PO Q3H 05/29/23 03/25/24 12/04/23 History (Dilaudid) levothyroxine 112 mcg/mL oral 80 mcg feeding tube DAILY 05/29/23 03/25/24 03/27/24 History solution methylnaltrexone 12 mg/0.6 mL 12 mg subcut Q2D 05/29/23 03/25/24 Unknown History subcutaneous syringe (Relistor) trospium 20 mg tablet 20 mg PO BID 05/29/23 03/25/24 03/27/24 History vibegron 75 mg tablet (Gemtesa) 75 mg PO DAILY 05/29/23 03/25/24 03/27/24 History prochlorperazine edisylate 5 mg/mL 5 mg Q4H 08/30/23 03/25/24 03/27/24 History injection syringe baclofen 5 mg tablet 15 mg PO TID 11/27/23 03/25/24 03/27/24 History benztropine 1 mg tablet 1 mg PO DAILY 11/27/23 03/25/24 03/27/24 History gabapentin 400 mg capsule 800 mg PO BID 11/27/23 03/25/24 03/27/24 History plecanatide 3 mg tablet (Trulance) 3 mg PO DAILY 12/22/23 03/25/24 03/27/24 History midodrine 10 mg tablet 10 mg feeding tube QID 01/05/24 03/25/24 03/27/24 History mirabegron 8 mg/mL oral 48 mg PO TID 01/05/24 03/25/24 03/27/24 History suspension,extended release (Myrbetriq) zolmitriptan 5 mg nasal spray 5 mg intranasal ONCE PRN Migraine 01/05/24 Unknown History Headache fludrocortisone 0.1 mg tablet 0.1 mg feeding tube DAILY 02/16/24 03/25/24 Unknown History lactulose 20 gram/30 mL oral 30 g PO .COMPLEX PRN Constipation 02/16/24 03/25/24 Unknown History solution loxapine succinate 10 mg capsule 80 mg feeding tube BID 02/16/24 03/25/24 03/27/24 History morphine 10 mg/5 mL oral solution mg PO 02/16/24 03/27/24 History oxybutynin chloride 5 mg/5 mL oral 5 mg PO DAILY PRN Bladder Spasms 02/16/24 03/25/24 03/27/24 History syrup Exam Height,Weight and Vital Signs: Height 4 ft 10 in Weight 39.009 kg Assessment and Plan Assessment Anesthesia Assessment: Chart Reviewed Final Anesthetic Review Family History of Problems with Anesthesia: No History of Problems with Anesthesia: No Documented by User: John Armenta MD 03/27/24 07:27 [facility] Past Medical History Medical History Constipation Fungal infection VRE (vancomycin-resistant Enterococci) Chronic, continuous use of opioids Small fiber polyneuropathy Hx pulmonary embolism Bacterial infection Septic arthritis Seizures Brain bleed Suprapubic catheter History of jejunostomy tube placement Hypothyroidism Diabetes GERD (gastroesophageal reflux disease) Unspecified convulsions Gastroparesis Asthma Brain tumor Neuropathy Family History Family History Father Skin cancer Mother No problems noted. 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 Members: Caregiver Household Members Other:: caregiver-live in aid Housing Other:: 24 hour care - live in aid Are you a primary long term care administrator to a significant other at home: No Do you presently have visiting nurse or other home services: Yes (03/04 live in care) Alcohol intake: current Alcohol intake frequency: does not drink Comment: larger catheter inserted Patient Tobacco Use Status: Never used Tobacco Second Hand Smoke Exposure: No Advance Directives Date on File: 06/29/20 Meds Allergies Allergy/AdvReac Type Severity Reaction Status Date / Time lamotrigine [From LAMICTAL] Allergy Severe CLEMENTINA Verified 03/27/24 06:26 GUIDO SYNDROME chlorhexidine [CHLORHEXIDINE] Allergy Intermediate RASH Verified 03/27/24 06:26 citalopram [From CELEXA] Allergy Intermediate PROLONGED Verified 03/27/24 06:26 QT INTERVAL clonazepam [From Klonopin] Allergy Intermediate agitation Verified 03/27/24 06:26 divalproex sodium Allergy Intermediate BLACK Verified 03/27/24 06:26 [From DEPAKOTE] EYES escitalopram [From LEXAPRO] Allergy Intermediate SWELLING Verified 03/27/24 06:26 lactose [LACTOSE] Allergy Intermediate GI UPSET Verified 03/27/24 06:26 lorazepam [From Ativan] Allergy Intermediate agitation Verified 03/27/24 06:26 povidone-iodine Allergy Intermediate rash Verified 03/27/24 06:26 [From BETADINE] alprazolam [From Xanax] Allergy Mild Unknown Verified 03/27/24 06:26 sertraline [From Zoloft] Allergy Mild unknown Verified 03/27/24 06:26 ziprasidone [From Geodon] Allergy Mild dystonia Verified 03/27/24 06:26 latex AdvReac Intermediate Swelling Verified 03/27/24 06:26 BEETS Allergy Intermediate SWELLING Uncoded 03/27/24 06:26 STATLOC Allergy Intermediate RASH Uncoded 03/27/24 06:26 Home Medications ?Medication ?Instructions ?Recorded ?Confirmed ?Last Taken ?Type albuterol sulfate 90 mcg/actuation 2 puff inhalation 6XD PRN Wheezing 06/25/20 03/25/24 10/24/22 History aerosol inhaler diphenhydramine HCl 50 mg/mL 50 mg IV Q3H 06/25/20 03/25/24 03/27/24 History injection solution pantoprazole 40 mg intravenous 40 mg IV BID 06/25/20 03/25/24 03/27/24 History solution (Protonix) acetaminophen 500 mg/15 mL oral 500 mg feeding tube QID PRN Pain 10/06/20 03/25/24 Unknown History liquid famotidine (PF) 20 mg/50 mL in 0.9 20 mg IV DAILY 10/06/20 03/25/24 03/27/24 History % NaCl (iso) intravenous piggyback ipratropium 0.5 mg-albuterol 3 mg 3 ml inhalation Q6-8H PRN 10/06/20 03/25/24 Unknown History (2.5 mg base)/3 mL nebulization Shortness Of Breath Or Wheezing soln topiramate 200 mg tablet (Topamax) 200 mg feeding tube BID 10/06/20 03/25/24 03/27/24 History magnesium hydroxide 400 mg/5 mL 30 ml feeding tube DIRECTED PRN 11/12/20 03/25/24 Unknown History oral suspension (Milk of Magnesia) Gastric Reflux lidocaine 5 % topical ointment 1 appl topical QID PRN Pain 06/03/21 03/25/24 Unknown History Immuglobin IV TU 02/11/22 12/23/22 Unknown History Lactobacillus rhamnosus GG 10 1 cap feeding tube BID 02/11/22 03/25/24 12/04/23 History billion cell capsule (Culturelle) benztropine 0.5 mg tablet 0.5 mg feeding tube DAILY 02/11/22 03/25/24 03/27/24 History enoxaparin 40 mg/0.4 mL 40 mg subcut DAILY 02/11/22 03/25/24 03/26/24 History subcutaneous syringe furosemide 40 mg tablet 60 mg feeding tube TID 02/11/22 03/25/24 03/27/24 History ondansetron HCl (PF) 4 mg/2 mL 4 mg IV Q4H 02/11/22 03/25/24 03/27/24 History injection syringe fluticasone propionate 110 1 puff inhalation BID 04/22/22 03/25/24 12/04/23 History mcg/actuation HFA aerosol inhaler (Flovent HFA) levetiracetam 500 mg/5 mL 500 mg IV BID 04/22/22 03/25/24 03/27/24 History intravenous solution (Keppra) fremanezumab-vfrm 225 mg/1.5 mL 225 mg subcut QMONTH 02/27/23 03/25/24 Unknown History subcutaneous auto-injector (Ajovy) dextran 70-hypromellose 0.1 %-0.3 1 drp ophthalmic (eye) DAILY 05/29/23 03/25/24 Unknown History % eye drops (Lubricating Tears) diazepam 5 mg/5 mL (1 mg/mL) oral 1 mg PO DAILY PRN Anxiety 05/29/23 03/25/24 03/27/24 History solution hydromorphone 1 mg/mL oral liquid 5 mg PO Q3H 05/29/23 03/25/24 12/04/23 History (Dilaudid) levothyroxine 112 mcg/mL oral 80 mcg feeding tube DAILY 05/29/23 03/25/24 03/27/24 History solution methylnaltrexone 12 mg/0.6 mL 12 mg subcut Q2D 05/29/23 03/25/24 Unknown History subcutaneous syringe (Relistor) trospium 20 mg tablet 20 mg PO BID 05/29/23 03/25/24 03/27/24 History vibegron 75 mg tablet (Gemtesa) 75 mg PO DAILY 05/29/23 03/25/24 03/27/24 History prochlorperazine edisylate 5 mg/mL 5 mg Q4H 08/30/23 03/25/24 03/27/24 History injection syringe baclofen 5 mg tablet 15 mg PO TID 11/27/23 03/25/24 03/27/24 History benztropine 1 mg tablet 1 mg PO DAILY 11/27/23 03/25/24 03/27/24 History gabapentin 400 mg capsule 800 mg PO BID 11/27/23 03/25/24 03/27/24 History plecanatide 3 mg tablet (Trulance) 3 mg PO DAILY 12/22/23 03/25/24 03/27/24 History midodrine 10 mg tablet 10 mg feeding tube QID 01/05/24 03/25/24 03/27/24 History mirabegron 8 mg/mL oral 48 mg PO TID 01/05/24 03/25/24 03/27/24 History suspension,extended release (Myrbetriq) zolmitriptan 5 mg nasal spray 5 mg intranasal ONCE PRN Migraine 01/05/24 03/25/24 Unknown History Headache fludrocortisone 0.1 mg tablet 0.1 mg feeding tube DAILY 02/16/24 03/25/24 Unknown History lactulose 20 gram/30 mL oral 30 g PO .COMPLEX PRN Constipation 02/16/24 03/25/24 Unknown History solution loxapine succinate 10 mg capsule 80 mg feeding tube BID 02/16/24 03/25/24 03/27/24 History morphine 10 mg/5 mL oral solution mg PO 02/16/24 03/27/24 History oxybutynin chloride 5 mg/5 mL oral 5 mg PO DAILY PRN Bladder Spasms 02/16/24 03/25/24 03/27/24 History syrup Exam Airway Mallampati Class: II TM Dist: <=3cm Neck ROM: Full Heart: ok Lungs: ok Assessment and Plan Assessment Anesthesia Assessment: Anesthesia Plan Discussed Final Anesthetic Review NPO: Yes ASA Class: III Final Preanesthetic Review: No Changes in Pt Med Stat, Meds/Allgs Chart Reviewed, Consent Obtained/Reviewed and Anes Risks/Benef Reviewed Patient Risk: High Procedure Risk: Low Anesthetic Plan Anesthetic Plan: Agree w/ Assess. and Plan and TIVA Disposition: Standard PACU
[2024-03-27] VITALS (8 sets, daily range): BP systolic 124–143; BP diastolic 82–102; PULSE 82–93; RESP 16–18; TEMP 36.2–36.5; O2SAT 94–100; BMI 15.9
[2024-03-27] MEDS: Lactated Ringers 1,000 ML 100 ML IVCONT (06:35)
[2024-03-27 06:47] LABS: Glucose, Whole Blood 97 mg/dL (60-115)
--- NOTE | 2024-03-27 07:23 | MHC.SHP ---
Pre-Procedural Eval Section A - 24 Hr Update-Section A only Date of Service: 03/27/24 The patient is an INPATIENT: No Changes since office visit: No Cold of Flu in the past 2 weeks, No New Medical Problems, No Changes in Medication and No Patient answered all questions The patient has been examined within 24 hours of the surgical procedure. The History & Physical has been completed within 30 days and I have reviewed it.: No Section B - Complete if H&P > 30 days Chief Complaint: Neuromuscular dysfunction of bladder, unspecified Details of Present Illness: SPT change Relevant Family History (Specify if Yes): No Relevant Social History: None Present Medications: see Short Stay Collaborative assessment Medical History: Significant History History of Previous Operations: Relevant previous surgery/procedure and date(s) Allergies: Allergies Allergy/AdvReac Type Severity Reaction Status Date / Time lamotrigine [From LAMICTAL] Allergy Severe CLEMENTINA Verified 03/27/24 06:26 GUIDO SYNDROME chlorhexidine [CHLORHEXIDINE] Allergy Intermediate RASH Verified 03/27/24 06:26 citalopram [From CELEXA] Allergy Intermediate PROLONGED Verified 03/27/24 06:26 QT INTERVAL clonazepam [From Klonopin] Allergy Intermediate agitation Verified 03/27/24 06:26 divalproex sodium Allergy Intermediate BLACK Verified 03/27/24 06:26 [From DEPAKOTE] EYES escitalopram [From LEXAPRO] Allergy Intermediate SWELLING Verified 03/27/24 06:26 lactose [LACTOSE] Allergy Intermediate GI UPSET Verified 03/27/24 06:26 lorazepam [From Ativan] Allergy Intermediate agitation Verified 03/27/24 06:26 povidone-iodine Allergy Intermediate rash Verified 03/27/24 06:26 [From BETADINE] alprazolam [From Xanax] Allergy Mild Unknown Verified 03/27/24 06:26 sertraline [From Zoloft] Allergy Mild unknown Verified 03/27/24 06:26 ziprasidone [From Geodon] Allergy Mild dystonia Verified 03/27/24 06:26 latex AdvReac Intermediate Swelling Verified 03/27/24 06:26 BEETS Allergy Intermediate SWELLING Uncoded 03/27/24 06:26 STATLOC Allergy Intermediate RASH Uncoded 03/27/24 06:26 Review of Systems Sugical H&P ROS: Negative: Constitution, Cardiovascular, Respiratory, Neurological, Psychiatric, Hem-Onc, Allergic/Immunologic, Gastrointestinal, Genitourinary, Musculoskeletal, Integumentary, Endocrine and Eyes/Ears/Nose/Throat Exam Surgical H&P Exam: Normal: HEENT, Normal: Heart, Normal: Lungs, Normal: Extremities, Normal: Abdomen, Normal: Skin and Normal: Neurological Plan Diagnosis/Plan: Unchanged (SPT change) I have reviewed the history and physical and performed a pertinent physical examination on my patient. No changes have occurred unless specified. Time Spent With Patient Time: Total time managing care of this patient today ____ minutes.
--- NOTE | 2024-03-27 07:46 | P.OP_ITS ---
Operative Note Operative Note Date of Service: 03/27/24 Narrative: PreOperative Diagnosis:? Neurogenic bladder Post Operative Diagnosis:? Neurogenic bladder Procedure:? Suprapubic tube change Surgeon: Dr Denys Pereira Anesthesia:? Sedation Indications for procedure: Small neuronal disease with neurogenic bladder Procedure: After informed consent was verified the patient was brought to the operating room and placed in a supine position.? Anesthesia was administered per protocol. Marcela remained in her stretcher. The area was prepped with saline Suprapubic tube removed. Twenty-two [place] Waldron catheter - double balloon - 10cc in proximal balloon - 5cc in distal balloon
[2024-03-27] MEDS: HYDROmorphone HCl 1 MG/ML SYRINGE 0.75 MG IVPUSH ×2 (07:53→08:05)
== END 2024-03-27 08:37 | disposition home or self-care (01) ==
PROVIDERS: PCP Internal Medicine; Visit Provider Urology
PROC: (CPT 51102; principal; 2024-03-27 07:30)
DX: N31.9 Neuromuscular dysfunction of bladder, unspecified (principal); N32.89 Other specified disorders of bladder; K31.84 Gastroparesis; J45.909 Unspecified asthma, uncomplicated; Z79.51 Long term (current) use of inhaled steroids; Z79.899 Other long term (current) drug therapy; Z66 Do not resuscitate; Z88.8 Allergy status to other drugs, medicaments and biological substances; Z91.041 Radiographic dye allergy status
CPT/HCPCS: 51705; 82947; J1170; J2704

== ENCOUNTER → 2024-03-27 06:14 | Outpatient (BNV) | payer MEDICAID, SELFPAY | PROVIDERS: PCP Internal Medicine; Visit Provider Urology | DX: N31.9 Neuromuscular dysfunction of bladder, unspecified (principal); Z43.6 Encounter for attention to other artificial openings of urinary tract | CPT/HCPCS: 51705 ==

== ENCOUNTER 2024-03-29 12:11 | Outpatient (AMB) | payer OTHER, SELFPAY ==
--- NOTE | 2024-03-29 12:16 | A.OFFVIS_ITS ---
Vital Signs 03/29/24 12:23 Height 4 ft 10 in Weight 77 lb BMI 16.1 BP 122/66 Blood Pressure Location Lt brachial Position Sitting Pulse 84 Intake Visit Reasons: 6 week follow up Intake Note: Patient 6 weeks follow up for Constipation Patient cc: Nauseas, abdominal pain, last week she was with GERD with acid reflex, her constipation is much better. [employer] Required: No Accompanied by: Self / Same As Patient Allergies lamotrigine [From LAMICTAL] Allergy (Severe, Verified 03/29/24 12:16) CLEMENTINA GUIDO SYNDROME chlorhexidine [CHLORHEXIDINE] Allergy (Intermediate, Verified 03/29/24 12:16) RASH citalopram [From CELEXA] Allergy (Intermediate, Verified 03/29/24 12:16) PROLONGED QT INTERVAL clonazepam [From Klonopin] Allergy (Intermediate, Verified 03/29/24 12:16) agitation divalproex sodium [From DEPAKOTE] Allergy (Intermediate, Verified 03/29/24 12:16) BLACK EYES escitalopram [From LEXAPRO] Allergy (Intermediate, Verified 03/29/24 12:16) SWELLING lactose [LACTOSE] Allergy (Intermediate, Verified 03/29/24 12:16) GI UPSET lorazepam [From Ativan] Allergy (Intermediate, Verified 03/29/24 12:16) agitation povidone-iodine [From BETADINE] Allergy (Intermediate, Verified 03/29/24 12:16) rash alprazolam [From Xanax] Allergy (Mild, Verified 03/29/24 12:16) Unknown sertraline [From Zoloft] Allergy (Mild, Verified 03/29/24 12:16) unknown ziprasidone [From Geodon] Allergy (Mild, Verified 03/29/24 12:16) dystonia latex Adverse Reaction (Intermediate, Verified 03/29/24 12:16) Swelling BEETS Allergy (Intermediate, Uncoded 03/27/24 06:26) SWELLING STATLOC Allergy (Intermediate, Uncoded 03/27/24 06:26) RASH HPI HPI 6 week follow up: Details: 34 yr old f being seen for f/u RECAP: ? She told me she had recent hep c ab pos but viral load was neg ? she was looking for a way to be able to take meds without throwing up ? she has been getting her meds thru the G-J tube and gets feeds thru central line ? she can' tolerate carbonated beverages ? mood is good, depression not an issue ? breathing is variable ? getting IVIG, going on for several months ? she is unsure if helping or not ? I gave her motegrity to see if helped her sx, advised to stop trulance ? also advised to reduce lactulose could cause bloating which she was also complaining off. ? motegrity didn;t help and she went back on movantik and trulance she was admitted to [facility] with line infection, had fungal infection with fungemia, line was changed out as well as urine catheter due to urine infection, aspiration she was on Ig treatment for small nerve autoneuropathy (been in since 11/2019), felt it was helping BP and HR on IV benadryl, IV phenergan and IV zofran and IV pepcid and IV PPI she cant take carafate as it makes her nausea worse she tried tigan, didn;'t help so much also tried scopolamine patch but didn;t help phone call: 09/2019: she had septic arthritis with osteomyelitis and required wash out of right hip-- fungal infection recovery has been painful she has been getting IV fluconazole she has stopped all anti diarrheals she has not been taking movantik she took imodium the other night and it didn;t help that much nausea is better controlled? 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 and GB fossa she saw surgeons at [facility] but no further action planned She was at [facility] for 3 weeks due to drowsiness ?due to adrenal gland issues she had her steroid doses increased and vitamin levels reduced she had CT scans of abdomen there as well, but no action was needed INTERIM: she is taking a writing class and almost finishing her book her constipation is better, with relistor, trulance, and linaclotide she is having some reflux, taking protonix bid 40 mg and IV pepcid 20 mg in TPN she wants to minimize J tube meds and more IV form but reviewed her list, not really anything to change EXAM: GENERAL: The patient is weak, cachexic VITAL SIGNS:see workflow HEENT: Nonicteric sclerae, PERRLA, EOMI. Oropharynx clear. Moist mucous membranes. Conjunctivae appear well perfused. No thyroid mass. CHEST: Chest wall is nontender. HEART: Regular rate and rhythm without murmurs. LUNGS: Clear to auscultation bilaterally. ABDOMEN: Soft, positive bowel sounds, tender diffusely, no organomegaly.no flank tenderness SKIN: No rash, no excessive bruising, petechiae, or purpura. NEUROLOGIC: AAO x 3, mucositis Psych: normal affect TPN noted and catheter Assessment & Plan 1/ Recurrent infections: due to immobility, multiple lines, admissions to hospital 2/ Steroid insuff, autonomic dysfn, small nerve fiber neuropathy -- 3/ constipation, better PLAN: 1/ will add IV famotidine 20 mg at night, will send message to Ivan to see if can help [facility]: [phone]-- call and verbal order then fax order per patient [facility] Medical History Constipation Fungal infection VRE (vancomycin-resistant Enterococci) Chronic, continuous use of opioids Small fiber polyneuropathy Hx pulmonary embolism Bacterial infection Septic arthritis Seizures Brain bleed Suprapubic catheter History of jejunostomy tube placement Hypothyroidism Diabetes GERD (gastroesophageal reflux disease) Unspecified convulsions Gastroparesis Asthma Brain tumor Neuropathy Surgical History Hx of cholecystectomy S/P urological surgery History of esophagogastroduodenoscopy (EGD) History of hip surgery Hx of endoscopy History of colonoscopy Hx of oral surgery Family History Father Skin cancer Mother No problems noted. Social History Household Members: Caregiver Household Members Other:: caregiver-live in aid Both parents involved: No Caregiver staying overnight: Yes Housing Other:: 24 hour care - live in aid Are you a primary intensive care specialist to a significant other at home: No Do you presently have visiting nurse or other home services: Yes (03/04 live in care) Alcohol intake: current Alcohol intake frequency: does not drink Comment: larger catheter inserted Patient Tobacco Use Status: Never used Tobacco Second Hand Smoke Exposure: No Advance Directives Date on File: 06/29/20 Physical Exam Vital Signs: Last Vital Signs Pulse 84 03/29/24 12:23 BP 122/66 03/29/24 12:23 BMI result Body Mass Index 16.1 Assessment & Plan Assessment & Plan (1) Constipation: Code(s): K59.00 - Constipation, unspecified Category: Medical Plan: see above Medications: New famotidine (PF) at night 20 mg (2 mL) IV Q12H 30 days 0RF Coding Level of Care Code Est Pt Level 3 (86185) Diagnoses Constipation K59.00
[2024-03-29 12:23] VITALS: BP 122/66; PULSE 84; BMI 16.1
== END 2024-03-29 12:58 | disposition home or self-care (01) ==
PROVIDERS: PCP Internal Medicine; Visit Provider Internal Medicine Gastroenterology
DX: K59.00 Constipation, unspecified (principal)
CPT/HCPCS: 99213

== ENCOUNTER → 2024-03-29 12:11 | Outpatient (BNVA) | payer OTHER, SELFPAY | PROVIDERS: PCP Internal Medicine; Visit Provider Internal Medicine Gastroenterology ==